=== PATIENT | male | born 1960 | race Hispanic/Latino ===

== ENCOUNTER 2020-12-29 10:07 | Observation (INO) | payer BC, OTHER ==
[~2020-12-29] VITALS: Ht 157.5 cm; Wt 69.6 kg
[2020-12-29 10:43] LABS: BASOPHILS % (AUTO) 0.5 % (0.0-5.0); EOSINOPHILS % (AUTO) 0.5 % (0.0-8.0); HEMATOCRIT 43.2 % (42-54); LYMPHOCYTES % (AUTO) 21.5 % (21.0-51.0); MEAN CORPUSCULAR HEMOGLOBIN 31.3 pg (27.0-33.0); MEAN CORPUSCULAR VOLUME 91.9 fL (79-99); MONOCYTES % (AUTO) 7.2 % (3.0-13.0); NEUTROPHILS % (AUTO) 70.1 % (40.0-77.0); PLATELET COUNT (AUTO) 168 K/uL (130-400); RED CELL DISTRIBUTION WIDTH 12.3 % (11.0-15.5); WHITE BLOOD COUNT (AUTO) 6.1 K/uL (4.8-10.8)
[2020-12-29 10:53] LABS: INR 1.12 (0.85-1.15); PROTHROMBIN TIME 12.1 SEC (9.6-11.6)
[2020-12-29 10:54] LABS: PARTIAL THROMBOPLASTIN TIME 25.4 SEC (26.3-35.5)
[2020-12-29 10:55] LABS: CREATININE 0.9 mg/dL (0.5-1.5); POTASSIUM 4.3 mmol/L (3.5-5.1)
[2020-12-29 11:06] LABS: ALBUMIN 3.6 g/dL (3.5-5.0); BILIRUBIN,TOTAL 0.6 mg/dL (0.2-1.0); TOTAL PROTEIN, SERUM 7.8 g/dL (6.0-8.3); TROPONIN I 0.1 ng/mL (0.00-0.06)
[2020-12-29 11:26] LABS: B-TYPE NATRIURETIC PEPTIDE 732 pg/mL (0-100)
[2020-12-29] MEDS ORDERED: HYDROMORPHONE 1MG AMP (1MG/ML) IVP ONE (11:45)
[2020-12-29] MEDS ORDERED: ONDANSETRON HCL 4 MG/2 ML VIAL IVP ONE (11:45)
[2020-12-29] MEDS ORDERED: FUROSEMIDE 20MG VIAL (10MG/ML) IV SCH ×2 (14:00→14:45)
[2020-12-29] MEDS ORDERED: ACETAMINOPHEN 325 MG TAB PO PRN (15:45)
[2020-12-29] MEDS ORDERED: ACETAMINOPHEN 650 MG SUPPOSITORY RC PRN (15:45)
[2020-12-29 16:25] LABS: APPEARANCE,URINE Clear (CLEAR); BILIRUBIN,URINE Negative (NEGATIVE); COLOR,URINE Yellow (YELLOW); GLUCOSE, URINE (UA) >=1000 mg/dL (NEGATIVE); KETONES,URINE 15 mg/dL (NEGATIVE); LEUKOCYTE ESTERASE ,URINE Negative (NEGATIVE); NITRATE,URINE Negative (NEGATIVE); OCCULT BLOOD,URINE Negative (NEGATIVE); PH,URINE 5.5 (5.0-8.0); PROTEIN,URINE Negative (NEGATIVE); UROBILINOGEN,URINE 0.2 mg/dL (0.2-1.0)
[2020-12-29 16:51] LABS: BACTERIA,URINE None Seen /HPF (None Seen); MUCUS,URINE Rare LPF (None Seen); SQUAMOUS EPITHELIAL CELL,UR 0-2 /HPF (0-2); WBC,URINE 0-1 /HPF (0-1)
[2020-12-29] MEDS: INSULIN HUMULIN R 100 UNIT/ML 3ML SQ SCH ×2 (17:30→21:00)
[2020-12-29 17:41] VITALS: BP 122/83
[2020-12-29 17:47] LABS: CREATINE KINASE, TOTAL 88 U/L (21-232); MYOGLOBIN 28 ng/mL (10-92); TROPONIN I < 0.04 ng/mL (0.00-0.06)
[2020-12-29] MEDS: NITROGLYCERIN 1GM/1 INCH PACKET TD SCH (18:30)
[2020-12-29] MEDS ORDERED: NITROGLYCERIN 0.4 MG SL TAB SL PRN (18:30)
[2020-12-29] MEDS ORDERED: POTASSIUM CHLORIDE 10% ELIXIR 20 MEQ/15 ML UDCUP PO PRN (19:30)
[2020-12-29] MEDS ORDERED: POTASSIUM CHLORIDE 20MEQ/100ML 100 ML IV PRN (19:30)
[2020-12-29] MEDS ORDERED: MAGNESIUM 2GM PREMIX 50ML 50 ML IV PRN (19:30)
[2020-12-29] MEDS ORDERED: ALBUTEROL SULFATE 0.083% 2.5 MG/3 ML INH IH PRN (19:45)
[2020-12-29 20:18] VITALS: BP 108/56
[2020-12-29] MEDS ORDERED: INSULIN HUMULIN R 100 UNIT/ML 3ML SQ SCH (21:00)
[2020-12-29] MEDS: SIMVASTATIN 20 MG TABLET PO SCH (22:05)
[2020-12-29 22:06] LABS: CREATINE KINASE, TOTAL 82 U/L (21-232); MYOGLOBIN 24 ng/mL (10-92); TROPONIN I < 0.04 ng/mL (0.00-0.06)
[2020-12-29 23:38] VITALS: BP 125/62
[2020-12-30] VITALS (9 sets, daily range): BP systolic 93–125; BP diastolic 54–87
[2020-12-30] MEDS ORDERED: FUROSEMIDE 20MG VIAL (10MG/ML) IV SCH
[2020-12-30] MEDS: NITROGLYCERIN 1GM/1 INCH PACKET TD SCH ×3 (02:30→17:42)
[2020-12-30 05:52] LABS: HEMATOCRIT 44.1 % (42-54); MEAN CORPUSCULAR HEMOGLOBIN 31.6 pg (27.0-33.0); MEAN CORPUSCULAR HGB CONC 34.9 g/dL (32.0-36.0); MEAN CORPUSCULAR VOLUME 90.6 fL (79-99); RED BLOOD CELL COUNT(AUTO) 4.87 MIL/uL (4.50-6.20); RED CELL DISTRIBUTION WIDTH 12.3 % (11.0-15.5); WHITE BLOOD COUNT (AUTO) 5.8 K/uL (4.8-10.8)
[2020-12-30 06:11] LABS: CARBON DIOXIDE 28 mmol/L (21-32); CHLORIDE 102 mmol/L (101-111); CREATINE KINASE, TOTAL 68 U/L (21-232); CREATININE 1.1 mg/dL (0.5-1.5); GLOMERULAR FILTR. RATE CALC 72 mL/min (>60); GLUCOSE,RANDOM 231 mg/dL (70-105); MYOGLOBIN 45 ng/mL (10-92); PHOSPHORUS 3.8 mg/dL (2.5-4.9); POTASSIUM 4.4 mmol/L (3.5-5.1); SODIUM SERUM 138 mmol/L (136-145); THYROID STIMULATING HORMONE 1.98 uIU/mL (0.36-3.74); TROPONIN I < 0.04 ng/mL (0.00-0.06); UREA NITROGEN, BLOOD 18 mg/dL (7-18)
[2020-12-30 06:12] LABS: HEMOGLOBIN A1C 11.2 % (4.0-6.0)
[2020-12-30] MEDS: FUROSEMIDE 20MG VIAL (10MG/ML) IV SCH (08:36)
[2020-12-30] MEDS: INSULIN HUMULIN R 100 UNIT/ML 3ML SQ SCH ×4 (08:36→20:46)
[2020-12-30] MEDS: ASPIRIN 81MG TAB.CHEW PO SCH (08:36)
[2020-12-30] MEDS: LISINOPRIL 5 MG TABLET PO SCH (08:36)
[2020-12-30] MEDS: ENOXAPARIN SODIUM 40 MG/0.4 ML SYRINGE SQ SCH (08:37)
[2020-12-30] MEDS: NICOTINE 14 MG/ 24 HR PATCH TD SCH (09:00)
[2020-12-30] MEDS: SIMVASTATIN 20 MG TABLET PO SCH (20:44)
[2020-12-31] MEDS ORDERED: METO-408 PO (02:15)
[2020-12-31] MEDS ORDERED: ATOR10 PO (02:15)
[2020-12-31] MEDS ORDERED: BICT1TAB PO (02:15)
[2020-12-31] MEDS ORDERED: GLIP10TA9 PO (02:15)
[2020-12-31] MEDS ORDERED: GEMF600T89 PO (02:15)
[2020-12-31] MEDS ORDERED: LISI2.5T2 PO (02:15)
[2020-12-31] MEDS ORDERED: METF-446 PO (02:15)
[2020-12-31] MEDS: NITROGLYCERIN 1GM/1 INCH PACKET TD SCH ×2 (02:23→09:05)
[2020-12-31 04:00] VITALS: BP 92/58
[2020-12-31] MEDS: INSULIN HUMULIN R 100 UNIT/ML 3ML SQ SCH ×2 (05:35→10:39)
[2020-12-31 05:36] LABS: HEMATOCRIT 44.7 % (42-54); MEAN CORPUSCULAR HGB CONC 34.5 g/dL (32.0-36.0); MEAN CORPUSCULAR VOLUME 89.9 fL (79-99); RED BLOOD CELL COUNT(AUTO) 4.97 MIL/uL (4.50-6.20); RED CELL DISTRIBUTION WIDTH 12.2 % (11.0-15.5); WHITE BLOOD COUNT (AUTO) 6.2 K/uL (4.8-10.8)
[2020-12-31 05:45] LABS: CREATININE 0.9 mg/dL (0.5-1.5); MAGNESIUM 1.7 mg/dL (1.80-2.40); POTASSIUM 3.2 mmol/L (3.5-5.1)
[2020-12-31] MEDS: ENOXAPARIN SODIUM 40 MG/0.4 ML SYRINGE SQ SCH (07:12)
[2020-12-31] MEDS: ASPIRIN 81MG TAB.CHEW PO SCH (07:12)
[2020-12-31] MEDS: NICOTINE 14 MG/ 24 HR PATCH TD SCH (07:13)
[2020-12-31] MEDS: FUROSEMIDE 20MG VIAL (10MG/ML) IV SCH (07:13)
[2020-12-31] MEDS: KCL 20 MEQ ERTAB PO PRN ×2 (07:14→09:04)
[2020-12-31] MEDS: LISINOPRIL 5 MG TABLET PO SCH (07:15)
[2020-12-31 07:50] VITALS: BP 89/63
[2020-12-31 11:33] VITALS: BP 93/60
[2020-12-31] MEDS ORDERED: FURO20TA4 PO (14:24)
== END 2020-12-31 17:25 | disposition home or self-care (01) ==
LOC: EDH 10:07 → EDHIP 15:45 → 4BH 12-30 06:42 → EDHIP 12-30 07:57 → 4CH 12-30 14:46
PROVIDERS: ADMIT Internal Medicine Pulmonary Disease; ATTEND Internal Medicine Pulmonary Disease
DX: I11.0 Hypertensive heart disease with heart failure (principal); I50.20 Unspecified systolic (congestive) heart failure; R79.89 Other specified abnormal findings of blood chemistry; E11.65 Type 2 diabetes mellitus with hyperglycemia; R09.89 Other specified symptoms and signs involving the circulatory and respiratory systems; R94.31 Abnormal electrocardiogram [ECG] [EKG]; E78.5 Hyperlipidemia, unspecified; R14.0 Abdominal distension (gaseous); R10.9 Unspecified abdominal pain; I25.10 Atherosclerotic heart disease of native coronary artery without angina pectoris; F17.200 Nicotine dependence, unspecified, uncomplicated; Z95.0 Presence of cardiac pacemaker; Z95.1 Presence of aortocoronary bypass graft; Z79.82 Long term (current) use of aspirin; Z79.84 Long term (current) use of oral hypoglycemic drugs; Z79.899 Other long term (current) drug therapy; Z91.19 Patient's noncompliance with other medical treatment and regimen
CPT/HCPCS: 36415 ×3; 71045 ×3; 80048 ×2; 80053; 81001; 82550 ×4; 82948 ×10; 83036; 83735 ×2; 83874 ×4; 83880; 84100; 84443; 84484 ×5; 85025; 85027 ×2; 85378; 85610; 85730; 86359; 86361; 87040 ×2; 93005 ×2; 94664; 96365; 96366; 96372 ×3; 96375; 96376 ×2; 99285; G0378 ×48; J1650 ×2; J1815 ×4; J1940 ×4; J3475

== ENCOUNTER 2021-01-19 17:39 | Observation (INO) | payer BC ==
[~2021-01-19] VITALS: Ht 170.2 cm; Wt 69.5 kg
[~2021-01-19 17:39] MED LIST: ATOR10 PO; BICT1TAB PO; FURO20TA4 PO; GEMF600T89 PO; GLIP10TA9 PO; LISI2.5T2 PO; METF-446 PO; METO-408 PO
[2021-01-19 17:40] VITALS: BP 126/78
[2021-01-19 18:23] LABS: BASOPHILS % (AUTO) 0.4 % (0.0-5.0); EOSINOPHILS % (AUTO) 1.6 % (0.0-8.0); LYMPHOCYTES % (AUTO) 28.4 % (21.0-51.0); MEAN CORPUSCULAR HEMOGLOBIN 31.4 pg (27.0-33.0); MEAN CORPUSCULAR HGB CONC 34.1 g/dL (32.0-36.0); MEAN CORPUSCULAR VOLUME 91.9 fL (79-99); MONOCYTES % (AUTO) 8.1 % (3.0-13.0); NEUTROPHILS % (AUTO) 61.2 % (40.0-77.0); PLATELET COUNT (AUTO) 207 K/uL (130-400); RED BLOOD CELL COUNT(AUTO) 4.46 MIL/uL (4.50-6.20); RED CELL DISTRIBUTION WIDTH 12.4 % (11.0-15.5); WHITE BLOOD COUNT (AUTO) 6.9 K/uL (4.8-10.8)
[2021-01-19 18:43] LABS: ALANINE AMINOTRANSFERASE 118 U/L (12-78); ALBUMIN 3.3 g/dL (3.5-5.0); ASPARTATE AMINOTRANSFERASE 48 U/L (10-37); BILIRUBIN,TOTAL 0.4 mg/dL (0.2-1.0); CARBON DIOXIDE 27 mmol/L (21-32); CHLORIDE 101 mmol/L (101-111); CREATINE KINASE, TOTAL 122 U/L (21-232); GLOMERULAR FILTR. RATE CALC 81 mL/min (>60); MYOGLOBIN 28 ng/mL (10-92); POTASSIUM 4.2 mmol/L (3.5-5.1); SODIUM SERUM 137 mmol/L (136-145); TOTAL PROTEIN, SERUM 7.5 g/dL (6.0-8.3); TROPONIN I < 0.04 ng/mL (0.00-0.06); UREA NITROGEN, BLOOD 22 mg/dL (7-18)
[2021-01-19 18:44] LABS: GLUCOSE,RANDOM 402 mg/dL (70-105)
[2021-01-19 18:46] VITALS: BP 132/75
[2021-01-19 18:52] LABS: B-TYPE NATRIURETIC PEPTIDE 1220 pg/mL (0-100)
[2021-01-19] MEDS ORDERED: FUROSEMIDE 40MG VIAL IV ONE (20:30)
[2021-01-19] MEDS ORDERED: LACTULOSE 20 GM/30 ML UDCUP PO PRN (20:45)
[2021-01-19] MEDS ORDERED: ONDANSETRON 4MG INJ IV PRN (20:45)
[2021-01-19] MEDS ORDERED: ACETAMINOPHEN 325 MG TAB PO PRN (20:45)
[2021-01-19] MEDS ORDERED: HYDRALAZINE 20MG/ML VIAL IV PRN (20:45)
[2021-01-19] MEDS: FUROSEMIDE 40MG VIAL IVP SCH (21:00)
[2021-01-19] MEDS ORDERED: NICOTINE 14 MG/ 24 HR PATCH TD PRN (21:15)
[2021-01-19] MEDS: IPRATROPIUM/ALBUTEROL SULFATE 3 ML SOLUTION IH SCH (22:14)
[2021-01-19] MEDS: INSULIN HUMULIN R 100 UNIT/ML 3ML SQ SCH (22:31)
[2021-01-19] MEDS: INSULIN GLARGINE 100 UNITS/ML 10 ML VIAL SQ SCH (22:31)
[2021-01-19] MEDS: FAMOTIDINE 20MG TAB PO SCH (22:31)
[2021-01-20] MEDS: IPRATROPIUM/ALBUTEROL SULFATE 3 ML SOLUTION IH SCH ×6 (04:11→22:44)
[2021-01-20 05:23] VITALS: BP 111/67
[2021-01-20 06:37] LABS: BASOPHILS % (AUTO) 0.4 % (0.0-5.0); HEMATOCRIT 40.9 % (42-54); MEAN CORPUSCULAR HEMOGLOBIN 30.4 pg (27.0-33.0); MEAN CORPUSCULAR VOLUME 89.5 fL (79-99); MONOCYTES % (AUTO) 7.7 % (3.0-13.0); NEUTROPHILS % (AUTO) 66.6 % (40.0-77.0); PLATELET COUNT (AUTO) 211 K/uL (130-400); RED BLOOD CELL COUNT(AUTO) 4.57 MIL/uL (4.50-6.20); RED CELL DISTRIBUTION WIDTH 12.2 % (11.0-15.5); WHITE BLOOD COUNT (AUTO) 6.7 K/uL (4.8-10.8)
[2021-01-20 06:43] LABS: HEMOGLOBIN A1C 11.4 % (4.0-6.0)
[2021-01-20 06:52] LABS: CREATININE 0.9 mg/dL (0.5-1.5); MAGNESIUM 1.6 mg/dL (1.80-2.40); PHOSPHORUS 4.7 mg/dL (2.5-4.9); POTASSIUM 3.2 mmol/L (3.5-5.1)
[2021-01-20 07:10] VITALS: BP 101/57
[2021-01-20] MEDS: INSULIN HUMULIN R 100 UNIT/ML 3ML SQ SCH ×4 (07:30→23:38)
[2021-01-20] MEDS: FUROSEMIDE 40MG VIAL IVP SCH ×2 (09:00→20:29)
[2021-01-20] MEDS: FAMOTIDINE 20MG TAB PO SCH ×2 (09:00→20:29)
[2021-01-20] MEDS: ENOXAPARIN SODIUM 30 MG/0.3 ML SQ SCH (09:00)
[2021-01-20] MEDS ORDERED: METO-408 PO (09:26)
[2021-01-20] MEDS ORDERED: BICT1TAB PO (09:26)
[2021-01-20] MEDS ORDERED: GLIP10TA9 PO (09:26)
[2021-01-20] MEDS ORDERED: ASPI-1197 PO (09:26)
[2021-01-20] MEDS ORDERED: LISI2.5T2 PO (09:26)
[2021-01-20] MEDS ORDERED: METF-446 PO (09:26)
[2021-01-20] MEDS ORDERED: FURO10SO PO (09:26)
[2021-01-20] MEDS ORDERED: ATOR10 PO (09:26)
[2021-01-20 11:00] VITALS: BP 104/63
[2021-01-20 16:00] VITALS: BP 109/66
[2021-01-20 20:00] VITALS: BP 99/50
[2021-01-20] MEDS: INSULIN GLARGINE 100 UNITS/ML 10 ML VIAL SQ SCH (23:37)
[2021-01-21] VITALS: BP 106/69
[2021-01-21] MEDS ORDERED: LIDOCAINE HCL-MPF 1% 2ML VIAL IV PRN (01:15)
[2021-01-21] MEDS ORDERED: POTASSIUM CHLORIDE 10% ELIXIR 20 MEQ/15 ML UDCUP PO PRN (01:15)
[2021-01-21] MEDS ORDERED: POTASSIUM CHLORIDE 20MEQ/100ML 100 ML IV PRN (01:15)
[2021-01-21] MEDS: IPRATROPIUM/ALBUTEROL SULFATE 3 ML SOLUTION IH SCH ×4 (02:23→14:01)
[2021-01-21 04:00] VITALS: BP 112/62
[2021-01-21 05:05] LABS: BASOPHILS % (AUTO) 0.7 % (0.0-5.0); EOSINOPHILS % (AUTO) 2.3 % (0.0-8.0); HEMATOCRIT 41.7 % (42-54); LYMPHOCYTES % (AUTO) 25.4 % (21.0-51.0); MEAN CORPUSCULAR HEMOGLOBIN 31.3 pg (27.0-33.0); MEAN CORPUSCULAR HGB CONC 34.3 g/dL (32.0-36.0); MEAN CORPUSCULAR VOLUME 91.2 fL (79-99); MONOCYTES % (AUTO) 10.1 % (3.0-13.0); NEUTROPHILS % (AUTO) 61.2 % (40.0-77.0); PLATELET COUNT (AUTO) 213 K/uL (130-400); RED BLOOD CELL COUNT(AUTO) 4.57 MIL/uL (4.50-6.20); RED CELL DISTRIBUTION WIDTH 12.4 % (11.0-15.5); WHITE BLOOD COUNT (AUTO) 7.3 K/uL (4.8-10.8)
[2021-01-21 05:11] LABS: CREATININE 0.9 mg/dL (0.5-1.5); POTASSIUM 3.2 mmol/L (3.5-5.1)
[2021-01-21] MEDS: INSULIN HUMULIN R 100 UNIT/ML 3ML SQ SCH ×2 (05:34→12:18)
[2021-01-21] MEDS: KCL 20 MEQ ERTAB PO PRN ×2 (05:56→08:19)
[2021-01-21] MEDS: FUROSEMIDE 40MG VIAL IVP SCH (08:16)
[2021-01-21] MEDS: FAMOTIDINE 20MG TAB PO SCH (08:16)
[2021-01-21] MEDS: ENOXAPARIN SODIUM 30 MG/0.3 ML SQ SCH (08:16)
[2021-01-21 08:26] VITALS: BP 113/65
[2021-01-21] MEDS ORDERED: FURO20TA6 PO (10:29)
[2021-01-21] MEDS ORDERED: POTA-9 PO (10:29)
[2021-01-21] MEDS ORDERED: POTASSIUM BICARB/CIT AC 25 MEQ TABLET.EFF PO SCH (10:30)
[2021-01-21 11:14] VITALS: BP 95/58
[2021-01-21] MEDS ORDERED: INSULIN HUMULIN R 100 UNIT/ML 3ML SQ ONE (13:52)
== END 2021-01-21 15:00 | disposition home or self-care (01) ==
LOC: EDH 17:39 → EDHIP 20:34 → 3CH 01-20 08:20
PROVIDERS: ADMIT Internal Medicine; ATTEND Internal Medicine
DX: I11.0 Hypertensive heart disease with heart failure (principal); I50.23 Acute on chronic systolic (congestive) heart failure; I25.10 Atherosclerotic heart disease of native coronary artery without angina pectoris; E11.65 Type 2 diabetes mellitus with hyperglycemia; E44.1 Mild protein-calorie malnutrition; E78.00 Pure hypercholesterolemia, unspecified; E78.5 Hyperlipidemia, unspecified; F17.200 Nicotine dependence, unspecified, uncomplicated; N17.9 Acute kidney failure, unspecified; R74.01 Elevation of levels of liver transaminase levels; Z21 Asymptomatic human immunodeficiency virus [HIV] infection status; Z79.4 Long term (current) use of insulin; Z79.82 Long term (current) use of aspirin; Z79.899 Other long term (current) drug therapy; Z90.49 Acquired absence of other specified parts of digestive tract; Z91.19 Patient's noncompliance with other medical treatment and regimen; Z95.1 Presence of aortocoronary bypass graft
CPT/HCPCS: 36415 ×3; 71045; 80048 ×2; 80053; 82550; 82948 ×8; 83036; 83735; 83874; 83880; 84100; 84484; 85025 ×3; 93005; 93306; 93356; 93970; 94640 ×11; 94664; 96372 ×3; 96374; 96376 ×2; 99285; G0378 ×38; J1650; J1815 ×6; J1940 ×3

== ENCOUNTER 2021-06-02 09:18 | Inpatient (IN) | payer BC ==
[~2021-06-02] VITALS: Ht 162.6 cm; Wt 69.4 kg
[~2021-06-02 09:18] MED LIST changes: +ASPI-1197 PO; -FURO20TA4 PO; +FURO20TA6 PO; -GEMF600T89 PO; +LISI2.5T13 PO; -LISI2.5T2 PO; +POTA-10 PO
[2021-06-02 09:51] LABS: BASOPHILS % (AUTO) 0.4 % (0.0-5.0); EOSINOPHILS % (AUTO) 0.3 % (0.0-8.0); HEMATOCRIT 41.7 % (42-54); LYMPHOCYTES % (AUTO) 14.9 % (21.0-51.0); MEAN CORPUSCULAR HGB CONC 34.1 g/dL (32.0-36.0); MONOCYTES % (AUTO) 5.1 % (3.0-13.0); NEUTROPHILS % (AUTO) 79.2 % (40.0-77.0); PLATELET COUNT (AUTO) 178 K/uL (130-400); RED BLOOD CELL COUNT(AUTO) 4.58 MIL/uL (4.50-6.20); RED CELL DISTRIBUTION WIDTH 12.4 % (11.0-15.5); WHITE BLOOD COUNT (AUTO) 6.8 K/uL (4.8-10.8)
[2021-06-02] MEDS ORDERED: NITROGLYCERIN 1GM OINT 1 INCH/1GM TD ONE (10:00)
[2021-06-02] MEDS ORDERED: ASPIRIN 81MG CHEW TAB PO ONE (10:00)
[2021-06-02 10:03] LABS: INR 1.09 (0.85-1.15); PROTHROMBIN TIME 11.8 SEC (9.6-11.6)
[2021-06-02 10:04] LABS: PARTIAL THROMBOPLASTIN TIME 26.1 SEC (26.3-35.5)
[2021-06-02 10:14] LABS: ALBUMIN 3.6 g/dL (3.5-5.0); B-TYPE NATRIURETIC PEPTIDE 1190 pg/mL (0-100); BILIRUBIN,TOTAL 0.6 mg/dL (0.2-1.0); CREATININE 0.9 mg/dL (0.5-1.5); MAGNESIUM 1.6 mg/dL (1.80-2.40); POTASSIUM 4.2 mmol/L (3.5-5.1); TOTAL PROTEIN, SERUM 7.6 g/dL (6.0-8.3)
[2021-06-02] MEDS ORDERED: FUROSEMIDE 40MG VIAL ONE (10:30)
[2021-06-02] MEDS ORDERED: FUROSEMIDE 40MG VIAL IV SCH (10:30)
[2021-06-02] MEDS ORDERED: ZOLPIDEM TARTRATE 5 MG TAB PO PRN (12:00)
[2021-06-02] MEDS ORDERED: ACETAMINOPHEN 325 MG TAB PO PRN ×2 (12:00)
[2021-06-02] MEDS ORDERED: ONDANSETRON 4MG INJ IV PRN (12:00)
[2021-06-02] MEDS ORDERED: GEMF600T89 PO (12:17)
[2021-06-02] MEDS ORDERED: DAPA10TA PO (12:17)
[2021-06-02 12:30] LABS: APPEARANCE,URINE Clear (CLEAR); BILIRUBIN,URINE Negative (NEGATIVE); COLOR,URINE Yellow (YELLOW); GLUCOSE, URINE (UA) >=1000 mg/dL (NEGATIVE); KETONES,URINE 15 mg/dL (NEGATIVE); LEUKOCYTE ESTERASE ,URINE Negative (NEGATIVE); NITRATE,URINE Negative (NEGATIVE); OCCULT BLOOD,URINE Negative (NEGATIVE); PH,URINE 5.5 (5.0-8.0); PROTEIN,URINE Negative (NEGATIVE)
[2021-06-02] MEDS ORDERED: MAGNESIUM 2GM PREMIX 50ML 50 ML IV PRN (12:30)
[2021-06-02 12:46] LABS: BACTERIA,URINE Rare /HPF (None Seen); RBC,URINE None Seen /HPF (0-1); SQUAMOUS EPITHELIAL CELL,UR Rare /HPF (0-2); WBC,URINE 0-1 /HPF (0-1)
[2021-06-02] MEDS: GEMFIBROZIL 600 MG TABLET PO SCH (16:30)
[2021-06-02] MEDS: GLIPIZIDE 5 MG TABLET PO SCH (17:00)
[2021-06-02] MEDS: FAMOTIDINE 20MG TAB PO SCH (20:46)
[2021-06-02] MEDS: FUROSEMIDE 40MG VIAL IVP SCH (20:46)
[2021-06-03 07:16] LABS: BASOPHILS % (AUTO) 0.5 % (0.0-5.0); EOSINOPHILS % (AUTO) 1.6 % (0.0-8.0); HEMATOCRIT 44.2 % (42-54); MEAN CORPUSCULAR HEMOGLOBIN 30.9 pg (27.0-33.0); MEAN CORPUSCULAR HGB CONC 34.4 g/dL (32.0-36.0); MEAN CORPUSCULAR VOLUME 89.8 fL (79-99); MONOCYTES % (AUTO) 9.3 % (3.0-13.0); NEUTROPHILS % (AUTO) 65.3 % (40.0-77.0); PLATELET COUNT (AUTO) 193 K/uL (130-400); RED BLOOD CELL COUNT(AUTO) 4.92 MIL/uL (4.50-6.20); RED CELL DISTRIBUTION WIDTH 12.4 % (11.0-15.5); WHITE BLOOD COUNT (AUTO) 6.1 K/uL (4.8-10.8)
[2021-06-03 07:53] LABS: B-TYPE NATRIURETIC PEPTIDE 937 pg/mL (0-100)
[2021-06-03] MEDS: GEMFIBROZIL 600 MG TABLET PO SCH ×2 (08:28→17:00)
[2021-06-03] MEDS: GLIPIZIDE 5 MG TABLET PO SCH (08:28)
[2021-06-03] MEDS ORDERED: LISINOPRIL 2.5 MG TABLET PO SCH (09:00)
[2021-06-03] MEDS: ASPIRIN 81MG CHEW TAB PO SCH (09:05)
[2021-06-03] MEDS: METOPROLOL SUCCINATE 50 MG TAB.SR.24H PO SCH (09:05)
[2021-06-03] MEDS: FAMOTIDINE 20MG TAB PO SCH ×2 (09:05→21:34)
[2021-06-03] MEDS: ENOXAPARIN SODIUM 30 MG/0.3 ML SQ SCH (09:05)
[2021-06-03] MEDS: FUROSEMIDE 40MG VIAL IVP SCH (09:05)
[2021-06-03 09:12] LABS: ALBUMIN 3.7 g/dL (3.5-5.0); BILIRUBIN,TOTAL 0.8 mg/dL (0.2-1.0); CREATININE 0.8 mg/dL (0.5-1.5); MAGNESIUM 2.2 mg/dL (1.80-2.40); POTASSIUM 3.8 mmol/L (3.5-5.1); TOTAL PROTEIN, SERUM 8.1 g/dL (6.0-8.3)
[2021-06-03] MEDS: Dapagliflozin Propanediol (Farxiga) 10 MG PO SCH (09:42)
[2021-06-03] MEDS: SPIRONOLACTONE 25 MG TAB PO SCH (11:02)
[2021-06-03] MEDS ORDERED: INSULIN HUMULIN R 100 UNIT/ML 3ML SQ SCH (11:30)
[2021-06-03 11:39] VITALS: BP 111/70
[2021-06-03 12:41] LABS: HEMOGLOBIN A1C 9.3 % (4.0-6.0)
[2021-06-03 16:00] VITALS: BP 111/69
[2021-06-03] MEDS: INSULIN HUMULIN R 100 UNIT/ML 3ML SQ SCH ×3 (16:30→21:40)
[2021-06-03] MEDS ORDERED: INSULIN GLARGINE 100 UNITS/ML 10 ML VIAL SQ SCH (17:00)
[2021-06-03] MEDS ORDERED: METFORMIN HCL 500 MG TABLET PO SCH (17:00)
[2021-06-03 20:00] VITALS: BP 104/61
[2021-06-04] VITALS: BP 107/63
[2021-06-04 04:00] VITALS: BP 109/64
[2021-06-04 06:31] LABS: BASOPHILS % (AUTO) 0.8 % (0.0-5.0); EOSINOPHILS % (AUTO) 2.5 % (0.0-8.0); HEMATOCRIT 47.7 % (42-54); LYMPHOCYTES % (AUTO) 30.5 % (21.0-51.0); MEAN CORPUSCULAR HEMOGLOBIN 31.3 pg (27.0-33.0); MEAN CORPUSCULAR HGB CONC 34.2 g/dL (32.0-36.0); MEAN CORPUSCULAR VOLUME 91.7 fL (79-99); MONOCYTES % (AUTO) 9.8 % (3.0-13.0); NEUTROPHILS % (AUTO) 56.2 % (40.0-77.0); PLATELET COUNT (AUTO) 217 K/uL (130-400); RED CELL DISTRIBUTION WIDTH 12.7 % (11.0-15.5); WHITE BLOOD COUNT (AUTO) 6.3 K/uL (4.8-10.8)
[2021-06-04] MEDS: GEMFIBROZIL 600 MG TABLET PO SCH (06:46)
[2021-06-04] MEDS: INSULIN HUMULIN R 100 UNIT/ML 3ML SQ SCH ×4 (06:49→12:13)
[2021-06-04 06:50] LABS: POTASSIUM 3.9 mmol/L (3.5-5.1)
[2021-06-04] MEDS: ENOXAPARIN SODIUM 30 MG/0.3 ML SQ SCH (08:21)
[2021-06-04] MEDS: METOPROLOL SUCCINATE 50 MG TAB.SR.24H PO SCH (08:22)
[2021-06-04] MEDS: SPIRONOLACTONE 25 MG TAB PO SCH (08:22)
[2021-06-04] MEDS: ASPIRIN 81MG CHEW TAB PO SCH (08:23)
[2021-06-04] MEDS: Dapagliflozin Propanediol (Farxiga) 10 MG PO SCH (08:23)
[2021-06-04] MEDS: FAMOTIDINE 20MG TAB PO SCH (08:23)
[2021-06-04 08:50] VITALS: BP 116/74
[2021-06-04] MEDS ORDERED: LISINOPRIL 5 MG TABLET PO SCH (09:00)
[2021-06-04] MEDS ORDERED: SPIR25TA6 PO (10:06)
[2021-06-04 11:39] VITALS: BP 106/66
[2021-06-04] MEDS ORDERED: SEMA7TAB PO (15:28)
== END 2021-06-04 16:49 | disposition home or self-care (01) | DRG 291 ==
LOC: EDH 09:18 → EDHIP 11:39 → 4CH 06-03 10:30
PROVIDERS: ADMIT Hospitalist; ATTEND Hospitalist
DX: I13.0 Hypertensive heart and chronic kidney disease with heart failure and stage 1 through stage 4 chronic kidney disease, or unspecified chronic kidney disease (principal); J96.01 Acute respiratory failure with hypoxia; I50.43 Acute on chronic combined systolic (congestive) and diastolic (congestive) heart failure; E11.22 Type 2 diabetes mellitus with diabetic chronic kidney disease; E11.65 Type 2 diabetes mellitus with hyperglycemia; N18.2 Chronic kidney disease, stage 2 (mild); Z20.822 Contact with and (suspected) exposure to COVID-19; E78.00 Pure hypercholesterolemia, unspecified; F17.200 Nicotine dependence, unspecified, uncomplicated; E78.5 Hyperlipidemia, unspecified; E83.42 Hypomagnesemia; I25.10 Atherosclerotic heart disease of native coronary artery without angina pectoris; E11.42 Type 2 diabetes mellitus with diabetic polyneuropathy; Z21 Asymptomatic human immunodeficiency virus [HIV] infection status; I49.3 Ventricular premature depolarization; Z79.84 Long term (current) use of oral hypoglycemic drugs; Z95.1 Presence of aortocoronary bypass graft; Z95.810 Presence of automatic (implantable) cardiac defibrillator; Z91.19 Patient's noncompliance with other medical treatment and regimen; Z82.49 Family history of ischemic heart disease and other diseases of the circulatory system
CPT/HCPCS: 36415; 71045; 80048; 80053; 81001; 82948; 83036; 83735; 83880; 84484; 85025; 85610; 85730; 87635; 93005; 99291; C9803; G0378; J1650; J1815; J1940; J3475

== ENCOUNTER 2022-03-30 16:09 | Inpatient (IN) | payer BC, OTHER ==
[~2022-03-30] VITALS: Ht 167.6 cm; Wt 66.5 kg
[~2022-03-30 16:09] MED LIST changes: +DAPA10TA PO; -FURO20TA6 PO; +GEMF600T89 PO; -POTA-10 PO; +SEMA7TAB2 PO; +SPIR25TA6 PO
[2022-03-30 16:33] LABS: BASOPHILS % (AUTO) 0.7 % (0.0-5.0); EOSINOPHILS % (AUTO) 1.1 % (0.0-8.0); HEMATOCRIT 39.5 % (42-54); LYMPHOCYTES % (AUTO) 22.8 % (21.0-51.0); MEAN CORPUSCULAR HEMOGLOBIN 31.5 pg (27.0-33.0); MEAN CORPUSCULAR HGB CONC 33.9 g/dL (32.0-36.0); MEAN CORPUSCULAR VOLUME 92.7 fL (79-99); MONOCYTES % (AUTO) 8.8 % (3.0-13.0); NEUTROPHILS % (AUTO) 66.1 % (40.0-77.0); PLATELET COUNT (AUTO) 163 K/uL (130-400); RED BLOOD CELL COUNT(AUTO) 4.26 MIL/uL (4.50-6.20); RED CELL DISTRIBUTION WIDTH 12.7 % (11.0-15.5); WHITE BLOOD COUNT (AUTO) 6.1 K/uL (4.8-10.8)
[2022-03-30 16:42] LABS: ABG BASE EXCESS -0.3 mmol/L (-2.0-3.0); ABG HCO3 22.7 mmol/L (21.0-28.0); ABG OXYGEN SATURATION 95.8 % (95.0-99.0); ABG PCO2 33 mmHg (35-48)
[2022-03-30 16:43] LABS: POTASSIUM 4.2 mmol/L (3.5-5.1)
[2022-03-30 16:50] LABS: ALBUMIN 3.6 g/dL (3.5-5.0); MAGNESIUM 1.6 mg/dL (1.80-2.40); TOTAL PROTEIN, SERUM 7.5 g/dL (6.0-8.3)
[2022-03-30] MEDS ORDERED: FUROSEMIDE 40MG VIAL ONE (17:42)
[2022-03-30] MEDS ORDERED: FUROSEMIDE 40MG VIAL IV ONE (18:00)
[2022-03-30] MEDS ORDERED: IOHEXOL 350 MG/ML 100ML INFUS..BTL IV ONE (18:56)
[2022-03-30] MEDS ORDERED: ACETAMINOPHEN 325 MG TAB PO PRN ×2 (19:30)
[2022-03-30] MEDS ORDERED: ONDANSETRON 4MG INJ IV PRN (19:30)
[2022-03-30] MEDS ORDERED: LACTULOSE 20 GM/30 ML UDCUP PO PRN (19:30)
[2022-03-30] MEDS: ZOSYN 3.375GM +NS 50ML IV SCH (19:37)
[2022-03-30] MEDS: FUROSEMIDE 40MG VIAL IV SCH (20:44)
[2022-03-30] MEDS: FAMOTIDINE 20MG VIAL IV SCH (20:44)
[2022-03-30] MEDS ORDERED: MAGNESIUM 2GM PREMIX 50ML 50 ML IV ONE (21:51)
[2022-03-30] MEDS ORDERED: LIDOCAINE HCL-MPF 1% 2ML VIAL IV PRN (22:00)
[2022-03-30] MEDS ORDERED: POTASSIUM CHLORIDE 20MEQ/100ML 100 ML IV PRN (22:00)
[2022-03-30 23:00] VITALS: BP 120/75
[2022-03-31] MEDS ORDERED: LISI10TA24 PO (00:11)
[2022-03-31] MEDS ORDERED: ATOR10 PO (00:13)
[2022-03-31] MEDS ORDERED: FURO20TA4 PO (00:13)
[2022-03-31] MEDS ORDERED: DAPA10TA PO (00:14)
[2022-03-31] MEDS: ZOSYN 3.375GM +NS 50ML IV SCH ×3 (04:33→22:42)
[2022-03-31 04:39] VITALS: BP 122/78
[2022-03-31] MEDS: INSULIN HUMULIN R 100 UNIT/ML 3ML SQ SCH ×5 (06:00→22:44)
[2022-03-31 07:55] LABS: BASOPHILS % (AUTO) 0.5 % (0.0-5.0); EOSINOPHILS % (AUTO) 1.8 % (0.0-8.0); HEMATOCRIT 42.3 % (42-54); LYMPHOCYTES % (AUTO) 19.7 % (21.0-51.0); MEAN CORPUSCULAR HEMOGLOBIN 31.3 pg (27.0-33.0); MEAN CORPUSCULAR HGB CONC 33.3 g/dL (32.0-36.0); MEAN CORPUSCULAR VOLUME 93.8 fL (79-99); MONOCYTES % (AUTO) 8.8 % (3.0-13.0); NEUTROPHILS % (AUTO) 68.8 % (40.0-77.0); PLATELET COUNT (AUTO) 192 K/uL (130-400); RED BLOOD CELL COUNT(AUTO) 4.51 MIL/uL (4.50-6.20); RED CELL DISTRIBUTION WIDTH 12.9 % (11.0-15.5); WHITE BLOOD COUNT (AUTO) 7.6 K/uL (4.8-10.8)
[2022-03-31 08:06] LABS: ALBUMIN 3.6 g/dL (3.5-5.0); CRP QUANTITATIVE 3.2 mg/L (0.00-9.0); MAGNESIUM 1.8 mg/dL (1.80-2.40); POTASSIUM 3.2 mmol/L (3.5-5.1); TOTAL PROTEIN, SERUM 7.6 g/dL (6.0-8.3)
[2022-03-31 08:49] VITALS: BP 112/73
[2022-03-31 09:03] LABS: ERYTHROCYTE SEDIMENTATION RATE 3 MM/HR (0-20)
[2022-03-31] MEDS ORDERED: DIATR MEGLU/DIATRIZOATE SODIUM 30 ML BOTTLE ONE (09:05)
[2022-03-31] MEDS ORDERED: SPIRONOLACTONE 25 MG TAB PO SCH (10:00)
[2022-03-31] MEDS: FUROSEMIDE 40MG VIAL IV SCH (10:32)
[2022-03-31] MEDS: SPIRONOLACTONE 25 MG TAB PO SCH (10:32)
[2022-03-31] MEDS: FAMOTIDINE 20MG VIAL IV SCH ×2 (10:32→22:41)
[2022-03-31] MEDS: LISINOPRIL 5 MG TABLET PO SCH (11:00)
[2022-03-31 12:21] VITALS: BP 120/77
[2022-03-31] MEDS ORDERED: IOHEXOL 350 MG/ML 100ML INFUS..BTL IV ONE (15:18)
[2022-03-31] MEDS ORDERED: GEMFIBROZIL 600 MG TABLET PO SCH (16:30)
[2022-03-31 16:57] VITALS: BP 112/74
[2022-03-31 20:34] VITALS: BP 115/73
[2022-03-31] MEDS: BIKTARVY PO SCH (21:00)
[2022-03-31] MEDS: ATORVASTATIN 20 MG TABLET PO SCH (22:41)
[2022-03-31] MEDS: METOPROLOL SUCCINATE 25 MG TAB.SR.24H PO SCH (22:41)
[2022-03-31] MEDS: FUROSEMIDE 40 MG TABLET PO SCH (22:42)
[2022-03-31] MEDS ORDERED: KCL 20 MEQ ERTAB PO ONE ×2 (23:29→23:30)
[2022-03-31 23:35] VITALS: BP 114/73
[2022-04-01 04:28] VITALS: BP 126/58
[2022-04-01 05:03] LABS: BASOPHILS % (AUTO) 0.7 % (0.0-5.0); EOSINOPHILS % (AUTO) 2.8 % (0.0-8.0); HEMATOCRIT 46.4 % (42-54); LYMPHOCYTES % (AUTO) 22.4 % (21.0-51.0); MEAN CORPUSCULAR HEMOGLOBIN 30.8 pg (27.0-33.0); MEAN CORPUSCULAR HGB CONC 33.6 g/dL (32.0-36.0); MEAN CORPUSCULAR VOLUME 91.7 fL (79-99); MONOCYTES % (AUTO) 10.7 % (3.0-13.0); NEUTROPHILS % (AUTO) 63.1 % (40.0-77.0); PLATELET COUNT (AUTO) 194 K/uL (130-400); RED BLOOD CELL COUNT(AUTO) 5.06 MIL/uL (4.50-6.20); RED CELL DISTRIBUTION WIDTH 12.3 % (11.0-15.5); WHITE BLOOD COUNT (AUTO) 5.8 K/uL (4.8-10.8)
[2022-04-01 05:22] LABS: ALBUMIN 3.4 g/dL (3.5-5.0); CREATININE 1.1 mg/dL (0.5-1.5); CRP QUANTITATIVE 4.2 mg/L (0.00-9.0); MAGNESIUM 1.6 mg/dL (1.80-2.40); POTASSIUM 3.6 mmol/L (3.5-5.1); TOTAL PROTEIN, SERUM 7.5 g/dL (6.0-8.3)
[2022-04-01] MEDS: INSULIN HUMULIN R 100 UNIT/ML 3ML SQ SCH ×4 (06:30→22:12)
[2022-04-01] MEDS: ZOSYN 3.375GM +NS 50ML IV SCH ×3 (06:31→22:10)
[2022-04-01] MEDS: FUROSEMIDE 40 MG TABLET PO SCH ×2 (06:32→20:04)
[2022-04-01 08:06] VITALS: BP 104/68
[2022-04-01] MEDS ORDERED: MAGNESIUM 2GM PREMIX 50ML 50 ML IV SCH (08:30)
[2022-04-01] MEDS ORDERED: KCL 20 MEQ ERTAB PO ONE (08:30)
[2022-04-01] MEDS: FAMOTIDINE 20MG VIAL IV SCH ×2 (10:20→22:10)
[2022-04-01] MEDS: SPIRONOLACTONE 25 MG TAB PO SCH (10:20)
[2022-04-01] MEDS: LISINOPRIL 5 MG TABLET PO SCH (10:20)
[2022-04-01 11:30] VITALS: BP 104/67
[2022-04-01 16:05] VITALS: BP 90/54
[2022-04-01 20:27] VITALS: BP 90/50
[2022-04-01] MEDS: BIKTARVY PO SCH (21:00)
[2022-04-01] MEDS: METOPROLOL SUCCINATE 25 MG TAB.SR.24H PO SCH (22:10)
[2022-04-01] MEDS: ATORVASTATIN 20 MG TABLET PO SCH (22:10)
[2022-04-01 23:53] VITALS: BP 86/57
[2022-04-02 03:35] VITALS: BP 90/48
[2022-04-02 05:10] LABS: HEMATOCRIT 46.7 % (42-54); MEAN CORPUSCULAR HEMOGLOBIN 31.6 pg (27.0-33.0); MEAN CORPUSCULAR HGB CONC 33.8 g/dL (32.0-36.0); MEAN CORPUSCULAR VOLUME 93.4 fL (79-99); RED CELL DISTRIBUTION WIDTH 12.4 % (11.0-15.5); WHITE BLOOD COUNT (AUTO) 5.2 K/uL (4.8-10.8)
[2022-04-02 05:20] LABS: CREATININE 1.2 mg/dL (0.5-1.5); POTASSIUM 3.7 mmol/L (3.5-5.1)
[2022-04-02] MEDS: ZOSYN 3.375GM +NS 50ML IV SCH (05:32)
[2022-04-02] MEDS: INSULIN HUMULIN R 100 UNIT/ML 3ML SQ SCH (05:57)
[2022-04-02 08:30] VITALS: BP 99/62
[2022-04-02] MEDS: FAMOTIDINE 20MG VIAL IV SCH (08:35)
[2022-04-02] MEDS: SPIRONOLACTONE 25 MG TAB PO SCH (08:35)
[2022-04-02] MEDS: FUROSEMIDE 40 MG TABLET PO SCH (08:35)
[2022-04-02] MEDS: LISINOPRIL 5 MG TABLET PO SCH (08:35)
[2022-04-02] MEDS ORDERED: LISI5TAB21 PO (10:43)
[2022-04-02] MEDS ORDERED: METO25TA3 PO (10:43)
[2022-04-02] MEDS ORDERED: FURO40TA7 PO (10:43)
[2022-04-02] MEDS ORDERED: SPIR25TA6 PO (10:43)
== END 2022-04-02 12:05 | disposition home or self-care (01) | DRG 291 ==
LOC: EDH 16:09 → EDHIP 16:10 → 3AH 23:21
PROVIDERS: ADMIT Hospitalist; ATTEND Hospitalist
DX: I11.0 Hypertensive heart disease with heart failure (principal); I50.23 Acute on chronic systolic (congestive) heart failure; E11.9 Type 2 diabetes mellitus without complications; E78.00 Pure hypercholesterolemia, unspecified; F17.200 Nicotine dependence, unspecified, uncomplicated; I25.10 Atherosclerotic heart disease of native coronary artery without angina pectoris; Z95.1 Presence of aortocoronary bypass graft; Z91.19 Patient's noncompliance with other medical treatment and regimen; Z91.14 Patient's other noncompliance with medication regimen; Z86.74 Personal history of sudden cardiac arrest; Z79.899 Other long term (current) drug therapy
CPT/HCPCS: 36415; 36600; 71045; 71270; 74178; 76705; 78226; 80048; 80053; 82803; 82948; 83735; 83880; 84145; 84484; 85025; 85027; 85378; 85651; 86140; 93005; 93306; 93356; A9537; G0378; J1815; J1940; J2543; J3475; J3490; Q9963; Q9967

== ENCOUNTER 2022-07-03 15:28 | Emergency (ER) | payer OTHER ==
[~2022-07-03] VITALS: Ht 165.1 cm; Wt 72.6 kg
[~2022-07-03 15:28] MED LIST changes: -ASPI-1197 PO; +FURO40TA7 PO; -LISI2.5T13 PO; +LISI5TAB21 PO; -METO-408 PO; +METO25TA3 PO; -SEMA7TAB2 PO
[2022-07-03 16:04] LABS: BASOPHILS % (AUTO) 0.9 % (0.0-5.0); EOSINOPHILS % (AUTO) 0.9 % (0.0-8.0); HEMATOCRIT 44.6 % (42-54); LYMPHOCYTES % (AUTO) 24.5 % (21.0-51.0); MEAN CORPUSCULAR HEMOGLOBIN 30.9 pg (27.0-33.0); MEAN CORPUSCULAR VOLUME 93.7 fL (79-99); MONOCYTES % (AUTO) 8.8 % (3.0-13.0); NEUTROPHILS % (AUTO) 64.7 % (40.0-77.0); PLATELET COUNT (AUTO) 158 K/uL (130-400); RED BLOOD CELL COUNT(AUTO) 4.76 MIL/uL (4.50-6.20); RED CELL DISTRIBUTION WIDTH 14.1 % (11.0-15.5); WHITE BLOOD COUNT (AUTO) 5.6 K/uL (4.8-10.8)
[2022-07-03 16:17] LABS: CREATININE 1.2 mg/dL (0.5-1.5); POTASSIUM 4.2 mmol/L (3.5-5.1)
[2022-07-03 16:21] LABS: TOTAL PROTEIN, SERUM 8.8 g/dL (6.0-8.3)
[2022-07-03 17:57] VITALS: BP 105/71
[2022-07-03] MEDS ORDERED: FAMO-136 PO (18:14)
[2022-07-03] MEDS ORDERED: LACT10SO9 PO (18:14)
[2022-07-03] MEDS ORDERED: LACTULOSE 20 GM/30 ML UDCUP PO ONE (18:30)
[2022-07-03 18:33] LABS: APPEARANCE,URINE CLEAR (CLEAR); BILIRUBIN,URINE NEGATIVE (NEGATIVE); COLOR,URINE COLORLESS (YELLOW); GLUCOSE, URINE (UA) >=1000 mg/dL (NEGATIVE); KETONES,URINE NEGATIVE (NEGATIVE); LEUKOCYTE ESTERASE ,URINE NEGATIVE Leu/uL (NEGATIVE); NITRATE,URINE NEGATIVE (NEGATIVE); OCCULT BLOOD,URINE NEGATIVE (NEGATIVE); PROTEIN,URINE NEGATIVE (NEGATIVE); UROBILINOGEN,URINE 0.2 mg/dL (0.2-1.0)
[2022-07-03 18:37] LABS: RBC,URINE 0-1 /HPF (0-1); SQUAMOUS EPITHELIAL CELL,UR RARE /HPF (0-2); WBC,URINE 0-1 /HPF (0-1)
== END 2022-07-03 18:29 | disposition home or self-care (01) ==
LOC: EDH 15:28
DX: K59.00 Constipation, unspecified (principal); E11.9 Type 2 diabetes mellitus without complications; E86.0 Dehydration; Z20.822 Contact with and (suspected) exposure to COVID-19; E78.00 Pure hypercholesterolemia, unspecified; I10 Essential (primary) hypertension; Z90.89 Acquired absence of other organs; Z98.890 Other specified postprocedural states; Z79.899 Other long term (current) drug therapy; Z79.84 Long term (current) use of oral hypoglycemic drugs
CPT/HCPCS: 99285; 74176; 71045; 87635; 84484; 80053; 83690; 85025; 87804 ×2; 81001; 36415; 93005; C9803

== ENCOUNTER 2022-07-25 01:55 | Emergency (ER) | payer OTHER ==
[~2022-07-25] VITALS: Ht 162.6 cm; Wt 69.9 kg
[~2022-07-25 01:55] MED LIST changes: +FAMO-136 PO; +LACT10SO9 PO
[2022-07-25] MEDS ORDERED: IBUP-1493 PO (03:21)
[2022-07-25] MEDS ORDERED: AMOX1TAB16 PO (03:21)
[2022-07-25] MEDS ORDERED: IBUPROFEN 800 MG TAB PO ONE (03:30)
[2022-07-25] MEDS ORDERED: OXYCODONE HCL 5 MG TAB PO ONE (03:30)
[2022-07-25 04:22] VITALS: BP 139/89
== END 2022-07-25 04:35 | disposition home or self-care (01) ==
LOC: EDH 01:55
DX: K04.7 Periapical abscess without sinus (principal); E11.9 Type 2 diabetes mellitus without complications; E78.00 Pure hypercholesterolemia, unspecified; I10 Essential (primary) hypertension; F17.200 Nicotine dependence, unspecified, uncomplicated; Z79.84 Long term (current) use of oral hypoglycemic drugs; Z79.899 Other long term (current) drug therapy; Z83.3 Family history of diabetes mellitus; Z86.74 Personal history of sudden cardiac arrest; Z90.49 Acquired absence of other specified parts of digestive tract

== ENCOUNTER 2022-08-14 18:58 | Emergency (ER) | payer OTHER ==
[~2022-08-14] VITALS: Ht 157.5 cm; Wt 75.7 kg
[~2022-08-14 18:58] MED LIST changes: +AMOX1TAB16 PO; +IBUP-1493 PO
[2022-08-14 20:31] LABS: BASOPHILS % (AUTO) 0.9 % (0.0-5.0); EOSINOPHILS % (AUTO) 1.7 % (0.0-8.0); HEMATOCRIT 44.3 % (42-54); LYMPHOCYTES % (AUTO) 27.3 % (21.0-51.0); MEAN CORPUSCULAR HEMOGLOBIN 30.8 pg (27.0-33.0); MEAN CORPUSCULAR HGB CONC 33.4 g/dL (32.0-36.0); MEAN CORPUSCULAR VOLUME 92.1 fL (79-99); MONOCYTES % (AUTO) 9.2 % (3.0-13.0); NEUTROPHILS % (AUTO) 60.7 % (40.0-77.0); PLATELET COUNT (AUTO) 153 K/uL (130-400); RED BLOOD CELL COUNT(AUTO) 4.81 MIL/uL (4.50-6.20); RED CELL DISTRIBUTION WIDTH 13.8 % (11.0-15.5); WHITE BLOOD COUNT (AUTO) 5.5 K/uL (4.8-10.8)
[2022-08-14 20:46] LABS: CREATININE 1.1 mg/dL (0.5-1.5); POTASSIUM 4.1 mmol/L (3.5-5.1)
[2022-08-14 20:55] LABS: ALBUMIN 3.9 g/dL (3.5-5.0); TOTAL PROTEIN, SERUM 9.2 g/dL (6.0-8.3)
[2022-08-15] MEDS ORDERED: FUROSEMIDE 40MG VIAL IV ONE
[2022-08-15] MEDS ORDERED: FURO40TA7 PO (01:12)
[2022-08-15] MEDS ORDERED: IBUP-1493 PO (01:24)
[2022-08-15 01:39] VITALS: BP 119/71
== END 2022-08-15 02:12 | disposition home or self-care (01) ==
LOC: EDH 18:58
DX: I11.0 Hypertensive heart disease with heart failure (principal); I50.9 Heart failure, unspecified; M79.671 Pain in right foot; M79.672 Pain in left foot; E11.9 Type 2 diabetes mellitus without complications; E78.00 Pure hypercholesterolemia, unspecified; Z79.84 Long term (current) use of oral hypoglycemic drugs; Z79.899 Other long term (current) drug therapy; Z79.1 Long term (current) use of non-steroidal anti-inflammatories (NSAID)
CPT/HCPCS: 99285; 93970; 71275; 71045; 84484; 84550; 80053; 83880; 85025; 85378; 36415; 73630 ×2; 93005; 96374; J1940

== ENCOUNTER 2022-09-06 13:58 | Inpatient (IN) | payer OTHER ==
[~2022-09-06] VITALS: Ht 172.7 cm; Wt 66.7 kg
[~2022-09-06 13:58] MED LIST changes: -AMOX1TAB16 PO
[2022-09-06 16:29] LABS: MEAN CORPUSCULAR HEMOGLOBIN 30.2 pg (27.0-33.0); MEAN CORPUSCULAR HGB CONC 32.6 g/dL (32.0-36.0); MEAN CORPUSCULAR VOLUME 92.9 fL (79-99); RED BLOOD CELL COUNT(AUTO) 5.06 MIL/uL (4.50-6.20); RED CELL DISTRIBUTION WIDTH 14.6 % (11.0-15.5); WHITE BLOOD COUNT (AUTO) 5.3 K/uL (4.8-10.8)
[2022-09-06 16:36] LABS: CREATININE 1.1 mg/dL (0.5-1.5); POTASSIUM 3.8 mmol/L (3.5-5.1)
[2022-09-06 16:41] LABS: ALBUMIN 3.9 g/dL (3.5-5.0)
[2022-09-06 16:48] LABS: APPEARANCE,URINE CLEAR (CLEAR); BILIRUBIN,URINE NEGATIVE (NEGATIVE); COLOR,URINE COLORLESS (YELLOW); GLUCOSE, URINE (UA) >=1000 mg/dL (NEGATIVE); KETONES,URINE NEGATIVE (NEGATIVE); LEUKOCYTE ESTERASE ,URINE NEGATIVE Leu/uL (NEGATIVE); NITRATE,URINE NEGATIVE (NEGATIVE); OCCULT BLOOD,URINE NEGATIVE (NEGATIVE); PROTEIN,URINE NEGATIVE (NEGATIVE); UROBILINOGEN,URINE 0.2 mg/dL (0.2-1.0)
[2022-09-06 16:50] LABS: SQUAMOUS EPITHELIAL CELL,UR RARE /HPF (0-2); WBC,URINE 0-1 /HPF (0-1)
[2022-09-06] MEDS ORDERED: POTASSIUM CHLORIDE 10% ELIXIR 20 MEQ/15 ML UDCUP PO PRN (19:00)
[2022-09-06] MEDS ORDERED: MORPHINE 2 MG SYG IV PRN (19:00)
[2022-09-06] MEDS ORDERED: MORPHINE 4 MG SYG IV PRN (19:00)
[2022-09-06] MEDS ORDERED: ONDANSETRON 4MG INJ IV PRN (19:00)
[2022-09-06] MEDS ORDERED: ACETAMINOPHEN 325 MG TAB PO PRN ×2 (19:00)
[2022-09-06] MEDS ORDERED: POTASSIUM CHLORIDE 20MEQ/100ML 100 ML IV PRN (19:00)
[2022-09-06] MEDS: FUROSEMIDE 40MG VIAL IVP SCH (20:45)
[2022-09-06] MEDS: INSULIN HUMULIN R 100 UNIT/ML 3ML SQ SCH (20:51)
[2022-09-06 21:30] VITALS: BP 127/105
[2022-09-06] MEDS ORDERED: LISI10TA24 PO (22:16)
[2022-09-06] MEDS ORDERED: ASPI-1197 PO (22:16)
[2022-09-06] MEDS ORDERED: FURO40TA5 PO (22:16)
[2022-09-06] MEDS ORDERED: DAPA10TA PO (22:16)
[2022-09-06] MEDS ORDERED: METO-391 PO (22:16)
[2022-09-06] MEDS ORDERED: LACTULOSE 20 GM/30 ML UDCUP PO PRN (23:00)
[2022-09-06 23:31] VITALS: BP 104/67
[2022-09-07 02:49] LABS: BASOPHILS % (AUTO) 0.8 % (0.0-5.0); EOSINOPHILS % (AUTO) 1.4 % (0.0-8.0); HEMATOCRIT 42.5 % (42-54); LYMPHOCYTES % (AUTO) 22.6 % (21.0-51.0); MEAN CORPUSCULAR HEMOGLOBIN 30.4 pg (27.0-33.0); MEAN CORPUSCULAR HGB CONC 32.9 g/dL (32.0-36.0); MEAN CORPUSCULAR VOLUME 92.2 fL (79-99); MONOCYTES % (AUTO) 8.8 % (3.0-13.0); NEUTROPHILS % (AUTO) 66.1 % (40.0-77.0); PLATELET COUNT (AUTO) 156 K/uL (130-400); RED BLOOD CELL COUNT(AUTO) 4.61 MIL/uL (4.50-6.20); RED CELL DISTRIBUTION WIDTH 14.4 % (11.0-15.5); WHITE BLOOD COUNT (AUTO) 6.5 K/uL (4.8-10.8)
[2022-09-07 03:00] LABS: CREATININE 0.9 mg/dL (0.5-1.5); MAGNESIUM 1.8 mg/dL (1.80-2.40)
[2022-09-07 03:18] LABS: HEMOGLOBIN A1C 11.1 % (4.0-6.0)
[2022-09-07] MEDS: LIDOCAINE HCL-MPF 1% 2ML VIAL IV PRN ×2 (03:22→04:35)
[2022-09-07] MEDS: KCL 20 MEQ ERTAB PO PRN ×5 (03:23→20:49)
[2022-09-07 04:00] VITALS: BP 128/57
[2022-09-07] MEDS: MAGNESIUM 2GM PREMIX 50ML 50 ML IV PRN (05:38)
[2022-09-07] MEDS: INSULIN HUMULIN R 100 UNIT/ML 3ML SQ SCH ×4 (05:48→20:50)
[2022-09-07 08:03] VITALS: BP 89/59
[2022-09-07] MEDS: GEMFIBROZIL 600 MG TABLET PO SCH ×2 (08:33→17:38)
[2022-09-07] MEDS: FUROSEMIDE 40MG VIAL IVP SCH ×3 (08:34→20:56)
[2022-09-07] MEDS: ASPIRIN 81MG CHEW TAB PO SCH (08:34)
[2022-09-07] MEDS: FAMOTIDINE 20MG TAB PO SCH (08:34)
[2022-09-07] MEDS: LISINOPRIL 10 MG TABLET PO SCH (08:36)
[2022-09-07] MEDS: METOPROLOL SUCCINATE 50 MG TAB.SR.24H PO SCH (08:36)
[2022-09-07] MEDS: ENOXAPARIN SODIUM 40 MG/0.4 ML SYRINGE SQ SCH (08:37)
[2022-09-07 12:00] VITALS: BP 98/62
[2022-09-07 14:10] LABS: POTASSIUM 3.5 mmol/L (3.5-5.1)
[2022-09-07 16:11] VITALS: BP 90/57
[2022-09-07 19:21] VITALS: BP 101/70
[2022-09-07] MEDS: ATORVASTATIN 10 MG TABLET PO SCH (20:49)
[2022-09-07] MEDS: [UNRECOGNIZED DRUG - OTHER] PO SCH (20:56)
[2022-09-07 22:56] VITALS: BP 100/70
[2022-09-08 03:33] VITALS: BP 109/71
[2022-09-08 04:36] LABS: BASOPHILS % (AUTO) 0.8 % (0.0-5.0); EOSINOPHILS % (AUTO) 2.2 % (0.0-8.0); HEMATOCRIT 41.2 % (42-54); LYMPHOCYTES % (AUTO) 35.2 % (21.0-51.0); MEAN CORPUSCULAR HEMOGLOBIN 30.5 pg (27.0-33.0); MEAN CORPUSCULAR HGB CONC 32.5 g/dL (32.0-36.0); MEAN CORPUSCULAR VOLUME 93.6 fL (79-99); MONOCYTES % (AUTO) 8.6 % (3.0-13.0); PLATELET COUNT (AUTO) 171 K/uL (130-400); RED CELL DISTRIBUTION WIDTH 14.3 % (11.0-15.5); WHITE BLOOD COUNT (AUTO) 5.9 K/uL (4.8-10.8)
[2022-09-08 05:15] LABS: CREATININE 1.1 mg/dL (0.5-1.5); MAGNESIUM 1.9 mg/dL (1.80-2.40); PHOSPHORUS 4.3 mg/dL (2.5-4.9); POTASSIUM 3.5 mmol/L (3.5-5.1)
[2022-09-08 06:18] LABS: B-TYPE NATRIURETIC PEPTIDE 1660 pg/mL (0-100)
[2022-09-08] MEDS: GEMFIBROZIL 600 MG TABLET PO SCH ×2 (06:41→16:22)
[2022-09-08] MEDS: MAGNESIUM 2GM PREMIX 50ML 50 ML IV PRN ×2 (06:42→14:40)
[2022-09-08] MEDS: KCL 20 MEQ ERTAB PO PRN ×4 (06:42→14:42)
[2022-09-08] MEDS: INSULIN HUMULIN R 100 UNIT/ML 3ML SQ SCH ×4 (06:43→19:26)
[2022-09-08 07:56] VITALS: BP 132/80
[2022-09-08] MEDS: FAMOTIDINE 20MG TAB PO SCH (09:15)
[2022-09-08] MEDS: FUROSEMIDE 40MG VIAL IVP SCH ×2 (09:15→20:47)
[2022-09-08] MEDS: ASPIRIN 81MG CHEW TAB PO SCH (09:15)
[2022-09-08] MEDS: METOPROLOL SUCCINATE 50 MG TAB.SR.24H PO SCH (09:16)
[2022-09-08] MEDS: LISINOPRIL 10 MG TABLET PO SCH (09:16)
[2022-09-08] MEDS: ENOXAPARIN SODIUM 40 MG/0.4 ML SYRINGE SQ SCH (09:18)
[2022-09-08 12:00] VITALS: BP 124/72
[2022-09-08 14:14] LABS: CREATININE 1.1 mg/dL (0.5-1.5); POTASSIUM 3.8 mmol/L (3.5-5.1)
[2022-09-08 14:19] LABS: ALBUMIN 3.2 g/dL (3.5-5.0); MAGNESIUM 1.9 mg/dL (1.80-2.40); TOTAL PROTEIN, SERUM 7.9 g/dL (6.0-8.3)
[2022-09-08 16:00] VITALS: BP 90/54
[2022-09-08 19:06] VITALS: BP 84/54
[2022-09-08] MEDS: [UNRECOGNIZED DRUG - OTHER] PO SCH (20:46)
[2022-09-08] MEDS: ATORVASTATIN 10 MG TABLET PO SCH (20:46)
[2022-09-08] MEDS ORDERED: INSULIN GLARGINE 100 UNITS/ML 10 ML VIAL SQ SCH (21:00)
[2022-09-08 23:28] VITALS: BP 94/63
[2022-09-09 03:23] VITALS: BP 84/61
[2022-09-09 03:52] LABS: BASOPHILS % (AUTO) 0.8 % (0.0-5.0); EOSINOPHILS % (AUTO) 2.8 % (0.0-8.0); HEMATOCRIT 38.3 % (42-54); MEAN CORPUSCULAR HEMOGLOBIN 30.5 pg (27.0-33.0); MEAN CORPUSCULAR HGB CONC 33.4 g/dL (32.0-36.0); MEAN CORPUSCULAR VOLUME 91.4 fL (79-99); MONOCYTES % (AUTO) 9.8 % (3.0-13.0); NEUTROPHILS % (AUTO) 57.4 % (40.0-77.0); PLATELET COUNT (AUTO) 160 K/uL (130-400); RED BLOOD CELL COUNT(AUTO) 4.19 MIL/uL (4.50-6.20); RED CELL DISTRIBUTION WIDTH 14.4 % (11.0-15.5)
[2022-09-09 04:06] LABS: CREATININE 0.9 mg/dL (0.5-1.5); POTASSIUM 4.5 mmol/L (3.5-5.1)
[2022-09-09 05:15] VITALS: BP 92/61
[2022-09-09] MEDS: INSULIN HUMULIN R 100 UNIT/ML 3ML SQ SCH (05:15)
[2022-09-09] MEDS: GEMFIBROZIL 600 MG TABLET PO SCH (06:17)
[2022-09-09 06:40] VITALS: BP 94/66
[2022-09-09] MEDS: ASPIRIN 81MG CHEW TAB PO SCH (08:22)
[2022-09-09] MEDS: METOPROLOL SUCCINATE 50 MG TAB.SR.24H PO SCH (08:22)
[2022-09-09] MEDS: FUROSEMIDE 40MG VIAL IVP SCH (08:22)
[2022-09-09] MEDS: FAMOTIDINE 20MG TAB PO SCH (08:22)
[2022-09-09] MEDS: ENOXAPARIN SODIUM 40 MG/0.4 ML SYRINGE SQ SCH (08:23)
== END 2022-09-09 11:15 | disposition home or self-care (01) | DRG 291 ==
LOC: EDH 13:58 → EDHIP 13:59 → 2DH 21:33
PROVIDERS: ADMIT Internal Medicine; ATTEND Internal Medicine
DX: I11.0 Hypertensive heart disease with heart failure (principal); I50.23 Acute on chronic systolic (congestive) heart failure; E11.9 Type 2 diabetes mellitus without complications; E78.00 Pure hypercholesterolemia, unspecified; I25.10 Atherosclerotic heart disease of native coronary artery without angina pectoris; Z79.899 Other long term (current) drug therapy; Z82.49 Family history of ischemic heart disease and other diseases of the circulatory system; Z83.3 Family history of diabetes mellitus; Z86.74 Personal history of sudden cardiac arrest; Z87.891 Personal history of nicotine dependence; Z95.1 Presence of aortocoronary bypass graft
CPT/HCPCS: 36415; 71045; 80048; 80053; 81001; 82948; 83036; 83735; 83880; 84100; 84132; 84145; 85025; 85027; 93005; G0378; J1650; J1815; J1940; J3475; J3480; J3490

== ENCOUNTER 2022-10-03 20:23 | Inpatient (IN) | payer OTHER ==
[~2022-10-03] VITALS: Ht 165.1 cm; Wt 63.3 kg
[~2022-10-03 20:23] MED LIST changes: +ASPI-1197 PO; -FAMO-136 PO; +FURO40TA5 PO; -FURO40TA7 PO; -IBUP-1493 PO; -LACT10SO9 PO; +LISI10TA24 PO; -LISI5TAB21 PO; +METO-391 PO; -METO25TA3 PO; -SPIR25TA6 PO
[2022-10-03] MEDS ORDERED: FUROSEMIDE 40MG VIAL IV ONE (20:30)
[2022-10-03 20:46] LABS: BASOPHILS % (AUTO) 0.5 % (0.0-5.0); EOSINOPHILS % (AUTO) 1.4 % (0.0-8.0); HEMATOCRIT 46.8 % (42-54); LYMPHOCYTES % (AUTO) 31.4 % (21.0-51.0); MEAN CORPUSCULAR HEMOGLOBIN 30.4 pg (27.0-33.0); MEAN CORPUSCULAR HGB CONC 32.7 g/dL (32.0-36.0); MEAN CORPUSCULAR VOLUME 92.9 fL (79-99); MONOCYTES % (AUTO) 8.4 % (3.0-13.0); NEUTROPHILS % (AUTO) 58.1 % (40.0-77.0); PLATELET COUNT (AUTO) 162 K/uL (130-400); RED BLOOD CELL COUNT(AUTO) 5.04 MIL/uL (4.50-6.20); RED CELL DISTRIBUTION WIDTH 15.6 % (11.0-15.5); WHITE BLOOD COUNT (AUTO) 5.8 K/uL (4.8-10.8)
[2022-10-03 21:00] LABS: CREATININE 1.5 mg/dL (0.5-1.5); POTASSIUM 4.9 mmol/L (3.5-5.1)
[2022-10-03 21:08] LABS: ALBUMIN 4.1 g/dL (3.5-5.0); TOTAL PROTEIN, SERUM 9.3 g/dL (6.0-8.3)
[2022-10-03] MEDS ORDERED: POTASSIUM CHLORIDE 10% ELIXIR 20 MEQ/15 ML UDCUP PO PRN (23:00)
[2022-10-03] MEDS ORDERED: ASPIRIN 81MG CHEW TAB PO ONE (23:00)
[2022-10-03] MEDS ORDERED: MORPHINE 2 MG SYG IV PRN (23:00)
[2022-10-03] MEDS ORDERED: POTASSIUM CHLORIDE 20MEQ/100ML 100 ML IV PRN (23:00)
[2022-10-03] MEDS ORDERED: MAGNESIUM 2GM PREMIX 50ML 50 ML IV PRN (23:00)
[2022-10-03] MEDS ORDERED: ACETAMINOPHEN 325 MG TAB PO PRN ×2 (23:00)
[2022-10-03] MEDS ORDERED: LIDOCAINE HCL-MPF 1% 2ML VIAL IV PRN (23:00)
[2022-10-03] MEDS ORDERED: MORPHINE 4 MG SYG IV PRN (23:00)
[2022-10-03] MEDS ORDERED: ONDANSETRON 4MG INJ IV PRN (23:00)
[2022-10-04 00:32] LABS: APPEARANCE,URINE CLEAR (CLEAR); BILIRUBIN,URINE NEGATIVE (NEGATIVE); COLOR,URINE COLORLESS (YELLOW); GLUCOSE, URINE (UA) >=1000 mg/dL (NEGATIVE); KETONES,URINE NEGATIVE (NEGATIVE); LEUKOCYTE ESTERASE ,URINE NEGATIVE Leu/uL (NEGATIVE); NITRATE,URINE NEGATIVE (NEGATIVE); OCCULT BLOOD,URINE NEGATIVE (NEGATIVE); PROTEIN,URINE NEGATIVE (NEGATIVE); UROBILINOGEN,URINE 0.2 mg/dL (0.2-1.0)
[2022-10-04 02:06] VITALS: BP 113/70
[2022-10-04 03:41] LABS: BASOPHILS % (AUTO) 0.7 % (0.0-5.0); EOSINOPHILS % (AUTO) 2.1 % (0.0-8.0); HEMATOCRIT 39.2 % (42-54); LYMPHOCYTES % (AUTO) 25.9 % (21.0-51.0); MEAN CORPUSCULAR HEMOGLOBIN 30.1 pg (27.0-33.0); MEAN CORPUSCULAR HGB CONC 32.7 g/dL (32.0-36.0); MEAN CORPUSCULAR VOLUME 92.2 fL (79-99); MONOCYTES % (AUTO) 10.9 % (3.0-13.0); PLATELET COUNT (AUTO) 147 K/uL (130-400); RED BLOOD CELL COUNT(AUTO) 4.25 MIL/uL (4.50-6.20); RED CELL DISTRIBUTION WIDTH 15.4 % (11.0-15.5); WHITE BLOOD COUNT (AUTO) 5.7 K/uL (4.8-10.8)
[2022-10-04 04:05] LABS: HEMOGLOBIN A1C 10.6 % (4.0-6.0)
[2022-10-04 04:12] LABS: CREATININE 1.1 mg/dL (0.5-1.5); MAGNESIUM 1.8 mg/dL (1.80-2.40); PHOSPHORUS 4.5 mg/dL (2.5-4.9); POTASSIUM 3.4 mmol/L (3.5-5.1)
[2022-10-04 04:47] VITALS: BP 117/78
[2022-10-04] MEDS: KCL 20 MEQ ERTAB PO PRN ×2 (05:11→11:49)
[2022-10-04] MEDS: INSULIN HUMULIN R 100 UNIT/ML 3ML SQ SCH ×4 (06:00→22:52)
[2022-10-04] MEDS: GEMFIBROZIL 600 MG TABLET PO SCH ×2 (06:27→17:05)
[2022-10-04 07:00] VITALS: BP 111/74
[2022-10-04] MEDS: ENOXAPARIN SODIUM 40 MG/0.4 ML SYRINGE SQ SCH (08:40)
[2022-10-04] MEDS: FUROSEMIDE 40MG VIAL IVP SCH ×2 (08:40→20:21)
[2022-10-04] MEDS: FAMOTIDINE 20MG TAB PO SCH (08:41)
[2022-10-04] MEDS: LISINOPRIL 10 MG TABLET PO SCH (08:41)
[2022-10-04] MEDS: METOPROLOL SUCCINATE 50 MG TAB.SR.24H PO SCH (08:41)
[2022-10-04] MEDS: ASPIRIN 81MG CHEW TAB PO SCH (08:41)
[2022-10-04] MEDS: ***HM***(Dapagliflozin Propanediol (Farxiga) 10 MG) PO SCH (09:00)
[2022-10-04] MEDS ORDERED: ASPIRIN 81MG CHEW TAB PO SCH (09:00)
[2022-10-04] MEDS ORDERED: LISINOPRIL 5 MG TABLET PO ONE (09:00)
[2022-10-04] MEDS ORDERED: CARVEDILOL 3.125 MG TABLET PO SCH (09:00)
[2022-10-04 11:00] VITALS: BP 103/71
[2022-10-04 15:00] VITALS: BP 96/58
[2022-10-04 19:09] VITALS: BP 92/63
[2022-10-04] MEDS: ATORVASTATIN 10 MG TABLET PO SCH (20:21)
[2022-10-04] MEDS: [UNRECOGNIZED DRUG - OTHER] PO SCH (20:25)
[2022-10-05 00:15] VITALS: BP 93/63
[2022-10-05 03:15] VITALS: BP 92/67
[2022-10-05 03:31] LABS: BASOPHILS % (AUTO) 1.1 % (0.0-5.0); EOSINOPHILS % (AUTO) 2.6 % (0.0-8.0); HEMATOCRIT 39.8 % (42-54); LYMPHOCYTES % (AUTO) 30.4 % (21.0-51.0); MEAN CORPUSCULAR HEMOGLOBIN 29.9 pg (27.0-33.0); MEAN CORPUSCULAR HGB CONC 32.7 g/dL (32.0-36.0); MEAN CORPUSCULAR VOLUME 91.5 fL (79-99); MONOCYTES % (AUTO) 8.8 % (3.0-13.0); NEUTROPHILS % (AUTO) 56.9 % (40.0-77.0); PLATELET COUNT (AUTO) 164 K/uL (130-400); RED BLOOD CELL COUNT(AUTO) 4.35 MIL/uL (4.50-6.20); WHITE BLOOD COUNT (AUTO) 4.6 K/uL (4.8-10.8)
[2022-10-05 03:48] LABS: ALBUMIN 3.3 g/dL (3.5-5.0); POTASSIUM 3.1 mmol/L (3.5-5.1); TOTAL PROTEIN, SERUM 7.8 g/dL (6.0-8.3)
[2022-10-05 04:26] LABS: B-TYPE NATRIURETIC PEPTIDE 1920 pg/mL (0-100)
[2022-10-05] MEDS: GEMFIBROZIL 600 MG TABLET PO SCH ×2 (05:37→16:34)
[2022-10-05] MEDS: KCL 20 MEQ ERTAB PO PRN ×3 (05:38→22:01)
[2022-10-05] MEDS: INSULIN HUMULIN R 100 UNIT/ML 3ML SQ SCH ×4 (05:55→21:37)
[2022-10-05 08:13] VITALS: BP 96/60
[2022-10-05] MEDS: ***HM***(Dapagliflozin Propanediol (Farxiga) 10 MG) PO SCH (09:00)
[2022-10-05] MEDS: ENOXAPARIN SODIUM 40 MG/0.4 ML SYRINGE SQ SCH (09:46)
[2022-10-05] MEDS: FAMOTIDINE 20MG TAB PO SCH (09:47)
[2022-10-05] MEDS: FUROSEMIDE 40MG VIAL IVP SCH ×2 (09:47→21:37)
[2022-10-05] MEDS: ASPIRIN 81MG CHEW TAB PO SCH (09:47)
[2022-10-05] MEDS: METOPROLOL SUCCINATE 50 MG TAB.SR.24H PO SCH (09:47)
[2022-10-05] MEDS: LISINOPRIL 10 MG TABLET PO SCH (09:48)
[2022-10-05 12:00] VITALS: BP 99/69
[2022-10-05 15:59] VITALS: BP 99/59
[2022-10-05 19:15] VITALS: BP 92/57
[2022-10-05] MEDS: ATORVASTATIN 10 MG TABLET PO SCH (21:37)
[2022-10-05] MEDS: [UNRECOGNIZED DRUG - OTHER] PO SCH (21:49)
[2022-10-06] VITALS (8 sets, daily range): BP systolic 74–94; BP diastolic 50–65
[2022-10-06 04:57] LABS: BASOPHILS % (AUTO) 0.8 % (0.0-5.0); EOSINOPHILS % (AUTO) 2.8 % (0.0-8.0); HEMATOCRIT 42.9 % (42-54); LYMPHOCYTES % (AUTO) 27.1 % (21.0-51.0); MEAN CORPUSCULAR HGB CONC 32.6 g/dL (32.0-36.0); MEAN CORPUSCULAR VOLUME 91.9 fL (79-99); MONOCYTES % (AUTO) 10.6 % (3.0-13.0); NEUTROPHILS % (AUTO) 58.5 % (40.0-77.0); PLATELET COUNT (AUTO) 166 K/uL (130-400); RED BLOOD CELL COUNT(AUTO) 4.67 MIL/uL (4.50-6.20); RED CELL DISTRIBUTION WIDTH 15.1 % (11.0-15.5); WHITE BLOOD COUNT (AUTO) 5.3 K/uL (4.8-10.8)
[2022-10-06 05:18] LABS: ALBUMIN 3.2 g/dL (3.5-5.0); CREATININE 1.1 mg/dL (0.5-1.5); MAGNESIUM 2.2 mg/dL (1.80-2.40); POTASSIUM 3.7 mmol/L (3.5-5.1); TOTAL PROTEIN, SERUM 7.9 g/dL (6.0-8.3)
[2022-10-06 05:40] LABS: B-TYPE NATRIURETIC PEPTIDE 1040 pg/mL (0-100)
[2022-10-06] MEDS: INSULIN HUMULIN R 100 UNIT/ML 3ML SQ SCH ×4 (05:45→20:25)
[2022-10-06] MEDS: GEMFIBROZIL 600 MG TABLET PO SCH ×2 (06:33→16:15)
[2022-10-06] MEDS: KCL 20 MEQ ERTAB PO PRN ×2 (06:34→06:35)
[2022-10-06] MEDS: ASPIRIN 81MG CHEW TAB PO SCH (09:37)
[2022-10-06] MEDS: METOPROLOL SUCCINATE 50 MG TAB.SR.24H PO SCH (09:38)
[2022-10-06] MEDS: FUROSEMIDE 40MG VIAL IVP SCH ×2 (09:38→17:04)
[2022-10-06] MEDS: LISINOPRIL 10 MG TABLET PO SCH (09:38)
[2022-10-06] MEDS: FAMOTIDINE 20MG TAB PO SCH (09:38)
[2022-10-06] MEDS: ENOXAPARIN SODIUM 40 MG/0.4 ML SYRINGE SQ SCH (09:38)
[2022-10-06] MEDS: ***HM***(Dapagliflozin Propanediol (Farxiga) 10 MG) PO SCH (09:39)
[2022-10-06] MEDS: ATORVASTATIN 10 MG TABLET PO SCH (20:25)
[2022-10-06] MEDS: [UNRECOGNIZED DRUG - OTHER] PO SCH (20:31)
[2022-10-07] VITALS: BP 83/50
[2022-10-07 02:42] LABS: BASOPHILS % (AUTO) 1.2 % (0.0-5.0); EOSINOPHILS % (AUTO) 2.5 % (0.0-8.0); HEMATOCRIT 40.1 % (42-54); LYMPHOCYTES % (AUTO) 35.7 % (21.0-51.0); MEAN CORPUSCULAR HEMOGLOBIN 30.4 pg (27.0-33.0); MEAN CORPUSCULAR HGB CONC 33.2 g/dL (32.0-36.0); MEAN CORPUSCULAR VOLUME 91.6 fL (79-99); MONOCYTES % (AUTO) 11.9 % (3.0-13.0); NEUTROPHILS % (AUTO) 48.5 % (40.0-77.0); PLATELET COUNT (AUTO) 156 K/uL (130-400); RED BLOOD CELL COUNT(AUTO) 4.38 MIL/uL (4.50-6.20); RED CELL DISTRIBUTION WIDTH 14.9 % (11.0-15.5); WHITE BLOOD COUNT (AUTO) 4.9 K/uL (4.8-10.8)
[2022-10-07 02:59] LABS: B-TYPE NATRIURETIC PEPTIDE 1200 pg/mL (0-100)
[2022-10-07 03:02] LABS: ALBUMIN 3.2 g/dL (3.5-5.0); CREATININE 1.1 mg/dL (0.5-1.5); MAGNESIUM 2.1 mg/dL (1.80-2.40); POTASSIUM 3.3 mmol/L (3.5-5.1); TOTAL PROTEIN, SERUM 7.7 g/dL (6.0-8.3)
[2022-10-07 03:30] VITALS: BP 92/49
[2022-10-07] MEDS: INSULIN HUMULIN R 100 UNIT/ML 3ML SQ SCH ×3 (03:44→17:23)
[2022-10-07] MEDS: GEMFIBROZIL 600 MG TABLET PO SCH ×2 (06:24→17:21)
[2022-10-07] MEDS: KCL 20 MEQ ERTAB PO PRN ×3 (06:24→08:27)
[2022-10-07 07:40] VITALS: BP 103/73
[2022-10-07] MEDS: ASPIRIN 81MG CHEW TAB PO SCH (08:20)
[2022-10-07] MEDS: ENOXAPARIN SODIUM 40 MG/0.4 ML SYRINGE SQ SCH (08:20)
[2022-10-07] MEDS: METOPROLOL SUCCINATE 50 MG TAB.SR.24H PO SCH (08:20)
[2022-10-07] MEDS: FAMOTIDINE 20MG TAB PO SCH (08:20)
[2022-10-07] MEDS: ***HM***(Dapagliflozin Propanediol (Farxiga) 10 MG) PO SCH (08:22)
[2022-10-07] MEDS: LISINOPRIL 10 MG TABLET PO SCH (08:29)
[2022-10-07] MEDS ORDERED: LISINOPRIL 10 MG TABLET PO SCH (09:00)
[2022-10-07] MEDS ORDERED: FUROSEMIDE 40MG VIAL IVP SCH (09:00)
[2022-10-07 11:52] VITALS: BP 99/67
[2022-10-07] MEDS ORDERED: SPIRONOLACTONE 25 MG TAB ONE (13:50)
[2022-10-07] MEDS ORDERED: SPIRONOLACTONE 25 MG TAB PO SCH (14:00)
[2022-10-07] MEDS ORDERED: SPIR25TA6 PO (14:43)
[2022-10-07] MEDS ORDERED: LISI10TA24 PO (14:43)
[2022-10-07 16:08] VITALS: BP 93/68
[2022-10-07 17:21] VITALS: BP 99/54
[2022-10-08] MEDS ORDERED: SPIRONOLACTONE 25 MG TAB PO SCH (09:00)
== END 2022-10-07 17:45 | disposition home or self-care (01) | DRG 291 ==
LOC: EDH 20:23 → EDHIP 20:24 → 2DH 10-04 01:49
PROVIDERS: ADMIT Internal Medicine; ATTEND Internal Medicine
DX: I11.0 Hypertensive heart disease with heart failure (principal); I50.23 Acute on chronic systolic (congestive) heart failure; J96.01 Acute respiratory failure with hypoxia; I25.10 Atherosclerotic heart disease of native coronary artery without angina pectoris; E11.65 Type 2 diabetes mellitus with hyperglycemia; E78.00 Pure hypercholesterolemia, unspecified; E87.6 Hypokalemia; I25.5 Ischemic cardiomyopathy; I42.0 Dilated cardiomyopathy; Z79.899 Other long term (current) drug therapy; Z82.49 Family history of ischemic heart disease and other diseases of the circulatory system; Z83.3 Family history of diabetes mellitus; Z86.74 Personal history of sudden cardiac arrest; Z87.891 Personal history of nicotine dependence; Z90.49 Acquired absence of other specified parts of digestive tract; Z95.1 Presence of aortocoronary bypass graft
CPT/HCPCS: 36415; 71045; 80048; 80053; 81001; 82948; 83036; 83735; 83880; 84100; 84484; 85025; 93005; 93306; 93356; 94760; G0378; J1650; J1815; J1940; J3475

== ENCOUNTER 2022-11-22 17:32 | Emergency (ER) | payer MEDICAID, OTHER ==
[~2022-11-22] VITALS: Ht 170.2 cm; Wt 64.0 kg
[~2022-11-22 17:32] MED LIST changes: +SPIR25TA6 PO
[2022-11-22 17:39] VITALS: BP 110/76
[2022-11-22 18:02] LABS: MEAN CORPUSCULAR VOLUME 91.1 fL (79-99); RED BLOOD CELL COUNT(AUTO) 4.83 MIL/uL (4.50-6.20); RED CELL DISTRIBUTION WIDTH 15.8 % (11.0-15.5); WHITE BLOOD COUNT (AUTO) 7.4 K/uL (4.8-10.8)
[2022-11-22 18:24] LABS: ALBUMIN 4.3 g/dL (3.5-5.0); CREATININE 1.2 mg/dL (0.5-1.5); TOTAL PROTEIN, SERUM 9.5 g/dL (6.0-8.3)
[2022-11-22 19:47] LABS: APPEARANCE,URINE CLEAR (CLEAR); BILIRUBIN,URINE NEGATIVE (NEGATIVE); COLOR,URINE LIGHT-YELLOW (YELLOW); GLUCOSE, URINE (UA) >=1000 mg/dL (NEGATIVE); KETONES,URINE 10 mg/dL (NEGATIVE); LEUKOCYTE ESTERASE ,URINE NEGATIVE Leu/uL (NEGATIVE); NITRATE,URINE NEGATIVE (NEGATIVE); OCCULT BLOOD,URINE NEGATIVE (NEGATIVE); PH,URINE 6.5 (5.0-8.0); PROTEIN,URINE NEGATIVE (NEGATIVE); UROBILINOGEN,URINE 0.2 mg/dL (0.2-1.0)
[2022-11-22 19:49] LABS: RBC,URINE 0-1 /HPF (0-1); WBC,URINE 0-1 /HPF (0-1)
[2022-11-22] MEDS ORDERED: ONDA-104 PO (22:40)
[2022-11-22] MEDS ORDERED: DIPH1TAB PO (22:40)
[2022-11-22] MEDS ORDERED: OMEP40CA21 PO (22:42)
== END 2022-11-22 22:59 | disposition home or self-care (01) ==
LOC: EDH 17:32
DX: R11.2 Nausea with vomiting, unspecified (principal); R10.10 Upper abdominal pain, unspecified; I11.0 Hypertensive heart disease with heart failure; I50.9 Heart failure, unspecified; E11.9 Type 2 diabetes mellitus without complications; E78.00 Pure hypercholesterolemia, unspecified; F17.200 Nicotine dependence, unspecified, uncomplicated; Z79.82 Long term (current) use of aspirin; Z79.84 Long term (current) use of oral hypoglycemic drugs; Z79.899 Other long term (current) drug therapy; Z82.49 Family history of ischemic heart disease and other diseases of the circulatory system; Z83.3 Family history of diabetes mellitus; Z90.49 Acquired absence of other specified parts of digestive tract; Z95.1 Presence of aortocoronary bypass graft; Z95.810 Presence of automatic (implantable) cardiac defibrillator; Z98.890 Other specified postprocedural states
CPT/HCPCS: 36415; 80053; 81001; 82270; 85027

== ENCOUNTER 2022-11-28 17:40 | Emergency (ER) | payer OTHER ==
[~2022-11-28] VITALS: Ht 175.3 cm; Wt 68.9 kg
[~2022-11-28 17:40] MED LIST changes: +DIPH1TAB PO; +OMEP40CA21 PO; +ONDA-104 PO
[2022-11-28 18:12] LABS: BASOPHILS % (AUTO) 0.5 % (0.0-5.0); EOSINOPHILS % (AUTO) 0.1 % (0.0-8.0); HEMATOCRIT 41.8 % (42-54); LYMPHOCYTES % (AUTO) 13.7 % (21.0-51.0); MEAN CORPUSCULAR HEMOGLOBIN 30.7 pg (27.0-33.0); MEAN CORPUSCULAR HGB CONC 34.2 g/dL (32.0-36.0); MEAN CORPUSCULAR VOLUME 89.7 fL (79-99); MONOCYTES % (AUTO) 9.1 % (3.0-13.0); NEUTROPHILS % (AUTO) 76.2 % (40.0-77.0); PLATELET COUNT (AUTO) 158 K/uL (130-400); RED BLOOD CELL COUNT(AUTO) 4.66 MIL/uL (4.50-6.20); WHITE BLOOD COUNT (AUTO) 7.3 K/uL (4.8-10.8)
[2022-11-28 18:29] LABS: ALBUMIN 4.1 g/dL (3.5-5.0); POTASSIUM 4.6 mmol/L (3.5-5.1); TOTAL PROTEIN, SERUM 8.8 g/dL (6.0-8.3)
[2022-11-28 19:07] LABS: APPEARANCE,URINE CLEAR (CLEAR); BILIRUBIN,URINE NEGATIVE (NEGATIVE); COLOR,URINE LIGHT-YELLOW (YELLOW); GLUCOSE, URINE (UA) >=1000 mg/dL (NEGATIVE); KETONES,URINE 10 mg/dL (NEGATIVE); LEUKOCYTE ESTERASE ,URINE NEGATIVE Leu/uL (NEGATIVE); NITRATE,URINE NEGATIVE (NEGATIVE); OCCULT BLOOD,URINE NEGATIVE (NEGATIVE); PH,URINE 5.5 (5.0-8.0); PROTEIN,URINE NEGATIVE (NEGATIVE); UROBILINOGEN,URINE 0.2 mg/dL (0.2-1.0)
[2022-11-28 19:11] LABS: WBC,URINE 0-1 /HPF (0-1)
[2022-11-28] MEDS ORDERED: FUROSEMIDE 40MG VIAL IV ONE (20:00)
[2022-11-28] MEDS ORDERED: INSULIN HUMULIN R 100 UNIT/ML 3ML IV ONE (20:00)
[2022-11-28 21:58] VITALS: BP 121/75
== END 2022-11-28 22:38 | disposition home or self-care (01) ==
LOC: EDH 17:40
DX: I11.0 Hypertensive heart disease with heart failure (principal); I50.9 Heart failure, unspecified; J90 Pleural effusion, not elsewhere classified; E11.9 Type 2 diabetes mellitus without complications; E78.00 Pure hypercholesterolemia, unspecified; F17.200 Nicotine dependence, unspecified, uncomplicated; Z79.82 Long term (current) use of aspirin; Z79.84 Long term (current) use of oral hypoglycemic drugs; Z79.899 Other long term (current) drug therapy; Z86.74 Personal history of sudden cardiac arrest; Z90.49 Acquired absence of other specified parts of digestive tract; Z95.1 Presence of aortocoronary bypass graft; Z98.890 Other specified postprocedural states
CPT/HCPCS: 99285; 96374; 71045; 96375; 84484; 80053; 83880; 85025; 82948; 81001; 36415; 93005; J1815; J1940

== ENCOUNTER 2023-01-15 15:37 | Inpatient (IN) | payer OTHER ==
[~2023-01-15] VITALS: Ht 172.7 cm; Wt 63.3 kg
[2023-01-15] MEDS ORDERED: ASPIRIN 325MG TAB PO ONE (16:30)
[2023-01-15] MEDS ORDERED: ALBUTEROL 0.083% 2.5 MG/3 ML INH IH ONE (16:30)
[2023-01-15 16:35] LABS: BASOPHILS % (AUTO) 0.6 % (0.0-5.0); EOSINOPHILS % (AUTO) 0.6 % (0.0-8.0); HEMATOCRIT 43.2 % (42-54); LYMPHOCYTES % (AUTO) 17.4 % (21.0-51.0); MEAN CORPUSCULAR HGB CONC 33.1 g/dL (32.0-36.0); MEAN CORPUSCULAR VOLUME 93.7 fL (79-99); MONOCYTES % (AUTO) 8.3 % (3.0-13.0); NEUTROPHILS % (AUTO) 72.8 % (40.0-77.0); PLATELET COUNT (AUTO) 149 K/uL (130-400); RED BLOOD CELL COUNT(AUTO) 4.61 MIL/uL (4.50-6.20); WHITE BLOOD COUNT (AUTO) 7.1 K/uL (4.8-10.8)
[2023-01-15 17:06] LABS: ALBUMIN 3.7 g/dL (3.5-5.0); CREATININE 1.1 mg/dL (0.5-1.5); MAGNESIUM 1.3 mg/dL (1.80-2.40); POTASSIUM 4.7 mmol/L (3.5-5.1); TOTAL PROTEIN, SERUM 8.9 g/dL (6.0-8.3)
[2023-01-15 17:07] LABS: THYROID STIMULATING HORMONE 4.5 uIU/mL (0.36-3.74)
[2023-01-15] MEDS ORDERED: INSULIN HUMULIN R 100 UNIT/ML 3ML IV ONE (17:30)
[2023-01-15 18:29] LABS: APPEARANCE,URINE CLEAR (CLEAR); BILIRUBIN,URINE NEGATIVE (NEGATIVE); COLOR,URINE LIGHT-YELLOW (YELLOW); GLUCOSE, URINE (UA) >=1000 mg/dL (NEGATIVE); KETONES,URINE NEGATIVE (NEGATIVE); LEUKOCYTE ESTERASE ,URINE NEGATIVE Leu/uL (NEGATIVE); NITRATE,URINE NEGATIVE (NEGATIVE); OCCULT BLOOD,URINE NEGATIVE (NEGATIVE); PH,URINE 5.5 (5.0-8.0); PROTEIN,URINE 30 mg/dL (NEGATIVE); UROBILINOGEN,URINE 0.2 mg/dL (0.2-1.0)
[2023-01-15 18:35] LABS: MUCUS,URINE RARE LPF (None Seen); RBC,URINE 0-1 /HPF (0-1); WBC,URINE 0-1 /HPF (0-1)
[2023-01-15 18:52] LABS: INR 1.2 (0.85-1.15); PROTHROMBIN TIME 12.9 SEC (9.6-11.6)
[2023-01-15] MEDS ORDERED: MAGNESIUM 2GM PREMIX 50ML 50 ML IV ONE (19:00)
[2023-01-15] MEDS ORDERED: GLUCAGON 1MG KIT 1 MG ML IM PRN (19:00)
[2023-01-15] MEDS ORDERED: DEXTROSE 50%-WATER 50 ML DISP.SYRIN IV PRN (19:00)
[2023-01-15] MEDS ORDERED: ONDANSETRON 4MG INJ IV PRN (19:30)
[2023-01-15] MEDS ORDERED: NITROGLYCERIN 0.4 MG SL TAB SL PRN (19:30)
[2023-01-15] MEDS ORDERED: ACETAMINOPHEN 325 MG TAB PO PRN ×2 (19:30)
[2023-01-15 20:36] LABS: HEMOGLOBIN A1C 12.7 % (4.0-6.0)
[2023-01-15] MEDS: FAMOTIDINE 20MG TAB PO SCH (22:59)
[2023-01-15] MEDS: INSULIN HUMULIN R 100 UNIT/ML 3ML SQ SCH (23:11)
[2023-01-16] VITALS (7 sets, daily range): BP systolic 92–106; BP diastolic 58–72
[2023-01-16] MEDS: INSULIN HUMULIN R 100 UNIT/ML 3ML SQ SCH ×6 (06:21→20:59)
[2023-01-16 06:43] LABS: BASOPHILS % (AUTO) 0.8 % (0.0-5.0); EOSINOPHILS % (AUTO) 1.8 % (0.0-8.0); HEMATOCRIT 42.7 % (42-54); MEAN CORPUSCULAR HEMOGLOBIN 31.2 pg (27.0-33.0); MEAN CORPUSCULAR HGB CONC 33.5 g/dL (32.0-36.0); MEAN CORPUSCULAR VOLUME 93.2 fL (79-99); MONOCYTES % (AUTO) 8.3 % (3.0-13.0); NEUTROPHILS % (AUTO) 57.8 % (40.0-77.0); PLATELET COUNT (AUTO) 141 K/uL (130-400); RED BLOOD CELL COUNT(AUTO) 4.58 MIL/uL (4.50-6.20); RED CELL DISTRIBUTION WIDTH 14.1 % (11.0-15.5); WHITE BLOOD COUNT (AUTO) 6.1 K/uL (4.8-10.8)
[2023-01-16 07:13] LABS: ALBUMIN 3.3 g/dL (3.5-5.0); CREATININE 0.9 mg/dL (0.5-1.5); MAGNESIUM 1.6 mg/dL (1.80-2.40); POTASSIUM 4.4 mmol/L (3.5-5.1); TOTAL PROTEIN, SERUM 8.3 g/dL (6.0-8.3)
[2023-01-16] MEDS: FAMOTIDINE 20MG TAB PO SCH ×2 (09:08→20:57)
[2023-01-16] MEDS: ENOXAPARIN SODIUM 30 MG/0.3 ML SQ SCH (09:08)
[2023-01-16] MEDS: FUROSEMIDE 40MG VIAL IV SCH ×2 (09:08→20:57)
[2023-01-16] MEDS: ASPIRIN 81MG CHEW TAB PO SCH (09:08)
[2023-01-16] MEDS ORDERED: INSULIN GLARGINE 100 UNITS/ML 10 ML VIAL SQ SCH (21:00)
[2023-01-16] MEDS ORDERED: ATORVASTATIN 10 MG TABLET PO SCH (21:00)
[2023-01-17] VITALS (9 sets, daily range): BP systolic 96–171; BP diastolic 61–83
[2023-01-17 05:02] LABS: HEMATOCRIT 38.5 % (42-54); MEAN CORPUSCULAR VOLUME 91.2 fL (79-99); RED BLOOD CELL COUNT(AUTO) 4.22 MIL/uL (4.50-6.20); RED CELL DISTRIBUTION WIDTH 13.9 % (11.0-15.5); WHITE BLOOD COUNT (AUTO) 6.8 K/uL (4.8-10.8)
[2023-01-17 05:10] LABS: CREATININE 0.8 mg/dL (0.5-1.5)
[2023-01-17] MEDS ORDERED: POTASSIUM CHLORIDE 20MEQ/100ML 100 ML IV PRN (05:30)
[2023-01-17] MEDS ORDERED: POTASSIUM CHLORIDE 10% ELIXIR 20 MEQ/15 ML UDCUP PO PRN (05:30)
[2023-01-17] MEDS ORDERED: MAGNESIUM 2GM PREMIX 50ML 50 ML IV PRN (05:30)
[2023-01-17] MEDS: KCL 20 MEQ ERTAB PO PRN ×4 (05:51→17:36)
[2023-01-17] MEDS: INSULIN HUMULIN R 100 UNIT/ML 3ML SQ SCH ×6 (06:25→17:28)
[2023-01-17] MEDS: ASPIRIN 81MG CHEW TAB PO SCH (10:35)
[2023-01-17] MEDS: FAMOTIDINE 20MG TAB PO SCH (10:36)
[2023-01-17] MEDS: FUROSEMIDE 40MG VIAL IV SCH (10:37)
[2023-01-17] MEDS: ENOXAPARIN SODIUM 30 MG/0.3 ML SQ SCH (10:37)
[2023-01-17] MEDS ORDERED: SPIRONOLACTONE 25 MG TAB PO ONE (16:00)
== END 2023-01-17 19:45 | disposition home or self-care (01) | DRG 291 ==
LOC: EDH 15:37 → EDHIP 15:38 → 4AH 01-16 00:24
PROVIDERS: ADMIT Internal Medicine; ATTEND Internal Medicine
DX: I11.0 Hypertensive heart disease with heart failure (principal); I50.43 Acute on chronic combined systolic (congestive) and diastolic (congestive) heart failure; E87.1 Hypo-osmolality and hyponatremia; Z20.822 Contact with and (suspected) exposure to COVID-19; E87.20 Acidosis, unspecified; E78.2 Mixed hyperlipidemia; E11.65 Type 2 diabetes mellitus with hyperglycemia; E03.9 Hypothyroidism, unspecified; E78.00 Pure hypercholesterolemia, unspecified; E83.42 Hypomagnesemia; E87.6 Hypokalemia; I25.10 Atherosclerotic heart disease of native coronary artery without angina pectoris; Z82.49 Family history of ischemic heart disease and other diseases of the circulatory system; Z83.3 Family history of diabetes mellitus; Z86.74 Personal history of sudden cardiac arrest; Z95.1 Presence of aortocoronary bypass graft
CPT/HCPCS: 36415; 71045; 80048; 80053; 80061; 81001; 82550; 82948; 83036; 83605; 83735; 83874; 83880; 84132; 84439; 84443; 84481; 84484; 85025; 85027; 85610; 85730; 87040; 87088; 87635; 93005; 94640; G0378; J1650; J1815; J1940; J3475; J3480

== ENCOUNTER 2023-02-26 11:04 | Inpatient (IN) | payer OTHER ==
[~2023-02-26] VITALS: Ht 167.6 cm; Wt 63.7 kg
[~2023-02-26 11:04] MED LIST changes: -DAPA10TA PO; -DIPH1TAB PO; -LISI10TA24 PO; -OMEP40CA21 PO; -ONDA-104 PO
[2023-02-26 12:54] LABS: ALBUMIN 3.6 g/dL (3.5-5.0); POTASSIUM 4.5 mmol/L (3.5-5.1); TOTAL PROTEIN, SERUM 8.3 g/dL (6.0-8.3)
[2023-02-26 13:00] LABS: APPEARANCE,URINE CLEAR (CLEAR); BILIRUBIN,URINE NEGATIVE (NEGATIVE); COLOR,URINE YELLOW (YELLOW); GLUCOSE, URINE (UA) >=1000 mg/dL (NEGATIVE); KETONES,URINE 5 mg/dL (NEGATIVE); LEUKOCYTE ESTERASE ,URINE NEGATIVE Leu/uL (NEGATIVE); NITRATE,URINE NEGATIVE (NEGATIVE); OCCULT BLOOD,URINE NEGATIVE (NEGATIVE); PH,URINE 5.5 (5.0-8.0); PROTEIN,URINE 50 mg/dL (NEGATIVE)
[2023-02-26 13:03] LABS: MUCUS,URINE RARE LPF (None Seen); RBC,URINE 0-1 /HPF (0-1); WBC,URINE 0-1 /HPF (0-1)
[2023-02-26 13:10] LABS: BASOPHILS % (AUTO) 0.8 % (0.0-5.0); EOSINOPHILS % (AUTO) 0.5 % (0.0-8.0); HEMATOCRIT 41.9 % (42-54); INR 1.22 (0.85-1.15); LYMPHOCYTES % (AUTO) 20.9 % (21.0-51.0); MEAN CORPUSCULAR HEMOGLOBIN 31.3 pg (27.0-33.0); MEAN CORPUSCULAR HGB CONC 33.9 g/dL (32.0-36.0); MEAN CORPUSCULAR VOLUME 92.3 fL (79-99); MONOCYTES % (AUTO) 6.9 % (3.0-13.0); NEUTROPHILS % (AUTO) 70.6 % (40.0-77.0); PLATELET COUNT (AUTO) 158 K/uL (130-400); RED BLOOD CELL COUNT(AUTO) 4.54 MIL/uL (4.50-6.20); RED CELL DISTRIBUTION WIDTH 13.5 % (11.0-15.5); WHITE BLOOD COUNT (AUTO) 6.4 K/uL (4.8-10.8)
[2023-02-26 13:12] LABS: PARTIAL THROMBOPLASTIN TIME 26.5 SEC (26.3-35.5)
[2023-02-26] MEDS ORDERED: INSULIN HUMULIN R 100 UNIT/ML 3ML ONE (13:12)
[2023-02-26] MEDS ORDERED: INSULIN HUMULIN R 100 UNIT/ML 3ML IV ONE (13:30)
[2023-02-26 13:36] LABS: B-TYPE NATRIURETIC PEPTIDE 3030 pg/mL (0-100)
[2023-02-26] MEDS ORDERED: GLUCAGON 1MG KIT 1 MG ML IM PRN (15:00)
[2023-02-26] MEDS ORDERED: ACETAMINOPHEN 325 MG TAB PO PRN ×2 (15:00)
[2023-02-26] MEDS ORDERED: POTASSIUM CHLORIDE 10% ELIXIR 20 MEQ/15 ML UDCUP PO PRN (15:00)
[2023-02-26] MEDS ORDERED: KCL 20 MEQ ERTAB PO PRN (15:00)
[2023-02-26] MEDS ORDERED: POTASSIUM CHLORIDE 20MEQ/100ML 100 ML IV PRN (15:00)
[2023-02-26] MEDS ORDERED: DEXTROSE 50%-WATER 50 ML DISP.SYRIN IV PRN (15:00)
[2023-02-26] MEDS ORDERED: ONDANSETRON 4MG INJ IV PRN (15:00)
[2023-02-26] MEDS: FUROSEMIDE 40MG VIAL IV SCH (15:21)
[2023-02-26] MEDS ORDERED: DAPA10TA PO (15:29)
[2023-02-26] MEDS: GEMFIBROZIL 600 MG TABLET PO SCH (16:30)
[2023-02-26] MEDS: INSULIN HUMULIN R 100 UNIT/ML 3ML SQ SCH ×2 (16:57→21:41)
[2023-02-26] MEDS: ATORVASTATIN 10 MG TABLET PO SCH (20:35)
[2023-02-26] MEDS ORDERED: VANCOMYCIN PROTOCOL PER PHARMACY IV SCH (23:00)
[2023-02-26] MEDS ORDERED: VANCOMYCIN KIT 1 GM/250 ML IV.KIT IV ONE (23:00)
[2023-02-26] MEDS: CEFEPIME HCL 1 GM VIAL IVPB SCH (23:30)
[2023-02-27] MEDS: IPRATROPIUM/ALBUTEROL SULFATE 3 ML SOLUTION IH SCH ×5 (00:15→23:12)
[2023-02-27 00:17] VITALS: PULSE 65; RESP 19
[2023-02-27 00:18] VITALS: PULSE 66; RESP 19; O2SAT 97
[2023-02-27] MEDS: FUROSEMIDE 40MG VIAL IV SCH ×2 (04:40→16:20)
[2023-02-27] MEDS: CEFEPIME HCL 1 GM VIAL IVPB SCH ×2 (06:34→16:12)
[2023-02-27 06:58] VITALS: PULSE 77; RESP 19
[2023-02-27 07:07] LABS: HEMATOCRIT 42.4 % (42-54); MEAN CORPUSCULAR HEMOGLOBIN 31.2 pg (27.0-33.0); RED BLOOD CELL COUNT(AUTO) 4.61 MIL/uL (4.50-6.20); RED CELL DISTRIBUTION WIDTH 13.6 % (11.0-15.5); WHITE BLOOD COUNT (AUTO) 9.5 K/uL (4.8-10.8)
[2023-02-27] MEDS: INSULIN HUMULIN R 100 UNIT/ML 3ML SQ SCH ×5 (07:30→21:02)
[2023-02-27 07:35] LABS: CREATININE 0.8 mg/dL (0.5-1.5); HEMOGLOBIN A1C 13.4 % (4.0-6.0); MAGNESIUM 1.2 mg/dL (1.80-2.40); POTASSIUM 3.7 mmol/L (3.5-5.1); THYROID STIMULATING HORMONE 2.8 uIU/mL (0.36-3.74)
[2023-02-27] MEDS: SPIRONOLACTONE 25 MG TAB PO SCH (09:52)
[2023-02-27] MEDS: METOPROLOL SUCCINATE 50 MG TAB.SR.24H PO SCH (09:52)
[2023-02-27] MEDS: GEMFIBROZIL 600 MG TABLET PO SCH ×2 (09:52→16:21)
[2023-02-27] MEDS: ASPIRIN 81MG CHEW TAB PO SCH (09:53)
[2023-02-27] MEDS: ENOXAPARIN SODIUM 30 MG/0.3 ML SQ SCH (09:53)
[2023-02-27] MEDS: MAGNESIUM 2GM PREMIX 50ML 50 ML IV PRN (09:55)
[2023-02-27 11:01] VITALS: PULSE 75; RESP 18
[2023-02-27] MEDS: VANCOMYCIN 1G/250ML KIT 250 ML IV SCH (11:31)
[2023-02-27 19:11] VITALS: PULSE 78; RESP 18
[2023-02-27] MEDS: FAMOTIDINE 20MG TAB PO SCH (20:48)
[2023-02-27] MEDS: ATORVASTATIN 10 MG TABLET PO SCH (20:50)
[2023-02-27] MEDS ORDERED: INSULIN GLARGINE 100 UNITS/ML 10 ML VIAL SQ SCH (21:00)
[2023-02-27 23:12] VITALS: PULSE 76; RESP 18
[2023-02-28] VITALS (9 sets, daily range): BP systolic 82–108; BP diastolic 57–71; PULSE 72–89; RESP 17–20; O2SAT 96–99
[2023-02-28] MEDS: CEFEPIME HCL 1 GM VIAL IVPB SCH ×2 (01:00→08:38)
[2023-02-28] MEDS: VANCOMYCIN 1G/250ML KIT 250 ML IV SCH (01:00)
[2023-02-28] MEDS: FUROSEMIDE 40MG VIAL IV SCH ×3 (03:42→16:05)
[2023-02-28 05:04] LABS: HEMATOCRIT 39.8 % (42-54); MEAN CORPUSCULAR HEMOGLOBIN 31.1 pg (27.0-33.0); MEAN CORPUSCULAR HGB CONC 33.4 g/dL (32.0-36.0); RED BLOOD CELL COUNT(AUTO) 4.28 MIL/uL (4.50-6.20); RED CELL DISTRIBUTION WIDTH 13.7 % (11.0-15.5)
[2023-02-28 05:18] LABS: CREATININE 1.2 mg/dL (0.5-1.5); POTASSIUM 3.4 mmol/L (3.5-5.1)
[2023-02-28] MEDS: INSULIN HUMULIN R 100 UNIT/ML 3ML SQ SCH ×6 (06:07→17:00)
[2023-02-28] MEDS: GEMFIBROZIL 600 MG TABLET PO SCH ×2 (06:08→16:05)
[2023-02-28] MEDS: IPRATROPIUM/ALBUTEROL SULFATE 3 ML SOLUTION IH SCH ×2 (06:43→11:13)
[2023-02-28] MEDS: ASPIRIN 81MG CHEW TAB PO SCH (08:28)
[2023-02-28] MEDS: FAMOTIDINE 20MG TAB PO SCH (08:28)
[2023-02-28] MEDS: SPIRONOLACTONE 25 MG TAB PO SCH (08:28)
[2023-02-28] MEDS: METOPROLOL SUCCINATE 50 MG TAB.SR.24H PO SCH (08:28)
[2023-02-28] MEDS: ENOXAPARIN SODIUM 30 MG/0.3 ML SQ SCH (08:29)
[2023-02-28] MEDS ORDERED: MIDODRINE HCL 5 MG TABLET PO PRN (11:00)
[2023-02-28] MEDS: MAGNESIUM 2GM PREMIX 50ML 50 ML IV PRN (13:02)
[2023-02-28 16:11] LABS: HIV SCREEN 4TH GENERATION Preliminary Reactive (Non Reactive)
== END 2023-02-28 17:35 | disposition home or self-care (01) | DRG 291 ==
LOC: EDH 11:04 → EDHIP 11:05 → 4CH 02-28 01:25
PROVIDERS: ADMIT Hospitalist; ATTEND Hospitalist
DX: I11.0 Hypertensive heart disease with heart failure (principal); I50.43 Acute on chronic combined systolic (congestive) and diastolic (congestive) heart failure; J96.01 Acute respiratory failure with hypoxia; E87.1 Hypo-osmolality and hyponatremia; R64 Cachexia; J91.8 Pleural effusion in other conditions classified elsewhere; Z20.822 Contact with and (suspected) exposure to COVID-19; E11.65 Type 2 diabetes mellitus with hyperglycemia; E03.9 Hypothyroidism, unspecified; Z21 Asymptomatic human immunodeficiency virus [HIV] infection status; E78.00 Pure hypercholesterolemia, unspecified; I25.10 Atherosclerotic heart disease of native coronary artery without angina pectoris; Z79.899 Other long term (current) drug therapy; Z82.49 Family history of ischemic heart disease and other diseases of the circulatory system; Z83.3 Family history of diabetes mellitus; Z86.74 Personal history of sudden cardiac arrest; Z91.119 Patient's noncompliance with dietary regimen due to unspecified reason; Z91.199 Patient's noncompliance with other medical treatment and regimen due to unspecified reason; Z95.0 Presence of cardiac pacemaker; Z95.1 Presence of aortocoronary bypass graft; Z68.22 Body mass index [BMI] 22.0-22.9, adult
CPT/HCPCS: 36415; 71045; 71250; 80048; 80053; 80202; 81001; 82948; 83036; 83735; 83880; 84145; 84439; 84443; 84481; 84484; 85025; 85027; 85610; 85730; 86359; 86361; 86701; 87389; 87390; 87635; 87804; 93005; 94640; 94664; 94667; 94668; 94760; G0378; J0692; J1650; J1815; J1940; J3370; J3475

== ENCOUNTER 2023-03-09 11:55 | Inpatient (IN) | payer OTHER ==
[~2023-03-09] VITALS: Ht 167.6 cm; Wt 60.2 kg
[~2023-03-09 11:55] MED LIST changes: +DAPA10TA PO
[2023-03-09 12:16] LABS: BASOPHILS # (AUTO) 0.03 K/uL (0.00-0.20); BASOPHILS % (AUTO) 0.5 % (0.0-5.0); EOSINOPHILS # (AUTO) 0.05 K/uL (0.00-0.70); EOSINOPHILS % (AUTO) 0.9 % (0.0-8.0); IMMATURE GRANULOCYTE ABSOLUTE 0.02 K/uL (0-1); LYMPHOCYTES # (AUTO) 1.3 K/uL (1.0-4.8); LYMPHOCYTES % (AUTO) 22.7 % (21.0-51.0); MEAN CORPUSCULAR HGB CONC 33.9 g/dL (32.0-36.0); MEAN CORPUSCULAR VOLUME 91.3 fL (79-99); MONOCYTES # (AUTO) 0.4 K/uL (0.1-1.0); MONOCYTES % (AUTO) 6.5 % (3.0-13.0); NEUTROPHILS % (AUTO) 69.1 % (40.0-77.0); PLATELET COUNT (AUTO) 167 K/uL (130-400); RED BLOOD CELL COUNT(AUTO) 4.49 MIL/uL (4.50-6.20); WHITE BLOOD COUNT (AUTO) 5.9 K/uL (4.8-10.8)
[2023-03-09] MEDS ORDERED: AZITHROMYCIN 250 MG TABLET PO ONE (12:30)
[2023-03-09] MEDS ORDERED: CEFTRIAXONE 1G VIAL IVPB ONE (12:30)
[2023-03-09 12:34] LABS: ALBUMIN 3.7 g/dL (3.5-5.0); CREATININE 1.2 mg/dL (0.5-1.5); POTASSIUM 3.7 mmol/L (3.5-5.1)
[2023-03-09 12:43] LABS: BILIRUBIN,TOTAL 1.3 mg/dL (0.2-1.0)
[2023-03-09] MEDS ORDERED: INSULIN HUMULIN R 100 UNIT/ML 3ML IV ONE (13:00)
[2023-03-09 13:05] LABS: INFLUENZA TYPE A Negative For Type A (NEGATIVE); INFLUENZA TYPE B Negative For Type B (NEGATIVE)
[2023-03-09 13:18] LABS: APPEARANCE,URINE CLEAR (CLEAR); BILIRUBIN,URINE NEGATIVE (NEGATIVE); COLOR,URINE COLORLESS (YELLOW); GLUCOSE, URINE (UA) >=1000 mg/dL (NEGATIVE); KETONES,URINE NEGATIVE (NEGATIVE); LEUKOCYTE ESTERASE ,URINE NEGATIVE Leu/uL (NEGATIVE); NITRATE,URINE NEGATIVE (NEGATIVE); OCCULT BLOOD,URINE NEGATIVE (NEGATIVE); PH,URINE 5.5 (5.0-8.0); PROTEIN,URINE NEGATIVE (NEGATIVE); UROBILINOGEN,URINE 0.2 mg/dL (0.2-1.0)
[2023-03-09 13:19] LABS: ADD UA MICROSCOPIC YES
[2023-03-09 13:20] LABS: RBC,URINE 0-1 /HPF (0-1); WBC,URINE 0-1 /HPF (0-1)
[2023-03-09 13:20] LABS: ABG BASE EXCESS 0.3 mmol/L (-2.0-3.0); ABG HCO3 24.3 mmol/L (21.0-28.0); ABG OXYGEN SATURATION 95.5 % (95.0-99.0); ABG PCO2 38 mmHg (35-48); ABG PH 7.428 (7.35-7.450); PO2, ARTERIAL BG 75.3 mmHg (83.0-108.0); VENT MODE, BG RA (ROOM AIR)
[2023-03-09 13:29] LABS: SARS-CoV-2, RNA, NAAT NEGATIVE SARS CoV-2 (NEGATIVE)
[2023-03-09 16:22] LABS: INR 1.25 (0.85-1.15); PROTHROMBIN TIME 14.3 SEC (9.6-11.6)
[2023-03-09 16:23] LABS: PARTIAL THROMBOPLASTIN TIME 26.5 SEC (26.3-35.5)
[2023-03-09] MEDS ORDERED: KCL 20 MEQ ERTAB PO ONE (16:30)
[2023-03-09] MEDS ORDERED: AMLODIPINE 5 MG TAB PO SCH (16:30)
[2023-03-09] MEDS: INSULIN HUMULIN R 100 UNIT/ML 3ML SQ SCH ×2 (16:30→21:00)
[2023-03-09] MEDS: PANTOPRAZOLE 40 MG TAB DR PO SCH (16:59)
[2023-03-09] MEDS: MAGNESIUM 2GM PREMIX 50ML 50 ML IV SCH ×2 (17:00→17:28)
[2023-03-09] MEDS ORDERED: IPRATROPIUM 0.5 MG/2.5 ML INH IH PRN ×2 (17:30→18:00)
[2023-03-09 18:38] VITALS: PULSE 79; RESP 14
[2023-03-09] MEDS: BUDESONIDE 0.5 MG/2 ML INH IH SCH (18:38)
[2023-03-09 18:58] VITALS: BP 106/68; PULSE 76; RESP 18
[2023-03-09 19:54] VITALS: BP 118/71; PULSE 79; RESP 18
[2023-03-09 20:30] VITALS: O2SAT 100
[2023-03-09] MEDS ORDERED: INSULIN GLARGINE 100 UNITS/ML 10 ML VIAL SQ SCH (21:00)
[2023-03-09 21:45] LABS: POTASSIUM 3.9 mmol/L (3.5-5.1)
[2023-03-09] MEDS: FUROSEMIDE 20MG VIAL IV SCH (21:49)
[2023-03-09] MEDS: DOXYCYCLINE HYCLATE 100 MG TABLET PO SCH (21:49)
[2023-03-09] MEDS: ATORVASTATIN 20 MG TABLET PO SCH (21:49)
[2023-03-09] MEDS: CEFTRIAXONE 1G VIAL IVPB SCH (21:55)
[2023-03-09] MEDS ORDERED: PREN-196 PO (22:03)
[2023-03-09] MEDS ORDERED: SPIR50TA5 PO (22:03)
[2023-03-09] MEDS ORDERED: CHOL500045 PO (22:03)
[2023-03-09] MEDS: INSULIN GLARGINE 100 UNITS/ML 10 ML VIAL SQ SCH (22:04)
[2023-03-09 23:54] VITALS: BP 108/73; PULSE 78; RESP 18
[2023-03-10 06:56] VITALS: PULSE 70; RESP 16
[2023-03-10] MEDS: ENOXAPARIN SODIUM 40 MG/0.4 ML SYRINGE SQ SCH (09:00)
[2023-03-10] MEDS: ASPIRIN 81 MG EC TAB PO SCH (09:00)
[2023-03-10] MEDS: Vitamin B Complex/Vit C/Folic Acid PO SCH (09:00)
[2023-03-10] MEDS: METOPROLOL SUCCINATE 50 MG TAB.SR.24H PO SCH (09:00)
[2023-03-10] MEDS: PANTOPRAZOLE 40 MG TAB DR PO SCH (16:00)
[2023-03-10 19:05] VITALS: PULSE 72; RESP 18
[2023-03-10] MEDS: FUROSEMIDE 20MG VIAL IV SCH (20:00)
[2023-03-10 20:10] VITALS: O2SAT 98
[2023-03-10] MEDS: DOXYCYCLINE HYCLATE 100 MG TABLET PO SCH (21:00)
[2023-03-10] MEDS: ATORVASTATIN 20 MG TABLET PO SCH (21:00)
[2023-03-10] MEDS: CEFTRIAXONE 1G VIAL IVPB SCH (21:00)
[2023-03-10] MEDS: INSULIN GLARGINE 100 UNITS/ML 10 ML VIAL SQ SCH (21:00)
[2023-03-10] MEDS: INSULIN HUMULIN R 100 UNIT/ML 3ML SQ SCH (21:00)
[2023-03-10] MEDS ORDERED: KCL 20 MEQ ERTAB PO ONE (23:20)
[2023-03-11] VITALS (9 sets, daily range): BP systolic 89–108; BP diastolic 57–72; PULSE 66–75; RESP 16–20; O2SAT 99
[2023-03-11] MEDS ORDERED: KCL 20 MEQ ERTAB PO ONE (00:25)
[2023-03-11 00:36] LABS: ALBUMIN 3.1 g/dL (3.5-5.0); BILIRUBIN,TOTAL 1.1 mg/dL (0.2-1.0); CREATININE 0.9 mg/dL (0.5-1.5); POTASSIUM 3.4 mmol/L (3.5-5.1); TOTAL PROTEIN, SERUM 7.7 g/dL (6.0-8.3)
[2023-03-11] MEDS: KCL 20 MEQ ERTAB PO PRN (00:58)
[2023-03-11] MEDS ORDERED: POTASSIUM CHLORIDE 20MEQ/100ML 100 ML IV PRN (01:00)
[2023-03-11] MEDS ORDERED: POTASSIUM CHLORIDE 10% ELIXIR 20 MEQ/15 ML UDCUP PO PRN (01:00)
[2023-03-11] MEDS: INSULIN HUMULIN R 100 UNIT/ML 3ML SQ SCH ×4 (06:05→21:34)
[2023-03-11] MEDS: BUDESONIDE 0.5 MG/2 ML INH IH SCH ×2 (06:37→19:32)
[2023-03-11 06:42] LABS: MAGNESIUM 1.6 mg/dL (1.80-2.40)
[2023-03-11 08:40] LABS: BASOPHILS # (AUTO) 0.06 K/uL (0.00-0.20); BASOPHILS % (AUTO) 1.1 % (0.0-5.0); EOSINOPHILS # (AUTO) 0.13 K/uL (0.00-0.70); EOSINOPHILS % (AUTO) 2.3 % (0.0-8.0); HEMATOCRIT 39.1 % (42-54); IMMATURE GRANULOCYTE ABSOLUTE 0.02 K/uL (0-1); LYMPHOCYTES # (AUTO) 1.5 K/uL (1.0-4.8); LYMPHOCYTES % (AUTO) 26.5 % (21.0-51.0); MEAN CORPUSCULAR HEMOGLOBIN 31.2 pg (27.0-33.0); MEAN CORPUSCULAR HGB CONC 33.8 g/dL (32.0-36.0); MEAN CORPUSCULAR VOLUME 92.4 fL (79-99); MONOCYTES # (AUTO) 0.5 K/uL (0.1-1.0); MONOCYTES % (AUTO) 8.4 % (3.0-13.0); NEUTROPHILS # (AUTO) 3.5 K/uL (1.8-7.7); NEUTROPHILS % (AUTO) 61.3 % (40.0-77.0); PLATELET COUNT (AUTO) 162 K/uL (130-400); RED BLOOD CELL COUNT(AUTO) 4.23 MIL/uL (4.50-6.20); RED CELL DISTRIBUTION WIDTH 13.9 % (11.0-15.5); WHITE BLOOD COUNT (AUTO) 5.7 K/uL (4.8-10.8)
[2023-03-11 08:51] LABS: ALBUMIN 3.4 g/dL (3.5-5.0); BILIRUBIN,TOTAL 1.2 mg/dL (0.2-1.0); CREATININE 0.9 mg/dL (0.5-1.5); MAGNESIUM 1.4 mg/dL (1.80-2.40); POTASSIUM 4.4 mmol/L (3.5-5.1); TOTAL PROTEIN, SERUM 8.6 g/dL (6.0-8.3)
[2023-03-11 09:03] LABS: HEMATOCRIT 43.6 % (42-54); MEAN CORPUSCULAR HEMOGLOBIN 31.2 pg (27.0-33.0); MEAN CORPUSCULAR HGB CONC 33.3 g/dL (32.0-36.0); MEAN CORPUSCULAR VOLUME 93.8 fL (79-99); RED BLOOD CELL COUNT(AUTO) 4.65 MIL/uL (4.50-6.20); RED CELL DISTRIBUTION WIDTH 13.8 % (11.0-15.5); WHITE BLOOD COUNT (AUTO) 7.3 K/uL (4.8-10.8)
[2023-03-11] MEDS: Vitamin B Complex/Vit C/Folic Acid PO SCH (09:55)
[2023-03-11] MEDS: METOPROLOL SUCCINATE 50 MG TAB.SR.24H PO SCH (09:55)
[2023-03-11] MEDS: CEFTRIAXONE 1G VIAL IVPB SCH ×2 (09:56→21:31)
[2023-03-11] MEDS: DOXYCYCLINE HYCLATE 100 MG TABLET PO SCH ×2 (09:56→21:30)
[2023-03-11] MEDS: FUROSEMIDE 20MG VIAL IV SCH ×2 (09:56→21:31)
[2023-03-11] MEDS: ASPIRIN 81 MG EC TAB PO SCH (09:56)
[2023-03-11] MEDS: ENOXAPARIN SODIUM 40 MG/0.4 ML SYRINGE SQ SCH (09:58)
[2023-03-11] MEDS ORDERED: MAGNESIUM 2GM PREMIX 50ML 50 ML IV SCH (13:30)
[2023-03-11 14:06] LABS: INR 1.18 (0.85-1.15); PROTHROMBIN TIME 13.5 SEC (9.6-11.6)
[2023-03-11 14:07] LABS: PARTIAL THROMBOPLASTIN TIME 27.5 SEC (26.3-35.5)
[2023-03-11] MEDS: PANTOPRAZOLE 40 MG TAB DR PO SCH (14:18)
[2023-03-11] MEDS: MAGNESIUM 2GM PREMIX 50ML 50 ML IV SCH (14:19)
[2023-03-11] MEDS: GEMFIBROZIL 600 MG TABLET PO SCH (16:23)
[2023-03-11] MEDS: ATORVASTATIN 20 MG TABLET PO SCH (21:29)
[2023-03-11] MEDS: INSULIN GLARGINE 100 UNITS/ML 10 ML VIAL SQ SCH (21:40)
[2023-03-12] VITALS (10 sets, daily range): BP systolic 85–102; BP diastolic 55–67; PULSE 66–78; RESP 16–20; O2SAT 100
[2023-03-12 03:49] LABS: HEMATOCRIT 40.1 % (42-54); MEAN CORPUSCULAR HEMOGLOBIN 31.6 pg (27.0-33.0); MEAN CORPUSCULAR HGB CONC 33.9 g/dL (32.0-36.0); MEAN CORPUSCULAR VOLUME 93.3 fL (79-99); RED BLOOD CELL COUNT(AUTO) 4.3 MIL/uL (4.50-6.20); RED CELL DISTRIBUTION WIDTH 13.7 % (11.0-15.5); WHITE BLOOD COUNT (AUTO) 5.4 K/uL (4.8-10.8)
[2023-03-12 04:07] LABS: ALBUMIN 2.9 g/dL (3.5-5.0); BILIRUBIN,TOTAL 0.8 mg/dL (0.2-1.0); CREATININE 1.1 mg/dL (0.5-1.5); MAGNESIUM 1.5 mg/dL (1.80-2.40); POTASSIUM 3.6 mmol/L (3.5-5.1); TOTAL PROTEIN, SERUM 7.8 g/dL (6.0-8.3)
[2023-03-12] MEDS: KCL 20 MEQ ERTAB PO PRN ×2 (05:01→06:27)
[2023-03-12] MEDS: MAGNESIUM 2GM PREMIX 50ML 50 ML IV SCH (05:01)
[2023-03-12] MEDS: INSULIN HUMULIN R 100 UNIT/ML 3ML SQ SCH ×4 (06:30→21:32)
[2023-03-12] MEDS: BUDESONIDE 0.5 MG/2 ML INH IH SCH ×2 (07:04→18:05)
[2023-03-12] MEDS: GEMFIBROZIL 600 MG TABLET PO SCH ×2 (08:42→17:07)
[2023-03-12] MEDS: ASPIRIN 81 MG EC TAB PO SCH (08:43)
[2023-03-12] MEDS: FUROSEMIDE 20MG VIAL IV SCH ×2 (08:43→21:29)
[2023-03-12] MEDS: CEFTRIAXONE 1G VIAL IVPB SCH ×2 (08:43→21:29)
[2023-03-12] MEDS: DOXYCYCLINE HYCLATE 100 MG TABLET PO SCH ×2 (08:43→21:29)
[2023-03-12] MEDS: Vitamin B Complex/Vit C/Folic Acid PO SCH (08:44)
[2023-03-12] MEDS: METOPROLOL SUCCINATE 50 MG TAB.SR.24H PO SCH (08:44)
[2023-03-12] MEDS ORDERED: MAGNESIUM 2GM PREMIX 50ML 50 ML IV SCH (09:00)
[2023-03-12] MEDS: ENOXAPARIN SODIUM 40 MG/0.4 ML SYRINGE SQ SCH (09:00)
[2023-03-12] MEDS: PANTOPRAZOLE 40 MG TAB DR PO SCH (17:07)
[2023-03-12] MEDS: ATORVASTATIN 20 MG TABLET PO SCH (21:29)
[2023-03-12] MEDS: INSULIN GLARGINE 100 UNITS/ML 10 ML VIAL SQ SCH (21:33)
[2023-03-13] VITALS (7 sets, daily range): BP systolic 85–135; BP diastolic 57–69; PULSE 65–93; RESP 16–20; O2SAT 100
[2023-03-13 04:06] LABS: HEMATOCRIT 42.8 % (42-54); MEAN CORPUSCULAR HEMOGLOBIN 31.5 pg (27.0-33.0); MEAN CORPUSCULAR HGB CONC 33.9 g/dL (32.0-36.0); RED BLOOD CELL COUNT(AUTO) 4.6 MIL/uL (4.50-6.20); RED CELL DISTRIBUTION WIDTH 13.9 % (11.0-15.5); WHITE BLOOD COUNT (AUTO) 5.5 K/uL (4.8-10.8)
[2023-03-13 04:49] LABS: ALBUMIN 3.3 g/dL (3.5-5.0); BILIRUBIN,TOTAL 0.8 mg/dL (0.2-1.0); MAGNESIUM 1.7 mg/dL (1.80-2.40); POTASSIUM 3.6 mmol/L (3.5-5.1); TOTAL PROTEIN, SERUM 8.8 g/dL (6.0-8.3)
[2023-03-13] MEDS: INSULIN HUMULIN R 100 UNIT/ML 3ML SQ SCH ×2 (06:20→11:38)
[2023-03-13] MEDS: KCL 20 MEQ ERTAB PO PRN ×2 (06:28→08:01)
[2023-03-13] MEDS: BUDESONIDE 0.5 MG/2 ML INH IH SCH (06:31)
[2023-03-13] MEDS: FUROSEMIDE 20MG VIAL IV SCH ×2 (08:00→08:03)
[2023-03-13] MEDS: Vitamin B Complex/Vit C/Folic Acid PO SCH (08:00)
[2023-03-13] MEDS: ASPIRIN 81 MG EC TAB PO SCH (08:00)
[2023-03-13] MEDS: METOPROLOL SUCCINATE 50 MG TAB.SR.24H PO SCH (08:01)
[2023-03-13] MEDS: DOXYCYCLINE HYCLATE 100 MG TABLET PO SCH (08:01)
[2023-03-13] MEDS: GEMFIBROZIL 600 MG TABLET PO SCH (08:01)
[2023-03-13] MEDS: CEFTRIAXONE 1G VIAL IVPB SCH (08:02)
[2023-03-13] MEDS: ENOXAPARIN SODIUM 40 MG/0.4 ML SYRINGE SQ SCH (09:57)
[2023-03-13] MEDS ORDERED: FURO40TA5 PO (10:26)
[2023-03-13] MEDS ORDERED: MAGNESIUM 2GM PREMIX 50ML 50 ML IV SCH (10:30)
== END 2023-03-13 12:20 | disposition home or self-care (01) | DRG 193 ==
LOC: EDH 11:55 → EDHIP 11:56 → 2AH 18:38
PROVIDERS: ADMIT Internal Medicine; ATTEND Internal Medicine
DX: J18.9 Pneumonia, unspecified organism (principal); I50.43 Acute on chronic combined systolic (congestive) and diastolic (congestive) heart failure; J96.21 Acute and chronic respiratory failure with hypoxia; R64 Cachexia; E87.20 Acidosis, unspecified; J98.11 Atelectasis; I11.0 Hypertensive heart disease with heart failure; E11.51 Type 2 diabetes mellitus with diabetic peripheral angiopathy without gangrene; I25.5 Ischemic cardiomyopathy; Z21 Asymptomatic human immunodeficiency virus [HIV] infection status; E03.9 Hypothyroidism, unspecified; E11.65 Type 2 diabetes mellitus with hyperglycemia; E78.00 Pure hypercholesterolemia, unspecified; E83.42 Hypomagnesemia; I25.10 Atherosclerotic heart disease of native coronary artery without angina pectoris; Z82.49 Family history of ischemic heart disease and other diseases of the circulatory system; Z83.3 Family history of diabetes mellitus; Z86.74 Personal history of sudden cardiac arrest; Z87.891 Personal history of nicotine dependence; Z91.119 Patient's noncompliance with dietary regimen due to unspecified reason; Z91.199 Patient's noncompliance with other medical treatment and regimen due to unspecified reason; Z95.1 Presence of aortocoronary bypass graft; Z95.810 Presence of automatic (implantable) cardiac defibrillator; Z68.21 Body mass index [BMI] 21.0-21.9, adult
CPT/HCPCS: 36415; 36600; 71045; 71250; 76604; 78582; 80048; 80053; 81001; 82550; 82803; 82948; 83605; 83735; 83874; 83880; 84145; 84443; 84484; 85025; 85027; 85378; 85610; 85651; 85730; 86140; 87040; 87635; 87804; 87880; 93005; 93306; 93356; 93970; 94640; 94664; A9540; A9558; C9803; G0378; J0696; J1650; J1815; J1940; J3475

== ENCOUNTER 2023-07-10 12:16 | Emergency (ER) | payer OTHER ==
[~2023-07-10] VITALS: Ht 172.7 cm; Wt 66.7 kg
[~2023-07-10 12:16] MED LIST changes: +CHOL500045 PO; -DAPA10TA PO; +PREN-196 PO; -SPIR25TA6 PO; +SPIR50TA5 PO
[2023-07-10 14:08] LABS: ALBUMIN 3.7 g/dL (3.5-5.0); CREATININE 0.9 mg/dL (0.5-1.5); POTASSIUM 4.8 mmol/L (3.5-5.1); TOTAL PROTEIN, SERUM 8.6 g/dL (6.0-8.3)
[2023-07-10 14:23] LABS: BASOPHILS # (AUTO) 0.03 K/uL (0.00-0.20); BASOPHILS % (AUTO) 0.6 % (0.0-5.0); EOSINOPHILS # (AUTO) 0.07 K/uL (0.00-0.70); EOSINOPHILS % (AUTO) 1.4 % (0.0-8.0); HEMATOCRIT 40.4 % (42-54); IMMATURE GRANULOCYTE ABSOLUTE 0.03 K/uL (0-1); LYMPHOCYTES # (AUTO) 1.4 K/uL (1.0-4.8); LYMPHOCYTES % (AUTO) 28.5 % (21.0-51.0); MEAN CORPUSCULAR HEMOGLOBIN 31.6 pg (27.0-33.0); MEAN CORPUSCULAR HGB CONC 32.9 g/dL (32.0-36.0); MONOCYTES # (AUTO) 0.4 K/uL (0.1-1.0); MONOCYTES % (AUTO) 8.8 % (3.0-13.0); NEUTROPHILS % (AUTO) 60.1 % (40.0-77.0); PLATELET COUNT (AUTO) 140 K/uL (130-400); RED BLOOD CELL COUNT(AUTO) 4.21 MIL/uL (4.50-6.20); RED CELL DISTRIBUTION WIDTH 13.7 % (11.0-15.5); WHITE BLOOD COUNT (AUTO) 4.9 K/uL (4.8-10.8)
[2023-07-10] MEDS ORDERED: FAMO20TA8 PO (15:14)
[2023-07-10] MEDS ORDERED: ACETAMINOPHEN 500 MG TABLET ONE (15:21)
[2023-07-10 15:29] VITALS: BP 122/74; PULSE 81; RESP 18; O2SAT 94
[2023-07-10] MEDS ORDERED: ACETAMINOPHEN 500 MG TABLET PO ONE (15:30)
== END 2023-07-10 15:36 | disposition home or self-care (01) ==
LOC: EDH 12:16
DX: K80.20 Calculus of gallbladder without cholecystitis without obstruction (principal); J90 Pleural effusion, not elsewhere classified; I11.0 Hypertensive heart disease with heart failure; I50.9 Heart failure, unspecified; E11.9 Type 2 diabetes mellitus without complications; E78.00 Pure hypercholesterolemia, unspecified; F17.200 Nicotine dependence, unspecified, uncomplicated; Z79.82 Long term (current) use of aspirin; Z79.84 Long term (current) use of oral hypoglycemic drugs; Z79.899 Other long term (current) drug therapy; Z90.49 Acquired absence of other specified parts of digestive tract; Z98.890 Other specified postprocedural states
CPT/HCPCS: 36415; 71045; 76705; 80053; 83605; 83690; 84484; 85025; 93005

== ENCOUNTER 2023-09-18 14:36 | Inpatient (IN) | payer OTHER ==
[~2023-09-18] VITALS: Ht 160 cm; Wt 66.2 kg
[~2023-09-18 14:36] MED LIST changes: +AEC81 PO; -ASPI-1197 PO; +SACU1TAB PO; +SPIR25TA6 PO; -SPIR50TA5 PO
[2023-09-18 15:22] LABS: BASOPHILS # (AUTO) 0.04 K/uL (0.00-0.20); BASOPHILS % (AUTO) 0.6 % (0.0-5.0); EOSINOPHILS # (AUTO) 0.09 K/uL (0.00-0.70); EOSINOPHILS % (AUTO) 1.4 % (0.0-8.0); HEMATOCRIT 38.4 % (42-54); IMMATURE GRANULOCYTE ABSOLUTE 0.01 K/uL (0-1); LYMPHOCYTES # (AUTO) 1.5 K/uL (1.0-4.8); LYMPHOCYTES % (AUTO) 24.3 % (21.0-51.0); MEAN CORPUSCULAR HEMOGLOBIN 31.4 pg (27.0-33.0); MEAN CORPUSCULAR HGB CONC 34.1 g/dL (32.0-36.0); MEAN CORPUSCULAR VOLUME 92.1 fL (79-99); MONOCYTES # (AUTO) 0.6 K/uL (0.1-1.0); MONOCYTES % (AUTO) 9.3 % (3.0-13.0); NEUTROPHILS # (AUTO) 4.1 K/uL (1.8-7.7); NEUTROPHILS % (AUTO) 64.2 % (40.0-77.0); PLATELET COUNT (AUTO) 149 K/uL (130-400); RED BLOOD CELL COUNT(AUTO) 4.17 MIL/uL (4.50-6.20); RED CELL DISTRIBUTION WIDTH 14.5 % (11.0-15.5); WHITE BLOOD COUNT (AUTO) 6.3 K/uL (4.8-10.8)
[2023-09-18 15:22] LABS: RAPID GROUP A STREP negative (NEGATIVE)
[2023-09-18 15:29] LABS: CREATININE 1.2 mg/dL (0.5-1.5); INR 1.24 (0.85-1.15); POTASSIUM 4.2 mmol/L (3.5-5.1); PROTHROMBIN TIME 14.2 SEC (9.6-11.6)
[2023-09-18 15:31] LABS: INFLUENZA TYPE A Negative For Type A (NEGATIVE); INFLUENZA TYPE B Negative For Type B (NEGATIVE)
[2023-09-18 15:34] LABS: ALBUMIN 3.3 g/dL (3.5-5.0); BILIRUBIN,TOTAL 1.8 mg/dL (0.2-1.0); TOTAL PROTEIN, SERUM 8.6 g/dL (6.0-8.3)
[2023-09-18 15:36] LABS: SARS-CoV-2, RNA, NAAT POSITIVE SARS CoV-2 (NEGATIVE)
[2023-09-18 15:48] LABS: B-TYPE NATRIURETIC PEPTIDE 3460 pg/mL (0-100)
[2023-09-18] MEDS: FUROSEMIDE 40MG VIAL IV ONE (17:45)
[2023-09-18 18:20] VITALS: PULSE 82; RESP 20
[2023-09-18] MEDS: ALBUTEROL 0.083% 2.5 MG/3 ML INH IH ONE (18:20)
[2023-09-18] MEDS: ENOXAPARIN SODIUM 80 MG/0.8 ML SQ ONE (18:43)
[2023-09-18] MEDS: CEFTRIAXONE 2GM VIAL IVPB ONE (18:43)
[2023-09-18] MEDS: AZITHROMYCIN 500MG+NS 250ML 250 ML IVPB SCH (18:43)
[2023-09-18] MEDS: ASPIRIN 325MG TAB PO ONE (18:43)
[2023-09-18] MEDS: NITROGLYCERIN 1GM OINT 1 INCH/1GM TD ONE (18:44)
[2023-09-18] MEDS ORDERED: DOXYCYCLINE 100MG+NS 250ML 250 ML IV SCH (20:30)
[2023-09-18] MEDS ORDERED: MORPHINE 4 MG SYG IV PRN (20:30)
[2023-09-18] MEDS ORDERED: ACETAMINOPHEN 325 MG TAB PO PRN ×2 (20:30)
[2023-09-18] MEDS ORDERED: POTASSIUM CHLORIDE 20MEQ/100ML 100 ML IV PRN (20:30)
[2023-09-18] MEDS ORDERED: ONDANSETRON 4MG INJ IV PRN (20:30)
[2023-09-18] MEDS ORDERED: GUAIFENESIN-DM 200/20 MG 10 ML PO PRN (20:30)
[2023-09-18] MEDS ORDERED: POTASSIUM CHLORIDE 10% ELIXIR 20 MEQ/15 ML UDCUP PO PRN (20:30)
[2023-09-18 21:04] VITALS: PULSE 86; RESP 20; O2SAT 97
[2023-09-18] MEDS: CEFTRIAXONE 1G VIAL IV SCH (22:00)
[2023-09-18] MEDS: INSULIN HUMULIN R 100 UNIT/ML 3ML SQ SCH (22:04)
[2023-09-18] MEDS: FUROSEMIDE 40MG VIAL IVP SCH (22:05)
[2023-09-18 23:40] VITALS: PULSE 76; RESP 18; O2SAT 97
[2023-09-18] MEDS: IPRATROPIUM/ALBUTEROL SULFATE 3 ML SOLUTION IH SCH (23:40)
[2023-09-19] VITALS (29 sets, daily range): BP systolic 86–138; BP diastolic 46–90; PULSE 80–90; RESP 16–36; O2SAT 94–99
[2023-09-19] MEDS: NOREPINEPHRIN 4MG/NS 250ML 250 ML IV ONE (00:08)
[2023-09-19] MEDS: NITROGLYCERIN 1GM OINT 1 INCH/1GM TD ONE (02:44)
[2023-09-19 04:46] LABS: BASOPHILS # (AUTO) 0.05 K/uL (0.00-0.20); BASOPHILS % (AUTO) 0.7 % (0.0-5.0); EOSINOPHILS # (AUTO) 0.07 K/uL (0.00-0.70); HEMATOCRIT 40.3 % (42-54); IMMATURE GRANULOCYTE ABSOLUTE 0.02 K/uL (0-1); LYMPHOCYTES # (AUTO) 1.7 K/uL (1.0-4.8); MEAN CORPUSCULAR HEMOGLOBIN 31.2 pg (27.0-33.0); MEAN CORPUSCULAR HGB CONC 33.3 g/dL (32.0-36.0); MEAN CORPUSCULAR VOLUME 93.9 fL (79-99); MONOCYTES # (AUTO) 0.7 K/uL (0.1-1.0); MONOCYTES % (AUTO) 10.4 % (3.0-13.0); NEUTROPHILS # (AUTO) 4.3 K/uL (1.8-7.7); NEUTROPHILS % (AUTO) 62.6 % (40.0-77.0); PLATELET COUNT (AUTO) 180 K/uL (130-400); RED BLOOD CELL COUNT(AUTO) 4.29 MIL/uL (4.50-6.20); RED CELL DISTRIBUTION WIDTH 14.5 % (11.0-15.5); WHITE BLOOD COUNT (AUTO) 6.8 K/uL (4.8-10.8)
[2023-09-19 05:07] LABS: HEMOGLOBIN A1C 10.8 % (4.0-6.0)
[2023-09-19 05:32] LABS: CREATININE 1.1 mg/dL (0.5-1.5); MAGNESIUM 1.5 mg/dL (1.80-2.40); PHOSPHORUS 4.9 mg/dL (2.5-4.9); POTASSIUM 3.1 mmol/L (3.5-5.1); THYROID STIMULATING HORMONE 6.64 uIU/mL (0.36-3.74)
[2023-09-19] MEDS: KCL 20 MEQ ERTAB PO PRN (05:48)
[2023-09-19] MEDS: MAGNESIUM 2GM PREMIX 50ML 50 ML IV PRN (05:49)
[2023-09-19] MEDS: NOREPINEPHRIN 4MG/NS 250ML 250 ML IV SCH (08:34)
[2023-09-19] MEDS: ENOXAPARIN SODIUM 40 MG/0.4 ML SYRINGE SQ SCH (10:03)
[2023-09-19] MEDS: FAMOTIDINE 20MG VIAL IV SCH (10:03)
[2023-09-19] MEDS: SPIRONOLACTONE 25 MG TAB PO SCH (10:04)
[2023-09-19] MEDS: SACUBITRIL/VALSARTAN 1 EACH TABLET PO SCH (10:04)
[2023-09-19] MEDS: ASPIRIN 81MG CHEW TAB PO SCH (10:04)
[2023-09-19 10:10] LABS: ABG BASE EXCESS 2.3 mmol/L (-2.0-3.0); ABG OXYGEN SATURATION 99.1 % (95.0-99.0); ABG PCO2 23 mmHg (35-48); ABG PH 7.599 (7.35-7.450); CARBON MONOXIDE 1.3; HHb 0.9; PO2, ARTERIAL BG 139.5 mmHg (83.0-108.0); VENT MODE, BG ROOM AIR (ROOM AIR)
[2023-09-19] MEDS: INSULIN HUMULIN R 100 UNIT/ML 3ML SQ SCH (10:39)
[2023-09-19] MEDS: GLIPIZIDE 5 MG TABLET PO SCH (16:49)
[2023-09-19] MEDS: GEMFIBROZIL 600 MG TABLET PO SCH (16:49)
[2023-09-19] MEDS: METFORMIN HCL 500 MG TABLET PO SCH (16:50)
[2023-09-19] MEDS ORDERED: NON-FORMULARY MEDICATION 1 EACH (Glipizide 10 MG) PO SCH (17:00)
[2023-09-19] MEDS ORDERED: NON-FORMULARY MEDICATION 1 EACH (Metformin HCl 1,000 MG) PO SCH (21:00)
[2023-09-19 21:18] LABS: MAGNESIUM 1.7 mg/dL (1.80-2.40); POTASSIUM 3.7 mmol/L (3.5-5.1)
[2023-09-19] MEDS: MIDODRINE HCL 5 MG TABLET PO SCH (22:28)
[2023-09-20] VITALS (79 sets, daily range): BP systolic 75–131; BP diastolic 32–84; PULSE 80–103; RESP 4–33; O2SAT 93–100
[2023-09-20 05:29] LABS: MAGNESIUM 2.2 mg/dL (1.80-2.40); POTASSIUM 4.4 mmol/L (3.5-5.1)
[2023-09-20] MEDS: LEVOTHYROXINE 112 MCG TABLET PO ONE (11:34)
[2023-09-20 15:14] LABS: ABSOLUTE CD4 COUNT 400 /uL (359-1519); LYMPHS % FOR CD4 COUNT 15 % (Not Estab.); LYMPHS ABS FOR CD4 COUNT 0.9 x10E3/uL (0.7-3.1); PERCENT CD4 CELLS 44.4 % (30.8-58.5); WBC FOR CD4 COUNT 5.7 x10E3/uL (3.4-10.8)
[2023-09-20] MEDS: MORPHINE 2 MG SYG IV PRN (18:39)
[2023-09-20] MEDS: PHARMACY COMMUNICATION MISC SCH (19:50)
[2023-09-20 20:04] LABS: ABG HCO3 17.4 mmol/L (21.0-28.0); ABG OXYGEN SATURATION 98.9 % (95.0-99.0); ABG PCO2 24 mmHg (35-48); ABG PH 7.481 (7.35-7.450); DEVICE COMMENT LEFT RAD; HHb 1.1; PO2, ARTERIAL BG 141.7 mmHg (83.0-108.0)
[2023-09-21] VITALS (93 sets, daily range): BP systolic 69–124; BP diastolic 33–78; PULSE 73–95; RESP 9–137; O2SAT 97–100
[2023-09-21 04:04] LABS: BASOPHILS # (AUTO) 0.04 K/uL (0.00-0.20); BASOPHILS % (AUTO) 0.8 % (0.0-5.0); EOSINOPHILS # (AUTO) 0.11 K/uL (0.00-0.70); EOSINOPHILS % (AUTO) 2.2 % (0.0-8.0); HEMATOCRIT 37.1 % (42-54); IMMATURE GRANULOCYTE ABSOLUTE 0.01 K/uL (0-1); LYMPHOCYTES # (AUTO) 1.7 K/uL (1.0-4.8); LYMPHOCYTES % (AUTO) 33.3 % (21.0-51.0); MEAN CORPUSCULAR HEMOGLOBIN 31.4 pg (27.0-33.0); MEAN CORPUSCULAR HGB CONC 33.7 g/dL (32.0-36.0); MEAN CORPUSCULAR VOLUME 93.2 fL (79-99); MONOCYTES # (AUTO) 0.5 K/uL (0.1-1.0); NEUTROPHILS # (AUTO) 2.7 K/uL (1.8-7.7); NEUTROPHILS % (AUTO) 53.5 % (40.0-77.0); PLATELET COUNT (AUTO) 173 K/uL (130-400); RED BLOOD CELL COUNT(AUTO) 3.98 MIL/uL (4.50-6.20); RED CELL DISTRIBUTION WIDTH 14.6 % (11.0-15.5); WHITE BLOOD COUNT (AUTO) 5.1 K/uL (4.8-10.8)
[2023-09-21 04:15] LABS: CREATININE 1.6 mg/dL (0.5-1.5); MAGNESIUM 1.9 mg/dL (1.80-2.40); POTASSIUM 4.7 mmol/L (3.5-5.1)
[2023-09-21 04:16] LABS: INR 1.14 (0.85-1.15); PROTHROMBIN TIME 13.1 SEC (9.6-11.6)
[2023-09-21] MEDS: NOREPINEPHRIN 4MG/NS 250ML 250 ML IV SCH (05:36)
[2023-09-21] MEDS: LEVOTHYROXINE 112 MCG TABLET PO SCH (05:44)
[2023-09-21 09:45] LABS: ALBUMIN 2.8 g/dL (3.5-5.0); BILIRUBIN,DIRECT 0.6 mg/dL (0.0-0.3); BILIRUBIN,TOTAL 1.1 mg/dL (0.2-1.0); TOTAL PROTEIN, SERUM 7.7 g/dL (6.0-8.3)
[2023-09-21 10:47] LABS: APPEARANCE,URINE CLEAR (CLEAR); BILIRUBIN,URINE NEGATIVE (NEGATIVE); COLOR,URINE LIGHT-YELLOW (YELLOW); GLUCOSE, URINE (UA) NEGATIVE (NEGATIVE); KETONES,URINE NEGATIVE (NEGATIVE); LEUKOCYTE ESTERASE ,URINE NEGATIVE Leu/uL (NEGATIVE); NITRATE,URINE NEGATIVE (NEGATIVE); OCCULT BLOOD,URINE NEGATIVE (NEGATIVE); PH,URINE 5.5 (5.0-8.0); PROTEIN,URINE NEGATIVE (NEGATIVE); RBC,URINE 0-1 /HPF (0-1); UROBILINOGEN,URINE 0.2 mg/dL (0.2-1.0); WBC,URINE 0-1 /HPF (0-1)
[2023-09-21] MEDS: MIDODRINE HCL 5 MG TABLET PO SCH (14:21)
[2023-09-21] MEDS: ALPRAZOLAM 0.5 MG TABLET PO ONE (18:41)
[2023-09-22] VITALS (38 sets, daily range): BP systolic 80–115; BP diastolic 34–80; PULSE 65–95; RESP 11–28; O2SAT 90–100
[2023-09-22 04:47] LABS: BASOPHILS # (AUTO) 0.04 K/uL (0.00-0.20); BASOPHILS % (AUTO) 0.8 % (0.0-5.0); EOSINOPHILS # (AUTO) 0.13 K/uL (0.00-0.70); EOSINOPHILS % (AUTO) 2.5 % (0.0-8.0); HEMATOCRIT 39.8 % (42-54); IMMATURE GRANULOCYTE ABSOLUTE 0.03 K/uL (0-1); LYMPHOCYTES # (AUTO) 1.5 K/uL (1.0-4.8); LYMPHOCYTES % (AUTO) 28.1 % (21.0-51.0); MEAN CORPUSCULAR HEMOGLOBIN 31.5 pg (27.0-33.0); MEAN CORPUSCULAR HGB CONC 33.9 g/dL (32.0-36.0); MEAN CORPUSCULAR VOLUME 92.8 fL (79-99); MONOCYTES # (AUTO) 0.4 K/uL (0.1-1.0); MONOCYTES % (AUTO) 8.5 % (3.0-13.0); NEUTROPHILS # (AUTO) 3.1 K/uL (1.8-7.7); NEUTROPHILS % (AUTO) 59.5 % (40.0-77.0); PLATELET COUNT (AUTO) 201 K/uL (130-400); RED BLOOD CELL COUNT(AUTO) 4.29 MIL/uL (4.50-6.20); RED CELL DISTRIBUTION WIDTH 14.7 % (11.0-15.5); WHITE BLOOD COUNT (AUTO) 5.2 K/uL (4.8-10.8)
[2023-09-22 05:13] LABS: CREATININE 1.3 mg/dL (0.5-1.5); POTASSIUM 3.9 mmol/L (3.5-5.1)
[2023-09-22] MEDS: AZITHROMYCIN 250 MG TABLET PO SCH (13:04)
[2023-09-23] VITALS (12 sets, daily range): BP systolic 87–122; BP diastolic 54–61; PULSE 66–105; RESP 17–20; O2SAT 95–100
[2023-09-23 04:48] LABS: BASOPHILS # (AUTO) 0.04 K/uL (0.00-0.20); BASOPHILS % (AUTO) 0.7 % (0.0-5.0); EOSINOPHILS # (AUTO) 0.13 K/uL (0.00-0.70); EOSINOPHILS % (AUTO) 2.2 % (0.0-8.0); IMMATURE GRANULOCYTE ABSOLUTE 0.02 K/uL (0-1); LYMPHOCYTES # (AUTO) 1.7 K/uL (1.0-4.8); LYMPHOCYTES % (AUTO) 27.5 % (21.0-51.0); MEAN CORPUSCULAR HEMOGLOBIN 31.4 pg (27.0-33.0); MEAN CORPUSCULAR HGB CONC 33.7 g/dL (32.0-36.0); MEAN CORPUSCULAR VOLUME 93.2 fL (79-99); MONOCYTES # (AUTO) 0.5 K/uL (0.1-1.0); MONOCYTES % (AUTO) 8.3 % (3.0-13.0); NEUTROPHILS # (AUTO) 3.7 K/uL (1.8-7.7); PLATELET COUNT (AUTO) 207 K/uL (130-400); RED CELL DISTRIBUTION WIDTH 14.5 % (11.0-15.5)
[2023-09-23 04:52] LABS: CREATININE 1.4 mg/dL (0.5-1.5); POTASSIUM 4.1 mmol/L (3.5-5.1)
[2023-09-24] VITALS (9 sets, daily range): BP systolic 88–115; BP diastolic 54–76; PULSE 70–88; RESP 16–19; O2SAT 98
[2023-09-24 05:34] LABS: HEMATOCRIT 39.8 % (42-54); MEAN CORPUSCULAR HEMOGLOBIN 31.6 pg (27.0-33.0); MEAN CORPUSCULAR HGB CONC 33.9 g/dL (32.0-36.0); MEAN CORPUSCULAR VOLUME 93.2 fL (79-99); RED BLOOD CELL COUNT(AUTO) 4.27 MIL/uL (4.50-6.20); RED CELL DISTRIBUTION WIDTH 14.5 % (11.0-15.5); WHITE BLOOD COUNT (AUTO) 6.1 K/uL (4.8-10.8)
[2023-09-24 05:52] LABS: ALBUMIN 3.1 g/dL (3.5-5.0); CREATININE 1.3 mg/dL (0.5-1.5); MAGNESIUM 1.6 mg/dL (1.80-2.40); POTASSIUM 3.8 mmol/L (3.5-5.1); TOTAL PROTEIN, SERUM 8.8 g/dL (6.0-8.3)
[2023-09-24] MEDS ORDERED: LEVOTHYROXINE 112 MCG PO (14:58)
[2023-09-24] MEDS ORDERED: AMOX1TAB16 PO (14:58)
[2023-09-24] MEDS ORDERED: Midodrine Hcl PO (14:58)
[2023-09-24] MEDS ORDERED: MIDO5TAB4 PO (14:59)
[2023-09-24] MEDS ORDERED: LEVO112C4 PO (15:00)
[2023-09-24] MEDS ORDERED: MAGNESIUM 2GM PREMIX 50ML 50 ML IV SCH (15:00)
== END 2023-09-24 18:45 | disposition home or self-care (01) | DRG 177 ==
LOC: EDH 14:36 → EDHIP 14:37 → 2BH 09-19 03:39 → 3AH 09-22 13:50
PROVIDERS: ADMIT Internal Medicine; ATTEND Internal Medicine
DX: U07.1 COVID-19 (principal); I50.43 Acute on chronic combined systolic (congestive) and diastolic (congestive) heart failure; J12.82 Pneumonia due to coronavirus disease 2019; J90 Pleural effusion, not elsewhere classified; I11.0 Hypertensive heart disease with heart failure; E11.65 Type 2 diabetes mellitus with hyperglycemia; Z21 Asymptomatic human immunodeficiency virus [HIV] infection status; E03.9 Hypothyroidism, unspecified; E83.42 Hypomagnesemia; I25.5 Ischemic cardiomyopathy; E07.81 Sick-euthyroid syndrome; I95.9 Hypotension, unspecified; E66.3 Overweight; E78.00 Pure hypercholesterolemia, unspecified; I25.10 Atherosclerotic heart disease of native coronary artery without angina pectoris; K74.60 Unspecified cirrhosis of liver; Z59.7 Insufficient social insurance and welfare support; Z75.3 Unavailability and inaccessibility of health-care facilities; Z79.82 Long term (current) use of aspirin; Z80.3 Family history of malignant neoplasm of breast; Z82.49 Family history of ischemic heart disease and other diseases of the circulatory system; Z83.3 Family history of diabetes mellitus; Z86.74 Personal history of sudden cardiac arrest; Z87.891 Personal history of nicotine dependence; Z95.1 Presence of aortocoronary bypass graft; Z95.810 Presence of automatic (implantable) cardiac defibrillator; Z68.26 Body mass index [BMI] 26.0-26.9, adult
CPT/HCPCS: 36415; 36600; 71045; 80048; 80053; 80076; 81001; 82435; 82533; 82803; 82947; 82948; 83036; 83605; 83735; 83880; 84100; 84132; 84295; 84439; 84443; 84481; 84484; 85018; 85025; 85027; 85610; 85730; 86359; 86361; 87040; 87635; 87804; 87880; 94640; 94660; 94664; 96365; 96372; 96375; G0378; J0456; J0696; J1650; J1815; J1940; J2270; J3475; J3490

== ENCOUNTER 2023-12-02 09:21 | Emergency (ER) | payer OTHER ==
[~2023-12-02] VITALS: Ht 175.3 cm; Wt 67.6 kg
[~2023-12-02 09:21] MED LIST changes: -ATOR10 PO; +ATOR20TA65 PO; +CHOL500051 PO; -GLIP10TA9 PO; +INSU3INS3 SQ; +MIDO10TA PO; +NITR0.4T50 SL; -PREN-196 PO; -SPIR25TA6 PO; +SPIR50TA5 PO
[2023-12-02 10:01] LABS: BASOPHILS # (AUTO) 0.04 K/uL (0.00-0.20); BASOPHILS % (AUTO) 0.8 % (0.0-5.0); EOSINOPHILS # (AUTO) 0.15 K/uL (0.00-0.70); EOSINOPHILS % (AUTO) 2.8 % (0.0-8.0); HEMATOCRIT 42.5 % (42-54); IMMATURE GRANULOCYTE ABSOLUTE 0.01 K/uL (0-1); LYMPHOCYTES # (AUTO) 1.2 K/uL (1.0-4.8); LYMPHOCYTES % (AUTO) 22.2 % (21.0-51.0); MEAN CORPUSCULAR HEMOGLOBIN 32.9 pg (27.0-33.0); MEAN CORPUSCULAR HGB CONC 33.2 g/dL (32.0-36.0); MEAN CORPUSCULAR VOLUME 99.3 fL (79-99); MONOCYTES # (AUTO) 0.5 K/uL (0.1-1.0); MONOCYTES % (AUTO) 9.1 % (3.0-13.0); NEUTROPHILS # (AUTO) 3.4 K/uL (1.8-7.7); NEUTROPHILS % (AUTO) 64.9 % (40.0-77.0); PLATELET COUNT (AUTO) 152 K/uL (130-400); RED BLOOD CELL COUNT(AUTO) 4.28 MIL/uL (4.50-6.20); RED CELL DISTRIBUTION WIDTH 16.7 % (11.0-15.5); WHITE BLOOD COUNT (AUTO) 5.3 K/uL (4.8-10.8)
[2023-12-02 10:08] LABS: CREATININE 1.2 mg/dL (0.5-1.3); POTASSIUM 4.2 mmol/L (3.5-5.1)
[2023-12-02 10:13] LABS: ALBUMIN 3.6 g/dL (3.5-5.0); BILIRUBIN,DIRECT 0.8 mg/dL (0.0-0.3); BILIRUBIN,TOTAL 1.6 mg/dL (0.2-1.0)
[2023-12-02 10:37] LABS: B-TYPE NATRIURETIC PEPTIDE 3460 pg/mL (0-100)
[2023-12-02] MEDS: FUROSEMIDE 40MG VIAL IV ONE (11:53)
[2023-12-02 13:59] VITALS: BP 102/58; PULSE 71; RESP 22; O2SAT 100
== END 2023-12-02 14:55 | disposition home or self-care (01) ==
LOC: EDH 09:21
DX: I11.0 Hypertensive heart disease with heart failure (principal); I50.9 Heart failure, unspecified; E11.9 Type 2 diabetes mellitus without complications; E78.00 Pure hypercholesterolemia, unspecified; F17.200 Nicotine dependence, unspecified, uncomplicated; Z79.4 Long term (current) use of insulin; Z79.82 Long term (current) use of aspirin; Z79.84 Long term (current) use of oral hypoglycemic drugs; Z79.899 Other long term (current) drug therapy; Z90.49 Acquired absence of other specified parts of digestive tract; Z88.6 Allergy status to analgesic agent; Z95.1 Presence of aortocoronary bypass graft; Z95.810 Presence of automatic (implantable) cardiac defibrillator
CPT/HCPCS: 99285; 96374; 71045; 80076; 84484; 80048; 83880; 85025; 36415; 93005; J1940

== ENCOUNTER 2023-12-08 23:34 | Inpatient (IN) | payer OTHER ==
[~2023-12-08] VITALS: Ht 167.6 cm; Wt 61.7 kg
[2023-12-09] VITALS (7 sets, daily range): BP systolic 88–115; BP diastolic 59–71; PULSE 61–68; RESP 18–22; O2SAT 98–99
[2023-12-09] MEDS ORDERED: FUROSEMIDE 40MG VIAL IV ONE
[2023-12-09 01:05] LABS: APPEARANCE,URINE CLEAR (CLEAR); BILIRUBIN,URINE NEGATIVE (NEGATIVE); COLOR,URINE YELLOW (YELLOW); GLUCOSE, URINE (UA) >=1000 mg/dL (NEGATIVE); KETONES,URINE NEGATIVE (NEGATIVE); LEUKOCYTE ESTERASE ,URINE NEGATIVE Leu/uL (NEGATIVE); NITRATE,URINE NEGATIVE (NEGATIVE); OCCULT BLOOD,URINE NEGATIVE (NEGATIVE); PH,URINE 5.5 (5.0-8.0); PROTEIN,URINE 20 mg/dL (NEGATIVE); UROBILINOGEN,URINE 0.2 mg/dL (0.2-1.0)
[2023-12-09 01:06] LABS: ADD UA MICROSCOPIC YES; BACTERIA,URINE FEW /HPF (None Seen); MUCUS,URINE RARE LPF (None Seen); RBC,URINE 0-1 /HPF (0-1); SQUAMOUS EPITHELIAL CELL,UR RARE /HPF (0-2)
[2023-12-09 02:08] LABS: BASOPHILS # (AUTO) 0.06 K/uL (0.00-0.20); BASOPHILS % (AUTO) 0.9 % (0.0-5.0); EOSINOPHILS # (AUTO) 0.07 K/uL (0.00-0.70); EOSINOPHILS % (AUTO) 1.1 % (0.0-8.0); IMMATURE GRANULOCYTE ABSOLUTE 0.02 K/uL (0-1); LYMPHOCYTES # (AUTO) 1.2 K/uL (1.0-4.8); LYMPHOCYTES % (AUTO) 17.5 % (21.0-51.0); MEAN CORPUSCULAR HEMOGLOBIN 32.6 pg (27.0-33.0); MEAN CORPUSCULAR VOLUME 95.9 fL (79-99); MONOCYTES # (AUTO) 0.8 K/uL (0.1-1.0); MONOCYTES % (AUTO) 11.9 % (3.0-13.0); NEUTROPHILS # (AUTO) 4.5 K/uL (1.8-7.7); NEUTROPHILS % (AUTO) 68.3 % (40.0-77.0); PLATELET COUNT (AUTO) 169 K/uL (130-400); RED BLOOD CELL COUNT(AUTO) 4.17 MIL/uL (4.50-6.20); WHITE BLOOD COUNT (AUTO) 6.6 K/uL (4.8-10.8)
[2023-12-09 02:22] LABS: CREATININE 1.4 mg/dL (0.5-1.3); POTASSIUM 4.3 mmol/L (3.5-5.1)
[2023-12-09 02:27] LABS: ALBUMIN 3.5 g/dL (3.5-5.0); BILIRUBIN,TOTAL 1.7 mg/dL (0.2-1.0); MAGNESIUM 2.2 mg/dL (1.80-2.40); TOTAL PROTEIN, SERUM 8.6 g/dL (6.0-8.3)
[2023-12-09 02:29] LABS: INR 1.3 (0.85-1.15)
[2023-12-09 02:31] LABS: PARTIAL THROMBOPLASTIN TIME 29.1 SEC (26.3-35.5)
[2023-12-09 02:34] LABS: B-TYPE NATRIURETIC PEPTIDE 3020 pg/mL (0-100)
[2023-12-09] MEDS: FUROSEMIDE 20MG VIAL IV ONE (03:27)
[2023-12-09] MEDS ORDERED: DAPA10TA PO (05:08)
[2023-12-09] MEDS ORDERED: SPIR25TA6 PO (05:11)
[2023-12-09] MEDS ORDERED: GLUCAGON 1MG KIT 1 MG ML IM PRN (06:30)
[2023-12-09] MEDS ORDERED: POTASSIUM CHLORIDE 20MEQ/100ML 100 ML IV PRN (06:30)
[2023-12-09] MEDS ORDERED: ONDANSETRON 4MG INJ IV PRN (06:30)
[2023-12-09] MEDS ORDERED: ACETAMINOPHEN 325 MG TAB PO PRN (06:30)
[2023-12-09] MEDS ORDERED: POTASSIUM CHLORIDE 10% ELIXIR 20 MEQ/15 ML UDCUP PO PRN (06:30)
[2023-12-09] MEDS ORDERED: DEXTROSE 50%-WATER 50 ML DISP.SYRIN IV PRN (06:30)
[2023-12-09 06:34] LABS: BASOPHILS # (AUTO) 0.05 K/uL (0.00-0.20); BASOPHILS % (AUTO) 0.8 % (0.0-5.0); EOSINOPHILS # (AUTO) 0.09 K/uL (0.00-0.70); EOSINOPHILS % (AUTO) 1.5 % (0.0-8.0); IMMATURE GRANULOCYTE ABSOLUTE 0.03 K/uL (0-1); LYMPHOCYTES # (AUTO) 1.3 K/uL (1.0-4.8); LYMPHOCYTES % (AUTO) 22.3 % (21.0-51.0); MEAN CORPUSCULAR HEMOGLOBIN 32.3 pg (27.0-33.0); MEAN CORPUSCULAR HGB CONC 33.6 g/dL (32.0-36.0); MEAN CORPUSCULAR VOLUME 96.1 fL (79-99); MONOCYTES # (AUTO) 0.7 K/uL (0.1-1.0); MONOCYTES % (AUTO) 12.1 % (3.0-13.0); NEUTROPHILS # (AUTO) 3.8 K/uL (1.8-7.7); NEUTROPHILS % (AUTO) 62.8 % (40.0-77.0); PLATELET COUNT (AUTO) 165 K/uL (130-400); RED BLOOD CELL COUNT(AUTO) 4.06 MIL/uL (4.50-6.20); RED CELL DISTRIBUTION WIDTH 16.1 % (11.0-15.5)
[2023-12-09 06:46] LABS: ALBUMIN 3.2 g/dL (3.5-5.0); BILIRUBIN,TOTAL 1.5 mg/dL (0.2-1.0); CREATININE 1.2 mg/dL (0.5-1.3); MAGNESIUM 1.9 mg/dL (1.80-2.40); POTASSIUM 4.4 mmol/L (3.5-5.1); TOTAL PROTEIN, SERUM 7.9 g/dL (6.0-8.3)
[2023-12-09] MEDS: INSULIN HUMULIN R 100 UNIT/ML 3ML SQ SCH (07:27)
[2023-12-09 07:29] LABS: B-TYPE NATRIURETIC PEPTIDE 3190 pg/mL (0-100)
[2023-12-09] MEDS ORDERED: FUROSEMIDE 20MG VIAL IV SCH (09:00)
[2023-12-09] MEDS: FAMOTIDINE 20MG TAB PO SCH (09:55)
[2023-12-09] MEDS: HEPARIN 5,000 UNIT VIAL SQ SCH (10:02)
[2023-12-09] MEDS: CEFTRIAXONE 1G VIAL IVPB SCH (10:35)
[2023-12-09] MEDS: INSULIN GLARGINE 100 UNITS/ML 10 ML VIAL SQ SCH (21:43)
[2023-12-09] MEDS: SACUBITRIL/VALSARTAN 1 EACH TABLET PO SCH (21:44)
[2023-12-09] MEDS: FUROSEMIDE 40 MG TABLET PO SCH (21:44)
[2023-12-10] VITALS (9 sets, daily range): BP systolic 85–98; BP diastolic 51–65; PULSE 62–74; RESP 16–18; O2SAT 96
[2023-12-10 04:13] LABS: ALBUMIN 3.1 g/dL (3.5-5.0); BILIRUBIN,TOTAL 1.6 mg/dL (0.2-1.0); CREATININE 1.1 mg/dL (0.5-1.3); POTASSIUM 3.5 mmol/L (3.5-5.1)
[2023-12-10] MEDS: KCL 20 MEQ ERTAB PO PRN (05:26)
[2023-12-10] MEDS ORDERED: METOPROLOL SUCCINATE 50 MG TAB.SR.24H PO SCH (09:00)
[2023-12-10] MEDS: (Dapagliflozin Propanediol (Farxiga) 10 MG) PO SCH (09:17)
[2023-12-10] MEDS: [UNRECOGNIZED DRUG - OTHER] PO SCH (09:18)
[2023-12-10] MEDS: FUROSEMIDE 40MG VIAL IV SCH (09:18)
[2023-12-10] MEDS: ASPIRIN 81 MG EC TAB PO SCH (09:19)
[2023-12-10] MEDS: METOPROLOL SUCCINATE 25 MG TAB.SR.24H PO SCH (09:19)
[2023-12-10] MEDS: SPIRONOLACTONE 25 MG TAB PO SCH (09:20)
[2023-12-11 03:18] VITALS: BP 97/53; PULSE 63; RESP 16
[2023-12-11 03:54] LABS: BASOPHILS # (AUTO) 0.06 K/uL (0.00-0.20); BASOPHILS % (AUTO) 1.2 % (0.0-5.0); EOSINOPHILS # (AUTO) 0.15 K/uL (0.00-0.70); HEMATOCRIT 37.3 % (42-54); IMMATURE GRANULOCYTE ABSOLUTE 0.01 K/uL (0-1); LYMPHOCYTES # (AUTO) 1.6 K/uL (1.0-4.8); LYMPHOCYTES % (AUTO) 31.7 % (21.0-51.0); MEAN CORPUSCULAR HEMOGLOBIN 32.4 pg (27.0-33.0); MEAN CORPUSCULAR HGB CONC 33.8 g/dL (32.0-36.0); MEAN CORPUSCULAR VOLUME 95.9 fL (79-99); MONOCYTES # (AUTO) 0.4 K/uL (0.1-1.0); MONOCYTES % (AUTO) 8.8 % (3.0-13.0); NEUTROPHILS # (AUTO) 2.8 K/uL (1.8-7.7); NEUTROPHILS % (AUTO) 55.1 % (40.0-77.0); PLATELET COUNT (AUTO) 173 K/uL (130-400); RED BLOOD CELL COUNT(AUTO) 3.89 MIL/uL (4.50-6.20); RED CELL DISTRIBUTION WIDTH 15.9 % (11.0-15.5)
[2023-12-11 04:10] LABS: ALBUMIN 3.1 g/dL (3.5-5.0); BILIRUBIN,TOTAL 1.6 mg/dL (0.2-1.0); CREATININE 1.2 mg/dL (0.5-1.3); MAGNESIUM 1.8 mg/dL (1.80-2.40); POTASSIUM 3.5 mmol/L (3.5-5.1); TOTAL PROTEIN, SERUM 7.9 g/dL (6.0-8.3)
[2023-12-11 04:33] LABS: EOSINOPHILS % (MANUAL) 2 % (1-6); LYMPHOCYTES % (MANUAL) 31 % (22-44); MONOCYTES % (MANUAL) 8 % (2-9); SEGMENTED NEUTROPHILS % 59 % (40-70); TOTAL CELLS COUNTED 100
[2023-12-11 04:34] LABS: MAN.DIFF COMMENT-IMPRESSION MANUAL DIFFERENTIAL
[2023-12-11] MEDS: MAGNESIUM 2GM PREMIX 50ML 50 ML IV PRN (04:50)
[2023-12-11 08:00] VITALS: PULSE 64; RESP 16; O2SAT 96
[2023-12-11] MEDS: METOLAZONE 2.5 MG TABLET PO ONE (09:38)
[2023-12-11] MEDS: METOPROLOL SUCCINATE 25 MG TAB.SR.24H PO SCH (09:40)
[2023-12-11 12:00] VITALS: BP 114/60; PULSE 70; RESP 16
[2023-12-11] MEDS: KCL 20 MEQ ERTAB PO ONE (13:32)
[2023-12-11 16:00] VITALS: BP 109/51; PULSE 69; RESP 16
[2023-12-11 19:54] VITALS: BP 117/71; PULSE 66; RESP 18
[2023-12-11 20:25] VITALS: O2SAT 98
[2023-12-12] VITALS (8 sets, daily range): BP systolic 90–125; BP diastolic 52–77; PULSE 61–82; RESP 16–18; O2SAT 96–98
[2023-12-12 03:42] LABS: BASOPHILS # (AUTO) 0.07 K/uL (0.00-0.20); BASOPHILS % (AUTO) 1.2 % (0.0-5.0); EOSINOPHILS # (AUTO) 0.18 K/uL (0.00-0.70); HEMATOCRIT 40.9 % (42-54); IMMATURE GRANULOCYTE ABSOLUTE 0.01 K/uL (0-1); LYMPHOCYTES # (AUTO) 2.3 K/uL (1.0-4.8); LYMPHOCYTES % (AUTO) 37.9 % (21.0-51.0); MEAN CORPUSCULAR HEMOGLOBIN 31.8 pg (27.0-33.0); MEAN CORPUSCULAR HGB CONC 33.3 g/dL (32.0-36.0); MEAN CORPUSCULAR VOLUME 95.6 fL (79-99); MONOCYTES # (AUTO) 0.6 K/uL (0.1-1.0); MONOCYTES % (AUTO) 9.8 % (3.0-13.0); NEUTROPHILS # (AUTO) 2.9 K/uL (1.8-7.7); NEUTROPHILS % (AUTO) 47.9 % (40.0-77.0); PLATELET COUNT (AUTO) 190 K/uL (130-400); RED BLOOD CELL COUNT(AUTO) 4.28 MIL/uL (4.50-6.20); RED CELL DISTRIBUTION WIDTH 15.9 % (11.0-15.5); WHITE BLOOD COUNT (AUTO) 5.9 K/uL (4.8-10.8)
[2023-12-12 04:01] LABS: ALBUMIN 3.2 g/dL (3.5-5.0); BILIRUBIN,TOTAL 1.4 mg/dL (0.2-1.0); CREATININE 1.4 mg/dL (0.5-1.3); MAGNESIUM 1.9 mg/dL (1.80-2.40); POTASSIUM 3.4 mmol/L (3.5-5.1); TOTAL PROTEIN, SERUM 8.5 g/dL (6.0-8.3)
[2023-12-12 04:35] LABS: WBC MORPHOLOGY CONSISTENT W/DIFF
[2023-12-12] MEDS: REGADENOSON 0.4 MG/5 ML PF SYG IVP SCH (06:30)
[2023-12-12] MEDS: FUROSEMIDE 40 MG TABLET PO SCH (11:44)
[2023-12-12] MEDS: ACETAMINOPHEN 325 MG TAB PO PRN (12:04)
[2023-12-12] MEDS: FAMOTIDINE 20MG TAB PO SCH (21:15)
[2023-12-13] VITALS (10 sets, daily range): BP systolic 71–108; BP diastolic 36–59; PULSE 61–81; RESP 16–20; O2SAT 96
[2023-12-13 03:51] LABS: BASOPHILS # (AUTO) 0.06 K/uL (0.00-0.20); BASOPHILS % (AUTO) 1.1 % (0.0-5.0); EOSINOPHILS % (AUTO) 1.8 % (0.0-8.0); HEMATOCRIT 43.9 % (42-54); IMMATURE GRANULOCYTE ABSOLUTE 0.01 K/uL (0-1); LYMPHOCYTES # (AUTO) 1.3 K/uL (1.0-4.8); LYMPHOCYTES % (AUTO) 23.8 % (21.0-51.0); MEAN CORPUSCULAR HEMOGLOBIN 33.1 pg (27.0-33.0); MEAN CORPUSCULAR HGB CONC 34.6 g/dL (32.0-36.0); MEAN CORPUSCULAR VOLUME 95.6 fL (79-99); MONOCYTES # (AUTO) 0.6 K/uL (0.1-1.0); MONOCYTES % (AUTO) 11.4 % (3.0-13.0); NEUTROPHILS # (AUTO) 3.4 K/uL (1.8-7.7); NEUTROPHILS % (AUTO) 61.7 % (40.0-77.0); PLATELET COUNT (AUTO) 185 K/uL (130-400); RED BLOOD CELL COUNT(AUTO) 4.59 MIL/uL (4.50-6.20); RED CELL DISTRIBUTION WIDTH 15.3 % (11.0-15.5); WHITE BLOOD COUNT (AUTO) 5.6 K/uL (4.8-10.8)
[2023-12-13 04:16] LABS: ALBUMIN 3.3 g/dL (3.5-5.0); BILIRUBIN,TOTAL 1.6 mg/dL (0.2-1.0); CREATININE 1.2 mg/dL (0.5-1.3); MAGNESIUM 2.1 mg/dL (1.80-2.40); TOTAL PROTEIN, SERUM 8.8 g/dL (6.0-8.3)
[2023-12-13 04:42] LABS: BASOPHILS % (MANUAL) 3 % (0-2); EOSINOPHILS % (MANUAL) 2 % (1-6); LYMPHOCYTES % (MANUAL) 18 % (22-44); MAN.DIFF COMMENT-IMPRESSION MANUAL DIFFERENTIAL; MONOCYTES % (MANUAL) 13 % (2-9); SEGMENTED NEUTROPHILS % 64 % (40-70); TOTAL CELLS COUNTED 100
[2023-12-13] MEDS: METOPROLOL SUCCINATE 25 MG TAB.SR.24H PO SCH (10:54)
[2023-12-14] VITALS (8 sets, daily range): BP systolic 91–134; BP diastolic 43–71; PULSE 64–72; RESP 16–20; O2SAT 96–97
[2023-12-14 03:39] LABS: BASOPHILS # (AUTO) 0.06 K/uL (0.00-0.20); EOSINOPHILS # (AUTO) 0.14 K/uL (0.00-0.70); EOSINOPHILS % (AUTO) 2.3 % (0.0-8.0); HEMATOCRIT 44.1 % (42-54); IMMATURE GRANULOCYTE ABSOLUTE 0.02 K/uL (0-1); LYMPHOCYTES # (AUTO) 2.6 K/uL (1.0-4.8); LYMPHOCYTES % (AUTO) 42.4 % (21.0-51.0); MEAN CORPUSCULAR HEMOGLOBIN 32.1 pg (27.0-33.0); MEAN CORPUSCULAR HGB CONC 34.2 g/dL (32.0-36.0); MEAN CORPUSCULAR VOLUME 93.6 fL (79-99); MONOCYTES # (AUTO) 0.7 K/uL (0.1-1.0); MONOCYTES % (AUTO) 11.1 % (3.0-13.0); NEUTROPHILS # (AUTO) 2.7 K/uL (1.8-7.7); NEUTROPHILS % (AUTO) 42.9 % (40.0-77.0); PLATELET COUNT (AUTO) 209 K/uL (130-400); RED BLOOD CELL COUNT(AUTO) 4.71 MIL/uL (4.50-6.20); RED CELL DISTRIBUTION WIDTH 15.1 % (11.0-15.5); WHITE BLOOD COUNT (AUTO) 6.2 K/uL (4.8-10.8)
[2023-12-14 04:14] LABS: ALBUMIN 3.2 g/dL (3.5-5.0); BILIRUBIN,TOTAL 1.4 mg/dL (0.2-1.0); CREATININE 1.4 mg/dL (0.5-1.3); MAGNESIUM 2.1 mg/dL (1.80-2.40); POTASSIUM 4.2 mmol/L (3.5-5.1); TOTAL PROTEIN, SERUM 8.7 g/dL (6.0-8.3)
[2023-12-14] MEDS: SPIRONOLACTONE 25 MG TAB PO SCH (09:20)
[2023-12-15 03:03] VITALS: BP 103/61; PULSE 66; RESP 16
[2023-12-15 03:47] LABS: BASOPHILS # (AUTO) 0.06 K/uL (0.00-0.20); BASOPHILS % (AUTO) 1.2 % (0.0-5.0); EOSINOPHILS # (AUTO) 0.15 K/uL (0.00-0.70); HEMATOCRIT 42.6 % (42-54); IMMATURE GRANULOCYTE ABSOLUTE 0.01 K/uL (0-1); LYMPHOCYTES # (AUTO) 1.6 K/uL (1.0-4.8); LYMPHOCYTES % (AUTO) 32.3 % (21.0-51.0); MEAN CORPUSCULAR HEMOGLOBIN 32.5 pg (27.0-33.0); MEAN CORPUSCULAR VOLUME 95.5 fL (79-99); MONOCYTES # (AUTO) 0.7 K/uL (0.1-1.0); MONOCYTES % (AUTO) 13.4 % (3.0-13.0); NEUTROPHILS # (AUTO) 2.5 K/uL (1.8-7.7); NEUTROPHILS % (AUTO) 49.9 % (40.0-77.0); PLATELET COUNT (AUTO) 207 K/uL (130-400); RED BLOOD CELL COUNT(AUTO) 4.46 MIL/uL (4.50-6.20); WHITE BLOOD COUNT (AUTO) 4.9 K/uL (4.8-10.8)
[2023-12-15 04:09] LABS: ALBUMIN 3.1 g/dL (3.5-5.0); BILIRUBIN,TOTAL 1.2 mg/dL (0.2-1.0); CREATININE 1.4 mg/dL (0.5-1.3); POTASSIUM 3.9 mmol/L (3.5-5.1); TOTAL PROTEIN, SERUM 8.3 g/dL (6.0-8.3)
[2023-12-15 07:00] VITALS: BP 94/49; PULSE 70; RESP 18
[2023-12-15 08:00] VITALS: O2SAT 97
[2023-12-15] MEDS ORDERED: SPIR25TA6 PO (10:03)
[2023-12-15] MEDS ORDERED: FAMO20TA8 PO (10:03)
[2023-12-15] MEDS ORDERED: METO25TA3 PO (10:03)
[2023-12-15 11:00] VITALS: BP 104/52; PULSE 76; RESP 18
== END 2023-12-15 12:22 | disposition home or self-care (01) | DRG 291 ==
LOC: EDH 23:34 → EDHIP 23:35 → 2DH 12-09 07:14
PROVIDERS: ADMIT Hospitalist; ATTEND Hospitalist
PROC: 4A02XM4 Measurement of Cardiac Total Activity, External Approach (ICD-10-PCS; principal; 2023-12-13)
PROC: 3E073KZ Introduction of Other Diagnostic Substance into Coronary Artery, Percutaneous Approach (ICD-10-PCS; 2023-12-13)
DX: I13.0 Hypertensive heart and chronic kidney disease with heart failure and stage 1 through stage 4 chronic kidney disease, or unspecified chronic kidney disease (principal); I50.43 Acute on chronic combined systolic (congestive) and diastolic (congestive) heart failure; J96.01 Acute respiratory failure with hypoxia; E87.1 Hypo-osmolality and hyponatremia; E44.1 Mild protein-calorie malnutrition; L03.116 Cellulitis of left lower limb; L03.115 Cellulitis of right lower limb; D64.9 Anemia, unspecified; E03.9 Hypothyroidism, unspecified; E11.65 Type 2 diabetes mellitus with hyperglycemia; E78.00 Pure hypercholesterolemia, unspecified; N18.30 Chronic kidney disease, stage 3 unspecified; I25.10 Atherosclerotic heart disease of native coronary artery without angina pectoris; I25.5 Ischemic cardiomyopathy; I49.3 Ventricular premature depolarization; I87.2 Venous insufficiency (chronic) (peripheral); Z21 Asymptomatic human immunodeficiency virus [HIV] infection status; Z88.8 Allergy status to other drugs, medicaments and biological substances; Z79.82 Long term (current) use of aspirin; Z79.899 Other long term (current) drug therapy; Z82.49 Family history of ischemic heart disease and other diseases of the circulatory system; Z83.3 Family history of diabetes mellitus; Z91.119 Patient's noncompliance with dietary regimen due to unspecified reason; Z95.1 Presence of aortocoronary bypass graft; Z95.810 Presence of automatic (implantable) cardiac defibrillator; Z68.22 Body mass index [BMI] 22.0-22.9, adult
CPT/HCPCS: 36415; 71045; 78452; 78582; 80053; 80061; 81001; 82550; 82948; 83735; 83880; 84484; 85025; 85378; 85610; 85730; 93005; 93017; 93970; 96372; 96374; 96375; A9500; A9540; A9558; G0378; J0696; J1644; J1815; J1940; J2785; J3475

== ENCOUNTER 2025-01-04 09:03 | Inpatient (IN) | payer SELFPAY ==
[~2025-01-04] VITALS: Ht 162.6 cm; Wt 63.7 kg
[~2025-01-04 09:03] MED LIST changes: -ATOR20TA65 PO; -CHOL500045 PO; -CHOL500051 PO; +DAPA10TA PO; +FAMO20TA8 PO; -GEMF600T89 PO; -METF-446 PO; -METO-391 PO; +METO25TA3 PO; -MIDO10TA PO; -NITR0.4T50 SL; +SILV50CR31 TP; +SPIR25TA6 PO; -SPIR50TA5 PO
--- NOTE | 2025-01-04 09:20 | EKG ---
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: [id number] : 1960 Requested By: CARLITOS HOOKS Order Number: [id number] Reading MD: Flynn Paris Measurements Intervals Darby Rate: 118 P: 60 MN: 171 QRS: 23 QRSD: 90 T: 30 QT: 327 QTc: 457 Interpretive Statements Sinus tachycardia Ventricular premature complex Low voltage, extremity leads ST elevation, consider anterior injury Compared to ECG 12/09/2023 00:52:08 Ventricular premature complex(es) now present Low QRS voltage now present ST (T wave) deviation now present Myocardial infarct finding now present Sinus rhythm no longer present Electronically Signed On 01-04-2025 17:34:36 CDT by Flynn Paris Please click the below link to view image of tracing.
[2025-01-04] MEDS: NITROGLYCERIN 0.4 MG SL TAB SL PRN (09:22)
[2025-01-04 09:44] LABS: HEMATOCRIT 50.2 % (42-54); MEAN CORPUSCULAR HEMOGLOBIN 31.4 pg (27.0-33.0); MEAN CORPUSCULAR HGB CONC 33.1 g/dL (32.0-36.0); MEAN CORPUSCULAR VOLUME 94.9 fL (79-99); RED BLOOD CELL COUNT(AUTO) 5.29 MIL/uL (4.50-6.20); RED CELL DISTRIBUTION WIDTH 12.3 % (11.0-15.5); WHITE BLOOD COUNT (AUTO) 7.6 K/uL (4.8-10.8)
[2025-01-04 09:54] LABS: CREATININE 0.8 mg/dL (0.5-1.3); POTASSIUM 4.1 mmol/L (3.5-5.1)
--- NOTE | 2025-01-04 10:09 | ERN ---
General Chief Complaint: Chest Pain Stated Complaint: CP Time Seen by MD: 09:14 Source: patient History of Present Illness Initial Comments Patient is a 64-year-old gentleman coming in complaining of chest pressure. He states that the chest pressure began yesterday radiated to his neck. He also states he has a extensive history of cardiac issues in the past. Allergies: Coded Allergies: ibuprofen (Unverified Allergy, Unknown, 10/01/23) Home Meds Active Scripts Silver Sulfadiazine (Silver Sulfadiazine) 1 % Cream..g., 50 GM TP BID for 5 Days, #1 TUB Prov:ELBERT GARCIA MD 02/09/24 Spironolactone (Spironolactone) 25 Mg Tablet, 12.5 MG PO DAILY, #60 TAB Prov:AYLA PENA PRESCHOOL TEACHER 12/15/23 Metoprolol Succinate (Toprol Xl) 25 Mg Tab.er.24h, 12.5 MG PO DAILY, #60 TAB Prov:AYLA PENA PRESCHOOL TEACHER 12/15/23 Famotidine (Famotidine) 20 Mg Tablet, 20 MG PO Q24H, #60 TAB Prov:AYLA PENA PRESCHOOL TEACHER 12/15/23 Reported Medications Dapagliflozin Propanediol (Farxiga) 10 Mg Tablet, 10 MG PO DAILY, TAB 12/09/23 Sacubitril/Valsartan (Entresto 24 mg-26 mg Tablet) 24 Mg-26 Mg Tablet, 1 EACH PO BID, TAB 10/03/23 Aspirin (ASPIRIN 81 MG ECTAB) 81 Mg Ectab, 81 MG PO DAILY, TAB.EC 10/01/23 Bictegrav/Emtricit/Tenofov Ala (Biktarvy 50-200-25 mg Tablet) 50 Mg-200 Mg-25 Mg Tablet, 1 EACH PO DAILY, TAB 10/01/23 Furosemide (Furosemide) 40 Mg Tablet, 40 MG PO BID, TAB 10/01/23 Insulin Glargine,Hum.rec.anlog (Lantus Solostar) 100 Unit/Ml (3 Ml) Insuln.pen, 11 UNIT SQ BID, SYRINGE 10/01/23 Past Medical History Past Medical History: CAD, Diabetes-Type II, High Cholesterol, Heart Disease, Hypertension Medical History Other: CARDIAC ARREST, Past Surgical History: Appendectomy, CABG Surgical History Other: OPEN HEART SX (3YRS AGO) Family History Family History: DM, HTN Social History Social History: Smokers, Lives with family, Other ROS Dictation CONSTITUTIONAL: No chills, no fever, no weakness, no diaphoresis, no malaise. HEAD/FACE: No signs of trauma. EENT: No eye pain, no blurred vision, no tearing, no double vision, no ear pain, no ear discharge, no nose pain, no nasal congestion, no throat pain, no throat swelling, no mouth pain. RESPIRATORY: No cough, no orthopnea, no SOB, no stridor, no wheezing. CARDIOVASCULAR: chest pain, no edema, no palpitations, no syncope. GASTROINTESTINAL/ABDOMINAL: No abdominal pain, no constipation, no diarrhea, no nausea, no vomiting. GENITOURINARY: No abnormal discharge, no dysuria, no frequent urination, no hematuria. No complaints of pain in the genitals. MUSCULOSKELETAL: No back pain, no gout, no joint pain, no joint swelling, no muscle pain, no muscle stiffness, no neck pain. INTEGUMENTARY: No change in color, no change in hair/nails, no dryness, no lesion, no lumps, no rash. NEUROLOGICAL/PSYCH: No anxiety, not depressed, no emotional problem, no headache, no numbness, no pre-existing deficit, no history of seizures, no tremors, no weakness. HEMATOLOGIC/LYMPHATIC: Not anemic, no history of blood clots, no apparent bleeding, no bruising, glands not swollen. All Systems Negative, Except as Noted. Physical Exam Physical Exam Dictation VITAL SIGNS: Reviewed. GENERAL APPEARANCE: Alert, oriented x3, no acute distress, obese. HEAD AND FACE: Non-traumatic. EYES: PERRL, pink conjunctivas, eyelid no trauma, anterior chamber clear. EARS: Pinnas intact and no signs of trauma or erythema. Ear canals clear and no discharge. TMs no erythema. NOSE: No discharge, no bleeding. OROPHARYNX: Mouth normal, teeth no caries, tongue pink. Pharynx clear, no erythema. Tonsils no exudates, no abscesses noted. Mucous membrane moist. NECK: Supple, non-tender, no thyromegaly, no masses, no JVD, no bruits. BREAST: Deferred. CHEST: No tenderness, no crepitus, no paradoxical movement, no retractions. LUNGS: Clear, well-ventilated, symmetric, no rales, no wheezing, no rhonchi, no stridor, good breath sounds bilaterally. HEART: Regular rate, regular rhythm, no murmur, no gallops. VASCULAR: No peripheral edema. ABDOMEN: Soft, positive bowel sounds, nondistended, no guarding, nontender, no rebound, no masses no hepatomegaly, no splenomegaly, no Gutierrez's sign, no hernias. RECTAL: Deferred. GENITAL: Deferred. NEUROLOGICAL: Normal speech, gross motor function intact, gross sensory function intact. MUSCULOSKELETAL: Neck nontender, full range of motion, back nontender, full range of motion. EXTREMITIES: Nontender, full range of motion. SKIN: Color pink, dry, no turgor, no rash, no lacerations, no abrasions, no contusions. LYMPHATICS: Deferred. Results Laboratory and Microbiology Lab and Micro Result Laboratory Tests Test 01/04/25 09:33 White Blood Count 7.6 K/uL (4.8-10.8) Red Blood Count 5.29 MIL/uL (4.50-6.20) Hemoglobin 16.6 g/dL (14.0-18.0) Hematocrit 50.2 % (42-54) Mean Corpuscular Volume 94.9 fL (79-99) Mean Corpuscular Hemoglobin 31.4 pg (27.0-33.0) Mean Corpuscular Hemoglobin Concent 33.1 g/dL (32.0-36.0) Red Cell Distribution Width 12.3 % (11.0-15.5) Platelet Count 220 K/uL (130-400) Mean Platelet Volume 8.7 fL (7.5-10.5) Nucleated Red Blood Cells 0.0 % (0.0-0.19) Sodium Level 136 mmol/L (136-145) Potassium Level 4.1 mmol/L (3.5-5.1) Chloride Level 100 mmol/L (101-111) L Carbon Dioxide Level 25 mmol/L (21-32) Blood Urea Nitrogen 17 mg/dL (7-18) Creatinine 0.8 mg/dL (0.5-1.3) Glomerular Filtration Rate Calc 98 mL/min (>90) Random Glucose 265 mg/dL (70-105) H Total Calcium 9.6 mg/dL (8.5-10.1) Troponin I High Sensitivity 18 ng/L (4-75) B-Type Natriuretic Peptide 833 pg/mL (0-100) H Labs Reviewed?: Yes EKG/XRAY/US/CT/MRI EKG Comment 01/04/2025 time 9:09 a.m. Ventricular rate [address] wave elevation or depression X-RAY Comment Chest x-ray- right sided pulmonary congestion with mild pleural effusion MDM MDM: Differential diagnosis: CHF exacerbation, chest pain, pleural effusion, pulmonary congestion, Rationale: Tests considered and ordered secondary to shared decision making include: labs, ECG and radiology Previous outside records reviewed: Old ER visits. Risk of complication and/or morbidity or mortality of patient management: None Medications-Per medication reconciliation Need for hospitalization: Patient does meet criteria for hospitalization. Need for emergency major/minor surgery: No There are no social concerns with this patient. Prescription drug management Prescriptions will include symptomatic care Patient's prior external medical records from other ER visits were reviewed by me as indicated. Prior testing and results from previous visits were reviewed. Prior tests were taken into account with medical decision making and resource utilization, independent historian/historians were used to obtain complete medical history. I independently interpreted the test that were performed, results were reviewed by me and considered findings on radiology if ordered. Medical management and examination interpretation discussions were had by me with other qualified healthcare professionals as indicated for the patient's care. Patient is a 64-year-old gentleman coming in complaining of chest pressure. On physical exam patient has crackles in his lungs. Patient will be admitted under the care of Dr. Gutiérrez for ongoing management ED Course Orders Procedure Category Date Status Time Cbc Without LAB 01/04/25 Complete Differential 09:08 Basic Metabolic Panel LAB 01/04/25 Complete 09:08 Troponin I High LAB 01/04/25 Complete Sensitivity 09:08 Chest 1vw RAD 01/04/25 Taken 09:08 12 Lead Ekg Tracing- EKG 01/04/25 Complete Technical 09:08 B-Type Natriuretic LAB 01/04/25 Complete Peptide 09:10 Nitroglycerin 0.4mg PHA 01/04/25 In Process Sl Tab (Nitrostat) 09:30 Troponin I High LAB 01/04/25 Transmitted Sensitivity 10:30 Furosemide 20mg Vial PHA 01/04/25 Transmitted (Lasix 20mg Vial) 10:30 Current Medications Medications (Trade) Dose Ordered Sig/Miki Route PRN Reason Start Time Stop Time Status Last Admin Dose Admin Nitroglycerin (Nitrostat) 0.4 mg AD PRN SL CHEST PAIN 01/04/25 09:30 02/03/25 09:29 01/04/25 09:27 Vital Signs Date Time Temp Pulse Resp B/P (MAP) Pulse Ox O2 Delivery O2 Flow Rate FiO2 01/04/25 09:30 97.5 103 30 128/89 95 Nasal Cannula* 2 28 01/04/25 09:09 97.5 122 18 146/98 95 Room Air* 0 21 01/04/25 09:06 97.5 122 18 146/98 95 Room Air 0 Critical Care Note Comments Critical Care Procedure Note Authorized and Performed by: Total critical care time: Approximately 36 minutes Due to a high probability of clinically significant, life threatening deterioration, the patient required my highest level of preparedness to interv alma emergently and I personally spent this critical care time directly and personally managing the patient. This critical care time included obtaining a history; examining the patient; pulse oximetry; ordering and review of studies; arranging urgent treatment with development of a management plan; evaluation of patient's response to treatment; frequent reassessment; and, discussions with other providers. This critical care time was performed to assess and manage the high probability of imminent, life-threatening deterioration that could result in multi-organ failure. It was exclusive of separately billable procedures and treating other patients and teaching time. Please see MDM section and the rest of the note for further information on patient assessment and treatment. DX & DISP Disposition: Inpatient Decision to Admit Time: 10:13 Departure Impression: Primary Impression: Acute exacerbation of CHF (congestive heart failure) Additional Impression: Pleural effusion Condition: Stable Referrals: NONE (PCP) CARLITOS HOOKS MD Jan 04, 2025 10:09
--- NOTE | 2025-01-04 10:15 | HMCIMG ---
Exam Type: CHEST 1VW Clinical Information: CHEST PAIN Comparison: None Findings: Moderate right pleural effusion. Left cardiac pacemaker is noted with leads in place. There is cardiomegaly and there is status post median sternotomy. The lungs are clear of infiltrates. Left-sided cardiac pacemaker is noted with leads in place. Impression: Clear lungs.Moderate right pleural effusion.
[2025-01-04] MEDS: furoSEMIDE 20MG VIAL IV ONE (10:20)
[2025-01-04] MEDS ORDERED: METF-446 PO (10:48)
[2025-01-04] MEDS: ASPIRIN 81MG CHEW TAB PO ONE (10:50)
[2025-01-04] MEDS ORDERED: NITROGLYCERIN 0.4 MG SL TAB SL PRN (11:00)
[2025-01-04] MEDS ORDERED: acetaMINOPHEN 500 MG TABLET PO PRN (11:00)
[2025-01-04] MEDS ORDERED: PoTASSium chl 10% ELIXIR 20MEQ 20 MEQ/15 ML UDCUP PO PRN (11:00)
--- NOTE | 2025-01-04 11:05 | HP ---
[facility] Date of Service: Jan 04, 2025 Time of Service: 10:56 HISTORY OF PRESENT ILLNESS: 64-year-old male with past medical history of HIV, diabetes mellitus type 2, hyperlipidemia, hypothyroidism, history of hypertension, history of CAD status post CABG, history of heart failure with EF of 20-25%, history of ICD placement who presented to the hospital secondary to chest pain. Patient states his chest pain started today around 8:00 a.m.. The pain is located in the midsternal area which radiated towards his left arm and had. He also had associated paresthesias with the pain. He denied any nausea, vomiting, diaphoresis. He describes the pain as pressure in nature. The pain lasted for at least an hour prior to coming to the hospital. Patient is from [place] and has been primarily seeing a physician in [place]. He states his last checkup was normal. He denied any shocks from his ICD device. [place] He took his a.m. medications before coming to the hospital. Denied any cough, shortness of breath at rest, sputum production. He gets short of breath with exertion including ambulation. He states it has been going on for at least three months. He denied any falls, syncopal episode. Patient has been co mpliant with his HIV medication. In the ED were notable for white count of 7.6, hemoglobin was 16.6, platelet count was 220 K, sodium was 136, potassium was 4.1, creatinine was 0.8, troponin was negative x1, BNP was 833. Patient underwent chest x-ray which showed right- sided pleural effusion with mild congestive changes. REVIEW OF SYSTEMS CONSTITUTIONAL: Denies fevers, chills, or night sweats. No unintentional weight loss reported. NEUROLOGICAL: Denies headache, amaurosis fugax, motor weakness, sensory deficit, vertigo/spinning sensation, gait abnormalities, or tremors. ENT: No hearing loss, otalgia, otorrhea, rhinitis, rhinorrhea, hoarseness, or sore throat. CARDIOVASCULAR: Denies any orthopnea, paroxysmal nocturnal dyspnea, palpitations, life-threatening arrhythmias, claudication. Positive for dyspnea on exertion, chest pain PULMONARY: Denies any cough, phlegm/sputum, hemoptysis, pleuritic chest pain. Positive for shortness of breath with exertion GASTROINTESTINAL: Denies any type of dysphagia to either liquids or solids. Denies nausea, vomiting, pyrosis, early satiety, abdominal pain, diarrhea, constipation, or changes in stool consistency or caliber. Denies coffee-ground emesis, hematemesis, hematochezia, or melanotic stools. GENITOURINARY: Denies frequency, urgency, nocturia, hematuria or incontinence (Storage/Irritative symptoms.) Low urinary stream, straining to void, urinary intermittency or hesitancy, splitting of the voiding stream, terminal dribbling. ENDOCRINOLOGIC: Denies polyuria, polydipsia, polyphagia or heat/cold intolerances. HEMATOLOGIC: Denies thrombophilia/previous clots, or coagulopathy/bleeding disorders. ONCOLOGIC: Denies personal history of malignancy. DERMATOLOGIC: Denies rashes or pruritus. PSYCHIATRIC: Denies any suicidal or homicidal ideation. Denies hallucinations. PAST MEDICAL HISTORY: Ischemic cardiomyopathy with systolic and diastolic heart failure Coronary artery disease Diabetes type 2 Hyperlipidemia Hypothyroidism Hypertension HIV PAST SURGICAL HISTORY: CABG X3 in 2019 DR.Morales NG placement PAST SOCIAL HISTORY: Patient lives with . Patient denies cigarette alcohol and recreational drug use. FAMILY HISTORY: Denied any pertinent family history Coded Allergies: ibuprofen (Verified Allergy, Unknown, 01/04/25) PHYSICAL EXAM GENERAL APPEARANCE: The patient is awake, alert, and oriented, in no acute cardiopulmonary distress. NEUROLOGICAL: Cranial nerves II-XII grossly intact. Motor is 5/5 in bilateral upper and lower extremities proximal to distal. No sensory deficits. HEENT: Face is symmetric. Pupils are equal and reactive. Extraocular movements are intact. NECK: Supple. No JVD. No thyromegaly. No submental, submandibular, pre- /postauricular, occipital or supraclavicular lymphadenopathy. CHEST: Normal chest expansion. No Telemetry. LUNGS: Decreased breath sounds on the right side. CARDIOVASCULAR: Regular. S1 and S2 normal. No appreciable rubs, murmurs or gallops. ABDOMEN: Soft, mild tenderness in the right upper quadrant to palpation. No guarding, no rebound : Deferred. No Argueta. EXTREMITIES: Non-edematous and not cyanotic. No clubbing. Good capillary refill. SKIN: No skin breakdown. Vital Sign (Last 24 Hours) 01/04/25 09:30 Temp 97.5 Pulse 103 Resp 30 B/P (MAP) 128/89 Pulse Ox 95 O2 Delivery Nasal Cannula* O2 Flow Rate 2 FiO2 28 LABS: Laboratory: Test 01/04/25 09:33 Range/Units White Blood Count 7.6 4.8-10.8 K/uL Red Blood Count 5.29 4.50-6.20 MIL/uL Hemoglobin 16.6 14.0-18.0 g/dL Hematocrit 50.2 42-54 % Mean Corpuscular Volume 94.9 79-99 fL Mean Corpuscular Hemoglobin 31.4 27.0-33.0 pg Mean Corpuscular Hemoglobin Concent 33.1 32.0-36.0 g/dL Red Cell Distribution Width 12.3 11.0-15.5 % Platelet Count 220 130-400 K/uL Mean Platelet Volume 8.7 7.5-10.5 fL Nucleated Red Blood Cells 0.0 0.0-0.19 % Sodium Level 136 136-145 mmol/L Potassium Level 4.1 3.5-5.1 mmol/L Chloride Level 100 L 101-111 mmol/L Carbon Dioxide Level 25 21-32 mmol/L Blood Urea Nitrogen 17 7-18 mg/dL Creatinine 0.8 0.5-1.3 mg/dL Glomerular Filtration Rate Calc 98 >90 mL/min Random Glucose 265 H 70-105 mg/dL Total Calcium 9.6 8.5-10.1 mg/dL Troponin I High Sensitivity 18 4-75 ng/L B-Type Natriuretic Peptide 833 H 0-100 pg/mL Current Medications Medications (Trade) Dose Ordered Sig/Miki Route PRN Reason Start Time Stop Time Status Last Admin Dose Admin Acetaminophen (TYLenol 500MG TAB) 500 mg Q6H PRN PO MILD PAIN (1-3) 01/04/25 11:00 02/03/25 10:59 Aspirin (Aspirin 81mg Chew Tab) 81 mg DAILY PO 01/05/25 09:00 02/04/25 08:59 Famotidine (Pepcid 20mg Vial) 20 mg BID IV 01/04/25 21:00 02/03/25 20:59 Furosemide (LASix 20MG VIAL) 20 mg Q8H IV 01/04/25 15:00 02/03/25 14:59 Magnesium Sulfate 50 ml @ 0 mls/hr PROTOCOL PRN IV hypomagnesemia 01/04/25 11:00 02/03/25 10:59 Nitroglycerin (Nitrostat) 0.4 mg AD PRN SL CHEST PAIN 01/04/25 09:30 01/04/25 10:49 DC 01/04/25 09:27 0.4 MG Nitroglycerin (Nitrostat) 0.4 mg AD PRN SL CHEST PAIN 01/04/25 11:00 02/03/25 10:59 Potassium Chloride 100 ml @ 100 mls/hr AD PRN IV POTASSIUM PROTOCOL 01/04/25 11:00 02/03/25 10:59 Potassium Chloride (K-Dur/Klor-Con 20meq) 20 meq AD PRN PO POTASSIUM PROTOCOL 01/04/25 11:00 02/03/25 10:59 Potassium Chloride (KCl 10% Elixir 20meq/15ml) 20 meq AD PRN PO POTASSIUM PROTOCOL 01/04/25 11:00 02/03/25 10:59 DIAGNOSTICS / RADIOLOGY: [ ] ASSESSMENT: Chest pain ACS rule out Right upper quadrant pain POA differential cholelithiasis versus other GI oscar ology Acute on chronic CHF exacerbation with EF of 20-25% History of ICD placement History of CAD status post CABG Hypertension Hyperlipidemia HIV on HAART therapy He has mellitus type 2 Moderate Right-sided pleural effusion PLAN: - patient to be admitted to PCCU -in reference to chest pain. We will check troponins q.6 hours to rule out ACS. Obtain echocardiogram. We will request Cardiology consultation -in reference to CHF exacerbation. Patient will be on Lasix 20 mg q.8 hours. Keep potassium greater than four and magnesium greater than two. Strict intake output and daily weights - In reference to pleural effusion. c/w diuresis. -in reference to abdominal pain. Obtain a CT abdomen pelvis -obtain home medications which will be reconciled once available -check TSH, A1c procal - further orders per hospitalization course. Advanced Care Planning Which of the following were discussed: Hospice care: Yes __ No _x_ Therapeutic options: Yes __ No __ Advance directives: Yes __ No __ Other discussions: pt is full code Discussed with who?: patient (Patient, family or surrogates) Voluntary nature of this service was explained to the patient? Yes _x_ No __ Amount of time spent: 25 minutes LUIZ Adamson MD, MD Jan 04, 2025 11:05
[2025-01-04 11:20] LABS: HEMOGLOBIN A1C 8.5 % (4.0-6.0)
[2025-01-04 11:27] LABS: MAGNESIUM 1.8 mg/dL (1.80-2.40); THYROID STIMULATING HORMONE 3.59 uIU/mL (0.36-3.74)
--- NOTE | 2025-01-04 11:54 | CONS ---
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 Aggarwal) and has a past medical history of CAD status post 3v CABG (2018, unknown graft anatomy), ICM (EF 20-25%) status post AICD placement in 2019, hy perlipidemia, hypertension, HIV, who presented to the hospital secondary to anterior non radiating chest pain. Patient states his chest pain started today around 8:00 a.m.He describes the pain as pressure in nature. and is associated with shortness of breath with exertion. Symptoms have been going on for at least three months, and are similar to his anginal symptoms which led to CABG. His presenting ECG revealed sinus tachycardia PVCs, with poor R-wave progression, and no acute ischemia. Initial troponin was negative x1, BNP 833, chest x-ray showed right-sided pleural effusion with mild congestive changes. Upon our assessment at bedside the patient currently denies any chest pain, palpitations or dyspnea. Cardiology was consulted for chest pain ] Past Medical History: [Refer to chart ] Past Surgical History: [Refer to HPI ] Family History: [ Refer to HPI] Social History: [Refer to HPI ] Habits: [Never] smoker. [Denies] alcohol consumption. [Denies] illicit drug use Review of Systems: A review of12 point system was negative except per HPI Physical Examination: GENERAL: [No acute distress.] HEAD: [Normal with no signs of head trauma.] EYES: [PERRLA, EOMI, conjunctiva and sclera normal.] ENT: [Hearing grossly intact, normal oropharynx.] NECK: [Supple without JVD. There is no tenderness, lymphadenopathy, or masses. No thyromegaly. Normal carotid upstrokes without bruits.] LUNGS: [Clear breath sounds bilaterally. No wheezes, or rhonchi.] HEART: [Normal rate and rhythm. Normal S1 and S2 without murmurs, gallop or rub.] VASC: [Peripheral pulses +2 bilaterally.] ABD: [Bowel sounds normal, soft, nontender, no masses, no organomegaly. No audible bruits.] : [Not examined] LYMPH: [No lymphadenopathy noted.] EXT: [No clubbing, cyanosis or edema.] SKIN: [No rashes or lesions noted.] NEURO: [Awake, alert, and oriented x3. No focal sensory or strength deficits noted.] Vital Signs (last 8hr) Date Time Temp Pulse Resp B/P (MAP) Pulse Ox O2 Delivery O2 Flow Rate FiO2 01/04/25 09:30 97.5 103 30 128/89 95 Nasal Cannula* 2 28 01/04/25 09:09 97.5 122 18 146/98 95 Room Air* 0 21 01/04/25 09:06 97.5 122 18 146/98 95 Room Air 0 Laboratory: [ ] Hematology Labs: Test 01/04/25 09:33 Range/Units White Blood Count 7.6 4.8-10.8 K/uL Red Blood Count 5.29 4.50-6.20 MIL/uL Hemoglobin 16.6 14.0-18.0 g/dL Hematocrit 50.2 42-54 % Mean Corpuscular Volume 94.9 79-99 fL Mean Corpuscular Hemoglobin 31.4 27.0-33.0 pg Mean Corpuscular Hemoglobin Concent 33.1 32.0-36.0 g/dL Red Cell Distribution Width 12.3 11.0-15.5 % Platelet Count 220 130-400 K/uL Mean Platelet Volume 8.7 7.5-10.5 fL Nucleated Red Blood Cells 0.0 0.0-0.19 % Chemistry Labs: Test 01/04/25 10:29 01/04/25 09:33 Range/Units Troponin I High Sensitivity 37 4-75 ng/L Sodium Level 136 136-145 mmol/L Potassium Level 4.1 3.5-5.1 mmol/L Chloride Level 100 L 101-111 mmol/L Carbon Dioxide Level 25 21-32 mmol/L Blood Urea Nitrogen 17 7-18 mg/dL Creatinine 0.8 0.5-1.3 mg/dL Glomerular Filtration Rate Calc 98 >90 mL/min Random Glucose 265 H 70-105 mg/dL Hemoglobin A1c 8.5 H 4.0-6.0 % Estimated Average Glucose (eAG) 197 H 70-126 mg/dL Total Calcium 9.6 8.5-10.1 mg/dL Magnesium Level 1.80 1.80-2.40 mg/dL C-Reactive Protein, Quantitative 1.40 0.5-3.0 mg/L B-Type Natriuretic Peptide 833 H 0-100 pg/mL Procalcitonin < 0.05 L 0.05-0.5 ng/mL Thyroid Stimulating Hormone (TSH) 3.59 # 0.36-3.74 uIU/mL Diagnostics / Radiology: [Copy/Paste Echos/Imaging Report here] Assessment: [Chest pain Acute on chronic systolic and diastolic heart failure exacerbation (EF 20-25%) History of ICD placement CAD status post 3 v CABG in 2019 Hypertension Hyperlipidemia HIV Moderate right-sided pleural effusion ] Plan: [# Chest pain: H/o multivessel CAD s/p 3v CABG in 2019 (unknown graft anatomy) The patient is following roast master Dr. Aggarwal from [facility] The patient presented for ongoing anterior intermittent non radiating chest pain.Symptoms are similar to prior his CABG Presenting ECG sinus rhythm with no acute ischemia and poor R-wave progression Troponin mildly elevated initially 37 at currently at 155 We will continue [id number] mg daily and Increase atorvastatin to 40 mg q.h.s. Start Toprol-XL 25 mg daily ] We will order a Lexiscan stress test for tomorrow morning, keep NPO after midnight and avoid caffeinated beverages # HFrEF ICM - EF ( 20-25 % Grade III diastolic dysfunction from Jul 2023 ) NYHA III Volume overloaded but compensated on exam Chest x-ray showed right-sided pleural effusion with bilateral pulmonary edema. Presenting BNP 833 Strict I's and O's and daily weights with low-sodium diet. Current creatinine 0.8 Fluid restrict to 1.5 L daily with a goal net negative of 1-2 L daily Optimize GDM T: Entresto 24-26 mg every12 hours, Toprol-XL 12.5 mg daily, [id number] mg daily Monitor/replace electrolytes as needed and keep on telemetry Increase Lasix to 40 mg every 8 hours Pending 2D echocardiogram results Thank you for this consult cardiology will continue to follow along, formal recommendations pending Lexiscan stress test and 2D echocardiogram results Flynn Paris MD ATTESTATION BY PHYSICIAN I have seen and examined the patient, reviewed the above documentation, partici pated in medical decision making, made necessary modifications, and agree with the treatment plan as documented by my mid-level provider above. MD YOLANDA Etienne JAMES R MD Jan 04, 2025 11:54
[2025-01-04] MEDS ORDERED: DEXTROSE 50%-WATER 50 ML DISP.SYRIN IV PRN (12:00)
[2025-01-04] MEDS ORDERED: GLUCAGON 1MG KIT 1 MG ML IM PRN (12:00)
--- NOTE | 2025-01-04 12:05 | CONS ---
[facility] CONSULTATION NOTE Date Patient Seen: Jan 04, 2025 Time of Visit: 12:05 Supervising Physician: [MIREILLE ALCALA MD ] Reason for Consultation: RT SIDE PLEURAL EFFUSION Primary Care Physician: [NONE ] Outpatient Specialists: [ ] Inpatient Consults: MICHAEL ,DR THAD PARIS, ATTENDING: RYLIE HICKS PROBLEM LIST: Acute hypoxic respiratory failure, POA Small right pleural effusion not amenable for thoracentesis Chest pain ACS rule out Right upper quadrant pain POA differential cholelithiasis versus other GI etiology Ischemic cardiomyopathy with systolic and diastolic heart failure S/P AICD Coronary artery disease S/P CABG X3 IN 2019 Diabetes type 2 Hyperlipidemia Hypothyroidism Hypertension HIVon HAART therapy PLAN Likely pleural effusion from acute on chronic CHF -not amenable for thoracentesis at this time. Chest x-ray in the morning Maintain O2 sat above 92% Perform thoracentesis if effusion enlarges to moderate or large becomes increasingly symptomatic. Patient we will need to follow up with pulmonology of choice in 1-2 weeks post discharge Continue diuresing with Lasix Supplemental 02 as needed. Maintain aspiration precautions at all times Coagulation studies in preparation for possible thoracentesis if it enlarges. Follow hemodynamics. Vital signs per facility protocol Strict monitoring of intake, output and overall fluid balance. Monitor electrolytes and replace as needed One thousand five hundred fluid restriction diet Daily weights PPX for GI and DVT prophylaxis Code Status: Full Resuscitation Disposition: per primary team Other: Total patient care time exceeds 35 minutes excluding all procedures. HPI: [ This is a 64-year-old male with a past medical history of combined systolic and diastolic heart failure with AICD placement, type 2 diabetes mellitus, hyperlipidemia, hypothyroidism, essential hypertension, CAD status post CABG and HIV who presented to the hospital secondary to chest pain that radiated to his neck and head area. He also reported dyspnea that progressively worsened in the last three months. On arrival to the ED patient has a heart rate of 122 with a blood pressure 146/98 respiratory rate of 18 saturating 95% and afebrile. His presenting ECG revealed sinus tachycardia PVCs, with poor R-wave progression, and no acute ischemia per cardiologit DR Thad Paris. His initial BNP showed 833 with a chest x-ray shows right-sided pleural effusion with mild pulmonary vascular congestion. Patient was admitted by the catalyst team and we are consulted for right-sided pleural effusion. On assessment patient is awake alert and oriented x3 he is hemodynamically stable. Currently on 2 L via nasal cannula in no apparent distress. He is able to hold sentences. He does report progressive worsening dyspnea in the last three months with the reason for his visit today was for a chest pain that radiated to his head. As per patient he felt as if his head was going to blow up patient reports that after the nitroglycerin under the tongue chest pain and headache went away. He was also started on O2 and symptoms improved. 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 On CT of abdomen and pelvis there is small left and moderate right pleural effusions with bilateral basal passive atelectasis. Pleural effusions too small to be amenable for thoracentesis at this time. Recommend to continue with IV Lasix. PAST MEDICAL HX: see above PAST SURGICAL HX: noncontributory SOCIAL HISTORY: No tobacco, ETOH, or illicit drug use Coded Allergies: ibuprofen (Verified Allergy, Unknown, 01/04/25) REVIEW OF SYSTEMS: Const+ fatigue, weight gain, dyspnea on exertion, orthopnea Eyes:[ no recent vision problems] ENT: [No congestion, ear pain, or sore throat] C/V: [no chest pain, palpitations or edema] Resp: No congestion, wheezing,+ shortness of breaths with minimal exertion. GI: [No abdominal pain, nausea, vomiting, constipation, or diarrhea] : [No incontinence of or dyuria] M/S: [No joint or pain swelling] Skin: [No rash] Neuro: + headache,no focal numbness, or weakness, dizziness or seizures] Psych: [no depression or anxiety] Heme: [no abnormal bruising or bleeding] Lymph: [no swollen glands] PHYSICAL EXAM: GENERAL: alert, weak, awake oriented x 3 HEENT: EOMI, Sclera non icteric, moist mucosa NECK: Supple, no JVD, trachea midline LUNGS: Diminished RLLL lungsounds, No wheezes HEART: Regular rate and rhythm. Normal S1 and S2, without murmurs ABD: Abdomen soft, nontender. Bowel sounds present EXT: No clubbing cyanosis or edema NEURO: Alert and oriented to person, follows commands no focal weakness. Vital Signs (last 8hr) Date Time Temp Pulse Resp B/P (MAP) Pulse Ox O2 Delivery O2 Flow Rate FiO2 6/9/25 09:30 97.5 103 30 128/89 95 Nasal Cannula* 2 28 01/04/25 09:09 97.5 122 18 146/98 95 Room Air* 0 21 01/04/25 09:06 97.5 122 18 146/98 95 Room Air 0 LABS: Hematology Labs: Test 01/04/25 09:33 Range/Units White Blood Count 7.6 4.8-10.8 K/uL Red Blood Count 5.29 4.50-6.20 MIL/uL Hemoglobin 16.6 14.0-18.0 g/dL Hematocrit 50.2 42-54 % Mean Corpuscular Volume 94.9 79-99 fL Mean Corpuscular Hemoglobin 31.4 27.0-33.0 pg Mean Corpuscular Hemoglobin Concent 33.1 32.0-36.0 g/dL Red Cell Distribution Width 12.3 11.0-15.5 % Platelet Count 220 130-400 K/uL Mean Platelet Volume 8.7 7.5-10.5 fL Nucleated Red Blood Cells 0.0 0.0-0.19 % Chemistry Labs: Test 01/04/25 10:29 01/04/25 09:33 Range/Units Troponin I High Sensitivity 37 4-75 ng/L Sodium Level 136 136-145 mmol/L Potassium Level 4.1 3.5-5.1 mmol/L Chloride Level 100 L 101-111 mmol/L Carbon Dioxide Level 25 21-32 mmol/L Blood Urea Nitrogen 17 7-18 mg/dL Creatinine 0.8 0.5-1.3 mg/dL Glomerular Filtration Rate Calc 98 >90 mL/min Random Glucose 265 H 70-105 mg/dL Hemoglobin A1c 8.5 H 4.0-6.0 % Estimated Average Glucose (eAG) 197 H 70-126 mg/dL Total Calcium 9.6 8.5-10.1 mg/dL Magnesium Level 1.80 1.80-2.40 mg/dL C-Reactive Protein, Quantitative 1.40 0.5-3.0 mg/L B-Type Natriuretic Peptide 833 H 0-100 pg/mL Procalcitonin < 0.05 L 0.05-0.5 ng/mL Thyroid Stimulating Hormone (TSH) 3.59 # 0.36-3.74 uIU/mL DIAGNOSTICS / RADIOLOGY RESULTS: [ [facility] [address] [place] [address] IMAGING REPORT Signed PATIENT: PACO ACEVES MR#: [id number] : 1960 SEX: M AGE: 64 LOCATION: [facility] ORDER 1044 STATUS: ADM IN REPORT#: [id number] SERVICE 1037 REASON: ruq pain ORDERING PHYSICIAN: LUIZ BEGUM MD PROCEDURE: ABD PEL WO - CT ABDOMEN/PELVIS W/O CONTRAST Exam Type: CT ABDOMEN/PELVIS W/O CONTRAST Clinical Information: ruq pain Comparison: None CT Dose Index (CTDI): 10.20 mGy Dose Length Product (DLP): 530.00 total mGy-cm PROTOCOL: Routine noncontrast helical scanning of the abdomen and pelvis was performed at 5mm collimation. Findings: No evidence of nephro or ureterolithiasis is found. No hydronephrosis or ureteral dilatation is seen. Status post median sternotomy. Small left and moderate right pleural effusion with bilateral basal passive atelectasis. The stomach is unremarkable. It shows no wall thickening. No gross ulceration is seen. It is not overly distended. There are no surrounding inflammatory changes. No wall lesions are identified to suggest cancer. The spleen is unremarkable. It is not enlarged. The pancreas shows normal anatomy. It is not fatty replaced. It shows no lesions. The pancreatic duct is not dilated. There is evidence of cholelithiasis. No evidence of acute or chronic inflammation is seen. The adrenal glands are unremarkable. There is no enlargement. No lesions are noted. The liver is unremarkable. It shows no focal masses. The appendix is unremarkable. It shows no evidence of inflammation. No appendicolith is seen. The small bowel is unremarkable. There is no evidence of dilatation to suggest obstruction. No evidence of adynamic ileus is seen. There is no small bowel wall thickening to suggest enteritis. Abundant fecal matter is noted throughout the colon consistent with constipation. The urinary bladder is unremarkable. There is no wall thickening to suggest tumor or inflammation. There are no intraluminal calculi. There are no diverticula. There is no evidence of chronic bladder outlet obstruction. There is no evidence of urinary bladder distention to suggest urinary retention. The prostate is enlarged. The bony and vascular structures are unremarkable for the patient's age. IMPRESSION: Status post median sternotomy. Small left and moderate right pleural effusion with bilateral basal passive atelectasis. Cholelithiasis. Constipation. This study was performed using dose reduction techniques to include automated exposure control and/or adjustment of the mA and/or kV according to patient size. DICTATED BY: BLAIR ASHTON MD DATE: 01/04/25 1247 ELECTRONICALLY SIGNED BY: BLAIR ASHTON MD DATE: 01/04/[address] [address] IMAGING REPORT Signed PATIENT: PACO ACEVES MR#: [id number] : 1960 SEX: M AGE: 64 LOCATION: [facility] ORDER 8 STATUS: [facility] REPORT#: [id number] SERVICE 7 REASON: CHEST PAIN ORDERING PHYSICIAN: CARLITOS HOOKS MD PROCEDURE: CXR1VW - CHEST 1VW Exam Type: CHEST 1VW Clinical Information: CHEST PAIN Comparison: None Findings: Moderate right pleural effusion. Left cardiac pacemaker is noted with leads in place. There is cardiomegaly and there is status post median sternotomy. The lungs are clear of infiltrates. Left-sided cardiac pacemaker is noted with leads in place. Impression: Clear lungs.Moderate right pleural effusion. DICTATED BY: BLAIR ASHTON MD DATE: 01/04/25 1012 ELECTRONICALLY SIGNED BY: BLAIR ASHTON MD DATE: 01/04/25 101 Supervising Physician Attestation: [ Full Name], supervising physician, reviewed the patients case with me, including the history, physical exam findings, diagnostic data, and current clinical status. We discussed the assessment and plan in detail. [He/She/They] are in agreement with the proposed plan of care. [facility] Jan 04, 2025 12:05
[2025-01-04 12:19] LABS: INR 1.05 (0.85-1.15); PROTHROMBIN TIME 11.1 SEC (9.6-11.6)
[2025-01-04 12:20] LABS: PARTIAL THROMBOPLASTIN TIME 29.3 SEC (26.3-35.5)
--- NOTE | 2025-01-04 12:51 | HMCIMG ---
Exam Type: CT ABDOMEN/PELVIS W/O CONTRAST Clinical Information: ruq pain Comparison: None CT Dose Index (CTDI): 10.20 mGy Dose Length Product (DLP): 530.00 total mGy-cm PROTOCOL: Routine noncontrast helical scanning of the abdomen and pelvis was performed at 5mm collimation. Findings: No evidence of nephro or ureterolithiasis is found. No hydronephrosis or ureteral dilatation is seen. Status post median sternotomy. Small left and moderate right pleural effusion with bilateral basal passive atelectasis. The stomach is unremarkable. It shows no wall thickening. No gross ulceration is seen. It is not overly distended. There are no surrounding inflammatory changes. No wall lesions are identified to suggest cancer. The spleen is unremarkable. It is not enlarged. The pancreas shows normal anatomy. It is not fatty replaced. It shows no lesions. The pancreatic duct is not dilated. There is evidence of cholelithiasis. No evidence of acute or chronic inflammation is seen. The adrenal glands are unremarkable. There is no enlargement. No lesions are noted. The liver is unremarkable. It shows no focal masses. The appendix is unremarkable. It shows no evidence of inflammation. No appendicolith is seen. The small bowel is unremarkable. There is no evidence of dilatation to suggest obstruction. No evidence of adynamic ileus is seen. There is no small bowel wall thickening to suggest enteritis. Abundant fecal matter is noted throughout the colon consistent with constipation. The urinary bladder is unremarkable. There is no wall thickening to suggest tumor or inflammation. There are no intraluminal calculi. There are no diverticula. There is no evidence of chronic bladder outlet obstruction. There is no evidence of urinary bladder distention to suggest urinary retention. The prostate is enlarged. The bony and vascular structures are unremarkable for the patient's age. IMPRESSION: Status post median sternotomy. Small left and moderate right pleural effusion with bilateral basal passive atelectasis. Cholelithiasis. Constipation. This study was performed using dose reduction techniques to include automated exposure control and/or adjustment of the mA and/or kV according to patient size.
[2025-01-04 13:40] VITALS: BP 113/79; PULSE 84; RESP 16; TEMP 97.8
[2025-01-04 13:49] LABS: SARS-CoV-2, RNA, NAAT NEGATIVE SARS CoV-2 (NEGATIVE)
[2025-01-04] MEDS ORDERED: ATOR20TA65 PO (14:01)
--- NOTE | 2025-01-04 14:01 | EKG ---
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
[2025-01-04 14:12] LABS: INFLUENZA TYPE A Negative For Type A (NEGATIVE); INFLUENZA TYPE B Negative For Type B (NEGATIVE)
[2025-01-04] MEDS ORDERED: furoSEMIDE 20MG VIAL IV SCH (15:00)
[2025-01-04] MEDS: HEParin 5,000 UNIT VIAL IV PRN (15:09)
[2025-01-04] MEDS: HEParin 25,000 UNITS/250ML D5W 250 ML IV SCH (15:17)
[2025-01-04 15:30] VITALS: BP 114/76; PULSE 86; RESP 18; TEMP 98.1
[2025-01-04 16:00] VITALS: O2SAT 97
[2025-01-04] MEDS: INSULIN humuLIN R 100 UNIT/ML 3ML SQ SCH (16:30)
--- NOTE | 2025-01-04 16:35 | NUR ---
CALLED [employer]. 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
[2025-01-04] MEDS: LACTULOSE 20 GM/30 ML UDCUP PO PRN (17:19)
[2025-01-04] MEDS: MAGNESIUM 2GM PREMIX 50ML 50 ML IV PRN (17:20)
[2025-01-04 20:00] VITALS: O2SAT 97
[2025-01-04 20:29] VITALS: BP 88/60; PULSE 82; RESP 18; TEMP 98.3
[2025-01-04 21:00] LABS: ALBUMIN 3.6 g/dL (3.5-5.0); BILIRUBIN,DIRECT 0.2 mg/dL (0.0-0.3); BILIRUBIN,TOTAL 0.7 mg/dL (0.2-1.0); MAGNESIUM 2.3 mg/dL (1.80-2.40); POTASSIUM 3.5 mmol/L (3.5-5.1); TOTAL PROTEIN, SERUM 8.5 g/dL (6.0-8.3)
[2025-01-04] MEDS ORDERED: atorVAStatin 20 MG TABLET PO SCH (21:00)
[2025-01-04] MEDS: SACUBITRIL/VALSARTAN 1 EACH TABLET PO SCH (21:00)
[2025-01-04] MEDS: atorVAStatin 20 MG TABLET PO SCH (21:00)
[2025-01-04] MEDS: FAMOTIDINE 20MG VIAL IV SCH (22:11)
[2025-01-04 23:00] VITALS: BP 94/62; PULSE 83; RESP 18; TEMP 97.5
[2025-01-05] VITALS (8 sets, daily range): BP systolic 81–103; BP diastolic 53–62; PULSE 70–87; RESP 18; TEMP 97.5–98.5; O2SAT 97–98
[2025-01-05] MEDS: furoSEMIDE 20MG VIAL IV SCH (00:45)
[2025-01-05 04:29] LABS: BASOPHILS # (AUTO) 0.06 K/uL (0.00-0.20); EOSINOPHILS # (AUTO) 0.13 K/uL (0.00-0.70); EOSINOPHILS % (AUTO) 2.3 % (0.0-8.0); IMMATURE GRANULOCYTE ABSOLUTE 0.02 K/uL (0-1); LYMPHOCYTES # (AUTO) 1.5 K/uL (1.0-4.8); LYMPHOCYTES % (AUTO) 26.5 % (21.0-51.0); MEAN CORPUSCULAR HEMOGLOBIN 31.5 pg (27.0-33.0); MEAN CORPUSCULAR HGB CONC 33.8 g/dL (32.0-36.0); MEAN CORPUSCULAR VOLUME 93.2 fL (79-99); MONOCYTES # (AUTO) 0.6 K/uL (0.1-1.0); MONOCYTES % (AUTO) 9.5 % (3.0-13.0); NEUTROPHILS # (AUTO) 3.5 K/uL (1.8-7.7); NEUTROPHILS % (AUTO) 60.4 % (40.0-77.0); PLATELET COUNT (AUTO) 214 K/uL (130-400); RED BLOOD CELL COUNT(AUTO) 5.15 MIL/uL (4.50-6.20); RED CELL DISTRIBUTION WIDTH 12.2 % (11.0-15.5); WHITE BLOOD COUNT (AUTO) 5.8 K/uL (4.8-10.8)
[2025-01-05 04:40] LABS: MAGNESIUM 1.9 mg/dL (1.80-2.40)
[2025-01-05] MEDS: PoTASSium chloRIDE 20MEQ ER 20 MEQ ERTAB PO PRN (05:20)
[2025-01-05] MEDS: PoTASSium chloRIDE 20MEQ/100ML 100 ML IV PRN (05:21)
[2025-01-05] MEDS ORDERED: REGADENOSON 0.4 MG/5 ML PF SYG IVP ONE (08:27)
[2025-01-05] MEDS: metOPROLol sucCINATE 25 MG TAB.SR.24H PO SCH (09:00)
--- NOTE | 2025-01-05 09:10 | HMCIMG ---
Exam Type: US ABDOMINAL RUQ\E\LTD Clinical Information: CHOLELITHIASIS, ruq PAIN Comparison: None Findings: The liver shows coarse echogenicity and a small and this could represent cirrhosis or chronic liver disease. Doppler evaluation shows patent portal and hepatic veins. The gallbladder shows cholelithiasis but no evidence of acute or chronic inflammation seen. No bile duct dilatation is noted. The gallbladder wall measures 2 mm. The common bile duct measures 4 mm. The right kidney measures 11.2 x 5.3 cm- it shows no hydronephrosis or calculi, masses or other abnormalities. The pancreas is unremarkable. The aorta and inferior vena cava show no significant abnormalities. IMPRESSION: Possible chronic liver disease. Right pleural effusion. CHOLELITHIASIS.
[2025-01-05] MEDS: ASPIRIN 81MG CHEW TAB PO SCH (10:28)
[2025-01-05] MEDS: SPIRONOLACTONE 25 MG TAB PO SCH (10:28)
--- NOTE | 2025-01-05 10:31 | PN ---
[facility] CARDIOLOGY PROGRESS NOTE Date Patient Seen: Jan 05, 2025 Time of Visit: 10:28 Interval History: [Events overnight. The patient is undergoing Lexiscan stress test today. Overnight urine output [id number] mL currently denies any chest pain, palpitations, dyspnea or any other anginal equivalents.] Physical Examination: GENERAL: [No acute distress.] HEAD: [Normal with no signs of head trauma.] EYES: [PERRLA, EOMI, conjunctiva and sclera normal.] ENT: [Hearing grossly intact, normal oropharynx.] NECK: [Supple without JVD. There is no tenderness, lymphadenopathy, or masses. No thyromegaly. Normal carotid upstrokes without bruits.] LUNGS: [Clear breath sounds bilaterally. No wheezes, or rhonchi.] HEART: [Normal rate and rhythm. Normal S1 and S2 without murmurs, gallop or rub.] VASC: [Peripheral pulses +2 bilaterally.] ABD: [Bowel sounds normal, soft, nontender, no masses, no organomegaly. No audible bruits.] : [Not examined] LYMPH: [No lymphadenopathy noted.] EXT: [No clubbing, cyanosis or edema.] SKIN: [No rashes or lesions noted.] NEURO: [Awake, alert, and oriented x3. No focal sensory or strength deficits noted.] Laboratory: [ ] Hematology Labs: Test 01/05/25 04:18 Range/Units White Blood Count 5.8 4.8-10.8 K/uL Red Blood Count 5.15 4.50-6.20 MIL/uL Hemoglobin 16.2 14.0-18.0 g/dL Hematocrit 48.0 42-54 % Mean Corpuscular Volume 93.2 79-99 fL Mean Corpuscular Hemoglobin 31.5 27.0-33.0 pg Mean Corpuscular Hemoglobin Concent 33.8 32.0-36.0 g/dL Red Cell Distribution Width 12.2 11.0-15.5 % Platelet Count 214 130-400 K/uL Mean Platelet Volume 8.6 7.5-10.5 fL Immature Granulocyte % (Auto) 0.3 0-1 % Neutrophils (%) (Auto) 60.4 40.0-77.0 % Lymphocytes (%) (Auto) 26.5 21.0-51.0 % Monocytes (%) (Auto) 9.5 3.0-13.0 % Eosinophils (%) (Auto) 2.3 0.0-8.0 % Basophils (%) (Auto) 1.0 0.0-5.0 % Neutrophils # (Auto) 3.5 1.8-7.7 K/uL Lymphocytes # (Auto) 1.5 1.0-4.8 K/uL Monocytes # (Auto) 0.6 0.1-1.0 K/uL Eosinophils # (Auto) 0.13 0.00-0.70 K/uL Basophils # (Auto) 0.06 0.00-0.20 K/uL Absolute Immature Granulocyte (auto 0.02 0-1 K/uL Nucleated Red Blood Cells 0.0 0.0-0.19 % Chemistry Labs: Test 01/05/25 06:26 01/05/25 04:18 01/04/25 19:55 01/04/25 09:33 Range/Units Whole Blood Glucose 157 H 70-110 MG/DL Sodium Level 136 136-145 mmol/L Potassium Level 3.0 *L 3.5-5.1 mmol/L Chloride Level 101 101-111 mmol/L Carbon Dioxide Level 25 21-32 mmol/L Blood Urea Nitrogen 21 H 7-18 mg/dL Creatinine 1.0 0.5-1.3 mg/dL Glomerular Filtration Rate Calc 84 >90 mL/min Random Glucose 147 H 70-105 mg/dL Total Calcium 8.8 8.5-10.1 mg/dL Magnesium Level 1.90 1.80-2.40 mg/dL Total Bilirubin 0.7 0.2-1.0 mg/dL Direct Bilirubin 0.2 0.0-0.3 mg/dL Aspartate Amino Transf (AST/SGOT) 20 10-37 U/L Alanine Aminotransferase (ALT/SGPT) 23 12-78 U/L Alkaline Phosphatase 81 50-136 U/L Troponin I High Sensitivity 238 *H 4-75 ng/L Total Protein 8.5 H 6.0-8.3 g/dL Albumin 3.6 3.5-5.0 g/dL Hemoglobin A1c 8.5 H 4.0-6.0 % Estimated Average Glucose (eAG) 197 H 70-126 mg/dL C-Reactive Protein, Quantitative 1.40 0.5-3.0 mg/L B-Type Natriuretic Peptide 833 H 0-100 pg/mL Procalcitonin < 0.05 L 0.05-0.5 ng/mL Thyroid Stimulating Hormone (TSH) 3.59 # 0.36-3.74 uIU/mL Coagulation Labs: Test 01/05/25 04:18 01/04/25 09:33 Range/Units Activated Partial Thromboplast Time 64.9 H 26.3-35.5 SEC Prothrombin Time 11.1 9.6-11.6 SEC Prothromb Time International Ratio 1.05 0.85-1.15 Diagnostics / Radiology: [Copy/Paste Echos/Imaging Report here] Impression and Plan: [[Chest pain 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 Aggarwal from [facility] The patient presented for ongoing anterior intermittent non radiating chest pain.Symptoms are similar to prior his CABG Presenting ECG sinus rhythm with no acute ischemia and poor R-wave progression Troponin mildly elevated initially 37 and peaked at 238 We will continue [id number] mg daily and Increase atorvastatin to 40 mg q.h.s. and Toprol-XL 25 mg daily ] The patient will undergo Lexiscan stress test today # HFrEF ICM - EF ( 20-25 % Grade III diastolic dysfunction from Jul 2023 ) NYHA III Volume overloaded but compensated on exam Chest x-ray showed right-sided pleural effusion with bilateral pulmonary edema. Presenting BNP 833 Strict I's and O's and daily weights with low-sodium diet. Current creatinine 0.8 Fluid restrict to 1.5 L daily with a goal net negative of 1-2 L daily. Overnight urine output 1125 mL Optimize GDM T: Entresto 24-26 mg every12 hours, Toprol-XL 12.5 mg daily, [id number] mg daily Monitor/replace electrolytes as needed and keep on telemetry We will stop heparin infusion today Continue Lasix to 40 mg every 8 hours Pending 2D echocardiogram results Thank you for this consult cardiology will continue to follow along, formal recommendations pending Lexiscan stress test and 2D echocardiogram results Flynn Paris MD ] ATTESTATION BY PHYSICIAN I have seen and examined the patient, reviewed the above documentation, participated in medical decision making, made necessary modifications, and agree with the treatment plan as documented by my mid-level provider above. MD YOLANDA Etienne JAMES R MD Jan 05, 2025 10:31
[2025-01-05] MEDS: [UNRECOGNIZED DRUG - OTHER] PO SCH (10:33)
--- NOTE | 2025-01-05 10:36 | PN ---
[facility] PROGRESS NOTE Date Patient Seen: Jan 05, 2025 Time of Visit: 10:35 Supervising Physician: Dr. Howard Primary Care Physician: [NONE ] Outpatient Specialists: [ ] Inpatient Consults: MICHAEL ,DR THAD GUERRERO, ATTENDING: RYLIE HICKS PROBLEM LIST: Acute hypoxic respiratory failure, POA Small right pleural effusion not amenable for thoracentesis Chest pain ACS rule out Right upper quadrant pain POA differential cholelithiasis versus other GI etiology Ischemic cardiomyopathy with systolic and diastolic heart failure S/P AICD Coronary artery disease S/P CABG X3 IN 2019 Diabetes type 2 Hyperlipidemia Hypothyroidism Hypertension HIVon HAART therapy PLAN Likely pleural effusion from acute on chronic CHF -not amenable for thoracentesis at this time. Chest x-ray in the morning Maintain O2 sat above 92% Perform thoracentesis if effusion enlarges to moderate or large becomes increasingly symptomatic. Patient we will need to follow up with pulmonology of choice in 1-2 weeks post discharge Continue diuresing with Lasix Supplemental 02 as needed. Maintain aspiration precautions at all times Coagulation studies in preparation for possible thoracentesis if it enlarges. Follow hemodynamics. Vital signs per facility protocol Strict monitoring of intake, output and overall fluid balance. Monitor electrolytes and replace as needed One thousand five hundred fluid restriction diet Daily weights PPX for GI and DVT prophylaxis Code Status: Full Resuscitation Disposition: per primary team Other: Total patient care time exceeds 35 minutes excluding all procedures. INTERVAL HISTORY: 01/05/2025: At the time of my evaluation, the patient was lying in bed. Staff nurse reports no acute events overnight. The patient remains on room air with optimal oxygen supplementation. Vital sign parameters were unremarkable except for a blood pressure in the hypotensive range 81/57. Per the patient report this is not a new events.. I and O showed a voided 1125 mL with a net balance of -308.8. Laboratory data today was widely unremarkable except for a potassium of 3.0. The patient underwent a Lexiscan today. REVIEW OF SYSTEMS: 12 point review of system carried out. Pertinent positive as documented above, otherwise pertinent negative. PHYSICAL EXAM: GENERAL: alert, weak, awake oriented x 3 HEENT: EOMI, Sclera non icteric, moist mucosa NECK: Supple, no JVD, trachea midline LUNGS: Diminished RLLL lungsounds, No wheezes HEART: Regular rate and rhythm. Normal S1 and S2, without murmurs ABD: Abdomen soft, nontender. Bowel sounds present EXT: No clubbing cyanosis or edema NEURO: Alert and oriented to person, follows commands no focal weakness. Vital Signs (last 8hr) Date Time Temp Pulse Resp B/P (MAP) Pulse Ox O2 Delivery O2 Flow Rate FiO2 01/05/25 07:50 97.5 70 18 81/57 98 01/05/25 03:00 98.1 74 18 95/59 98 Room Air LABS: Hematology Labs: Test 01/05/25 04:18 Range/Units White Blood Count 5.8 4.8-10.8 K/uL Red Blood Count 5.15 4.50-6.20 MIL/uL Hemoglobin 16.2 14.0-18.0 g/dL Hematocrit 48.0 42-54 % Mean Corpuscular Volume 93.2 79-99 fL Mean Corpuscular Hemoglobin 31.5 27.0-33.0 pg Mean Corpuscular Hemoglobin Concent 33.8 32.0-36.0 g/dL Red Cell Distribution Width 12.2 11.0-15.5 % Platelet Count 214 130-400 K/uL Mean Platelet Volume 8.6 7.5-10.5 fL Immature Granulocyte % (Auto) 0.3 0-1 % Neutrophils (%) (Auto) 60.4 40.0-77.0 % Lymphocytes (%) (Auto) 26.5 21.0-51.0 % Monocytes (%) (Auto) 9.5 3.0-13.0 % Eosinophils (%) (Auto) 2.3 0.0-8.0 % Basophils (%) (Auto) 1.0 0.0-5.0 % Neutrophils # (Auto) 3.5 1.8-7.7 K/uL Lymphocytes # (Auto) 1.5 1.0-4.8 K/uL Monocytes # (Auto) 0.6 0.1-1.0 K/uL Eosinophils # (Auto) 0.13 0.00-0.70 K/uL Basophils # (Auto) 0.06 0.00-0.20 K/uL Absolute Immature Granulocyte (auto 0.02 0-1 K/uL Nucleated Red Blood Cells 0.0 0.0-0.19 % Chemistry Labs: Test 01/05/25 06:26 01/05/25 04:18 01/04/25 19:55 01/04/25 09:33 Range/Units Whole Blood Glucose 157 H 70-110 MG/DL Sodium Level 136 136-145 mmol/L Potassium Level 3.0 *L 3.5-5.1 mmol/L Chloride Level 101 101-111 mmol/L Carbon Dioxide Level 25 21-32 mmol/L Blood Urea Nitrogen 21 H 7-18 mg/dL Creatinine 1.0 0.5-1.3 mg/dL Glomerular Filtration Rate Calc 84 >90 mL/min Random Glucose 147 H 70-105 mg/dL Total Calcium 8.8 8.5-10.1 mg/dL Magnesium Level 1.90 1.80-2.40 mg/dL Total Bilirubin 0.7 0.2-1.0 mg/dL Direct Bilirubin 0.2 0.0-0.3 mg/dL Aspartate Amino Transf (AST/SGOT) 20 10-37 U/L Alanine Aminotransferase (ALT/SGPT) 23 12-78 U/L Alkaline Phosphatase 81 50-136 U/L Troponin I High Sensitivity 238 *H 4-75 ng/L Total Protein 8.5 H 6.0-8.3 g/dL Albumin 3.6 3.5-5.0 g/dL Hemoglobin A1c 8.5 H 4.0-6.0 % Estimated Average Glucose (eAG) 197 H 70-126 mg/dL C-Reactive Protein, Quantitative 1.40 0.5-3.0 mg/L B-Type Natriuretic Peptide 833 H 0-100 pg/mL Procalcitonin < 0.05 L 0.05-0.5 ng/mL Thyroid Stimulating Hormone (TSH) 3.59 # 0.36-3.74 uIU/mL Coagulation Labs: Test 01/05/25 04:18 01/04/25 09:33 Range/Units Activated Partial Thromboplast Time 64.9 H 26.3-35.5 SEC Prothrombin Time 11.1 9.6-11.6 SEC Prothromb Time International Ratio 1.05 0.85-1.15 DIAGNOSTICS / RADIOLOGY RESULTS: [ ] 01/05/2025: For now, we are going to continue current management for the patient. We will follow up with the Lexiscan results and follow the recommendation of the data entry machine operator. We will monitor the patient's progress and response to management. I discussed the findings and plan for further management with the patient. We will monitor the patient's progress and response to management. We will continue to provide general supportive care, GI and DVT prophylaxis. Further orders per attending MD and hospital course. Patient was seen and case discussed with rounding MD. Plan of care was di scussed and agreed upon. VEENA BROWN NP Jan 05, 2025 10:36
--- NOTE | 2025-01-05 13:23 | NUR ---
DCP: HOME Pt currently lives with Izabella Rothman [phone]. Pt does not have any insecurities with food, longterm, and/or utilities. Pt does not have DME, home health, or provider services. Pt is able to complete ADLs independently. Pt sees a doctor and gets RX from [facility]. At [place] pt will go home and family will assist with transportation. Addendum: 01/05/25 at 1325 by DOV SALGADO SS Amended: Links added.
[2025-01-05] MEDS: furoSEMIDE 40MG VIAL IV SCH (15:46)
--- NOTE | 2025-01-05 16:42 | PN ---
[facility] PROGRESS NOTE Date of Service: Jan 05, 2025 Time of Service: 16:35 SUBJECTIVE: 01/05 patient seen at bedside, no acute events overnight. Cardiology recommending stress test, we will follow up postprocedure with Cardiology recommendations. Patient is asymptomatic, potassium is low at 3.0 we will be repleted according to protocol. REVIEW OF SYSTEMS CONSTITUTIONAL: Denies fevers, chills, or night sweats. No unintentional weight loss reported. NEUROLOGICAL: Denies headache, amaurosis fugax, motor weakness, sensory deficit, vertigo/spinning sensation, gait abnormalities, or tremors. ENT: No hearing loss, otalgia, otorrhea, rhinitis, rhinorrhea, hoarseness, or sore throat. CARDIOVASCULAR: Denies any orthopnea, paroxysmal nocturnal dyspnea, palpitations, life-threatening arrhythmias, claudication. Positive for dyspnea on exertion, chest pain PULMONARY: Denies any cough, phlegm/sputum, hemoptysis, pleuritic chest pain. Positive for shortness of breath with exertion GASTROINTESTINAL: Denies any type of dysphagia to either liquids or solids. Denies nausea, vomiting, pyrosis, early satiety, abdominal pain, diarrhea, constipation, or changes in stool consistency or caliber. Denies coffee-ground emesis, hematemesis, hematochezia, or melanotic stools. GENITOURINARY: Denies frequency, urgency, nocturia, hematuria or incontinence (Storage/Irritative symptoms.) Low urinary stream, straining to void, urinary intermittency or hesitancy, splitting of the voiding stream, terminal dribbling. ENDOCRINOLOGIC: Denies polyuria, polydipsia, polyphagia or heat/cold intolerances. HEMATOLOGIC: Denies thrombophilia/previous clots, or coagulopathy/bleeding disorders. ONCOLOGIC: Denies personal history of malignancy. DERMATOLOGIC: Denies rashes or pruritus. PSYCHIATRIC: Denies any suicidal or homicidal ideation. Denies hallucinations. PHYSICAL EXAM GENERAL APPEARANCE: The patient is awake, alert, and oriented, in no acute cardiopulmonary distress. NEUROLOGICAL: Cranial nerves II-XII grossly intact. Motor is 5/5 in bilateral upper and lower extremities proximal to distal. No sensory deficits. HEENT: Face is symmetric. Pupils are equal and reactive. Extraocular movements are intact. NECK: Supple. No JVD. No thyromegaly. No submental, submandibular, pre- /postauricular, occipital or supraclavicular lymphadenopathy. CHEST: Normal chest expansion. No Telemetry. LUNGS: Decreased breath sounds on the right side. CARDIOVASCULAR: Regular. S1 and S2 normal. No appreciable rubs, murmurs or gallops. ABDOMEN: Soft, mild tenderness in the right upper quadrant to palpation. No guarding, no rebound : Deferred. No Argueta. EXTREMITIES: Non-edematous and not cyanotic. No clubbing. Good capillary refill. SKIN: No skin breakdown. Vital Signs (last 8hr) Date Time Temp Pulse Resp B/P (MAP) Pulse Ox O2 Delivery O2 Flow Rate FiO2 01/05/25 12:06 97.9 87 18 103/62 97 LABS: Laboratory: Test 01/05/25 16:21 01/05/25 10:19 01/05/25 04:18 01/05/25 00:50 Range/Units Whole Blood Glucose 210 H 70-110 MG/DL Activated Partial Thromboplast Time 67.8 H 26.3-35.5 SEC White Blood Count 5.8 4.8-10.8 K/uL Red Blood Count 5.15 4.50-6.20 MIL/uL Hemoglobin 16.2 14.0-18.0 g/dL Hematocrit 48.0 42-54 % Mean Corpuscular Volume 93.2 79-99 fL Mean Corpuscular Hemoglobin 31.5 27.0-33.0 pg Mean Corpuscular Hemoglobin Concent 33.8 32.0-36.0 g/dL Red Cell Distribution Width 12.2 11.0-15.5 % Platelet Count 214 130-400 K/uL Mean Platelet Volume 8.6 7.5-10.5 fL Immature Granulocyte % (Auto) 0.3 0-1 % Neutrophils (%) (Auto) 60.4 40.0-77.0 % Lymphocytes (%) (Auto) 26.5 21.0-51.0 % Monocytes (%) (Auto) 9.5 3.0-13.0 % Eosinophils (%) (Auto) 2.3 0.0-8.0 % Basophils (%) (Auto) 1.0 0.0-5.0 % Neutrophils # (Auto) 3.5 1.8-7.7 K/uL Lymphocytes # (Auto) 1.5 1.0-4.8 K/uL Monocytes # (Auto) 0.6 0.1-1.0 K/uL Eosinophils # (Auto) 0.13 0.00-0.70 K/uL Basophils # (Auto) 0.06 0.00-0.20 K/uL Absolute Immature Granulocyte (auto 0.02 0-1 K/uL Nucleated Red Blood Cells 0.0 0.0-0.19 % Sodium Level 136 136-145 mmol/L Potassium Level 3.0 *L 3.5-5.1 mmol/L Chloride Level 101 101-111 mmol/L Carbon Dioxide Level 25 21-32 mmol/L Blood Urea Nitrogen 21 H 7-18 mg/dL Creatinine 1.0 0.5-1.3 mg/dL Glomerular Filtration Rate Calc 84 >90 mL/min Random Glucose 147 H 70-105 mg/dL Total Calcium 8.8 8.5-10.1 mg/dL Magnesium Level 1.90 1.80-2.40 mg/dL Group A Streptococcus Rapid negative NEGATIVE Test 01/04/25 19:55 01/04/25 13:00 01/04/25 09:33 Range/Units Total Bilirubin 0.7 0.2-1.0 mg/dL Direct Bilirubin 0.2 0.0-0.3 mg/dL Aspartate Amino Transf (AST/SGOT) 20 10-37 U/L Alanine Aminotransferase (ALT/SGPT) 23 12-78 U/L Alkaline Phosphatase 81 50-136 U/L Troponin I High Sensitivity 238 *H 4-75 ng/L Total Protein 8.5 H 6.0-8.3 g/dL Albumin 3.6 3.5-5.0 g/dL Influenza Type A Antigen Negative For Type A NEGATIVE Influenza Type B Antigen Negative For Type B NEGATIVE SARS-CoV-2, RNA, NAAT NEGATIVE SARS CoV-2 NEGATIVE Prothrombin Time 11.1 9.6-11.6 SEC Prothromb Time International Ratio 1.05 0.85-1.15 Hemoglobin A1c 8.5 H 4.0-6.0 % Estimated Average Glucose (eAG) 197 H 70-126 mg/dL C-Reactive Protein, Quantitative 1.40 0.5-3.0 mg/L B-Type Natriuretic Peptide 833 H 0-100 pg/mL Procalcitonin < 0.05 L 0.05-0.5 ng/mL Thyroid Stimulating Hormone (TSH) 3.59 # 0.36-3.74 uIU/mL Current Medications Medications (Trade) Dose Ordered Sig/Miki Route PRN Reason Start Time Stop Time Status Last Admin Dose Admin Acetaminophen (TYLenol 500MG TAB) 500 mg Q6H PRN PO MILD PAIN (1-3) 01/04/25 11:00 02/03/25 10:59 Aspirin (Aspirin 81mg Chew Tab) 81 mg DAILY PO 01/05/25 09:00 02/04/25 08:59 01/05/25 10:28 81 MG Atorvastatin Calcium (LIPItor 20MG) 20 mg HS PO 01/04/25 21:00 01/04/25 16:09 DC Atorvastatin Calcium (LIPItor 20MG) 40 mg HS PO 01/04/25 21:00 01/05/25 08:56 DC Atorvastatin Calcium (LIPItor 40MG) 40 mg HS PO 01/05/25 21:00 02/03/25 20:59 Dextrose (D50w) 50 ml AD PRN IV HYPOGLYCEMIA PROTOCOL 01/04/25 12:00 02/03/25 11:59 Famotidine (Pepcid 20mg Vial) 20 mg BID IV 01/04/25 21:00 02/03/25 20:59 01/05/25 10:27 20 MG Furosemide (LASix 20MG VIAL) 20 mg Q8H IV 01/04/25 15:00 01/04/25 16:09 DC Furosemide (LASix 20MG VIAL) 40 mg Q8H IV 01/04/25 23:00 01/05/25 08:56 DC 01/05/25 06:58 40 MG Furosemide (LASix 40MG VIAL) 40 mg Q8H IV 01/05/25 15:00 02/03/25 22:59 01/05/25 15:46 40 MG Glucagon (Glucagon 1mg Kit) 1 mg AD PRN IM HYPOGLYCEMIA PROTOCOL 01/04/25 12:00 02/03/25 11:59 Heparin Sodium (Porcine) (HEParin 5,000 UNIT VIAL) *calculation based on ACTUAL B... AD PRN IV HEPARIN PROTOCOL 01/04/25 14:00 01/05/25 13:09 DC 01/04/25 15:09 5,000 UNIT Heparin Sodium/ Dextrose 250 ml @ 0 mls/hr Q6H IV 01/04/25 14:00 01/05/25 13:09 DC 01/04/25 22:03 9.9 MLS/HR Home Med (Home Medication) (Bictegrav/ Emtricit/ Teno... DAILY PO 01/05/25 09:00 02/04/25 08:59 01/05/25 10:33 1 EACH Insulin Human Regular (humuLIN R 100 UNIT/ML 3ML) INSULIN SLIDING SCAL... ACHS SQ 01/04/25 16:30 02/03/25 16:29 01/05/25 12:38 2 UNIT Lactulose (Constulose 20gm/ 30ml Udcup) 20 gm BID PRN PO CONSTIPATION 01/04/25 13:30 02/03/25 13:29 01/04/25 17:19 20 GM Magnesium Sulfate 50 ml @ 0 mls/hr PROTOCOL PRN IV hypomagnesemia 01/04/25 11:00 02/03/25 10:59 01/05/25 05:21 25 MLS/HR Metoprolol Succinate (TopROL XL) 12.5 mg DAILY PO 01/05/25 09:00 02/04/25 08:59 Nitroglycerin (Nitrostat) 0.4 mg AD PRN SL CHEST PAIN 01/04/25 09:30 01/04/25 10:49 DC 01/04/25 09:27 0.4 MG Nitroglycerin (Nitrostat) 0.4 mg AD PRN SL CHEST PAIN 01/04/25 11:00 02/03/25 10:59 Potassium Chloride 100 ml @ 100 mls/hr AD PRN IV POTASSIUM PROTOCOL 01/04/25 11:00 02/03/25 10:59 01/05/25 05:21 100 MLS/HR Potassium Chloride (K-Dur/Klor-Con 20meq) 20 meq AD PRN PO POTASSIUM PROTOCOL 01/04/25 11:00 02/03/25 10:59 01/05/25 15:47 20 MEQ Potassium Chloride (KCl 10% Elixir 20meq/15ml) 20 meq AD PRN PO POTASSIUM PROTOCOL 01/04/25 11:00 02/03/25 10:59 Sacubitril/ Valsartan (Entresto 24 Mg-26 Mg Tablet) 1 each BID PO 01/04/25 21:00 02/03/25 20:59 6/10/25 10:32 1 EACH Spironolactone (Aldactone 25mg) 12.5 mg DAILY PO 01/05/25 09:00 02/04/25 08:59 01/05/25 10:28 12.5 MG DIAGNOSTICS / RADIOLOGY: [ ] ASSESSMENT: Chest pain ACS rule out Right upper quadrant pain POA differential cholelithiasis versus other GI etiology Acute on chronic CHF exacerbation with EF of 20-25% History of ICD placement History of CAD status post CABG Hypertension Hyperlipidemia HIV on HAART therapy He has mellitus type 2 Moderate Right-sided pleural effusion PLAN: - continue PCCU - cardiology consulted, appreciate recommendations - Continue atorvastatin 40mg HS - Continue furosemide 40mg q24h - Continue spironolactone 12.5mg q24h - Cotninue metoprolol 12.5mg q24h - Continue aspirin 81mg q24h - Continue entresto 24-26mg BID - Continue sliding scale insulin - Continue hypoglycemia protocol - stress test pending later today, we will follow up - in reference to CHF exacerbation. Patient will be on Lasix 20 mg q.8 hours. Keep potassium greater than four and magnesium greater than two. Strict intake output and daily weights - In reference to pleural effusion. c/w diuresis. Disposition: Pending stress test, improvement in clinical status CHICO WICK MD Jan 05, 2025 16:42
--- NOTE | 2025-01-05 18:19 | HMCSR ---
APPROVED REPORT Height: 5 ft 4in TEST INDICATIONS Chest Pain The imaging protocol used to acquire images was Rest Tc-99m/stress Tc-99m 1 day Consent: The procedure was explained and understood by the patient. Informerd consent was witnessed Natalia Matthew RN First, low dose rest was performed then high dose stress. RESTING DATA: The resting ekg shows: NSR, PVC Rest SPECT myocardial perfusion imaging was performed in supine position minutes following the intra venous injection of 11 mCi of Tc-99 Sestamibi. Time of rest injection: Date: 01/05/2025 Time of rest imaging: Date: 01/05/2025 PHARMACOLOGIC STRESS: Pharmacologic stress test was performed by injecting regadenoson 0.4 mg IV push followed by the intra venous injection of 29 mCi of Tc-99 Sestamibi. Time of stress injection: Date: 01/05/2025 Time of stress imaging: Date: 01/05/2025 Heart Rate at time of stress injection: 71 bpm. The images were gated to evaluate regional wall motion and calculate left ventricular ejection fracti on. STRESS DETAILS Reason for Termination: Infusion complete Stress Symptoms: Dyspnea Max HR Achieved: 99 bpm % of APMHR Achieved: 75 Max Blood Pressure: 99/62 mmHg Stress ECG: NSR Study quality was good. Lung uptake was Normal. Artifact: No artifact IMPRESSION NormalSeverely abnormal pharmacologic nuclear stress test. Conclusion Fixed apical, anterior, anteroseptal, and inferolateral wall defects. TID 1.24. LVEF 15%, consider CC TA.
--- NOTE | 2025-01-05 18:34 | HMCSR ---
APPROVED REPORT EXAM: Two-dimensional and M-mode echocardiogram with Doppler and color Doppler. INDICATION ICD: Congestive heart failure exacerbation Chest Pain 2D Dimensions RVDd3.9 cmLVEF(%)27.4 (>50%)LVED Vol(simp.)148.0 mL IVSd0.7 (0.7-1.1cm)FS(%)13 %LVES Vol(simp.)121.0 mL LVDd5.5 (3.8-5.6cm)LA (2D)3.9 (1.6-4.0cm)LVEF(%, simp.)18 % PWd0.8 (0.7-1.1cm)Ao Root(2D)3.1 (2.0-3.7cm)LA ESV INDEX (BP)33.65 mL/m2 LVDs4.8 (2.5-4.0cm)LVOT diam2.5 (1.8-2.4cm) IVC diam1.2 cm Deformation Strain Apical 4-5.7 % Apical 2-5.7 % Apical 3-4.4 % Global Strain-5.3 % M-Mode Dimensions EPSS2.2 cm LA (MM)3.7 (1.6-4.0cm) Ao Root(MM)2.7 (2.0-3.7cm) Aortic Valve AoV Vmax0.8 m/Licha Peak GR2.4 mmHgLVOT Vmax0.5 m/s AoV VTI0.1 mAo Mean GR1.5 mmHgLVOT VTI0.09 m DEANNA (VMAX)2.93 cm2AVA (VTI) 2.9 cm2 Mitral Valve MV E Vmax58.6 cm/sDECEL Mrgy131 ms MV A Vmax69.7 cm/sP 1/2 T52 ms E/A ratio0.8MVA (PHT)4.2 cm2 TDI E/E' Vnviui91.2E/E' Aukpbty47.8 Medial E' Peak V2.76 cm/sLateral E' Peak V3.30 cm/s Left Ventricle The left ventricle is mildly dilated, 3.2 cm/m2. Severely reduced GLS -5.0%. There is normal left ve ntricular wall thickness. LVEF is <20%. Stage I diastolic dysfunction. Right Ventricle The right ventricle is normal size. The right ventricular systolic function is reduced. Device lead i s present in the right ventricle. Atria The left atrium size is normal. The right atrium is mildly dilated. Aortic Valve The aortic valve is normal in structure. Trace of aortic regurgitation is present. There is no aortic valvular stenosis. Mitral Valve The mitral valve is normal in structure. There is no mitral valve regurgitation noted. There is no mi tral valve stenosis. Tricuspid Valve The tricuspid valve is normal in structure. There is trace of tricuspid valve regurgitation noted. Pulmonic Valve The pulmonary valve is normal in structure. There is no pulmonic valvular regurgitation. Great Vessels The aortic root is normal in size. The IVC is normal in size and collapses >50% with inspiration. Pericardium There is no pericardial effusion. Other Information Quality : Adequate Conclusion The left ventricle is mildly dilated, 3.2 cm/m2. LVEF is <20%. Stage I diastolic dysfunction. The right ventricle is normal size. The right ventricular systolic function is reduced. The left atrium size is normal. The right atrium is mildly dilated. No valvular pathology. There is no pericardial effusion.
[2025-01-05] MEDS: PoTASSium chloRIDE 20MEQ ER 20 MEQ ERTAB PO SCH (21:17)
[2025-01-05] MEDS: atorVAStatin 40 MG TABLET PO SCH (21:18)
[2025-01-06 03:00] VITALS: BP 92/57; PULSE 98; RESP 18; TEMP 98.6
[2025-01-06 04:51] LABS: BASOPHILS # (AUTO) 0.03 K/uL (0.00-0.20); BASOPHILS % (AUTO) 0.5 % (0.0-5.0); EOSINOPHILS # (AUTO) 0.19 K/uL (0.00-0.70); EOSINOPHILS % (AUTO) 3.1 % (0.0-8.0); HEMATOCRIT 46.6 % (42-54); IMMATURE GRANULOCYTE ABSOLUTE 0.02 K/uL (0-1); LYMPHOCYTES # (AUTO) 1.5 K/uL (1.0-4.8); LYMPHOCYTES % (AUTO) 25.1 % (21.0-51.0); MEAN CORPUSCULAR HEMOGLOBIN 31.9 pg (27.0-33.0); MEAN CORPUSCULAR HGB CONC 35.2 g/dL (32.0-36.0); MEAN CORPUSCULAR VOLUME 90.7 fL (79-99); MONOCYTES # (AUTO) 0.6 K/uL (0.1-1.0); MONOCYTES % (AUTO) 9.5 % (3.0-13.0); NEUTROPHILS # (AUTO) 3.7 K/uL (1.8-7.7); NEUTROPHILS % (AUTO) 61.5 % (40.0-77.0); PLATELET COUNT (AUTO) 219 K/uL (130-400); RED BLOOD CELL COUNT(AUTO) 5.14 MIL/uL (4.50-6.20); RED CELL DISTRIBUTION WIDTH 12.6 % (11.0-15.5); WHITE BLOOD COUNT (AUTO) 6.1 K/uL (4.8-10.8)
[2025-01-06 05:04] LABS: CREATININE 0.9 mg/dL (0.5-1.3); PHOSPHORUS 3.5 mg/dL (2.5-4.9); POTASSIUM 3.9 mmol/L (3.5-5.1)
[2025-01-06 07:56] VITALS: BP 103/66; PULSE 87; RESP 16; TEMP 97.7
[2025-01-06 08:00] VITALS: O2SAT 99
--- NOTE | 2025-01-06 08:55 | PN ---
[facility] CARDIOLOGY PROGRESS NOTE Date Patient Seen: Jan 06, 2025 Time of Visit: 08:46 Interval History: No acute events overnight. The patient underwent Lexiscan stress test yesterday that showed Fixed apical, anterior, anteroseptal, and inferolateral wall defects suggestive of scar tissue. TID 1.24. 2D echo showed LVEF is <20%. with stage I diastolic dysfunction, no hemodynamically significant valvular abnormalities. Physical Examination: GENERAL: [No acute distress.] HEAD: [Normal with no signs of head trauma.] EYES: [PERRLA, EOMI, conjunctiva and sclera normal.] ENT: [Hearing grossly intact, normal oropharynx.] NECK: [Supple without JVD. There is no tenderness, lymphadenopathy, or masses. No thyromegaly. Normal carotid upstrokes without bruits.] LUNGS: [Clear breath sounds bilaterally. No wheezes, or rhonchi.] HEART: [Normal rate and rhythm. Normal S1 and S2 without murmurs, gallop or rub.] VASC: [Peripheral pulses +2 bilaterally.] ABD: [Bowel sounds normal, soft, nontender, no masses, no organomegaly. No audible bruits.] : [Not examined] LYMPH: [No lymphadenopathy noted.] EXT: [No clubbing, cyanosis or edema.] SKIN: [No rashes or lesions noted.] NEURO: [Awake, alert, and oriented x3. No focal sensory or strength deficits noted.] Laboratory: [ ] Hematology Labs: Test 01/06/25 04:42 Range/Units White Blood Count 6.1 4.8-10.8 K/uL Red Blood Count 5.14 4.50-6.20 MIL/uL Hemoglobin 16.4 14.0-18.0 g/dL Hematocrit 46.6 42-54 % Mean Corpuscular Volume 90.7 79-99 fL Mean Corpuscular Hemoglobin 31.9 27.0-33.0 pg Mean Corpuscular Hemoglobin Concent 35.2 32.0-36.0 g/dL Red Cell Distribution Width 12.6 11.0-15.5 % Platelet Count 219 130-400 K/uL Mean Platelet Volume 8.8 7.5-10.5 fL Immature Granulocyte % (Auto) 0.3 0-1 % Neutrophils (%) (Auto) 61.5 40.0-77.0 % Lymphocytes (%) (Auto) 25.1 21.0-51.0 % Monocytes (%) (Auto) 9.5 3.0-13.0 % Eosinophils (%) (Auto) 3.1 0.0-8.0 % Basophils (%) (Auto) 0.5 0.0-5.0 % Neutrophils # (Auto) 3.7 1.8-7.7 K/uL Lymphocytes # (Auto) 1.5 1.0-4.8 K/uL Monocytes # (Auto) 0.6 0.1-1.0 K/uL Eosinophils # (Auto) 0.19 0.00-0.70 K/uL Basophils # (Auto) 0.03 0.00-0.20 K/uL Absolute Immature Granulocyte (auto 0.02 0-1 K/uL Nucleated Red Blood Cells 0.0 0.0-0.19 % Chemistry Labs: Test 01/06/25 06:08 01/06/25 04:42 01/04/25 19:55 01/04/25 09:33 Range/Units Whole Blood Glucose 144 H 70-110 MG/DL Sodium Level 134 L 136-145 mmol/L Potassium Level 3.9 3.5-5.1 mmol/L Chloride Level 100 L 101-111 mmol/L Carbon Dioxide Level 26 21-32 mmol/L Blood Urea Nitrogen 24 H 7-18 mg/dL Creatinine 0.9 0.5-1.3 mg/dL Glomerular Filtration Rate Calc 95 >90 mL/min Random Glucose 137 H 70-105 mg/dL Total Calcium 9.2 8.5-10.1 mg/dL Phosphorus Level 3.5 2.5-4.9 mg/dL Magnesium Level 2.00 1.80-2.40 mg/dL Total Bilirubin 0.7 0.2-1.0 mg/dL Direct Bilirubin 0.2 0.0-0.3 mg/dL Aspartate Amino Transf (AST/SGOT) 20 10-37 U/L Alanine Aminotransferase (ALT/SGPT) 23 12-78 U/L Alkaline Phosphatase 81 50-136 U/L Troponin I High Sensitivity 238 *H 4-75 ng/L Total Protein 8.5 H 6.0-8.3 g/dL Albumin 3.6 3.5-5.0 g/dL Hemoglobin A1c 8.5 H 4.0-6.0 % Estimated Average Glucose (eAG) 197 H 70-126 mg/dL C-Reactive Protein, Quantitative 1.40 0.5-3.0 mg/L B-Type Natriuretic Peptide 833 H 0-100 pg/mL Procalcitonin < 0.05 L 0.05-0.5 ng/mL Thyroid Stimulating Hormone (TSH) 3.59 # 0.36-3.74 uIU/mL Coagulation Labs: Test 01/05/25 10:19 01/04/25 09:33 Range/Units Activated Partial Thromboplast Time 67.8 H 26.3-35.5 SEC Prothrombin Time 11.1 9.6-11.6 SEC Prothromb Time International Ratio 1.05 0.85-1.15 Diagnostics / Radiology: [Copy/Paste Echos/Imaging Report here] Impression and Plan: [Chest pain ( resolved ) Acute on chronic systolic and diastolic heart failure exacerbation (EF 20-25%) History of ICD placement CAD status post 3 v CABG in 2019 Hypertension Hyperlipidemia HIV Moderate right-sided pleural effusion ] Plan: [# CAD H/o multivessel CAD s/p 3v CABG in 2019 (unknown graft anatomy) The patient is following cosmetic dentist Dr. Aggarwal from [facility] The patient presented for ongoing anterior intermittent non radiating chest pain.Symptoms are similar to prior his CABG Presenting ECG sinus rhythm with no acute ischemia and poor R-wave progression Troponin mildly elevated initially 37 and peaked at 238 We will continue [id number] mg daily and Increase atorvastatin to 40 mg q.h.s. and Toprol-XL 25 mg daily ] Lexiscan stress test yesterday that showed Fixed apical, anterior, anteroseptal, and inferolateral wall defects suggestive of scar tissue. TID 1.24. We will continue to focus on medical management # HFrEF ICM - EF ( < 20% Grade I diastolic dysfunction from Dec 05 2024 ) NYHA III Volume overloaded but compensated on exam Chest x-ray showed right-sided pleural effusion with bilateral pulmonary edema. Presenting BNP 833 Strict I's and O's and daily weights with low-sodium diet. Current creatinine 0.8 Fluid restrict to 1.5 L daily with a goal net negative of 1-2 L daily. Overnight urine output 1125 mL Optimize GDM T: Entresto 24-26 mg every12 hours, Toprol-XL 12.5 mg daily, [id number] mg daily Monitor/replace electrolytes as needed and keep on telemetry Continue Lasix to 40 mg every 8 hours 2D echo showed LVEF is <20%. with stage I diastolic dysfunction, no hemodynamically significant valvular abnormalities. We will continue current medication regimen Thank you for this consult, from our standpoint the patient can be discharged , he will need to follow up with Dr Davis Aggarwal in 1-2 weeks after discharge Flynn Paris MD ] ATTESTATION BY PHYSICIAN I have seen and examined the patient, reviewed the above documentation, p articipated in medical decision making, made necessary modifications, and agree with the treatment plan as documented by my mid-level provider above. MD YOLANDA Etienne JAMES R MD Jan 06, 2025 08:55
[2025-01-06 12:00] VITALS: BP 92/66; PULSE 87; RESP 16; TEMP 97.7
--- NOTE | 2025-01-06 14:01 | DS ---
Discharge Summary Hospital Course Summary: 64-year-old male with past medical history of HIV, diabetes mellitus type 2, hyperlipidemia, hypothyroidism, history of hypertension, history of CAD status post CABG, history of heart failure with EF of 20-25%, history of ICD placement who presented to the hospital secondary to chest pain. Patient states his chest pain started today around 8:00 a.m.. The pain is located in the midsternal area which radiated towards his left arm and had. He also had associated paresthesias with the pain. He denied any nausea, vomiting, diaphoresis. He describes the pain as pressure in nature. The pain lasted for at least an hour prior to coming to the hospital. Patient is from [place] and has been primarily seeing a physician in [place]. He states his last checkup was normal. He denied any shocks from his ICD device. He has not seen a net application architect in the [place]. He took his a.m. medications before coming to the hospital. Denied any cough, shortness of breath at rest, sputum production. He gets short of breath with exertion including ambulation. He states it has been going on for at least three months. He denied any falls, syncopal episode. Patient has been compliant with his HIV medication. He was admitted and cardiology consulted. A stress test and echo were ordered. Stress test showed fixed non-reversible d efects and echo showed severely decreased EF already known to the patient. The following day the patient was at baseline, and cleared by cardiology for discharge to continue his current cardiac medications. He will need to follow up with his primary net application architect in 1-2 weeks . Substance Abuse Counselor(s): Cardiology Procedure(s): Echocardiogram: Conclusion The left ventricle is mildly dilated, 3.2 cm/m2. LVEF is <20%. Stage I diastolic dysfunction. The right ventricle is normal size. The right ventricular systolic function is reduced. The left atrium size is normal. The right atrium is mildly dilated. No valvular pathology. There is no pericardial effusion. TEST INDICATIONS Chest Pain The imaging protocol used to acquire images was Rest Tc-99m/stress Tc-99m 1 day Consent: The procedure was explained and understood by the patient. Informerd consent was witnessed by Cristel Matthew RN First, low dose rest was performed then high dose stress. RESTING DATA: The resting ekg shows: NSR, PVC Rest SPECT myocardial perfusion imaging was performed in supine position minutes following the intravenous injection of 11 mCi of Tc-99 Sestamibi. Time of rest injection: Date: 01/05/2025 Time of rest imaging: Date: 01/05/2025 PHARMACOLOGIC STRESS: Pharmacologic stress test was performed by injecting regadenoson 0.4 mg IV push followed by the intravenous injection of 29 mCi of Tc-99 Sestamibi. Time of stress injection: Date: 01/05/2025 Time of stress imaging: Date: 01/05/2025 Heart Rate at time of stress injection: 71 bpm. The images were gated to evaluate regional wall motion and calculate left ventricular ejection fraction. STRESS DETAILS Reason for Termination: Infusion complete Stress Symptoms: Dyspnea Max HR Achieved: 99 bpm % of APMHR Achieved: 75 Max Blood Pressure: 99/62 mmHg Stress ECG: NSR Study quality was good. Lung uptake was Normal. Artifact: No artifact IMPRESSION NormalSeverely abnormal pharmacologic nuclear stress test. Conclusion Fixed apical, anterior, anteroseptal, and inferolateral wall defects. TID 1.24. LVEF 15%, consider CCTA. Exam Type: US ABDOMINAL RUQ\E\LTD Clinical Information: CHOLELITHIASIS, ruq PAIN Comparison: None Findings: The liver shows coarse echogenicity and a small and this could represent cirrhosis or chronic liver disease. Doppler evaluation shows patent portal and hepatic veins. The gallbladder shows cholelithiasis but no evidence of acute or chronic inflammation seen. No bile duct dilatation is noted. The gallbladder wall measures 2 mm. The common bile duct measures 4 mm. The right kidney measures 11.2 x 5.3 cm- it shows no hydronephrosis or calculi, masses or other abnormalities. The pancreas is unremarkable. The aorta and inferior vena cava show no significant abnormalities. IMPRESSION: Possible chronic liver disease. Right pleural effusion. CHOLELITHIASIS. Exam Type: CT ABDOMEN/PELVIS W/O CONTRAST Clinical Information: ruq pain Comparison: None CT Dose Index (CTDI): 10.20 mGy Dose Length Product (DLP): 530.00 total mGy-cm PROTOCOL: Routine noncontrast helical scanning of the abdomen and pelvis was performed at 5mm collimation. Findings: No evidence of nephro or ureterolithiasis is found. No hydronephrosis or ureteral dilatation is seen. Status post median sternotomy. Small left and moderate right pleural effusion with bilateral basal passive atelectasis. The stomach is unremarkable. It shows no wall thickening. No gross ulceration is seen. It is not overly distended. There are no surrounding inflammatory changes. No wall lesions are identified to suggest cancer. The spleen is unremarkable. It is not enlarged. The pancreas shows normal anatomy. It is not fatty replaced. It shows no lesions. The pancreatic duct is not dilated. There is evidence of cholelithiasis. No evidence of acute or chronic inflammation is seen. The adrenal glands are unremarkable. There is no enlargement. No lesions are noted. The liver is unremarkable. It shows no focal masses. The appendix is unremarkable. It shows no evidence of inflammation. No appendicolith is seen. The small bowel is unremarkable. There is no evidence of dilatation to suggest obstruction. No evidence of adynamic ileus is seen. There is no small bowel wall thickening to suggest enteritis. Abundant fecal matter is noted throughout the colon consistent with constipation. The urinary bladder is unremarkable. There is no wall thickening to suggest tumor or inflammation. There are no intraluminal calculi. There are no diverticula. There is no evidence of chronic bladder outlet obstruction. There is no evidence of urinary bladder distention to suggest urinary retention. The prostate is enlarged. The bony and vascular structures are unremarkable for the patient's age. IMPRESSION: Status post median sternotomy. Small left and moderate right pleural effusion with bilateral basal passive atelectasis. Cholelithiasis. Constipation. Exam Type: CHEST 1VW Clinical Information: CHEST PAIN Comparison: None Findings: Moderate right pleural effusion. Left cardiac pacemaker is noted with leads in place. There is cardiomegaly and there is status post median sternotomy. The lungs are clear of infiltrates. Left-sided cardiac pacemaker is noted with leads in place. Impression: Clear lungs.Moderate right pleural effusion. Assessment/Plan: Chest pain ACS rule out Right upper quadrant pain POA differential cholelithiasis versus other GI etiology Acute on chronic CHF exacerbation with EF of 20-25% History of ICD placement History of CAD status post CABG Hypertension Hyperlipidemia HIV on HAART therapy He has mellitus type 2 Moderate Right-sided pleural effusion Discharge Instructions: Follow up with PCP in 3-7 days Follow up with cardiology in 2 weeks Home Medications: Active Scripts Spironolactone (Spironolactone) 25 Mg Tablet, 12.5 MG PO DAILY, #60 TAB Prov:AYLA PENA APRN 12/15/23 Metoprolol Succinate (Toprol Xl) 25 Mg Tab.er.24h, 12.5 MG PO DAILY, #60 TAB Prov:AYLA PENA PLANT TENDER 12/15/23 Reported Medications Atorvastatin Calcium (Atorvastatin Calcium) 20 Mg Tablet, 1 TAB PO HS for 30 Days, #30 TAB 0 Refills 01/04/25 Metformin HCl (Metformin HCl) 1,000 Mg Tablet, 1000 MG PO BID, TAB 01/04/25 Dapagliflozin Propanediol (Farxiga) 10 Mg Tablet, 10 MG PO DAILY, TAB 12/09/23 Sacubitril/Valsartan (Entresto 24 mg-26 mg Tablet) 24 Mg-26 Mg Tablet, 1 EACH PO BID, TAB 10/03/23 Aspirin (ASPIRIN 81 MG ECTAB) 81 Mg Ectab, 81 MG PO DAILY, TAB.EC 10/01/23 Bictegrav/Emtricit/Tenofov Ala (Biktarvy 50-200-25 mg Tablet) 50 Mg-200 Mg-25 Mg Tablet, 1 EACH PO DAILY, TAB 10/01/23 Furosemide (Furosemide) 40 Mg Tablet, 40 MG PO BID, TAB 10/01/23 Discontinued Reported Medications Insulin Glargine,Hum.rec.anlog (Lantus Solostar) 100 Unit/Ml (3 Ml) Insuln.pen, 11 UNIT SQ BID, SYRINGE 10/01/23 Discontinued Scripts Silver Sulfadiazine (Silver Sulfadiazine) 1 % Cream..g., 50 GM TP BID for 5 Days, #1 TUB Prov:ELBERT GARCIA MD 02/09/24 Famotidine (Famotidine) 20 Mg Tablet, 20 MG PO Q24H, #60 TAB Prov:AYLA PENA PLANT TENDER 12/15/23 Continued Medications: Aspirin (Aspirin 81 Mg Ectab) 81 Mg Ectab 81 MG PO DAILY, TAB.EC Atorvastatin Calcium (Atorvastatin Calcium) 20 Mg Tablet 1 TAB PO HS for 30 Days, #30 TAB 0 Refills Bictegrav/Emtricit/Tenofov Ala (Biktarvy 50-200-25 mg Tablet) 50 Mg-200 Mg-25 Mg Tablet 1 EACH PO DAILY, TAB Dapagliflozin Propanediol (Farxiga) 10 Mg Tablet 10 MG PO DAILY, TAB Furosemide (Furosemide) 40 Mg Tablet 40 MG PO BID, TAB Metformin HCl (Metformin HCl) 1,000 Mg Tablet 1000 MG PO BID, TAB Metoprolol Succinate (Toprol Xl) 25 Mg Tab.er.24h 12.5 MG PO DAILY, #60 TAB Sacubitril/Valsartan (Entresto 24 mg-26 mg Tablet) 24 Mg-26 Mg Tablet 1 EACH PO BID, TAB Spironolactone (Spironolactone) 25 Mg Tablet 12.5 MG PO DAILY, #60 TAB Time spent arranging discharge: 31-60 minutes CHICO WICK MD Jan 06, 2025 14:01
--- NOTE | 2025-01-06 14:15 | NUR ---
DISCHARGE INSTRUCTIONS DISCHARGE INSTRUCTIONS WERE GIVEN TO THIS PATIENT AND SPOUSE AT BEDSIDE. THEY VOICED UNDERSTANDING AND FOLLOW UP APPTS WERE PROVIDED. ALL BELONGINGS WERE TAKEN WITH. 2 PIV TO RIGHT ARM WAS REMOVED WITH CATHETER INTACT AND DRY DRESSING WAS APPLIED. TELE PACK WAS REMOVED AND RETURNED TO TELEMETRY ROOM. PATIENT DENIES ANY CHEST PAIN NOR IS IN ANY RESPIRATORY DISTRESS. PATIENT WAS TAKEN DOWN TO PRIVATE VEHICLE VIA WHEEL CHAIR.
--- NOTE | 2025-01-06 14:19 | PN ---
[facility] PROGRESS NOTE Date Patient Seen: Jan 06, 2025 Time of Visit: 14:19 Supervising Physician: Dr. Howard Primary Care Physician: [NONE ] Outpatient Specialists: [ ] Inpatient Consults: MICHAEL ,DR THAD GUERRERO, ATTENDING: RYLIE HICKS PROBLEM LIST: Acute hypoxic respiratory failure, POA Small right pleural effusion not amenable for thoracentesis Chest pain ACS rule out Right upper quadrant pain POA differential cholelithiasis versus other GI etiology Ischemic cardiomyopathy with systolic and diastolic heart failure S/P AICD Coronary artery disease S/P CABG X3 IN 2019 Diabetes type 2 Hyperlipidemia Hypothyroidism Hypertension HIVon HAART therapy INTERVAL HISTORY: 01/05/2025: At the time of my evaluation, the patient was lying in bed. Staff nurse reports no acute events overnight. The patient remains on room air with optimal oxygen supplementation. Vital sign parameters were unremarkable except for a blood pressure in the hypotensive range 81/57. Per the patient report this is not a new events.. I and O showed a voided 1125 mL with a net balance of -308.8. Laboratory data today was widely unremarkable except for a potassium of 3.0. The patient underwent a Lexiscan today. 01/06/2025: At the time of my evaluation, the patient was sitting up in his room. Staff nurse reports no acute events overnight. Vital signs are unremarkable. Laboratory data today was also unremarkable. No new microbiology data for review. No imaging for review. The patient underwent stress test yesterday and this showed Fixed apical, anterior, anteroseptal, and inferolateral wall defects suggestive of scar tissue. 2D echo showed LVEF is <20%. with stage I diastolic dysfunction, no hemodynamically significant valvular abnormalities. He reports feeling much better today. No other complaint. REVIEW OF SYSTEMS: 12 point review of system carried out. Pertinent positive as documented above, otherwise pertinent negative. PHYSICAL EXAM: GENERAL: alert, weak, awake oriented x 3 HEENT: EOMI, Sclera non icteric, moist mucosa NECK: Supple, no JVD, trachea midline LUNGS: Diminished RLLL lungsounds, No wheezes HEART: Regular rate and rhythm. Normal S1 and S2, without murmurs ABD: Abdomen soft, nontender. Bowel sounds present EXT: No clubbing cyanosis or edema NEURO: Alert and oriented to person, follows commands no focal weakness. Vital Signs (last 8hr) Date Time Temp Pulse Resp B/P (MAP) Pulse Ox O2 Delivery O2 Flow Rate FiO2 01/06/25 12:00 97.7 87 16 92/66 99 Room Air 01/06/25 07:56 97.7 87 16 103/66 100 Room Air LABS: Hematology Labs: Test 01/06/25 04:42 Range/Units White Blood Count 6.1 4.8-10.8 K/uL Red Blood Count 5.14 4.50-6.20 MIL/uL Hemoglobin 16.4 14.0-18.0 g/dL Hematocrit 46.6 42-54 % Mean Corpuscular Volume 90.7 79-99 fL Mean Corpuscular Hemoglobin 31.9 27.0-33.0 pg Mean Corpuscular Hemoglobin Concent 35.2 32.0-36.0 g/dL Red Cell Distribution Width 12.6 11.0-15.5 % Platelet Count 219 130-400 K/uL Mean Platelet Volume 8.8 7.5-10.5 fL Immature Granulocyte % (Auto) 0.3 0-1 % Neutrophils (%) (Auto) 61.5 40.0-77.0 % Lymphocytes (%) (Auto) 25.1 21.0-51.0 % Monocytes (%) (Auto) 9.5 3.0-13.0 % Eosinophils (%) (Auto) 3.1 0.0-8.0 % Basophils (%) (Auto) 0.5 0.0-5.0 % Neutrophils # (Auto) 3.7 1.8-7.7 K/uL Lymphocytes # (Auto) 1.5 1.0-4.8 K/uL Monocytes # (Auto) 0.6 0.1-1.0 K/uL Eosinophils # (Auto) 0.19 0.00-0.70 K/uL Basophils # (Auto) 0.03 0.00-0.20 K/uL Absolute Immature Granulocyte (auto 0.02 0-1 K/uL Nucleated Red Blood Cells 0.0 0.0-0.19 % Chemistry Labs: Test 01/06/25 11:28 01/06/25 04:42 01/04/25 19:55 Range/Units Whole Blood Glucose 195 H 70-110 MG/DL Sodium Level 134 L 136-145 mmol/L Potassium Level 3.9 3.5-5.1 mmol/L Chloride Level 100 L 101-111 mmol/L Carbon Dioxide Level 26 21-32 mmol/L Blood Urea Nitrogen 24 H 7-18 mg/dL Creatinine 0.9 0.5-1.3 mg/dL Glomerular Filtration Rate Calc 95 >90 mL/min Random Glucose 137 H 70-105 mg/dL Total Calcium 9.2 8.5-10.1 mg/dL Phosphorus Level 3.5 2.5-4.9 mg/dL Magnesium Level 2.00 1.80-2.40 mg/dL Total Bilirubin 0.7 0.2-1.0 mg/dL Direct Bilirubin 0.2 0.0-0.3 mg/dL Aspartate Amino Transf (AST/SGOT) 20 10-37 U/L Alanine Aminotransferase (ALT/SGPT) 23 12-78 U/L Alkaline Phosphatase 81 50-136 U/L Troponin I High Sensitivity 238 *H 4-75 ng/L Total Protein 8.5 H 6.0-8.3 g/dL Albumin 3.6 3.5-5.0 g/dL Coagulation Labs: Test 01/05/25 10:19 Range/Units Activated Partial Thromboplast Time 67.8 H 26.3-35.5 SEC DIAGNOSTICS / RADIOLOGY RESULTS: [ ] 01/05/2025: For now, we are going to continue current management for the patient. We will follow up with the Lexiscan results and follow the recommendation of the mold bunch trimmer. We will monitor the patient's progress and response to management. I discussed the findings and plan for further management with the patient. We will monitor the patient's progress and response to management. We will continue to provide general supportive care, GI and DVT prophylaxis. Further orders per attending MD and hospital course. 01/06/2025: At the time of my evaluation, the patient was sitting up in his room. Staff nurse reports no acute events overnight. Vital signs are unremarkable. Laboratory data today was also unremarkable. No new microbiology data for review. No imaging for review. The patient underwent stress test yesterday and this showed Fixed apical, anterior, anteroseptal, and inferolateral wall defects suggestive of scar tissue. 2D echo showed LVEF is <20%. with stage I diastolic dysfunction, no hemodynamically significant valvular abnormalities. He reports feeling much better today. No other complaint. Patient was seen and case discussed with deanna TINAJERO. Plan of care was discussed and agreed upon. VEENA BROWN CENTRAL OFFICE REPAIRER Jan 06, 2025 14:19
== END 2025-01-06 14:15 | disposition home or self-care (01) | DRG 291 ==
LOC: EDH 09:03 → EDHIP 09:04 → 2DH 13:01
PROVIDERS: ADMIT Internal Medicine; ATTEND Internal Medicine
PROC: 4A02XM4 Measurement of Cardiac Total Activity, External Approach (ICD-10-PCS; principal; 2025-01-05)
PROC: 3E073KZ Introduction of Other Diagnostic Substance into Coronary Artery, Percutaneous Approach (ICD-10-PCS; 2025-01-05)
DX: I11.0 Hypertensive heart disease with heart failure (principal); I50.43 Acute on chronic combined systolic (congestive) and diastolic (congestive) heart failure; J96.01 Acute respiratory failure with hypoxia; J98.11 Atelectasis; E03.9 Hypothyroidism, unspecified; E11.9 Type 2 diabetes mellitus without complications; E78.00 Pure hypercholesterolemia, unspecified; I25.10 Atherosclerotic heart disease of native coronary artery without angina pectoris; I25.5 Ischemic cardiomyopathy; I49.3 Ventricular premature depolarization; K59.00 Constipation, unspecified; K80.20 Calculus of gallbladder without cholecystitis without obstruction; Z21 Asymptomatic human immunodeficiency virus [HIV] infection status; Z79.899 Other long term (current) drug therapy; Z82.49 Family history of ischemic heart disease and other diseases of the circulatory system; Z83.3 Family history of diabetes mellitus; Z86.74 Personal history of sudden cardiac arrest; Z88.6 Allergy status to analgesic agent; Z90.49 Acquired absence of other specified parts of digestive tract; Z95.1 Presence of aortocoronary bypass graft; Z95.810 Presence of automatic (implantable) cardiac defibrillator
CPT/HCPCS: 36415; 71045; 74176; 76705; 78452; 80048; 80076; 82948; 83036; 83735; 83880; 84100; 84145; 84443; 84484; 85025; 85027; 85610; 85730; 86140; 87040; 87635; 87804; 87880; 93005; 93017; 93306; 93356; 99291; A9500; G0378; J1644; J1815; J1938; J1940; J2785; J3475; J3480; J3490

== ENCOUNTER 2025-03-08 11:52 | Inpatient (IN) | payer SELFPAY ==
[~2025-03-08] VITALS: Ht 157.5 cm; Wt 65.7 kg
[~2025-03-08 11:52] MED LIST changes: +ATOR20TA65 PO; -FAMO20TA8 PO; -INSU3INS3 SQ; +METF-446 PO; -SILV50CR31 TP
--- NOTE | 2025-03-08 12:24 | EKG ---
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
--- NOTE | 2025-03-08 13:50 | ERN ---
ED Note History of Present Illness Stated Complaint: ABD PAIN, SOB Chief Complaint: Shortness of Breath Time Seen by MD: 11:59 Time Seen by Midlevel: 12:01 Dictation: 64-year-old male with a history of CHF, diabetes and cholesterol coming in with complaints of shortness a breath onset last night. Patient denies any cough, fever, congestion. Patient states he is already taking spironolactone and furosemide. Allergies: Coded Allergies: ibuprofen (Verified Allergy, Unknown, 01/04/25) Home Meds Active Scripts Spironolactone (Spironolactone) 25 Mg Tablet, 12.5 MG PO DAILY, #60 TAB Prov:AYLA PENA MAINTENANCE SPECIALIST 12/15/23 Metoprolol Succinate (Toprol Xl) 25 Mg Tab.er.24h, 12.5 MG PO DAILY, #60 TAB Prov:AYLA PENA MAINTENANCE SPECIALIST 12/15/23 Reported Medications Atorvastatin Calcium (Atorvastatin Calcium) 20 Mg Tablet, 1 TAB PO HS for 30 Days, #30 TAB 0 Refills 01/04/25 Metformin HCl (Metformin HCl) 1,000 Mg Tablet, 1000 MG PO BID, TAB 01/04/25 Dapagliflozin Propanediol (Farxiga) 10 Mg Tablet, 10 MG PO DAILY, TAB 12/09/23 Sacubitril/Valsartan (Entresto 24 mg-26 mg Tablet) 24 Mg-26 Mg Tablet, 1 EACH PO BID, TAB 10/03/23 Aspirin (ASPIRIN 81 MG ECTAB) 81 Mg Ectab, 81 MG PO DAILY, TAB.EC 10/01/23 Bictegrav/Emtricit/Tenofov Ala (Biktarvy 50-200-25 mg Tablet) 50 Mg-200 Mg-25 Mg Tablet, 1 EACH PO DAILY, TAB 10/01/23 Furosemide (Furosemide) 40 Mg Tablet, 40 MG PO BID, TAB 10/01/23 Past Medical History Past Medical History: CAD, CHF, Diabetes-Type II, High Cholesterol, Heart Disease, Hypertension Additional Past Medical Hx: CARDIAC ARREST, Surgical History: Appendectomy, CABG, Pacer/AICD Surgical History Other: OPEN HEART SX (3YRS AGO) Family History: DM, HTN Social History: Smokers, Lives with family, Other Review of System Dictation Constitutional: Negative for fever,chills, and weight loss Eyes: Negative for injury, pain,redness, and discharge ENT: Negative for injury,pain or swelling Cardiovascular: Negative for chest pain, palpitations, and edema Respiratory: Complaining of shortness a breath Abdomen/GI: Negative for abdominal pain, nausea, vomiting, diarrhea, and constipation Back: Negative for injury and pain : Negative for injury, bleeding and discharge MS/Extremity: Negative for injury and deformity Skin: Negative for rash, and discoloration Neuro: Negative for headache, weakness, numbness, tingling, and seizure Psych: Negative for suicide ideation, homicidal ideation, and hallucinations Review of Systems: was completed Initial Vital Sign VS Vital Signs Date Time Temp Pulse Resp B/P (MAP) Pulse Ox O2 Delivery O2 Flow Rate FiO2 03/08/25 11:54 99.5 95 16 121/70 96 Room Air 0 Physical Exam Dictation General: awake, alert, NAD Head/Face: Normocephalic, atraumatic Eyes: PERRL, EOMI, vision at baseline ENT: oral cavity clear, TMs clear, no signs of infection Neck: Trachea midline, supple, no nuchal rigidity Cardiovascular: RRR, normal S1/S2, No MRGs, no JVD Respiratory right lower lobe diminished, no respiratory distress, No rales or wheezes Abdomen: Soft, non-tender, non-distended, normal bowel sounds, no guarding or rebound. Skin: Warm, dry, normal turgor, no rash MS/Extremity: Pulses equal, no cyanosis, neurovascular intact, FROM Neuro: COAx4, GCS 15, strength 5/5, CN 2-12 intact, normal cerebellar exam, normal gait, Psych: Normal behavior, mood, and affect normal Results (Laboratory/Radiology) Laboratory/Radiology Laboratory Tests Test 03/08/25 12:56 White Blood Count 8.3 K/uL (4.8-10.8) Red Blood Count 4.73 MIL/uL (4.50-6.20) Hemoglobin 14.7 g/dL (14.0-18.0) Hematocrit 43.4 % (42-54) Mean Corpuscular Volume 91.8 fL (79-99) Mean Corpuscular Hemoglobin 31.1 pg (27.0-33.0) Mean Corpuscular Hemoglobin Concent 33.9 g/dL (32.0-36.0) Red Cell Distribution Width 13.3 % (11.0-15.5) Platelet Count 244 K/uL (130-400) Mean Platelet Volume 9.0 fL (7.5-10.5) Immature Granulocyte % (Auto) 0.5 % (0-1) Neutrophils (%) (Auto) 76.7 % (40.0-77.0) Lymphocytes (%) (Auto) 15.4 % (21.0-51.0) L Monocytes (%) (Auto) 6.3 % (3.0-13.0) Eosinophils (%) (Auto) 0.6 % (0.0-8.0) Basophils (%) (Auto) 0.5 % (0.0-5.0) Neutrophils # (Auto) 6.3 K/uL (1.8-7.7) Lymphocytes # (Auto) 1.3 K/uL (1.0-4.8) Monocytes # (Auto) 0.5 K/uL (0.1-1.0) Eosinophils # (Auto) 0.05 K/uL (0.00-0.70) Basophils # (Auto) 0.04 K/uL (0.00-0.20) Absolute Immature Granulocyte (auto 0.04 K/uL (0-1) Nucleated Red Blood Cells 0.0 % (0.0-0.19) Sodium Level 136 mmol/L (136-145) Potassium Level 4.6 mmol/L (3.5-5.1) Chloride Level 100 mmol/L (101-111) L Carbon Dioxide Level 30 mmol/L (21-32) Blood Urea Nitrogen 16 mg/dL (7-18) Creatinine 0.8 mg/dL (0.5-1.3) Glomerular Filtration Rate Calc 98 mL/min (>90) Random Glucose 230 mg/dL (70-105) H Total Calcium 9.7 mg/dL (8.5-10.1) Troponin I High Sensitivity 14 ng/L (4-75) B-Type Natriuretic Peptide 1480 pg/mL (0-100) H Labs Reviewed?: Yes EKG Comment: EKGs done at 12:20 p.[address] Sinus rhythm. Borderline ST elevation, anterior leads. No STEMI interpreted by ER MD. X-RAY Comment: [facility] [address] [place] [id number] IMAGING REPORT Addendum PATIENT: PACO ACEVES MR#: [id number] : 1960 SEX: M AGE: 64 LOCATION: [facility] ORDER 06 STATUS: REG ER REPORT#: [id number] SERVICE 120 REASON: sob ORDERING PHYSICIAN: NAVI HANSEN SENIOR SOFTWARE QUALITY ANALYST PROCEDURE: CXR1VW - CHEST 1VW ADDENDUM REPORT ADDENDUM: Results were shared by telephone at 15:24 pm on 03-08-25 and acknowledged by SENIOR SOFTWARE QUALITY ANALYST, Navi Lilly. /[place] EXAM: XR Chest, 1 View. CLINICAL HISTORY: 64-year-old male with shortness of breath. COMPARISON: XR Chest 01/04/2025. FINDINGS: LUNGS: Mild pulmonary vascular congestion, question of early congestive heart failure changes. PLEURAL SPACES: Moderate right effusion. Small left effusion. HEART: The heart size is enlarged. Cardiomegaly. BONES: Sternotomy wires. Left-sided pacemaker. No acute osseous abnormality. IMPRESSION: 1. Mild pulmonary vascular congestion, question of early congestive heart failure changes. 2. Moderate right effusion and small left effusion. 3. Cardiomegaly. /[place] DICTATED BY: KIRA MONET MD DATE: 03/08/25 1530 ELECTRONICALLY SIGNED BY: ED Course ED Course Orders Procedure Category Date Status Time 12 Lead Ekg Tracing- EKG 03/08/25 Complete Technical 11:57 Cbc With Differential LAB 03/08/25 Complete 12:06 Basic Metabolic Panel LAB 03/08/25 Complete 12:06 B-Type Natriuretic LAB 03/08/25 Complete Peptide 12:06 Chest 1vw RAD 03/08/25 Resulted 12:06 Troponin I High LAB 03/08/25 Complete Sensitivity 12:06 12 Lead Ekg Tracing- EKG 03/08/25 Logged Technical 12:06 Furosemide 40mg Vial PHA 8/11/25 Complete (Lasix 40mg Vial) 14:42 Current Medications Medications (Trade) Dose Ordered Sig/Miki Route PRN Reason Start Time Stop Time Status Last Admin Dose Admin Furosemide (LASix 40MG VIAL) 40 mg ONCE STAT IV 03/08/25 14:42 03/08/25 14:44 DC Vital Signs Date Time Temp Pulse Resp B/P (MAP) Pulse Ox O2 Delivery O2 Flow Rate FiO2 03/08/25 11:54 99.5 95 16 121/70 96 Room Air 0 Medical Decision Making MDM MDM: 64-year-old male with a history of CHF, diabetes and cholesterol coming in with complaints of shortness a breath onset last night. Patient denies any cough, fever, congestion. Patient states he is already taking spironolactone and furosemide.CBC shows no leukocytosis, no anemia, thrombocytopenia. Chemistry shows no electrolyte abnormality. Normal kidney function. Troponin is negative. BNP is 1480. Chest x-ray shows a worsening pleural effusion with possibly worsening CHF. Patient received Lasix in the emergency room patient will be admitted for CHF exacerbation and pleural effusion.Spoke to Dr. Brock carrero to admit to his service. Differential diagnosis: CHF exacerbation, pneumonia, pleural effusions Rationale: Tests considered and ordered secondary to shared decision making include: labs, ECG and radiology Previous outside records reviewed: Old ER visits. Risk of complication and/or morbidity or mortality of patient management: None Medications-Per medication reconciliation Need for hospitalization: Patient does meet criteria for hospitalization. Need for emergency major/minor surgery: No There are no social concerns with this patient. Prescription drug management Prescriptions will include symptomatic care Patient's prior external medical records from other ER visits were reviewed by me as indicated. Prior testing and results from previous visits were reviewed. Prior tests were taken into account with medical decision making and resource utilization, independent historian/historians were used to obtain complete medical history. I independently interpreted the test that were performed, results were reviewed by me and considered findings on radiology if ordered. Medical management and examination interpretation discussions were had by me with other qualified healthcare professionals as indicated for the patient's care. DX & DISP Disposition: Inpatient Decision to Admit Date: Mar 08, 2025 Decision to Admit Time: 14:55 Departure Impression: Primary Impression: Acute exacerbation of CHF (congestive heart failure) Additional Impressions: Hyperglycemia, Pleural effusion Condition: Stable Referrals: SELF,REFERRAL (PCP) I have reviewed the case, and I agree with, Diagnosis and Plan NAVI HANSEN NP Mar 08, 2025 13:50
[2025-03-08 13:51] LABS: IMMATURE GRANULOCYTE ABSOLUTE 0.04 K/uL (0-1); NUCLEATED RED BLOOD CELLS 0.0 % (0.0-0.19); PLATELET COUNT (AUTO) 244 K/uL (130-400); RED BLOOD CELL COUNT(AUTO) 4.73 MIL/uL (4.50-6.20); RED CELL DISTRIBUTION WIDTH 13.3 % (11.0-15.5); WHITE BLOOD COUNT (AUTO) 8.3 K/uL (4.8-10.8)
[2025-03-08 13:57] LABS: CREATININE 0.8 mg/dL (0.5-1.3); GLOMERULAR FILTR. RATE CALC 98.0 mL/min (>90); GLUCOSE,RANDOM 230.0 mg/dL (70-105); SODIUM SERUM 136.0 mmol/L (136-145); UREA NITROGEN, BLOOD 16.0 mg/dL (7-18)
--- NOTE | 2025-03-08 14:14 | HMCIMG ---
EXAM: XR Chest, 1 View. CLINICAL HISTORY: 64-year-old male with shortness of breath. COMPARISON: XR Chest 01/04/2025. FINDINGS: LUNGS: Mild pulmonary vascular congestion, question of early congestive heart failure changes. PLEURAL SPACES: Moderate right effusion. Small left effusion. HEART: The heart size is enlarged. Cardiomegaly. BONES: Sternotomy wires. Left-sided pacemaker. No acute osseous abnormality. IMPRESSION: 1. Mild pulmonary vascular congestion, question of early congestive heart failure changes. 2. Moderate right effusion and small left effusion. 3. Cardiomegaly. /[place]
[2025-03-08] MEDS ORDERED: PoTASSium chl 10% ELIXIR 20MEQ 20 MEQ/15 ML UDCUP PO PRN (16:00)
--- NOTE | 2025-03-08 16:02 | HP ---
[facility] Date of Service: Mar 08, 2025 Time of Service: 16:02 HISTORY OF PRESENT ILLNESS: 64-year-old male with past medical history of HIV, diabetes mellitus type 2, hyperlipidemia, hypothyroidism, history of hypertension, history of CAD status post CABG, history of heart failure with EF of 20-25%, history of ICD placement who presented to the hospital secondary to chest pain, abdominal pain, shortness of breath. Patient states he noted that he was getting short of breath which started yesterday at night. He also endorses orthopnea, PND. Denied any cough, sputum production. He also complains midsternal chest pain which would radiate towards his back. Pain was described as pressure in nature. He denied any nausea, vomiting, diaphoresis, paresthesias associated with the pain. Patient has his primary reliability engineer who he sees in [place]. He comes to the [facility] months to see family in [place]. He currently does not have a reliability engineer in the bath. Denied any dysuria, changes in urination. He also complains of pain in the abdomen which is generalized. Denied any changes in his bowel movement. Denied any melena, hematochezia, hematemesis. Labs in the ED were notable for white count of 8.3, hemoglobin was 14.7, platelet count was 244 K, sodium was 136, potassium was 4.6, creatinine was 0.8, troponin was negative x1, BNP was 1 480 Chest x-ray showed mild congestive changes. There is moderate right-sided effusion and small left-sided effusion REVIEW OF SYSTEMS CONSTITUTIONAL: Denies fevers, chills, or night sweats. No unintentional weight loss reported. NEUROLOGICAL: Denies headache, amaurosis fugax, motor weakness, sensory deficit, vertigo/spinning sensation, gait abnormalities, or tremors. ENT: No hearing loss, otalgia, otorrhea, rhinitis, rhinorrhea, hoarseness, or sore throat. CARDIOVASCULAR: Positive for chest pain, shortness of breath, orthopnea. Denied any PND, palpitations PULMONARY: Denies any shortness of breath, cough, phlegm/sputum, hemoptysis, pleuritic chest pain. GASTROINTESTINAL: Denies any type of dysphagia to either liquids or solids. Positive for abdominal pain. Denied any nausea, vomiting, constipation diarrhea, melena, hematochezia, hematemesis GENITOURINARY: Denies frequency, urgency, nocturia, hematuria or incontinence (Storage/Irritative symptoms.) Low urinary stream, straining to void, urinary intermittency or hesitancy, splitting of the voiding stream, terminal dribbling. ENDOCRINOLOGIC: Denies polyuria, polydipsia, polyphagia or heat/cold intolerances. HEMATOLOGIC: Denies thrombophilia/previous clots, or coagulopathy/bleeding disorders. ONCOLOGIC: Denies personal history of malignancy. DERMATOLOGIC: Denies rashes or pruritus. PSYCHIATRIC: Denies any suicidal or homicidal ideation. Denies hallucinations. PAST MEDICAL HISTORY: Ischemic cardiomyopathy with systolic and diastolic heart failure Coronary artery disease Diabetes type 2 Hyperlipidemia Hypothyroidism Hypertension HIV PAST SURGICAL HISTORY: CABG X3 in 2019 DR.Morales NG placement PAST SOCIAL HISTORY: Patient lives with . Patient denies cigarette alcohol and recreational drug use. FAMILY HISTORY: Denied any pertinent family history Coded Allergies: ibuprofen (Verified Allergy, Unknown, 01/04/25) PHYSICAL EXAM GENERAL APPEARANCE: The patient is awake, alert, and oriented, in no acute cardiopulmonary distress. NEUROLOGICAL: Cranial nerves II-XII grossly intact. Motor is 5/5 in bilateral upper and lower extremities proximal to distal. No sensory deficits. HEENT: Face is symmetric. Pupils are equal and reactive. Extraocular movements are intact. NECK: Supple. No JVD. No thyromegaly. No submental, submandibular, pre-/postauricular, occipital or supraclavicular lymphadenopathy. CHEST: Normal chest expansion. No Telemetry. LUNGS: Decreased breath sounds on the right side. CARDIOVASCULAR: Regular. S1 and S2 normal. No appreciable rubs, murmurs or gallops. ABDOMEN: Soft, nontender, and nondistended. There is no rebound, voluntary guarding, or rigidity. : Deferred. No [place]. EXTREMITIES: Non-edematous and not cyanotic. No clubbing. Good capillary refill. SKIN: No skin breakdown. Vital Sign (Last 24 Hours) 03/08/25 11:54 Temp 99.5 Pulse 95 Resp 16 B/P (MAP) 121/70 Pulse Ox 96 O2 Delivery Room Air O2 Flow Rate 0 LABS: Laboratory: Test 03/08/25 12:56 Range/Units White Blood Count 8.3 4.8-10.8 K/uL Red Blood Count 4.73 4.50-6.20 MIL/uL Hemoglobin 14.7 14.0-18.0 g/dL Hematocrit 43.4 42-54 % Mean Corpuscular Volume 91.8 79-99 fL Mean Corpuscular Hemoglobin 31.1 27.0-33.0 pg Mean Corpuscular Hemoglobin Concent 33.9 32.0-36.0 g/dL Red Cell Distribution Width 13.3 11.0-15.5 % Platelet Count 244 130-400 K/uL Mean Platelet Volume 9.0 7.5-10.5 fL Immature Granulocyte % (Auto) 0.5 0-1 % Neutrophils (%) (Auto) 76.7 40.0-77.0 % Lymphocytes (%) (Auto) 15.4 L 21.0-51.0 % Monocytes (%) (Auto) 6.3 3.0-13.0 % Eosinophils (%) (Auto) 0.6 0.0-8.0 % Basophils (%) (Auto) 0.5 0.0-5.0 % Neutrophils # (Auto) 6.3 1.8-7.7 K/uL Lymphocytes # (Auto) 1.3 1.0-4.8 K/uL Monocytes # (Auto) 0.5 0.1-1.0 K/uL Eosinophils # (Auto) 0.05 0.00-0.70 K/uL Basophils # (Auto) 0.04 0.00-0.20 K/uL Absolute Immature Granulocyte (auto 0.04 0-1 K/uL Nucleated Red Blood Cells 0.0 0.0-0.19 % Sodium Level 136 136-145 mmol/L Potassium Level 4.6 3.5-5.1 mmol/L Chloride Level 100 L 101-111 mmol/L Carbon Dioxide Level 30 21-32 mmol/L Blood Urea Nitrogen 16 7-18 mg/dL Creatinine 0.8 0.5-1.3 mg/dL Glomerular Filtration Rate Calc 98 >90 mL/min Random Glucose 230 H 70-105 mg/dL Total Calcium 9.7 8.5-10.1 mg/dL Troponin I High Sensitivity 14 4-75 ng/L B-Type Natriuretic Peptide 1480 H 0-100 pg/mL Current Medications Medications (Trade) Dose Ordered Sig/Miki Route PRN Reason Start Time Stop Time Status Last Admin Dose Admin Famotidine (Pepcid 20mg Vial) 20 mg BID IV 03/08/25 21:00 04/07/25 20:59 UNV Furosemide (LASix 40MG VIAL) 40 mg ONCE STAT IV 03/08/25 14:42 03/08/25 14:44 DC Furosemide (LASix 40MG VIAL) 40 mg Q12H IV 03/08/25 21:00 04/07/25 20:59 UNV Magnesium Sulfate 50 ml @ 0 mls/hr PROTOCOL PRN IV hypomagnesemia 03/08/25 16:00 04/07/25 15:59 UNV Potassium Chloride 100 ml @ 100 mls/hr AD PRN IV POTASSIUM PROTOCOL 03/08/25 16:00 04/07/25 15:59 UNV Potassium Chloride (K-Dur/Klor-Con 20meq) 20 meq AD PRN PO POTASSIUM PROTOCOL 03/08/25 16:00 04/07/25 15:59 UNV Potassium Chloride (KCl 10% Elixir 20meq/15ml) 20 meq AD PRN PO POTASSIUM PROTOCOL 03/08/25 16:00 04/07/25 15:59 UNV DIAGNOSTICS / RADIOLOGY: [ ] ASSESSMENT: Acute on chronic CHF exacerbation with systolic and diastolic dysfunction EF of less than 20% Chest pain ACS rule out Bilateral effusion with moderate right-sided effusion Abdominal pain Hypertension Hyperlipidemia Hypothyroidism HIV being treated as outpatient PLAN: - patient to be admitted to PCCU -in reference to acute CHF exacerbation. Patient will be started on Lasix 40 mg q.12 hours. Strict intake output, daily weights. Follow up on echocardiogram -in reference to chest pain. We will obtain troponins q.6 hours to rule out ACS. We will request consultation with Cardiology -obtain a CT abdomen pelvis -obtain home medications which will be reconciled once available -in reference to right-sided effusion. We will request pulmonology consult. We will reassess patient on diuresis -check TSH, A1c -further orders per hospitalization course Advanced Care Planning Which of the following were discussed: Hospice care: Yes __ No _X_ Therapeutic options: Yes __ No __ Advance directives: Yes __ No __ Other discussions: Discussed with who?: PATIENT (Patient, family or surrogates) Voluntary nature of this service was explained to the patient? Yes _X_ No __ Amount of time spent: 25 minutes LUIZ Adamson MD, MD Mar 08, 2025 16:02
--- NOTE | 2025-03-08 17:10 | HMCIMG ---
EXAM: CT Abdomen and Pelvis without Intravenous Contrast CLINICAL HISTORY: 64-year-old male with abdominal pain. TECHNIQUE: Axial computed tomography images of the abdomen and pelvis without intravenous contrast. Dose reduction technique was used including one or more of the following: automated exposure control, adjustment of mA and kV according to patient size, and/or iterative reconstruction. CONTRAST: None; COMPARISON: None provided. FINDINGS: LUNG BASES: Large right pleural effusion and small left pleural effusion. Consolidation in the lower lobes suggesting pneumonia. LIVER: Unremarkable. GALLBLADDER AND BILE DUCTS: Multiple gallstones seen. No ductal dilation. PANCREAS: Unremarkable. SPLEEN: Unremarkable. ADRENAL GLANDS: Unremarkable. KIDNEYS, URETERS, AND BLADDER: Unremarkable. No hydronephrosis or nephrolithiasis. No ureteral or bladder calculi. STOMACH AND BOWEL: No obstruction. No wall thickening. No CT evidence of colitis or acute diverticulitis. APPENDIX: No CT evidence for appendicitis. PERITONEUM: No free fluid. No free air. LYMPH NODES: No lymphadenopathy. REPRODUCTIVE: Unremarkable as visualized. VASCULATURE: Atherosclerotic changes of the aorta at the iliac bifurcation. No aortic aneurysm. ABDOMINAL WALL AND SOFT TISSUES: Unremarkable. BONES: No fracture or suspicious osseous abnormality. IMPRESSION: 1. Large right pleural effusion and small left pleural effusion. 2. Consolidation in the lower lobes, suggestive of pneumonia. 3. Multiple gallstones. 4. Atherosclerotic aorta iliac bifurcation. /[place]
--- NOTE | 2025-03-08 18:46 | CONS ---
[facility] CONSULTATION NOTE Date Patient Seen: Mar 08, 2025 Time of Visit: 18:44 Supervising Physician: Dr. Toni Pearson Reason for Consultation: Pleural effusion, acute hypoxic respiratory failure Consult Physician: Hospitalist Outpatient Specialists: [ ] Inpatient Consults: [facility] pulmonology PROBLEM LIST: Acute hypoxic respiratory failure, POA Bilateral pleural effusion, POA CHF in acute exacerbation, EF of 20 25% POA DM type 2, with hyperglycemia, POA Hypertension, POA CAD s/p CABG, AICD History of HIV infection PLAN: Admit per primary Continue O2 therapy Continue diuretics Incentive spirometry DuoNeb q.6 as needed for shortness of breaths Complete bedrest for now Facilitate 2D echo Early mobilization Pulmonary toilet HPI: 64-year-old male with past medical history of DM type 2, hyperlipidemia, hypertension, CAD s/p CABG, AICD placement, congestive heart failure with EF of 20-25% who presented to ED with complaint of worsening shortness of breaths and found to have CHF and acute exacerbation, and acute hypoxic respiratory failure. Per report his symptoms started yesterday that got worse today prompting ER visit. Initial chest x-ray in ED showed bilateral pulmonary congestion with pleural effusion with moderate right-sided effusion. Initial CBC unrevealing for any acute infection or anemia, his CMP unremarkable for any electrolyte or kidney dysfunction. His BNP is above 1400, with unremarkable troponin level. While in ED patient was found to be tachypneic, with increased work of breathing improved with O2 therapy and diuretics. [facility] pulmonology was consulted for acute hypoxic respiratory failure. At present patient is currently hemodynamically stable, on O2 therapy with appropriate oxygen saturation. Denies any fever, chest pain, confusion, but complains of worsening shortness of breaths. PAST MEDICAL HX: see above PAST SURGICAL HX: noncontributory SOCIAL HISTORY: No tobacco, ETOH, or illicit drug use Coded Allergies: ibuprofen (Verified Allergy, Unknown, 01/04/25) REVIEW OF SYSTEMS: 12 point ROS reviewed with patient. Pertinent positives mentioned above. Otherwise negative. PHYSICAL EXAM: GENERAL: alert, weak, awake oriented x 3 HEENT: EOMI, Sclera non icteric, moist mucosa NECK: Supple, no JVD, trachea midline LUNGS: Diminished bibasilar area on auscultation HEART: Regular rate and rhythm. Normal S1 and S2, without murmurs ABD: Abdomen soft, nontender. Bowel sounds present EXT: No clubbing cyanosis or edema NEURO: Alert and oriented to person, follows commands Vital Signs (last 8hr) Date Time Temp Pulse Resp B/P (MAP) Pulse Ox O2 Delivery O2 Flow Rate FiO2 03/08/25 16:03 99.5 95 16 121/70 96 Room Air* 0 21 03/08/25 11:54 99.5 95 16 121/70 96 Room Air 0 LABS: Hematology Labs: Test 03/08/25 12:56 Range/Units White Blood Count 8.3 4.8-10.8 K/uL Red Blood Count 4.73 4.50-6.20 MIL/uL Hemoglobin 14.7 14.0-18.0 g/dL Hematocrit 43.4 42-54 % Mean Corpuscular Volume 91.8 79-99 fL Mean Corpuscular Hemoglobin 31.1 27.0-33.0 pg Mean Corpuscular Hemoglobin Concent 33.9 32.0-36.0 g/dL Red Cell Distribution Width 13.3 11.0-15.5 % Platelet Count 244 130-400 K/uL Mean Platelet Volume 9.0 7.5-10.5 fL Immature Granulocyte % (Auto) 0.5 0-1 % Neutrophils (%) (Auto) 76.7 40.0-77.0 % Lymphocytes (%) (Auto) 15.4 L 21.0-51.0 % Monocytes (%) (Auto) 6.3 3.0-13.0 % Eosinophils (%) (Auto) 0.6 0.0-8.0 % Basophils (%) (Auto) 0.5 0.0-5.0 % Neutrophils # (Auto) 6.3 1.8-7.7 K/uL Lymphocytes # (Auto) 1.3 1.0-4.8 K/uL Monocytes # (Auto) 0.5 0.1-1.0 K/uL Eosinophils # (Auto) 0.05 0.00-0.70 K/uL Basophils # (Auto) 0.04 0.00-0.20 K/uL Absolute Immature Granulocyte (auto 0.04 0-1 K/uL Nucleated Red Blood Cells 0.0 0.0-0.19 % Chemistry Labs: Test 03/08/25 16:13 03/08/25 12:56 Range/Units Hemoglobin A1c 8.3 H 4.0-6.0 % Estimated Average Glucose (eAG) 192 H 70-126 mg/dL Troponin I High Sensitivity 15 4-75 ng/L C-Reactive Protein, Quantitative 11.40 H 0.5-3.0 mg/L Procalcitonin < 0.05 L 0.05-0.5 ng/mL Thyroid Stimulating Hormone (TSH) 2.23 # 0.36-3.74 uIU/mL Sodium Level 136 136-145 mmol/L Potassium Level 4.6 3.5-5.1 mmol/L Chloride Level 100 L 101-111 mmol/L Carbon Dioxide Level 30 21-32 mmol/L Blood Urea Nitrogen 16 7-18 mg/dL Creatinine 0.8 0.5-1.3 mg/dL Glomerular Filtration Rate Calc 98 >90 mL/min Random Glucose 230 H 70-105 mg/dL Total Calcium 9.7 8.5-10.1 mg/dL B-Type Natriuretic Peptide 1480 H 0-100 pg/mL DIAGNOSTICS / RADIOLOGY RESULTS: Results were shared by telephone at 15:24 pm on 03-08-25 and acknowledged by [facility] TECHNICIAN, Monik Lilly. /[place]astern EXAM: XR Chest, 1 View. CLINICAL HISTORY: 64-year-old male with shortness of breath. COMPARISON: XR Chest 01/04/2025. FINDINGS: LUNGS: Mild pulmonary vascular congestion, question of early congestive heart failure changes. PLEURAL SPACES: Moderate right effusion. Small left effusion. HEART: The heart size is enlarged. Cardiomegaly. BONES: Sternotomy wires. Left-sided pacemaker. No acute osseous abnormality. IMPRESSION: 1. Mild pulmonary vascular congestion, question of early congestive heart failure changes. 2. Moderate right effusion and small left effusion. 3. Cardiomegaly. PLAN NEURO: Minimize central acting medications as possible. Maintain fall precautions, adequate lighting during the day PULMONARY: Supplemental 02 as needed. Maintain aspiration precautions at all times CARDIOVASCULAR: Follow hemodynamics. Vital signs per facility protocol GI & NUTRITION: Continue with nutritional support. Continue stool softeners and laxatives as needed. KIDNEYS & ELECTROLYTES: Strict monitoring of intake, output and overall fluid balance. Avoid nephrotoxic medications to the extent possible. Medications to be dosed according to renal function. Monitor electrolytes and replace as needed ENDOCRINE: Maintain blood glucose between 100-180 at all times. Hypoglycemia protocol in place INFECTIOUS DISEASE: Trend temperature, WBC and procalcitonin level Follow cultures, deescalate antibiotics as soon as possible. Panculture if new onset fever ONCOLOGY/HEMATOLOGY/COAGULATION: Monitor for s/s of bleeding Monitor hemoglobin, coagulation studies as needed SKIN: Pressure ulcer prevention per facility protocol Specialty mattress ORTHO/REHAB: Continue PT/OT Prophylaxis: Continue GI and DVT prophylaxis Code Status: Full Resuscitation Disposition: TBD Supervising physician: VIDA Daley [employer] Mar 08, 2025 18:45
[2025-03-08] MEDS: FAMOTIDINE 20MG VIAL IV SCH (20:25)
[2025-03-08] MEDS ORDERED: LACTULOSE 20 GM/30 ML UDCUP PO PRN (21:00)
[2025-03-08] MEDS ORDERED: NITROGLYCERIN 0.4 MG SL TAB SL PRN (21:00)
[2025-03-08] MEDS ORDERED: SPIR50TA5 PO (21:34)
[2025-03-08] MEDS ORDERED: VITAD50000 PO (21:35)
[2025-03-08] MEDS ORDERED: SACU1TAB PO (21:36)
[2025-03-08] MEDS ORDERED: PNV1TABL90 PO (21:37)
[2025-03-09 08:00] VITALS: BP 134/78; PULSE 78; RESP 20; TEMP 98.5; O2SAT 94
[2025-03-09 08:04] LABS: IMMATURE GRANULOCYTE ABSOLUTE 0.03 K/uL (0-1); NUCLEATED RED BLOOD CELLS 0.0 % (0.0-0.19); PLATELET COUNT (AUTO) 211 K/uL (130-400); RED BLOOD CELL COUNT(AUTO) 4.69 MIL/uL (4.50-6.20); RED CELL DISTRIBUTION WIDTH 13.4 % (11.0-15.5); WHITE BLOOD COUNT (AUTO) 7.5 K/uL (4.8-10.8)
[2025-03-09 08:17] LABS: CREATININE 0.8 mg/dL (0.5-1.3); GLOMERULAR FILTR. RATE CALC 98.0 mL/min (>90); GLUCOSE,RANDOM 196.0 mg/dL (70-105); SODIUM SERUM 137.0 mmol/L (136-145); UREA NITROGEN, BLOOD 17.0 mg/dL (7-18)
[2025-03-09] MEDS: [UNRECOGNIZED DRUG - OTHER] PO SCH (09:00)
[2025-03-09 12:00] VITALS: BP 132/80; PULSE 78; RESP 20; TEMP 98.4
[2025-03-09] MEDS: SPIRONOLACTONE 25 MG TAB PO SCH (13:33)
[2025-03-09] MEDS: SACUBITRIL/VALSARTAN 1 EACH TABLET PO SCH (13:34)
[2025-03-09] MEDS: ASPIRIN 81 MG EC TAB PO SCH (13:34)
[2025-03-09 13:40] LABS: ASPARTATE AMINOTRANSFERASE 18.0 U/L (10-37); TOTAL PROTEIN, SERUM 8.2 g/dL (6.0-8.3)
--- NOTE | 2025-03-09 14:00 | HMCSR ---
APPROVED REPORT EXAM: Limited two-dimensional and M-mode echocardiogram with Doppler and color Doppler. INDICATION ICD: Acute congestive heart failure exacerbation 2D Dimensions RVDd5.4 cmLVEF(%)19.8 (>50%)LA ESV INDEX (BP)33.65 mL/m2 IVSd0.7 (0.7-1.1cm)FS(%)9 % LVDd5.7 (3.8-5.6cm)LA (2D)4.1 (1.6-4.0cm) PWd0.7 (0.7-1.1cm)Ao Root(2D)3.4 (2.0-3.7cm) IVSs0.8 cm LVDs5.2 (2.5-4.0cm) PWs0.9 cm Deformation Strain Apical 4-5.7 % Apical 2-6.5 % Apical 3-5.1 % Global Strain-5.8 % M-Mode Dimensions EPSS2.0 cm LA (MM)4.1 (1.6-4.0cm) Ao Root(MM)3.1 (2.0-3.7cm) Aortic Valve AoV Vmax0.7 m/Licha Peak GR1.8 mmHgLVOT Vmax0.4 m/s AoV VTI0.1 mAo Mean GR1.1 mmHgLVOT VTI0.07 m Mitral Valve MV E Ohls386.1 cm/sDECEL Bbuq754 ms MV A Vmax20.6 cm/sP 1/2 T33 ms E/A ratio5.3MVA (PHT)6.7 cm2 TDI E/E' Przrbg32.6E/E' Jcmcfwd83.9 Medial E' Peak V2.98 cm/sLateral E' Peak V4.22 cm/s Pulmonary Valve PV Vmax0.6 m/sPV VTI0.12 mPV Mean GR0.8 mmHg PV Peak GR1.5 mmHgPI End Carolina. Luis 178.8 cm/s Tricuspid Valve TR Vmax3.4 m/sRVSP41.1 mmHg TR Peak GR49.7 mmHg Left Ventricle The left ventricle is mildly dilated. Severely reduced GLS -6.0% There is normal left ventricular wal l thickness. LVEF is 20-25%. Right Ventricle The right ventricle is normal size. The right ventricular systolic function is normal. Device lead is present in the right ventricle. Atria The left atrium size is normal. The right atrium is borderline dilated. Aortic Valve The aortic valve is trileaflet normal in structure. No aortic regurgitation is present. There is no a ortic valvular stenosis. Mitral Valve The mitral valve is normal in structure. There is trace of mitral valve regurgitation noted. There is no mitral valve stenosis. Tricuspid Valve The tricuspid valve is normal in structure. There is no tricuspid valve regurgitation noted. Pulmonic Valve The pulmonary valve appears normal. There is mild pulmonic valvular regurgitation. Great Vessels The aortic root is normal in size. The IVC is normal in size and collapses <50% with inspiration. Pericardium There is no pericardial effusion. Other Information Quality : Adequate Conclusion The left ventricle is mildly dilated. LVEF is 20-25%. Severely reduced GLS -6.0% There is trace of mitral valve regurgitation noted. Device lead is present in the right ventricle. There is trace of mitral valve regurgitation noted.
--- NOTE | 2025-03-09 14:03 | NUR ---
DCP: HOME Pt is self pay, is seen at [facility] for medical care and meds. Pt lives a home with his Izabella Rothman [phone], their own their home, get $325 in food stamp assistance. Pt reports he has difficulty at time completing his ADLS, but can do slowly, without assistance. Pt has a walker he uses as needed, no HH. Pt given community resources for future use. DCP is home, family to transport Addendum: 03/09/25 at 1410 by FALGUNI TOBAR Amended: Links added.
--- NOTE | 2025-03-09 14:31 | CONS ---
[facility] Cardiology Consultation Note CARDIOLOGY CONSULTATION MARCH 09, 2025 Chief complaint: This is a 64-year-old male known coronary artery disease who presents with shortness of breath on exertion orthopnea an atypical right shoulder pain. History of present illness: The patient has a history of a remote aortocoronary bypass graft surgery. He is followed by Dr. Aggarwal in [place] but is down here for several months visiting family. He has a known ischemic cardiomyopathy with ejection fraction of 20-25% and previous defibrillator implant. Over the past 24-48 hours he is becoming increasingly short of breath. Brain natriuretic peptide level was 1480. He is admitted with a diagnosis of acute on chronic systolic heart failure. Troponins x3 has been normal. Past medical history: He has a history of diabetes mellitus type 2 dyslipidemia hypothyroidism hypertension and HIV positive status. Surgical history: Aortocoronary bypass graft surgery x3 [place] [address] Dickens and AICD placement. Social history: He is a nonsmoker nondrinker Allergies: Ibuprofen Medications: Currently he is receiving aspirin atorvastatin famotidine IV furosemide 40 mg IV q.12 hours potassium protocol Entresto spironolactone and tramadol PRN. At home he was also taking metformin atorvastatin and metoprolol succinate. Physical exam: Blood pressure is running 120-130 systolic heart rate in the 70s the patient is afebrile. There was 2 cm elevation of the jugular venous pressure at 45. S1 normal S2 physiologically split. 2/6 holosystolic apical murmur bibasilar rales 1/3. Abdomen is soft. Extremities show no edema. Homans sign is negative there was no calf tenderness. He is alert and oriented. Laboratory studies: Potassium 4.1 BUN 17 creatinine 0.8 estimated GFR of 98. White count 7.5 hemoglobin 14.6 platelet count [id number]. Chest x-ray: Cardiomegaly is present. A single-chamber defibrillator is in place. Passive congestive changes are noted. There was blunting of the right costophrenic angle. 2D echocardiogram. Ejection fraction of 20-25%. Global strain of-6%. Trace mitral regurgitation. No pericardial effusion. Assessment: 1. Acute on chronic systolic heart failure 2. Right pleural effusion 3. Ischemic cardiomyopathy with ejection fraction of 20-25% 4. CAD status post remote aortocoronary bypass graft surgery x3 in 2019 5. PCD implant 6. Diabetes mellitus type 2 7. Hypertension 8. Dyslipidemia Plan: This point I would agree with IV furosemide fluid restriction daily weights and monitoring electrolytes. He states he has a court appearance in [place] on Saturday he would like to leave the hospital in 24-48 hours if possible. I have explained that we will need to have him completely diuresed be fore then. We will resume his home dose of metoprolol and atorvastatin. PAULA TEMPLE MD Mar 09, 2025 14:31
--- NOTE | 2025-03-09 14:39 | EKG ---
[facility] Test Date: 2025-03-09 Test Time: 12:44:07 Pat Name: PACO ACEVES Department: [facility]HIP Room: ED 03 Gender: M Clinical Team Lead: [id number] : 1960 Requested By: PAULA TEMPLE Order Number: [id number] Reading MD: Paula Temple Measurements Intervals [place] Rate: 82 P: 17 AR: 181 QRS: 25 QRSD: 97 T: 47 QT: 366 QTc: 428 Interpretive Statements Sinus rhythm Probable anteroseptal infarct, old Compared to ECG 03/08/2025 12:20:25 Myocardial infarct finding now present ST (T wave) deviation no longer present Electronically Signed On 03-09-2025 15:39:41 CDT by Paula Temple Please click the below link to view image of tracing.
--- NOTE | 2025-03-09 15:09 | PN ---
[facility] PROGRESS NOTE Date Patient Seen: Mar 09, 2025 Time of Visit: 15:09 Supervising Physician: Dr. Rodríguez Consult Physician: Hospitalist Outpatient Specialists: [ ] Inpatient Consults: [facility] pulmonology PROBLEM LIST: Acute hypoxic respiratory failure, POA Bilateral pleural effusion, POA CHF in acute exacerbation, EF of 20 25% POA DM type 2, with hyperglycemia, POA Hypertension, POA CAD s/p CABG, AICD History of HIV infection PLAN: Admit per primary Continue O2 therapy Continue diuretics Incentive spirometry DuoNeb q.6 as needed for shortness of breaths Complete bedrest for now Facilitate 2D echo Early mobilization Pulmonary toilet INTERVAL HISTORY:: Patient evaluated at bedside today, he is currently AAO x3, continues on 2 L nasal cannula with a white count of 7.5 and hemoglobin of 14.6. Patient continues on Lasix at this time, pulmonary team consulted to evaluate for thoracentesis. We will obtain PT and PT INR two plan for thoracentesis on this admission however we recommend to continue with Cardiology management and diuresis and we will monitor for interval progress between chest x-rays. If there was no improvement with cardiac management we will proceed with thoracentesis. REVIEW OF SYSTEMS: 12 point ROS reviewed with patient. Pertinent positives mentioned above. Otherwise negative. PHYSICAL EXAM: GENERAL: alert, weak, awake oriented x 3 HEENT: EOMI, Sclera non icteric, moist mucosa NECK: Supple, no JVD, trachea midline LUNGS: Diminished bibasilar area on auscultation HEART: Regular rate and rhythm. Normal S1 and S2, without murmurs ABD: Abdomen soft, nontender. Bowel sounds present EXT: No clubbing cyanosis or edema NEURO: Alert and oriented to person, follows commands Vital Signs (last 8hr) Date Time Temp Pulse Resp B/P (MAP) Pulse Ox O2 Delivery O2 Flow Rate FiO2 03/09/25 12:00 98.4 78 20 132/80 98 Room Air 0.0 03/09/25 08:00 98.4 78 20 134/78 98 Room Air LABS: Hematology Labs: Test 03/09/25 07:56 Range/Units White Blood Count 7.5 4.8-10.8 K/uL Red Blood Count 4.69 4.50-6.20 MIL/uL Hemoglobin 14.6 14.0-18.0 g/dL Hematocrit 43.2 42-54 % Mean Corpuscular Volume 92.1 79-99 fL Mean Corpuscular Hemoglobin 31.1 27.0-33.0 pg Mean Corpuscular Hemoglobin Concent 33.8 32.0-36.0 g/dL Red Cell Distribution Width 13.4 11.0-15.5 % Platelet Count 211 130-400 K/uL Mean Platelet Volume 8.6 7.5-10.5 fL Immature Granulocyte % (Auto) 0.4 0-1 % Neutrophils (%) (Auto) 77.2 H 40.0-77.0 % Lymphocytes (%) (Auto) 13.8 L 21.0-51.0 % Monocytes (%) (Auto) 7.3 3.0-13.0 % Eosinophils (%) (Auto) 0.8 0.0-8.0 % Basophils (%) (Auto) 0.5 0.0-5.0 % Neutrophils # (Auto) 5.8 1.8-7.7 K/uL Lymphocytes # (Auto) 1.0 1.0-4.8 K/uL Monocytes # (Auto) 0.6 0.1-1.0 K/uL Eosinophils # (Auto) 0.06 0.00-0.70 K/uL Basophils # (Auto) 0.04 0.00-0.20 K/uL Absolute Immature Granulocyte (auto 0.03 0-1 K/uL Nucleated Red Blood Cells 0.0 0.0-0.19 % Chemistry Labs: Test 03/09/25 07:56 03/08/25 21:43 03/08/25 16:13 03/08/25 12:56 Range/Units Sodium Level 137 136-145 mmol/L Potassium Level 4.1 3.5-5.1 mmol/L Chloride Level 101 101-111 mmol/L Carbon Dioxide Level 29 21-32 mmol/L Blood Urea Nitrogen 17 7-18 mg/dL Creatinine 0.8 0.5-1.3 mg/dL Glomerular Filtration Rate Calc 98 >90 mL/min Random Glucose 196 H 70-105 mg/dL Total Calcium 9.1 8.5-10.1 mg/dL Total Bilirubin 1.0 0.2-1.0 mg/dL Direct Bilirubin 0.2 0.0-0.3 mg/dL Aspartate Amino Transf (AST/SGOT) 18 10-37 U/L Alanine Aminotransferase (ALT/SGPT) 20 12-78 U/L Alkaline Phosphatase 80 50-136 U/L Total Protein 8.2 6.0-8.3 g/dL Albumin 3.4 L 3.5-5.0 g/dL Troponin I High Sensitivity 20 4-75 ng/L Hemoglobin A1c 8.3 H 4.0-6.0 % Estimated Average Glucose (eAG) 192 H 70-126 mg/dL C-Reactive Protein, Quantitative 11.40 H 0.5-3.0 mg/L Procalcitonin < 0.05 L 0.05-0.5 ng/mL Thyroid Stimulating Hormone (TSH) 2.23 # 0.36-3.74 uIU/mL B-Type Natriuretic Peptide 1480 H 0-100 pg/mL DIAGNOSTICS / RADIOLOGY RESULTS: [ ] PLAN NEURO: Minimize central acting medications as possible. Maintain fall precautions, adequate lighting during the day PULMONARY: Supplemental 02 as needed. Maintain aspiration precautions at all times CARDIOVASCULAR: Follow hemodynamics. Vital signs per facility protocol GI & NUTRITION: Continue with nutritional support. Continue stool softeners and laxatives as needed. KIDNEYS & ELECTROLYTES: Strict monitoring of intake, output and overall fluid balance. Avoid nephrotoxic medications to the extent possible. Medications to be dosed according to renal function. Monitor electrolytes and replace as needed ENDOCRINE: Maintain blood glucose between 100-180 at all times. Hypoglycemia protocol in place INFECTIOUS DISEASE: Trend temperature, WBC and procalcitonin level Follow cultures, deescalate antibiotics as soon as possible. Panculture if new onset fever ONCOLOGY/HEMATOLOGY/COAGULATION: Monitor for s/s of bleeding Monitor hemoglobin, coagulation studies as needed SKIN: Pressure ulcer prevention per facility protocol Specialty mattress ORTHO/REHAB: Continue PT/OT Prophylaxis: Continue GI and DVT prophylaxis Code Status: Full Resuscitation Disposition: TARIQ HENDERSON Mar 09, 2025 15:09
[2025-03-09 15:53] LABS: INR 1.11 (0.85-1.15)
[2025-03-09 16:00] VITALS: BP 99/61; PULSE 66; RESP 18; TEMP 98.9
--- NOTE | 2025-03-09 17:14 | PN ---
[facility] PROGRESS NOTE Date of Service: Mar 09, 2025 Time of Service: 16:51 SUBJECTIVE: Mr. Elvis Dai is a 64-year-old male with a past medical history of HIV, diabetes mellitus type 2, hyperlipidemia, hypothyroidism, history of hypertension, history of CAD status post CABG, history of heart failure with EF of 20-25%, history of ICD placement who presented to the hospital secondary to chest pain, abdominal pain, shortness of breath. Examined patient in ED 3. He is Urdu-speaking and I took assistance of a nurse practitioner to talk with him. His is on the bedside. The patient is alert, oriented, and reports his chest pain, abdominal pain and shortness of breath or relieved. He denies nausea, vomiting, paresthesias associated with the pain. Labs show low troponin I of 14 and 15 ruling out coronary artery disease. CRP 11.4, BNP of 1480 and echo shows LVEF of 20-25%. CT ABDOMEN AND PELVIS shows large right pleural effusion and small left pleural effusion, consolidation in the lower lobes suggestive of pneumonia, multiple gallstones, atherosclerotic aorta iliac bifurcation. Infectious disease consult was put today because of his HIV status and suspect of pneumonia. CT chest, hepatic panel, HIDA Scan, LDH, coagulation profile, MRSA nasal screen are placed today. He is on atorvastatin 20mg, Aldactone 50mg, Entresto, aspirin 81 mg, Lasix 40 mg. He took his home medication Bictegravir/Emtricitabine/Tenofovir for his HIV. REVIEW OF SYSTEMS CONSTITUTIONAL: Denies fevers, chills, or night sweats. No unintentional weight loss reported. NEUROLOGICAL: Denies headache, amaurosis fugax, motor weakness, sensory deficit, vertigo/spinning sensation, gait abnormalities, or tremors. ENT: No hearing loss, otalgia, otorrhea, rhinitis, rhinorrhea, hoarseness, or sore throat. CARDIOVASCULAR: Positive for chest pain, shortness of breath, orthopnea. Denied any PND, palpitations PULMONARY: Denies any shortness of breath, cough, phlegm/sputum, hemoptysis, pleuritic chest pain. GASTROINTESTINAL: Denies any type of dysphagia to either liquids or solids. Positive for abdominal pain. Denied any nausea, vomiting, constipation milly rrhea, melena, hematochezia, hematemesis GENITOURINARY: Denies frequency, urgency, nocturia, hematuria or incontinence (Storage/Irritative symptoms.) Low urinary stream, straining to void, urinary intermittency or hesitancy, splitting of the voiding stream, terminal dribbling. ENDOCRINOLOGIC: Denies polyuria, polydipsia, polyphagia or heat/cold intolerances. HEMATOLOGIC: Denies thrombophilia/previous clots, or coagulopathy/bleeding disorders. ONCOLOGIC: Denies personal history of malignancy. DERMATOLOGIC: Denies rashes or pruritus. PSYCHIATRIC: Denies any suicidal or homicidal ideation. Denies hallucinations. PHYSICAL EXAM GENERAL APPEARANCE: The patient is awake, alert, and oriented, in no acute cardiopulmonary distress. NEUROLOGICAL: Cranial nerves II-XII grossly intact. Motor is 5/5 in bilateral upper and lower extremities proximal to distal. No sensory deficits. HEENT: Face is symmetric. Pupils are equal and reactive. Extraocular movements are intact. NECK: Supple. No JVD. No thyromegaly. No submental, submandibular, pre- /postauricular, occipital or supraclavicular lymphadenopathy. CHEST: Normal chest expansion. No Telemetry. LUNGS: Decreased breath sounds on the right side. CARDIOVASCULAR: Regular. S1 and S2 normal. No appreciable rubs, murmurs or gallops. ABDOMEN: Soft, nontender, and nondistended. There is no rebound, voluntary guarding, or rigidity. : Deferred. No Argueta. EXTREMITIES: Non-edematous and not cyanotic. No clubbing. Good capillary refi ll. SKIN: No skin breakdown. Vital Signs (last 8hr) Date Time Temp Pulse Resp B/P (MAP) Pulse Ox O2 Delivery O2 Flow Rate FiO2 03/09/25 12:00 98.4 78 20 132/80 98 Room Air 0.0 LABS: Laboratory: Test 03/09/25 15:29 03/09/25 07:56 03/08/25 21:43 03/08/25 16:13 Range/Units Prothrombin Time 11.6 9.6-11.6 SEC Prothromb Time International Ratio 1.11 0.85-1.15 Activated Partial Thromboplast Time 28.7 26.3-35.5 SEC White Blood Count 7.5 4.8-10.8 K/uL Red Blood Count 4.69 4.50-6.20 MIL/uL Hemoglobin 14.6 14.0-18.0 g/dL Hematocrit 43.2 42-54 % Mean Corpuscular Volume 92.1 79-99 fL Mean Corpuscular Hemoglobin 31.1 27.0-33.0 pg Mean Corpuscular Hemoglobin Concent 33.8 32.0-36.0 g/dL Red Cell Distribution Width 13.4 11.0-15.5 % Platelet Count 211 130-400 K/uL Mean Platelet Volume 8.6 7.5-10.5 fL Immature Granulocyte % (Auto) 0.4 0-1 % Neutrophils (%) (Auto) 77.2 H 40.0-77.0 % Lymphocytes (%) (Auto) 13.8 L 21.0-51.0 % Monocytes (%) (Auto) 7.3 3.0-13.0 % Eosinophils (%) (Auto) 0.8 0.0-8.0 % Basophils (%) (Auto) 0.5 0.0-5.0 % Neutrophils # (Auto) 5.8 1.8-7.7 K/uL Lymphocytes # (Auto) 1.0 1.0-4.8 K/uL Monocytes # (Auto) 0.6 0.1-1.0 K/uL Eosinophils # (Auto) 0.06 0.00-0.70 K/uL Basophils # (Auto) 0.04 0.00-0.20 K/uL Absolute Immature Granulocyte (auto 0.03 0-1 K/uL Nucleated Red Blood Cells 0.0 0.0-0.19 % Sodium Level 137 136-145 mmol/L Potassium Level 4.1 3.5-5.1 mmol/L Chloride Level 101 101-111 mmol/L Carbon Dioxide Level 29 21-32 mmol/L Blood Urea Nitrogen 17 7-18 mg/dL Creatinine 0.8 0.5-1.3 mg/dL Glomerular Filtration Rate Calc 98 >90 mL/min Random Glucose 196 H 70-105 mg/dL Total Calcium 9.1 8.5-10.1 mg/dL Total Bilirubin 1.0 0.2-1.0 mg/dL Direct Bilirubin 0.2 0.0-0.3 mg/dL Aspartate Amino Transf (AST/SGOT) 18 10-37 U/L Alanine Aminotransferase (ALT/SGPT) 20 12-78 U/L Alkaline Phosphatase 80 50-136 U/L Total Protein 8.2 6.0-8.3 g/dL Albumin 3.4 L 3.5-5.0 g/dL Troponin I High Sensitivity 20 4-75 ng/L Hemoglobin A1c 8.3 H 4.0-6.0 % Estimated Average Glucose (eAG) 192 H 70-126 mg/dL C-Reactive Protein, Quantitative 11.40 H 0.5-3.0 mg/L Procalcitonin < 0.05 L 0.05-0.5 ng/mL Thyroid Stimulating Hormone (TSH) 2.23 # 0.36-3.74 uIU/mL Test 03/08/25 12:56 Range/Units B-Type Natriuretic Peptide 1480 H 0-100 pg/mL Current Medications Medications (Trade) Dose Ordered Sig/Miki Route PRN Reason Start Time Stop Time Status Last Admin Dose Admin Acetaminophen (TYLenol 325MG TAB) 650 mg Q4H PRN PO TEMPERATURE GREATER THAN 101.5 03/08/25 21:00 04/07/25 20:59 03/08/25 23:08 650 MG Acetaminophen (TYLenol 325MG TAB) 650 mg Q6H PRN PO FEVER/MILD PAIN LEVEL 1-3 03/08/25 21:00 04/07/25 20:59 Acetaminophen (TYLenol 650MG SUPPOSITORY) 650 mg Q6H PRN RC FEVER / MILD PAIN 1-3 IF NPO 03/08/25 21:00 04/07/25 20:59 Aspirin (Aspirin 81mg Ec Tab) 81 mg DAILY PO 03/09/25 09:00 04/08/25 08:59 03/09/25 13:34 81 MG Atorvastatin Calcium (LIPItor 20MG) 20 mg DAILY PO 03/10/25 09:00 04/09/25 08:59 Atorvastatin Calcium (LIPItor 20MG) 20 mg HS PO 03/09/25 21:00 03/10/25 07:00 Docusate Sodium (COLace 100MG CAP) 100 mg BID PRN PO CONSTIPATION 03/08/25 21:00 04/07/25 20:59 Famotidine (Pepcid 20mg Vial) 20 mg BID IV 03/08/25 21:00 04/07/25 20:59 03/09/25 13:34 20 MG Furosemide (LASix 40MG VIAL) 40 mg ONCE STAT IV 03/08/25 14:42 03/08/25 14:44 DC Furosemide (LASix 40MG VIAL) 40 mg Q12H IV 03/08/25 21:00 04/07/25 20:59 03/09/25 13:35 40 MG Home Med (Home Medication) (Bictegrav/ Emtricit/ Teno... DAILY PO 03/09/25 09:00 04/08/25 08:59 Labetalol HCl (TRANdate 20MG SYG) 10 mg Q2H PRN IV SBP GREATER THAN 160 03/08/25 21:00 04/07/25 20:59 Lactulose (Constulose 20gm/ 30ml Udcup) 20 gm Q6H PRN PO CONSTIPATION 03/08/25 21:00 04/07/25 20:59 Magnesium Sulfate 50 ml @ 0 mls/hr PROTOCOL PRN IV hypomagnesemia 03/08/25 16:00 04/07/25 15:59 Metoprolol Succinate (TopROL XL) 25 mg DAILY PO 03/10/25 09:00 04/09/25 08:59 Nitroglycerin (Nitrostat) 0.4 mg AD PRN SL CHEST PAIN 03/08/25 21:00 04/07/25 20:59 Ondansetron HCl (zoFRAN 4MG INJ) 4 mg Q6H PRN IVP NAUSEA/VOMITING 03/08/25 21:00 04/07/25 20:59 Potassium Chloride 100 ml @ 100 mls/hr AD PRN IV POTASSIUM PROTOCOL 03/08/25 16:00 04/07/25 15:59 Potassium Chloride (K-Dur/Klor-Con 20meq) 20 meq AD PRN PO POTASSIUM PROTOCOL 03/08/25 16:00 04/07/25 15:59 Potassium Chloride (KCl 10% Elixir 20meq/15ml) 20 meq AD PRN PO POTASSIUM PROTOCOL 03/08/25 16:00 04/07/25 15:59 Sacubitril/ Valsartan (Entresto 24 Mg-26 Mg Tablet) 1 each BID PO 03/09/25 09:00 04/08/25 08:59 03/09/25 13:34 1 EACH Spironolactone (Aldactone 25mg) 50 mg BID PO 03/09/25 09:00 04/08/25 08:59 03/09/25 13:33 50 MG Temazepam (restORIL 15 MG CAP) 15 mg HS PRN PO INSOMNIA/SLEEP 03/08/25 21:00 04/07/25 20:59 Tramadol HCl (UltRAM) 50 mg Q6H PRN PO MODERATE PAIN (4-6) 03/08/25 21:00 03/13/25 20:59 DIAGNOSTICS / RADIOLOGY: Chest X Ray (03/08/25) IMPRESSION: 1. Mild pulmonary vascular congestion, question of early congestive heart failure changes. 2. Moderate right effusion and small left effusion. 3. Cardiomegaly. CT Abdomen and Pelvis(03/08/25) IMPRESSION: 1. Large right pleural effusion and small left pleural effusion. 2. Consolidation in the lower lobes, suggestive of pneumonia. 3. Multiple gallstones. 4. Atherosclerotic aorta iliac bifurcation. ECHO(03/09/25) Conclusion The left ventricle is mildly dilated. LVEF is 20-25%. Severely reduced GLS -6.0% There is trace of mitral valve regurgitation noted. Device lead is present in the right ventricle. There is trace of mitral valve regurgitation noted. ASSESSMENT: Acute on chronic CHF exacerbation with systolic and diastolic dysfunction EF of less than 20% Chest pain ACS rule out Large right pleural effusion and small left pleural effusion. Consolidation in the lower lobes, suggestive of pneumonia. Multiple gallstones. Abdominal pain POA Hypertension Hyperlipidemia Hypothyroidism HIV positive status POA PLAN: Acute on chronic CHF exacerbation with systolic and diastolic dysfunction EF of less than 20% * BNP today is 1480 * Continue Lasix 40 mg b.i.d. IV * Strict intake output, daily weights. * Echo today showed LVEF of 20-25% * Start Entresto p.o b.i.d. * Start atorvastatin 20 mg PO daily * Resume his home dose of metoprolol and atorvastatin on discharge. Right-sided pneumonia probably positive for gram positive bacteria * CT abdomen and pelvis showed Consolidation in the lower lobes, suggestive of pneumonia. * Start ceftriaxone1 g IV OD * Start azithromycin 500 mg IV OD. * Consult infectious disease specialist * Follow pulmonology recommendations Abdominal pain POA * CT abdomen and pelvis showed multiple gallstones * HIDA scan is ordered to see if any dilatation of bile duct * Administer pain medications p.r.n. Hypertension * Blood pressure today is 132/80 * Monitor blood pressure regularly * Continue home medications HIV positive status * Continue home medication Bictegravir/Emtricitabine/Tenofovir ATTESTATION BY PHYSICIAN I have seen and examined the patient. I reviewed the documentation, medical decision making, and treatment plan as noted by the resident provider above. I agree with the findings and plan of care. Cole Pinto MD, BHAVANI MD Mar 09, 2025 17:14
--- NOTE | 2025-03-09 20:44 | NUR ---
[facility]UCLE[facility] MEDICINE HIDA SCAN PLACE ON HOLD UNTIL TOMORROW UPON EVALUATION OF PATIENT THEY WERE NOT NPO, PATIENTS NEED TO BE NPO FOR AT LEAST 6-8 HOURS PRIOR TO HIDA SCAN. EXAM ON HOLD.
[2025-03-09] MEDS: AZITHROMYCIN 500MG+NS 250ML 250 ML IVPB SCH (21:47)
[2025-03-10] VITALS (12 sets, daily range): BP systolic 86–106; BP diastolic 60–68; PULSE 70–85; RESP 16–20; TEMP 97.6–98; O2SAT 94–98
[2025-03-10 01:22] LABS: COVID19 (SARS ANTIGEN RAPID) PRESUMPTIVE NEGATIVE (NEGATIVE)
[2025-03-10 01:24] LABS: INFLUENZA TYPE A Negative For Type A (NEGATIVE); INFLUENZA TYPE B Negative For Type B (NEGATIVE)
[2025-03-10 06:33] LABS: INR 1.17 (0.85-1.15)
--- NOTE | 2025-03-10 06:35 | NUR ---
[facility] FROM [facility] IS HERE TO TAKE PATIENT TO [facility] FOR STUDY.
[2025-03-10 06:42] LABS: ASPARTATE AMINOTRANSFERASE 17.0 U/L (10-37); CREATININE 1.1 mg/dL (0.5-1.3); GLOMERULAR FILTR. RATE CALC 75.0 mL/min (>90); GLUCOSE,RANDOM 223.0 mg/dL (70-105); LACTATE DEHYDROGENASE 189.0 U/L (81-234); SODIUM SERUM 135.0 mmol/L (136-145); TOTAL PROTEIN, SERUM 8.0 g/dL (6.0-8.3); UREA NITROGEN, BLOOD 19.0 mg/dL (7-18)
--- NOTE | 2025-03-10 07:06 | PN ---
[facility] Cardiology Progress Note CARDIOLOGY PROGRESS NOTE MARCH 10, [address] MEDINA IN [place] Problems: 1. Acute on chronic systolic heart failure 2. Right pleural effusion 3. Ischemic cardiomyopathy with ejection fraction of 20-25% 4. CAD status post remote aortocoronary bypass graft surgery x3 in 2019 5. PCD implant 6. Diabetes mellitus type 2 7. Hypertension 8. Dyslipidemia 9. Cholelithiasis Blood pressure is running 90-100 systolic. Heart rate is in the 70s. The patient is afebrile. Potassium 3.6 sodium 135 BUN 19 creatinine 1.1. Troponins normal. BNP level on admission 1480. The patient continues on aspirin atorvastatin antibiotics IV famotidine furosemide 40 mg IV b.i.d. metoprolol succinate potassium protocol Entresto spironolactone. CT scan of the chest was performed and report pending. Pleural effusion has been evaluated by Pulmonary Medicine and has been observed for now. The patient is undergoing a HIDA scan t ozzy. We will continue with his current regimen. The patient's dapagliflozin can be resumed when he is discharged. I&Os indicate he only diuresed 250 cc however I believe this is an accurate as his weight has dropped 4 lb. PAULA TEMPLE MD Mar 10, 2025 07:06
--- NOTE | 2025-03-10 07:35 | HMCIMG ---
EXAMINATION: CT Chest Without IV contrast. CLINICAL HISTORY: Patient with consolidation noted on recent CT abdomen. COMPARISON: Compared to prior CT chest dated March 10, 2023. TECHNIQUE: Axial computed tomography images of the chest without intravenous contrast. Sagittal and coronal reformatted images submitted for interpretation. FINDINGS: LUNGS: Subpleural consolidation in the bilateral lower lobes concerning for infectious etiology. Subsegmental atelectasis with fibrotic strands in the right middle lobe and bilateral lower lobes. No pulmonary mass. PLEURAL SPACES: Right moderate pleural effusion and left mild pleural effusion with adjacent basal subsegmental atelectasis. No pneumothorax. CARDIOVASCULAR: Cardiac pacemaker in the left anterior chest wall with the lead tip positioned in the right ventricle. Status post sternotomy and coronary artery bypass. Coronary artery calcifications. Atheromatous calcifications in the aorta without evidence of aneurysm. No cardiomegaly. No significant pericardial effusion. LYMPH NODES: No lymphadenopathy. UPPER ABDOMEN: Multiple small hyperdense gallbladder calculi, largest measuring 0.6 cm. The remaining upper abdominal solid organs are unremarkable. BONES: Multilevel moderate degenerative changes in the spine. No acute osseous abnormality. IMPRESSION: Stable right moderate and left mild pleural effusions with adjacent atelectasis. Subpleural consolidation in the bilateral lower lobes concerning for infectious etiology. Subsegmental atelectasis and fibrotic strands in the right middle lobe and bilateral lower lobes. Coronary artery disease. Status post tenotomy and coronary artery bypass. Multiple small gallbladder calculi, largest measuring 0.6 cm. /[place]
[2025-03-10 09:19] LABS: NUCLEATED RED BLOOD CELLS 0.0 % (0.0-0.19); PLATELET COUNT (AUTO) 246.0 K/uL (130-400); RED BLOOD CELL COUNT(AUTO) 4.99 MIL/uL (4.50-6.20); RED CELL DISTRIBUTION WIDTH 13.2 % (11.0-15.5); WHITE BLOOD COUNT (AUTO) 6.7 K/uL (4.8-10.8)
[2025-03-10] MEDS: ENOXAPARIN SODIUM 40 MG/0.4 ML SYRINGE SQ SCH (11:30)
[2025-03-10] MEDS: PoTASSium chloRIDE 20MEQ ER 20 MEQ ERTAB PO PRN (11:34)
--- NOTE | 2025-03-10 11:54 | HMCIMG ---
Examination Hepatobiliary study History BILIARY COLIC (Hx) / BILIARY COLIC Technique Tc-99m mebrofenin were administered intravenously followed by acquisition of planar images of the abdomen. Findings Following administration of radiotracer, there is prompt appearance of normal hepatic contours, followed by appearance of activity in unremarkable appearing bile ducts. There is prompt filling of the gallbladder. The study is negative for acute cholecystitis. IMPRESSION: Negative HIDA study. No evidence of cholecystitis. /[place]
--- NOTE | 2025-03-10 13:44 | PN ---
[facility] PROGRESS NOTE Date of Service: Mar 10, 2025 Time of Service: 13:44 SUBJECTIVE: Mr. Elvis Dai is a 64-year-old male with a past medical history of HIV, diabetes mellitus type 2, hyperlipidemia, hypothyroidism, history of hypertension, history of CAD status post CABG, history of heart failure with EF of 20-25%, history of ICD placement who presented to the hospital secondary to chest pain, abdominal pain, shortness of breath. Examined patient in ED 3. He is Urdu-speaking and I took assistance of a nurse practitioner to talk with him. His is on the bedside. The patient is alert, oriented, and reports his chest pain, abdominal pain and shortness of breath or relieved. He denies nausea, vomiting, paresthesias associated with the pain. Labs show low troponin I of 14 and 15 ruling out coronary artery disease. CRP 11.4, BNP of 1480 and echo shows LVEF of 20-25%. CT ABDOMEN AND PELVIS shows large right pleural effusion and small left pleural effusion, consolidation in the lower lobes suggestive of pneumonia, multiple gallstones, atherosclerotic aorta iliac bifurcation. Infectious disease consult was put today because of his HIV status and suspect of pneumonia. CT chest, hepatic panel, HIDA Scan, LDH, coagulation profile, MRSA nasal screen are placed today. He is on atorvastatin 20mg, Aldactone 50mg, Entresto, aspirin 81 mg, Lasix 40 mg. He took his home medication Bictegravir/Emtricitabine/Tenofovir for his HIV. 03/10/25 The patient is examined at the bedside. He is Urdu-speaking and I took the assistance of INSTALLER APPRENTICE for translation. He is asymptomatic and reports no chest pain, shortness of breath or abdominal pain. He rested well and was on NPO for HIDA scan which we ordered for abdominal pain and multiple gallstones in the CT abdomen. Dr. Archer visited him in the night and advised to continue his current medications of aspirin 81 mg, atorvastatin 20 mg, Aldactone 50 mg, Entresto on, metoprolol [id number] mg, Lasix 40 mg IV b.i.d. the patient has lost 4kg weight from [address] chest before showed stable right moderate and left mild pleural effusions with adjacent atelectasis, subpleural consolidation in bilateral lower lobes probably infectious origin. He received Rocephin1 g IV and azithromycin 500mg IV yesterday night. He tested negative for influenza and COVID. REVIEW OF SYSTEMS CONSTITUTIONAL: Denies fevers, chills, or night sweats. No unintentional weight loss reported. NEUROLOGICAL: Denies headache, amaurosis fugax, motor weakness, sensory deficit, vertigo/spinning sensation, gait abnormalities, or tremors. ENT: No hearing loss, otalgia, otorrhea, rhinitis, rhinorrhea, hoarseness, or sore throat. CARDIOVASCULAR: No chest pain, shortness of breath, orthopnea. Denied any PND, palpitations PULMONARY: Denies any shortness of breath, cough, phlegm/sputum, hemoptysis, pleuritic chest pain. GASTROINTESTINAL: Denies any type of dysphagia to either liquids or solids. Positive for abdominal pain. Denied any nausea, vomiting, constipation diarrhea, melena, hematochezia, hematemesis GENITOURINARY: Denies frequency, urgency, nocturia, hematuria or incontinence (Storage/Irritative symptoms.) Low urinary stream, straining to void, urinary intermittency or hesitancy, splitting of the voiding stream, terminal dribbling. ENDOCRINOLOGIC: Denies polyuria, polydipsia, polyphagia or heat/cold intolerances. HEMATOLOGIC: Denies thrombophilia/previous clots, or coagulopathy/bleeding disorders. ONCOLOGIC: Denies personal history of malignancy. DERMATOLOGIC: Denies rashes or pruritus. PSYCHIATRIC: Denies any suicidal or homicidal ideation. Denies hallucinations. PHYSICAL EXAM GENERAL APPEARANCE: The patient is awake, alert, and oriented, in no acute cardiopulmonary distress. NEUROLOGICAL: Cranial nerves II-XII grossly intact. Motor is 5/5 in bilateral upper and lower extremities proximal to distal. No sensory deficits. HEENT: Face is symmetric. Pupils are equal and reactive. Extraocular movements are intact. NECK: Supple. No JVD. No thyromegaly. No submental, submandibular, pre- /postauricular, occipital or supraclavicular lymphadenopathy. CHEST: Normal chest expansion. No Telemetry. LUNGS: Decreased breath sounds on the right side. CARDIOVASCULAR: Regular. S1 and S2 normal. No appreciable rubs, murmurs or gallops. ABDOMEN: Soft, nontender, and nondistended. There is no rebound, voluntary guarding, or rigidity. : Deferred. No Argueta. EXTREMITIES: Non-edematous and not cyanotic. No clubbing. Good capillary refill. SKIN: No skin breakdown. Vital Signs (last 8hr) Date Time Temp Pulse Resp B/P (MAP) Pulse Ox O2 Delivery O2 Flow Rate FiO2 03/10/25 12:22 97.7 81 16 100/65 98 Room Air 03/10/25 12:06 18 N/Cannula Oximizer Hi LPM 21 03/10/25 09:27 98.1 71 16 94/62 96 Room Air LABS: Laboratory: Test 03/10/25 06:03 03/10/25 00:02 03/09/25 15:29 03/09/25 07:56 Range/Units White Blood Count 6.7 4.8-10.8 K/uL Red Blood Count 4.99 4.50-6.20 MIL/uL Hemoglobin 15.6 14.0-18.0 g/dL Hematocrit 45.1 42-54 % Mean Corpuscular Volume 90.4 79-99 fL Mean Corpuscular Hemoglobin 31.3 27.0-33.0 pg Mean Corpuscular Hemoglobin Concent 34.6 32.0-36.0 g/dL Red Cell Distribution Width 13.2 11.0-15.5 % Platelet Count 246 130-400 K/uL Mean Platelet Volume 9.5 7.5-10.5 fL Nucleated Red Blood Cells 0.0 0.0-0.19 % Prothrombin Time 12.2 H 9.6-11.6 SEC Prothromb Time International Ratio 1.17 H 0.85-1.15 Sodium Level 135 L 136-145 mmol/L Potassium Level 3.6 3.5-5.1 mmol/L Chloride Level 100 L 101-111 mmol/L Carbon Dioxide Level 26 21-32 mmol/L Blood Urea Nitrogen 19 H 7-18 mg/dL Creatinine 1.1 0.5-1.3 mg/dL Glomerular Filtration Rate Calc 75 >90 mL/min Random Glucose 223 H 70-105 mg/dL Total Calcium 9.0 8.5-10.1 mg/dL Total Bilirubin 1.1 H 0.2-1.0 mg/dL Aspartate Amino Transf (AST/SGOT) 17 10-37 U/L Alanine Aminotransferase (ALT/SGPT) 14 # 12-78 U/L Alkaline Phosphatase 73 50-136 U/L Lactate Dehydrogenase 189 81-234 U/L Total Protein 8.0 6.0-8.3 g/dL Albumin 3.0 L 3.5-5.0 g/dL Influenza Type A Antigen Negative For Type A NEGATIVE Influenza Type B Antigen Negative For Type B NEGATIVE SARS-CoV-2 Antigen (Rapid) PRESUMPTIVE NEGATIVE NEGATIVE Activated Partial Thromboplast Time 28.7 26.3-35.5 SEC Immature Granulocyte % (Auto) 0.4 0-1 % Neutrophils (%) (Auto) 77.2 H 40.0-77.0 % Lymphocytes (%) (Auto) 13.8 L 21.0-51.0 % Monocytes (%) (Auto) 7.3 3.0-13.0 % Eosinophils (%) (Auto) 0.8 0.0-8.0 % Basophils (%) (Auto) 0.5 0.0-5.0 % Neutrophils # (Auto) 5.8 1.8-7.7 K/uL Lymphocytes # (Auto) 1.0 1.0-4.8 K/uL Monocytes # (Auto) 0.6 0.1-1.0 K/uL Eosinophils # (Auto) 0.06 0.00-0.70 K/uL Basophils # (Auto) 0.04 0.00-0.20 K/uL Absolute Immature Granulocyte (auto 0.03 0-1 K/uL Direct Bilirubin 0.2 0.0-0.3 mg/dL Test 03/08/25 21:43 03/08/25 16:13 Range/Units Troponin I High Sensitivity 20 4-75 ng/L Hemoglobin A1c 8.3 H 4.0-6.0 % Estimated Average Glucose (eAG) 192 H 70-126 mg/dL C-Reactive Protein, Quantitative 11.40 H 0.5-3.0 mg/L Procalcitonin < 0.05 L 0.05-0.5 ng/mL Thyroid Stimulating Hormone (TSH) 2.23 # 0.36-3.74 uIU/mL Current Medications Medications (Trade) Dose Ordered Sig/Miki Route PRN Reason Start Time Stop Time Status Last Admin Dose Admin Acetaminophen (TYLenol 325MG TAB) 650 mg Q4H PRN PO TEMPERATURE GREATER THAN 101.5 03/08/25 21:00 04/07/25 20:59 03/08/25 23:08 650 MG Acetaminophen (TYLenol 325MG TAB) 650 mg Q6H PRN PO FEVER/MILD PAIN LEVEL 1-3 03/08/25 21:00 04/07/25 20:59 Acetaminophen (TYLenol 650MG SUPPOSITORY) 650 mg Q6H PRN RC FEVER / MILD PAIN 1-3 IF NPO 03/08/25 21:00 04/07/25 20:59 Albuterol (DUOneb) 1 UDVIAL [id number] PRN IH RESPIRATORY SYMPTOMS 03/10/25 11:00 04/09/25 10:59 Aspirin (Aspirin 81mg Ec Tab) 81 mg DAILY PO 03/09/25 09:00 04/08/25 08:59 03/10/25 11:35 81 MG Atorvastatin Calcium (LIPItor 20MG) 20 mg DAILY PO 03/10/25 09:00 04/09/25 08:59 03/10/25 11:35 20 MG Atorvastatin Calcium (LIPItor 20MG) 20 mg HS PO 03/09/25 21:00 03/10/25 07:00 DC 03/09/25 21:48 20 MG Azithromycin 250 ml @ 250 mls/hr Q24H IVPB 03/09/25 20:00 03/19/25 19:59 03/09/25 21:47 250 MLS/HR Ceftriaxone Sodium (ROCEphine 1G INJ) 1 gm Q24H IVPB 03/09/25 18:00 03/19/25 17:59 03/09/25 21:47 1 GM Docusate Sodium (COLace 100MG CAP) 100 mg BID PRN PO CONSTIPATION 03/08/25 21:00 04/07/25 20:59 Enoxaparin Sodium (Lovenox) 40 mg DAILY SQ 03/10/25 11:30 04/09/25 11:29 Famotidine (Pepcid 20mg Vial) 20 mg BID IV 03/08/25 21:00 04/07/25 20:59 03/10/25 11:34 20 MG Furosemide (LASix 40MG VIAL) 40 mg ONCE STAT IV 03/08/25 14:42 03/08/25 14:44 DC Furosemide (LASix 40MG VIAL) 40 mg Q12H IV 03/08/25 21:00 04/07/25 20:59 03/10/25 11:34 40 MG Home Med (Home Medication) (Bictegrav/ Emtricit/ Teno... DAILY PO 03/09/25 09:00 04/08/25 08:59 Labetalol HCl (TRANdate 20MG SYG) 10 mg Q2H PRN IV SBP GREATER THAN 160 03/08/25 21:00 04/07/25 20:59 Lactulose (Constulose 20gm/ 30ml Udcup) 20 gm Q6H PRN PO CONSTIPATION 03/08/25 21:00 04/07/25 20:59 Magnesium Sulfate 50 ml @ 0 mls/hr PROTOCOL PRN IV hypomagnesemia 03/08/25 16:00 04/07/25 15:59 Metoprolol Succinate (TopROL XL) 25 mg DAILY PO 03/10/25 09:00 04/09/25 08:59 Nitroglycerin (Nitrostat) 0.4 mg AD PRN SL CHEST PAIN 03/08/25 21:00 04/07/25 20:59 Ondansetron HCl (zoFRAN 4MG INJ) 4 mg Q6H PRN IVP NAUSEA/VOMITING 03/08/25 21:00 04/07/25 20:59 Potassium Chloride 100 ml @ 100 mls/hr AD PRN IV POTASSIUM PROTOCOL 03/08/25 16:00 04/07/25 15:59 Potassium Chloride (K-Dur/Klor-Con 20meq) 20 meq AD PRN PO POTASSIUM PROTOCOL 03/08/25 16:00 04/07/25 15:59 03/10/25 11:34 20 MEQ Potassium Chloride (KCl 10% Elixir 20meq/15ml) 20 meq AD PRN PO POTASSIUM PROTOCOL 03/08/25 16:00 04/07/25 15:59 Sacubitril/ Valsartan (Entresto 24 Mg-26 Mg Tablet) 1 each BID PO 03/09/25 09:00 04/08/25 08:59 03/10/25 11:34 1 EACH Spironolactone (Aldactone 25mg) 50 mg BID PO 03/09/25 09:00 04/08/25 08:59 03/10/25 11:35 50 MG Temazepam (restORIL 15 MG CAP) 15 mg HS PRN PO INSOMNIA/SLEEP 03/08/25 21:00 04/07/25 20:59 Tramadol HCl (UltRAM) 50 mg Q6H PRN PO MODERATE PAIN (4-6) 03/08/25 21:00 03/13/25 20:59 DIAGNOSTICS / RADIOLOGY: CHEST CT(03/10/25) IMPRESSION: Stable right moderate and left mild pleural effusions with adjacent atelectasis. Subpleural consolidation in the bilateral lower lobes concerning for infectious etiology. Subsegmental atelectasis and fibrotic strands in the right middle lobe and bilateral lower lobes. Coronary artery disease. Status post tenotomy and coronary artery bypass. Multiple small gallbladder calculi, largest measuring 0.6 cm. HIDA Scan NM (03/10/25) IMPRESSION: Negative HIDA study. No evidence of cholecystitis. ASSESSMENT: Acute on chronic CHF with reduced ejection fraction <20% POA Chest pain most likely secondary to pneumonia and pleural effusion POA Right lower lobe CAP,most likely gram positive pneumonia POA Large right pleural effusion and small left pleural effusion.POA Consolidation in the lower lobes, suggestive of pneumonia.POA Multiple gallstones.POA Abdominal pain POA Hypertension POA Hyperlipidemia POA Hypothyroidism POA HIV positive status POA PLAN: Acute on chronic CHF exacerbation with Reduced EF<20% * BNP yesterday is 1480 * Repeat BNP for tomorrow. * Continue Lasix 40 mg b.i.d. IV * Strict intake output, daily weights. * Echo today showed LVEF of 20-25% * Start Entresto p.o b.i.d. * Start atorvastatin 20 mg PO daily * Resume his home dose of metoprolol and atorvastatin on discharge. * Follow cardiology recommendations. Right-sided pneumonia probably positive for gram positive bacteria * CT Chest showed subpleural consolidation in the bilateral lower lobes, suggestive of pneumonia. * Continue ceftriaxone1 g IV OD * Continue azithromycin 500 mg IV OD. * Consult infectious disease specialist * Follow pulmonology recommendations Abdominal pain POA - Resolved * CT abdomen and pelvis showed multiple gallstones * HIDA scan is negative indicating no cholelithiasis * Administer pain medications p.r.n. Hypertension * Blood pressure today is 86/62 mm Hg maybe due to continuous diuresis by furosemide 40 mg b.i.d. IV * Monitor blood pressure regularly * Continue home medications HIV positive status * Continue home medication Bictegravir/Emtricitabine/Tenofovir DVT prophylaxis: Lovenox 30 mg SQ daily GI prophylaxis: Famotidine 20 mg OD ATTESTATION BY PHYSICIAN I have seen and examined the patient. I reviewed the documentation, medical decision making, and treatment plan as noted by the resident provider above. I agree with the findings and plan of care. Cole Pinto MD, BHAVANI MD Mar 10, 2025 13:44
--- NOTE | 2025-03-10 15:46 | PN ---
[facility] PROGRESS NOTE Date Patient Seen: Mar 10, 2025 Time of Visit: 15:46 Supervising Physician: Tin Carlson MD Supervising Physician: Dr. Rodríguez Consult Physician: Hospitalist Outpatient Specialists: [ ] Inpatient Consults: [facility] pulmonology PROBLEM LIST: Acute hypoxic respiratory failure, POA, resolved small Bilateral pleural effusion, POA CHF in acute exacerbation, EF of 20 25% POA DM type 2, with hyperglycemia, POA Hypertension, POA CAD s/p CABG, AICD History of HIV infection gallstones without cholecystitis per HIDA scan 03/10/25 PLAN: Admit per primary Continue O2 therapy Continue diuretics Incentive spirometry DuoNeb q.6 as needed for shortness of breaths Complete bedrest for now Facilitate 2D echo Early mobilization Pulmonary toilet INTERVAL HISTORY:: No major overnight events. Blood pressures has been marginal. Blood pressure 100/65. Currently saturating 90% on room air. No accurate urine output with down 5 kg from admission. Influenza and COVID negative. Chemistries today sodium 135 chloride of 100 and BUN of 19 creatinine of 1.1 with GFR of 75 glucose of 223 mg/dL albumin is 3.0 total bili 1.1. Patient continues on azithromycin and Rocephin. Lasix switch to p.o. 40 mg b.i.d.. We will order chest x-ray and a procalcitonin for the morning. REVIEW OF SYSTEMS: 12 point ROS reviewed with patient. Pertinent positives mentioned above. Otherwise negative. PHYSICAL EXAM: GENERAL: alert, weak, awake oriented x 3 HEENT: EOMI, Sclera non icteric, moist mucosa NECK: Supple, no JVD, trachea midline LUNGS: Diminished bibasilar area on auscultation HEART: Regular rate and rhythm. Normal S1 and S2, without murmurs ABD: Abdomen soft, nontender. Bowel sounds present EXT: No clubbing cyanosis or edema NEURO: Alert and oriented to person, follows commands Vital Signs (last 8hr) Date Time Temp Pulse Resp B/P (MAP) Pulse Ox O2 Delivery O2 Flow Rate FiO2 03/10/25 12:22 97.7 81 16 100/65 98 Room Air 03/10/25 12:06 18 N/Cannula Oximizer Hi LPM 21 03/10/25 09:27 98.1 71 16 94/62 96 Room Air 03/10/25 08:00 96 Room Air* 0 21 LABS: Hematology Labs: Test 03/10/25 06:03 03/09/25 07:56 Range/Units White Blood Count 6.7 4.8-10.8 K/uL Red Blood Count 4.99 4.50-6.20 MIL/uL Hemoglobin 15.6 14.0-18.0 g/dL Hematocrit 45.1 42-54 % Mean Corpuscular Volume 90.4 79-99 fL Mean Corpuscular Hemoglobin 31.3 27.0-33.0 pg Mean Corpuscular Hemoglobin Concent 34.6 32.0-36.0 g/dL Red Cell Distribution Width 13.2 11.0-15.5 % Platelet Count 246 130-400 K/uL Mean Platelet Volume 9.5 7.5-10.5 fL Nucleated Red Blood Cells 0.0 0.0-0.19 % Immature Granulocyte % (Auto) 0.4 0-1 % Neutrophils (%) (Auto) 77.2 H 40.0-77.0 % Lymphocytes (%) (Auto) 13.8 L 21.0-51.0 % Monocytes (%) (Auto) 7.3 3.0-13.0 % Eosinophils (%) (Auto) 0.8 0.0-8.0 % Basophils (%) (Auto) 0.5 0.0-5.0 % Neutrophils # (Auto) 5.8 1.8-7.7 K/uL Lymphocytes # (Auto) 1.0 1.0-4.8 K/uL Monocytes # (Auto) 0.6 0.1-1.0 K/uL Eosinophils # (Auto) 0.06 0.00-0.70 K/uL Basophils # (Auto) 0.04 0.00-0.20 K/uL Absolute Immature Granulocyte (auto 0.03 0-1 K/uL Chemistry Labs: Test 03/10/25 06:03 03/09/25 07:56 03/08/25 21:43 03/08/25 16:13 Range/Units Sodium Level 135 L 136-145 mmol/L Potassium Level 3.6 3.5-5.1 mmol/L Chloride Level 100 L 101-111 mmol/L Carbon Dioxide Level 26 21-32 mmol/L Blood Urea Nitrogen 19 H 7-18 mg/dL Creatinine 1.1 0.5-1.3 mg/dL Glomerular Filtration Rate Calc 75 >90 mL/min Random Glucose 223 H 70-105 mg/dL Total Calcium 9.0 8.5-10.1 mg/dL Total Bilirubin 1.1 H 0.2-1.0 mg/dL Aspartate Amino Transf (AST/SGOT) 17 10-37 U/L Alanine Aminotransferase (ALT/SGPT) 14 # 12-78 U/L Alkaline Phosphatase 73 50-136 U/L Lactate Dehydrogenase 189 81-234 U/L Total Protein 8.0 6.0-8.3 g/dL Albumin 3.0 L 3.5-5.0 g/dL Direct Bilirubin 0.2 0.0-0.3 mg/dL Troponin I High Sensitivity 20 4-75 ng/L Hemoglobin A1c 8.3 H 4.0-6.0 % Estimated Average Glucose (eAG) 192 H 70-126 mg/dL C-Reactive Protein, Quantitative 11.40 H 0.5-3.0 mg/L Procalcitonin < 0.05 L 0.05-0.5 ng/mL Thyroid Stimulating Hormone (TSH) 2.23 # 0.36-3.74 uIU/mL Coagulation Labs: Test 03/10/25 06:03 03/09/25 15:29 Range/Units Prothrombin Time 12.2 H 9.6-11.6 SEC Prothromb Time International Ratio 1.17 H 0.85-1.15 Activated Partial Thromboplast Time 28.7 26.3-35.5 SEC DIAGNOSTICS / RADIOLOGY RESULTS: [place] [address] IMAGING REPORT Signed PATIENT: PACO ACEVES MR#: [id number] : 1960 SEX: M AGE: 64 LOCATION: 2AH ORDER [id number] STATUS: ADM IN REPORT#: [id number] SERVICE 0700 REASON: BILIARY COLIC ORDERING PHYSICIAN: LUIZ BEGUM MD PROCEDURE: HIDAWO - NM HIDA WO EF/CCK Examination Hepatobiliary study History BILIARY COLIC (Hx) / BILIARY COLIC Technique Tc-99m mebrofenin were administered intravenously followed by acquisition of planar images of the abdomen. Findings Following administration of radiotracer, there is prompt appearance of normal hepatic contours, followed by appearance of activity in unremarkable appearing bile ducts. There is prompt filling of the gallbladder. The study is negative for acute cholecystitis. IMPRESSION: Negative HIDA study. No evidence of cholecystitis. /[place] DICTATED BY: KAYLI HART Jr., MD DATE: 03/10/25 1253 ELECTRONICALLY SIGNED BY: KAYLI HART Jr., MD DATE: 03/10/25 1253 ] PLAN NEURO: Minimize central acting medications as possible. Maintain fall precautions, adequate lighting during the day PULMONARY: Supplemental 02 as needed. Maintain aspiration precautions at all times CARDIOVASCULAR: Follow hemodynamics. Vital signs per facility protocol GI & NUTRITION: Continue with nutritional support. Continue stool softeners and laxatives as needed. KIDNEYS & ELECTROLYTES: Strict monitoring of intake, output and overall fluid balance. Avoid nephrotoxic medications to the extent possible. Medications to be dosed according to renal function. Monitor electrolytes and replace as needed ENDOCRINE: Maintain blood glucose between 100-180 at all times. Hypoglycemia protocol in place INFECTIOUS DISEASE: Trend temperature, WBC and procalcitonin level Follow cultures, deescalate antibiotics as soon as possible. Panculture if new onset fever ONCOLOGY/HEMATOLOGY/COAGULATION: Monitor for s/s of bleeding Monitor hemoglobin, coagulation studies as needed SKIN: Pressure ulcer prevention per facility protocol Specialty mattress ORTHO/REHAB: Continue PT/OT Prophylaxis: Continue GI and DVT prophylaxis Code Status: Full Resuscitation Disposition: TBD ATTESTATION BY PHYSICIAN The patient has been seen and evaluated, the case has been discussed with the UTILITY MECHANIC SUPERVISOR, I agree with the clinical findings and plan of care. Tin Carlson MD, [facility] Mar 10, 2025 15:46
[2025-03-11] VITALS (8 sets, daily range): BP systolic 91–112; BP diastolic 56–73; PULSE 72–84; RESP 16–18; TEMP 97.4–97.6; O2SAT 96–97
[2025-03-11 04:16] LABS: IMMATURE GRANULOCYTE ABSOLUTE 0.02 K/uL (0-1); NUCLEATED RED BLOOD CELLS 0.0 % (0.0-0.19); PLATELET COUNT (AUTO) 232 K/uL (130-400); RED BLOOD CELL COUNT(AUTO) 4.78 MIL/uL (4.50-6.20); RED CELL DISTRIBUTION WIDTH 13.1 % (11.0-15.5); WHITE BLOOD COUNT (AUTO) 6.0 K/uL (4.8-10.8)
[2025-03-11 04:44] LABS: CREATININE 0.9 mg/dL (0.5-1.3); GLOMERULAR FILTR. RATE CALC 95.0 mL/min (>90); GLUCOSE,RANDOM 212.0 mg/dL (70-105); SODIUM SERUM 139.0 mmol/L (136-145); UREA NITROGEN, BLOOD 23.0 mg/dL (7-18)
[2025-03-11] MEDS: MAGNESIUM 2GM PREMIX 50ML 50 ML IV PRN (05:45)
--- NOTE | 2025-03-11 06:48 | PN ---
[facility] Cardiology Progress Note CARDIOLOGY PROGRESS NOTE MARCH 11, [address] fore[address]ics investigator Dr. Aggarwal in [place] Problems: 1. Acute on chronic systolic heart failure 2. Right pleural effusion 3. Ischemic cardiomyopathy with ejection fraction of 20-25% by echo this admission 4. CAD status post remote aortocoronary bypass graft surgery x3 in 2019 5. PCD implant 6. Diabetes mellitus type 2 7. Hypertension 8. Dyslipidemia 9. Cholelithiasis Blood pressure is running 90-100 systolic. Heart rate is in the 70-80. The patient is afebrile. White count 6.0 hemoglobin 15 platelet count [id number]. Potassium 4.0 BUN 23 creatinine 0.9. He has diuresed 1100 cc over the past 24 hours. Continues on aspirin atorvastatin famotidine furosemide 40 mg p.o. b.i.d. metoprolol succinate potassium protocol Entresto spironolactone. Home dose of metformin and dapagliflozin are on hold. CT scan had demonstrated gallstones. HIDA scan is negative. Currently the patient is resting comfortably flat denies any chest pain or shortness of breath. CHF clinically has resolved. From my standpoint he can be discharged home and follow up with Dr. Aggarwal in [place] his primary computer forensics investigator. It would suggest that he continue with the same regimen that he was taking when he came in the hospital including spironolactone Farxiga Entresto metoprolol succinate and furosemide. PAULA TEMPLE MD Mar 11, 2025 06:48
--- NOTE | 2025-03-11 08:41 | PN ---
INFECTIOUS DISEASE FOLLOWUP NOTE DATE OF SERVICE: 03/10/2025 SUBJECTIVE: The patient is seen and examination at bedside today. The patient denies cough, chest pain, palpitations or orthopnea. No nausea, vomiting, or diarrhea. Denies depression or suicidal ideation. No bleeding tendencies. No rashes or itchiness. PHYSICAL EXAMINATION: VITAL SIGNS: Temperature 98.0. EYES: No icterus. Pupils are equal and reactive. HENT: No oral thrush seen. Moist oral mucosa. NECK: Supple. No JVD or thyromegaly. LUNGS: Good air entry. No rales. No rhonchi. CARDIOVASCULAR: S1, S2 regular. No murmur heard. ABDOMEN: Full, soft, nontender. Bowel sounds are present. CENTRAL NERVOUS SYSTEM: Awake, alert, oriented x 3. No focal deficits. SKIN: No rashes, no itchiness. LYMPHATIC: No peripheral lymphadenopathy. BACK: No deformity, no pressure ulcer. ASSESSMENT: A 64-year-old male admitted with shortness of breath. CURRENT PROBLEMS: Include: * Pneumonia. * Acute on chronic diastolic heart failure. * HIV. * Hypertension. * Diabetes mellitus. PLAN: * Continue Lasix. * Continue azithromycin. * Continue ceftriaxone. * Continue antidiabetic. * Continue antihypertensive. * Continue nutritional support. * Monitor electrolyte. * The patient will be followed up closely. Thank you for allowing me to participate in the care of this patient. TID: [id number] RECEIPT: [id number]
[2025-03-11] MEDS: SPIRONOLACTONE 25 MG TAB PO SCH (09:18)
[2025-03-11] MEDS ORDERED: SACU1TAB PO (12:31)
[2025-03-11] MEDS ORDERED: SPIR25TA6 PO (12:31)
--- NOTE | 2025-03-11 12:53 | PN ---
INFECTIOUS DISEASE PROGRESS NOTE Date of Service: Mar 11, 2025 SUBJECTIVE: This 64 year old male patient has been seen today. Awake, alert and oriented. No fever or chills are being reported. In no distress. He is laying in bed. No dysuria or hematuria. Continues on Rocephin. Patient can be D/c with oral Levaquin for 7 days once patient is stable and primary is ready. No acute events reported by nurse. PHYSICAL EXAM EYES: Anicteric. Pupils equal and reactive. HENT: No oral thrush seen, moist Oral mucosa NECK: Supple, no JVD or thyromegaly. LUNGS: Good air entry. No rales, no rhonchi. CARDIOVASCULAR: S1, S2 regular. No murmur heard. ABDOMEN: Soft, non tender, bowel sounds present, no organomegaly CENTRAL NERVOUS SYSTEM: Awake, alert, oriented x 3. No focal deficits. SKIN: No rashes, no swelling. LYMPHATICS: No peripheral lymphadenopathy MUSCULOSKELETAL: No joint swelling, erythema or tenderness. EXTREMITIES: No cyanosis or clubbing BACK: No deformity, no pressure ulcer. GENITOURINARY: No dysuria or hematuria Vital Sign (Last 12 Hours) 03/11/25 03/11/25 03/11/25 03/11/25 03:45 07:12 08:45 11:30 Temp 97.5 97.3 Pulse 79 83 77 72 Resp 18 18 16 B/P (MAP) 96/56 101/60 94/60 Pulse Ox 99 99 O2 Delivery Room Air N/Cannula Oximizer Hi LPM Room Air Room Air FiO2 21 03/11/25 03/11/25 03/11/25 11:32 11:33 12:02 Temp 97.5 Pulse 80 84 74 Resp 16 B/P (MAP) 105/68 112/73 91/60 Pulse Ox 98 O2 Delivery Room Air Room Air Room Air Intake & Output (last 24hrs) 03/10/25 03/10/25 03/11/25 15:00 23:00 07:00 Intake Total 250.0 ml Output Total 1100 ml Balance 250.0 ml -1100 ml LABS: Laboratory: Test 03/11/25 04:02 03/10/25 06:03 03/10/25 00:02 03/09/25 15:29 Range/Units White Blood Count 6.0 4.8-10.8 K/uL Red Blood Count 4.78 4.50-6.20 MIL/uL Hemoglobin 15.1 14.0-18.0 g/dL Hematocrit 43.6 42-54 % Mean Corpuscular Volume 91.2 79-99 fL Mean Corpuscular Hemoglobin 31.6 27.0-33.0 pg Mean Corpuscular Hemoglobin Concent 34.6 32.0-36.0 g/dL Red Cell Distribution Width 13.1 11.0-15.5 % Platelet Count 232 130-400 K/uL Mean Platelet Volume 8.9 7.5-10.5 fL Immature Granulocyte % (Auto) 0.3 0-1 % Neutrophils (%) (Auto) 63.9 40.0-77.0 % Lymphocytes (%) (Auto) 23.5 21.0-51.0 % Monocytes (%) (Auto) 9.2 3.0-13.0 % Eosinophils (%) (Auto) 2.4 0.0-8.0 % Basophils (%) (Auto) 0.7 0.0-5.0 % Neutrophils # (Auto) 3.8 1.8-7.7 K/uL Lymphocytes # (Auto) 1.4 1.0-4.8 K/uL Monocytes # (Auto) 0.6 0.1-1.0 K/uL Eosinophils # (Auto) 0.14 0.00-0.70 K/uL Basophils # (Auto) 0.04 0.00-0.20 K/uL Absolute Immature Granulocyte (auto 0.02 0-1 K/uL Nucleated Red Blood Cells 0.0 0.0-0.19 % Sodium Level 139 136-145 mmol/L Potassium Level 4.0 3.5-5.1 mmol/L Chloride Level 102 101-111 mmol/L Carbon Dioxide Level 30 21-32 mmol/L Blood Urea Nitrogen 23 H 7-18 mg/dL Creatinine 0.9 0.5-1.3 mg/dL Glomerular Filtration Rate Calc 95 >90 mL/min Random Glucose 212 H 70-105 mg/dL Total Calcium 8.7 8.5-10.1 mg/dL Magnesium Level 1.50 L 1.80-2.40 mg/dL B-Type Natriuretic Peptide 699 H 0-100 pg/mL Procalcitonin < 0.05 L 0.05-0.5 ng/mL Prothrombin Time 12.2 H 9.6-11.6 SEC Prothromb Time International Ratio 1.17 H 0.85-1.15 Total Bilirubin 1.1 H 0.2-1.0 mg/dL Aspartate Amino Transf (AST/SGOT) 17 10-37 U/L Alanine Aminotransferase (ALT/SGPT) 14 # 12-78 U/L Alkaline Phosphatase 73 50-136 U/L Lactate Dehydrogenase 189 81-234 U/L Total Protein 8.0 6.0-8.3 g/dL Albumin 3.0 L 3.5-5.0 g/dL Influenza Type A Antigen Negative For Type A NEGATIVE Influenza Type B Antigen Negative For Type B NEGATIVE SARS-CoV-2 Antigen (Rapid) PRESUMPTIVE NEGATIVE NEGATIVE Activated Partial Thromboplast Time 28.7 26.3-35.5 SEC ASSESSMENT: * Pneumonia. * Acute on chronic diastolic heart failure. * HIV. * Hypertension. * Diabetes mellitus. PLAN: * Continue Lasix. * Continue azithromycin. * Continue ceftriaxone. * Continue antidiabetic. * Continue antihypertensive. * Continue nutritional support. * Monitor electrolyte. * Patient could be d/c on Levaquin PO for 7 days once stable and primary ready to dc. This case has been discussed with my supervising physician Dr. Cobian. The plan has been discussed and agreed upon. ESTRELLITA COX [facility] Mar 11, 2025 12:53
--- NOTE | 2025-03-11 14:26 | NUR ---
DISCHARGE HOME IVS,TELEPAK AND ID BANDS REMOVED. DISCHARGE INSTRUCTIONS GIVEN AND EXPLAINED TO PATIENT AND SPOUSE. BELONGINGS PACKED AND TAKEN BY PATIENT. PATIENT WHEELED DOWN TO PRIVATE CAR.
--- NOTE | 2025-03-11 16:41 | HMCIMG ---
CHEST 1VW REASON: pleural effusions COMPARISON: Prior chest radiograph from 03/08/2025 is available. FINDINGS: Single view of the chest was obtained. Lungs are clear. There is moderate right-sided pleural effusion which is decreased as compared to prior study. The cardiac silhouette is within the limits of normal with median sternotomy. There is a left-sided AICD with lead in right ventricle.. There is no pulmonary vascular congestion. Mediastinum and bony thorax appear unremarkable. IMPRESSION: 1. Moderate right-sided pleural effusion which is slightly decreased as compared to prior radiograph 2. Status post median sternotomy with cardiac revascularization procedure 3. No evidence of airspace consolidation or pulmonary venous congestion.
[2025-03-11] MEDS ORDERED: LEVO-70 PO (17:10)
--- NOTE | 2025-03-11 18:01 | DS ---
Discharge Summary Hospital Course Summary: Mr. Paco Aceves is a 64-year-old male with a past medical history of HIV, diabetes mellitus type 2, hyperlipidemia, hypothyroidism, history of hypertension, history of CAD status post CABG, history of heart failure with EF of 20-25%, history of ICD placement presented to [facility] on 03/09/25 secondary to chest pain, abdominal pain, shortness of breath. Initial labs showed low troponin I of 14 and 15, BNP of 1480,and echo shows LVEF of 20-25%. CT ABDOMEN AND PELVIS shows large right pleural effusion and small left pleural effusion, consolidation in the lower lobes suggestive of pneumonia, multiple gallstones, atherosclerotic aorta iliac bifurcation. The patient was given Lasix 40 mg q12 , labetalol 20 mg, tramadol 50mg, nitroglycerin 0.4mg , ondansetron 4mg, acetaminophen 650mg which improved his symptoms. Upon hospitalization, CT chest showed stable right moderate and left mild pleural effusion with adjacent atelectasis, subpleural consolidation in the bilateral lower lobes concerning for infectious etiology. Infectious disease specialist Dr. Cobian consulted him and was started on Rocephin2 g IV and azithromycin [address] Temple monitored him and put him on furosemide 40 mg b.i.d, [id number] mg, atorvastatin 40 mg, metoprolol succinate, Entresto, spironolactone 50 mg, potassium protocol. His BNP improved to 699 today. His pleural effusion improved and the patient is clinically and hemodynamically stable and gave a verbal agreement for discharge. Upon discharge patient is informed that we changed the spironolactone dose to 25 mg from 50 mg due to his lower range of blood pressure and advised him to follow up with his community nurse Dr. Pettit in [place] within 1 week and adjust the dose. Patient is educated about the importance of medication adherence to prevent repeat hospitalizations. And we discharged him on levofloxacin 500 mg1 tablet daily for7 days, Entresto and spironolactone 25mg. Construction Plumber(s): Dr Paula Temple MD Cardiology [place] [address] [place] [address] [facility] Cardiology Consultation Note CARDIOLOGY CONSULTATION MARCH 09, 2025 Chief complaint: This is a 64-year-old male known coronary artery disease who presents with shortness of breath on exertion orthopnea an atypical right shoulder pain. History of present illness: The patient has a history of a remote aortocoronary bypass graft surgery. He is followed by Dr. Pettit in [place] but is down here for several months visiting family. He has a known ischemic cardiomyopathy with ejection fraction of 20-25% and previous defibrillator implant. Over the past 24-48 hours he is becoming increasingly short of breath. Brain natriuretic peptide level was 1480. He is admitted with a diagnosis of acute on chronic systolic heart failure. Troponins x3 has been normal. Past medical history: He has a history of diabetes mellitus type 2 dyslipidemia hypothyroidism hypertension and HIV positive status. Surgical history: Aortocoronary bypass graft surgery x3 [place] [address] Dickens and AICD placement. Social history: He is a nonsmoker nondrinker Allergies: Ibuprofen Medications: Currently he is receiving aspirin atorvastatin famotidine IV furosemide 40 mg IV q.12 hours potassium protocol Entresto spironolactone and tramadol PRN. At home he was also taking metformin atorvastatin and metoprolol succinate. Physical exam: Blood pressure is running 120-130 systolic heart rate in the 70s the patient is afebrile. There was 2 cm elevation of the jugular venous pressure at 45. S1 normal S2 physiologically split. 2/6 holosystolic apical murmur bibasilar rales 1/3. Abdomen is soft. Extremities show no edema. Homans sign is negative there was no calf tenderness. He is alert and oriented. Laboratory studies: Potassium 4.1 BUN 17 creatinine 0.8 estimated GFR of 98. White count 7.5 hemoglobin 14.6 platelet count [id number]. Chest x-ray: Cardiomegaly is present. A single-chamber defibrillator is in place. Passive congestive changes are noted. There was blunting of the right costophrenic angle. 2D echocardiogram. Ejection fraction of 20-25%. Global strain of-6%. Trace mitral regurgitation. No pericardial effusion. Assessment: 1. Acute on chronic systolic heart failure 2. Right pleural effusion 3. Ischemic cardiomyopathy with ejection fraction of 20-25% 4. CAD status post remote aortocoronary bypass graft surgery x3 in 2019 5. PCD implant 6. Diabetes mellitus type 2 7. Hypertension 8. Dyslipidemia Plan: This point I would agree with IV furosemide fluid restriction daily weights and monitoring electrolytes. He states he has a court appearance in [place] on Saturday he would like to leave the hospital in 24-48 hours if possible. I have explained that we will need to have him completely diuresed before then. We will resume his home dose of metoprolol and atorvastatin. PAULA TEMPLE MD Mar 09, 2025 14:31 Electronically Signed by: PAULA TEMPLE MD03/09/25 1431 Electronically Co-Signed by: Dr Toni Field MD Pulmonogy Dr Thiago Cobian MD Infectious Disease Procedure(s): [facility] [address] [place] [address] IMAGING REPORT Addendum PATIENT: PACO ACEVES MR#: [id number] : 1960 SEX: M AGE: 64 LOCATION: ED ORDER 120 STATUS: REG REPORT#: [id number] SERVICE 120 REASON: sob ORDERING PHYSICIAN: NAVI HANSEN NP PROCEDURE: CXR1VW - CHEST 1VW ADDENDUM REPORT ADDENDUM: Results were shared by telephone at 15:24 pm on 03-08-25 and acknowledged by BIOMEDICAL EQUIPMENT SPECIALIST, Navi Lilly. /[place] EXAM: XR Chest, 1 View. CLINICAL HISTORY: 64-year-old male with shortness of breath. COMPARISON: XR Chest 01/04/2025. FINDINGS: LUNGS: Mild pulmonary vascular congestion, question of early congestive heart failure changes. PLEURAL SPACES: Moderate right effusion. Small left effusion. HEART: The heart size is enlarged. Cardiomegaly. BONES: Sternotomy wires. Left-sided pacemaker. No acute osseous abnormality. IMPRESSION: 1. Mild pulmonary vascular congestion, question of early congestive heart failure changes. 2. Moderate right effusion and small left effusion. 3. Cardiomegaly. /[place] DICTATED BY: KIRA MONET MD DATE: 03/08/251529 ELECTRONICALLY SIGNED BY: DATE: EXAM: XR Chest, 1 View. CLINICAL HISTORY: 64-year-old male with shortness of breath. COMPARISON: XR Chest 01/04/2025. FINDINGS: LUNGS: Mild pulmonary vascular congestion, question of early congestive heart failure changes. PLEURAL SPACES: Moderate right effusion. Small left effusion. HEART: The heart size is enlarged. Cardiomegaly. BONES: Sternotomy wires. Left-sided pacemaker. No acute osseous abnormality. IMPRESSION: 1. Mild pulmonary vascular congestion, question of early congestive heart failure changes. 2. Moderate right effusion and small left effusion. 3. Cardiomegaly. /[place] DICTATED BY: KIRA MONET MD DATE: 03/08/251512 ELECTRONICALLY SIGNED BY: KIRA MNOET MD DATE: 03/08/251512 [place] [address] IMAGING REPORT Signed PATIENT: PACO ACEVES MR#: [id number] : 1960 SEX: M AGE: 64 LOCATION: [facility]IP ORDER 1601 STATUS: ADM IN REPORT#: [id number] SERVICE 1555 REASON: abdominal pain ORDERING PHYSICIAN: LUIZ BEGUM MD PROCEDURE: ABD PEL WO - CT ABDOMEN/PELVIS W/O CONTRAST EXAM: CT Abdomen and Pelvis without Intravenous Contrast CLINICAL HISTORY: 64-year-old male with abdominal pain. TECHNIQUE: Axial computed tomography images of the abdomen and pelvis without intravenous contrast. Dose reduction technique was used including one or more of the following: automated exposure control, adjustment of mA and kV according to patient size, and/or iterative reconstruction. CONTRAST: None; COMPARISON: None provided. FINDINGS: LUNG BASES: Large right pleural effusion and small left pleural effusion. Consolidation in the lower lobes suggesting pneumonia. LIVER: Unremarkable. GALLBLADDER AND BILE DUCTS: Multiple gallstones seen. No ductal dilation. PANCREAS: Unremarkable. SPLEEN: Unremarkable. ADRENAL GLANDS: Unremarkable. KIDNEYS, URETERS, AND BLADDER: Unremarkable. No hydronephrosis or nephrolithiasis. No ureteral or bladder calculi. STOMACH AND BOWEL: No obstruction. No wall thickening. No CT evidence of colitis or acute diverticulitis. APPENDIX: No CT evidence for appendicitis. PERITONEUM: No free fluid. No free air. LYMPH NODES: No lymphadenopathy. REPRODUCTIVE: Unremarkable as visualized. VASCULATURE: Atherosclerotic changes of the aorta at the iliac bifurcation. No aortic aneurysm. ABDOMINAL WALL AND SOFT TISSUES: Unremarkable. BONES: No fracture or suspicious osseous abnormality. IMPRESSION: 1. Large right pleural effusion and small left pleural effusion. 2. Consolidation in the lower lobes, suggestive of pneumonia. 3. Multiple gallstones. 4. Atherosclerotic aorta iliac bifurcation. /[place] DICTATED BY: KIRA MONET MD DATE: 03/08/251807 ELECTRONICALLY SIGNED BY: KIRA MONET MD DATE: 03/08/251807 [place] [address] IMAGING REPORT Signed PATIENT: PACO ACEVES MR#: [id number] : 1960 SEX: M AGE: 64 LOCATION: [facility] ORDER 1601 STATUS: ADM IN [facility] REPORT#: [id number] SERVICE 0816 REASON: acute chf exacerbation ORDERING PHYSICIAN: LUIZ BEGUM MD PROCEDURE: ECHO FU LD - ECHO 2-D F/U-LTD APPROVED REPORT EXAM: Limited two-dimensional and M-mode echocardiogram with Doppler and color Doppler. INDICATION ICD: Acute congestive heart failure exacerbation 2D Dimensions RVDd 5.4 cm LVEF(%) 19.8 (>50%) LA ESV INDEX (BP) 33.65 mL/m2 IVSd 0.7 (0.7-1.1cm) FS(%) 9 % LVDd 5.7 (3.8-5.6cm) LA (2D) 4.1 (1.6-4.0cm) PWd 0.7 (0.7-1.1cm) Ao Root(2D) 3.4 (2.0-3.7cm) IVSs 0.8 cm LVDs 5.2 (2.5-4.0cm) PWs 0.9 cm Deformation Strain Apical 4 -5.7 % Apical 2 -6.5 % Apical 3 -5.1 % Global Strain -5.8 % M-Mode Dimensions EPSS 2.0 cm LA (MM) 4.1 (1.6-4.0cm) Ao Root(MM) 3.1 (2.0-3.7cm) Aortic Valve AoV Vmax 0.7 m/s Ao Peak GR 1.8 mmHg LVOT Vmax 0.4 m/s AoV VTI 0.1 m Ao Mean GR 1.1 mmHg LVOT VTI 0.07 m Mitral Valve MV E Vmax 109.1 cm/s DECEL Time 116 ms MV A Vmax 20.6 cm/s P 1/2 T 33 ms E/A ratio 5.3 MVA (PHT) 6.7 cm2 TDI E/E' Medial 36.6 E/E' Lateral 25.9 Medial E' Peak V 2.98 cm/s Lateral E' Peak V 4.22 cm/s Pulmonary Valve PV Vmax 0.6 m/s PV VTI 0.12 m PV Mean GR 0.8 mmHg PV Peak GR 1.5 mmHg PI End Carolina. Luis 178.8 cm/s Tricuspid Valve TR Vmax 3.4 m/s RVSP 41.1 mmHg TR Peak GR 49.7 mmHg Left Ventricle The left ventricle is mildly dilated. Severely reduced GLS -6.0% There is normal left ventricular wall thickness. LVEF is 20-25%. Right Ventricle The right ventricle is normal size. The right ventricular systolic function is normal. Device lead is present in the right ventricle. Atria The left atrium size is normal. The right atrium is borderline dilated. Aortic Valve The aortic valve is trileaflet normal in structure. No aortic regurgitation is present. There is no aortic valvular stenosis. Mitral Valve The mitral valve is normal in structure. There is trace of mitral valve regurgitation noted. There is no mitral valve stenosis. Tricuspid Valve The tricuspid valve is normal in structure. There is no tricuspid valve regurgitation noted. Pulmonic Valve The pulmonary valve appears normal. There is mild pulmonic valvular regurgitation. Great Vessels The aortic root is normal in size. The IVC is normal in size and collapses <50% with inspiration. Pericardium There is no pericardial effusion. Other Information Quality : Adequate Conclusion The left ventricle is mildly dilated. LVEF is 20-25%. Severely reduced GLS -6.0% There is trace of mitral valve regurgitation noted. Device lead is present in the right ventricle. There is trace of mitral valve regurgitation noted. DICTATED BY: PAULA TEMPLE MD DATE: 03/09/25 1026 ELECTRONICALLY SIGNED BY: PAULA TEMPLE MD DATE: 03/09/25 1400 [facility] [address] [place] [address] IMAGING REPORT Signed PATIENT: PACO ACEVES MR#: [id number] : 1960 SEX: M AGE: 64 LOCATION: 2AH ORDER 2300 STATUS: ADM IN REPORT#: [id number] SERVICE 0600 REASON: Consolidation finding on CT abdomen ORDERING PHYSICIAN: RHODA MORILLO MD PROCEDURE: CHEST WO - CT CHEST W/O CONTRAST EXAMINATION: CT Chest Without IV contrast. CLINICAL HISTORY: Patient with consolidation noted on recent CT abdomen. COMPARISON: Compared to prior CT chest dated March 10, 2023. TECHNIQUE: Axial computed tomography images of the chest without intravenous contrast. Sagittal and coronal reformatted images submitted for interpretation. FINDINGS: LUNGS: Subpleural consolidation in the bilateral lower lobes concerning for infectious etiology. Subsegmental atelectasis with fibrotic strands in the right middle lobe and bilateral lower lobes. No pulmonary mass. PLEURAL SPACES: Right moderate pleural effusion and left mild pleural effusion with adjacent basal subsegmental atelectasis. No pneumothorax. CARDIOVASCULAR: Cardiac pacemaker in the left anterior chest wall with the lead tip positioned in the right ventricle. Status post sternotomy and coronary artery bypass. Coronary artery calcifications. Atheromatous calcifications in the aorta without evidence of aneurysm. No cardiomegaly. No significant pericardial effusion. LYMPH NODES: No lymphadenopathy. UPPER ABDOMEN: Multiple small hyperdense gallbladder calculi, largest measuring 0.6 cm. The remaining upper abdominal solid organs are unremarkable. BONES: Multilevel moderate degenerative changes in the spine. No acute osseous abnormality. IMPRESSION: Stable right moderate and left mild pleural effusions with adjacent atelectasis. Subpleural consolidation in the bilateral lower lobes concerning for infectious etiology. Subsegmental atelectasis and fibrotic strands in the right middle lobe and bilateral lower lobes. Coronary artery disease. Status post tenotomy and coronary artery bypass. Multiple small gallbladder calculi, largest measuring 0.6 cm. /[place] DICTATED BY: LUCIO HENSON MD DATE: 03/10/25833 ELECTRONICALLY SIGNED BY: LUCIO HENSON MD DATE: 03/10/2529 [place] [address] [place] [address] IMAGING REPORT Signed PATIENT: PACO ACEVES MR#: [id number] : 1960 SEX: M AGE: 64 LOCATION: [facility] ORDER 1339 STATUS: ADM IN REPORT#: [id number] SERVICE 0700 REASON: BILIARY COLIC ORDERING PHYSICIAN: LUIZ BEGUM MD PROCEDURE: HIDAWO - NM HIDA WO EF/CCK Examination Hepatobiliary study History BILIARY COLIC (Hx) / BILIARY COLIC Technique Tc-99m mebrofenin were administered intravenously followed by acquisition of planar images of the abdomen. Findings Following administration of radiotracer, there is prompt appearance of normal hepatic contours, followed by appearance of activity in unremarkable appearing bile ducts. There is prompt filling of the gallbladder. The study is negative for acute cholecystitis. IMPRESSION: Negative HIDA study. No evidence of cholecystitis. /[place] DICTATED BY: KAYLI HART Jr., MD DATE: 03/10/251252 ELECTRONICALLY SIGNED BY: KAYLI HART Jr., MD DATE: 03/10/251252 [place] [address] [place] [address] IMAGING REPORT Signed PATIENT: PACO ACEVES MR#: [id number] : 1960 SEX: M AGE: 64 LOCATION: 2AH ORDER 2300 STATUS: DIS IN REPORT#: [id number] SERVICE 0600 REASON: pleural effusions ORDERING PHYSICIAN: WANDER HALL PROCEDURE: CXR1VW - CHEST 1VW CHEST 1VW REASON: pleural effusions COMPARISON: Prior chest radiograph from 03/08/2025 is available. FINDINGS: Single view of the chest was obtained. Lungs are clear. There is moderate right-sided pleural effusion which is decreased as compared to prior study. The cardiac silhouette is within the limits of normal with median sternotomy. There is a left-sided AICD with lead in right ventricle.. There is no pulmonary vascular congestion. Mediastinum and bony thorax appear unremarkable. IMPRESSION: 1. Moderate right-sided pleural effusion which is slightly decreased as compared to prior radiograph 2. Status post median sternotomy with cardiac revascularization procedure 3. No evidence of airspace consolidation or pulmonary venous congestion. DICTATED BY: JAMIL ACEVEDO MD DATE: 03/11/25 1637 ELECTRONICALLY SIGNED BY: JAMIL ACEVEDO MD DATE: 03/11/25 1641 Assessment/Plan: DISCHARGE DIAGNOSIS: Acute on chronic CHF with reduced ejection fraction <20% POA Chest pain most likely secondary to pneumonia and pleural effusion POA Right lower lobe CAP,most likely gram positive pneumonia POA Large right pleural effusion and small left pleural effusion.POA Consolidation in the lower lobes, suggestive of pneumonia.POA Multiple gallstones.POA Abdominal pain POA Hypertension POA Hyperlipidemia POA Hypothyroidism POA HIV positive status POA ASSESSMENT: ADMISSION DATE: 03/08/25 DISCHARGE DATE: 03/11/25 DISPOSITION: HOME CONDITION AT DISCHARGE: STABLE ACTIVITY: TOLERATED HOME MEDICATIONS: CONTINUED DISCHARGE MEDICATIONS: SPIRONOLACTONE 25 MG LEVOFLOXACIN 500 MG ENTRESTO CONTINUE HOME MEDICATIONS FOLLOW-UP APPOINTMENTS: PRIMARY CARE PROVIDER: WITHIN 3 DAYS OF DISCHARGE ROUTE SALES SPECIALIST: WITHIN 1-2 WEEKS OF DIS CHARGE Discharge Instructions: 1. Follow up with PCP in 3 days 2. Patient already has appointment scheduled with DR. Pettit 3. Follow up with cardiology in 1-2 weeks [phone]. JOSE Peoples BIOMEDICAL EQUIPMENT SPECIALIST 03/22/25 @ 12:45 4. Go to emergency or call 911 immediately if you develop severe shortness of breath at rest, chest pain/pressure, fainting, sudden confusion or new weakness on 1 side. Home Medications: Active Scripts Levofloxacin (Levofloxacin) 500 Mg Tablet, 1 TAB PO DAILY for 7 Days, #7 TAB 0 Refills Prov:MIK LOVELACE MD 03/11/25 Sacubitril/Valsartan (Entresto 24 mg-26 mg Tablet) 24 Mg-26 Mg Tablet, 1 TAB PO BID for 30 Days, #60 TAB 0 Refills Prov:MIK LOVELACE MD 03/11/25 Spironolactone (Spironolactone) 25 Mg Tablet, 1 TAB PO DAILY for 30 Days, #30 TAB 0 Refills Prov:MIK LOVELACE MD 03/11/25 Metoprolol Succinate (Toprol Xl) 25 Mg Tab.er.24h, 12.5 MG PO DAILY, #60 TAB Prov:AYLA PENA APRN 12/15/23 Reported Medications Pnv No.95/Ferrous Fum/Folic AC ( Multivitamin Tablet) 28 Mg Iron-800 Mcg Tablet, 1 TAB PO DAILY for 30 Days, #30 TAB 0 Refills 03/08/25 Cholecalciferol (Vitamin D3) 1,250 Mcg (36680 Unit) Cap, 1 CAP PO QWEEK for 28 Days, #4 CAP 0 Refills 03/08/25 Atorvastatin Calcium (Atorvastatin Calcium) 20 Mg Tablet, 1 TAB PO HS for 30 Days, #30 TAB 0 Refills 01/04/25 Metformin HCl (Metformin HCl) 1,000 Mg Tablet, 1000 MG PO BID, TAB 01/04/25 Dapagliflozin Propanediol (Farxiga) 10 Mg Tablet, 10 MG PO DAILY, TAB 12/09/23 Aspirin (ASPIRIN 81 MG ECTAB) 81 Mg Ectab, 81 MG PO DAILY, TAB.EC 10/01/23 Bictegrav/Emtricit/Tenofov Ala (Biktarvy 50-200-25 mg Tablet) 50 Mg-200 Mg-25 Mg Tablet, 1 EACH PO DAILY, TAB 10/01/23 Furosemide (Furosemide) 40 Mg Tablet, 40 MG PO BID, TAB 10/01/23 Discontinued Reported Medications Sacubitril/Valsartan (Entresto 24 mg-26 mg Tablet) 24 Mg-26 Mg Tablet, 2 TAB PO BID for 30 Days, #60 TAB 0 Refills 03/08/25 Spironolactone (Spironolactone) 50 Mg Tablet, 50 MG PO BID, TAB 03/08/25 Sacubitril/Valsartan (Entresto 24 mg-26 mg Tablet) 24 Mg-26 Mg Tablet, 1 EACH PO BID, TAB 10/03/23 Discontinued Scripts Spironolactone (Spironolactone) 25 Mg Tablet, 12.5 MG PO DAILY, #60 TAB Prov:AYLA PENA APRN 12/15/23 Time spent arranging discharge: 1-30 minutes ATTESTATION BY PHYSICIAN I have seen and examined the patient. I reviewed the documentation, medical decision making, and treatment plan as noted by the resident provider above. I agree with the findings and plan of care. Cole Pinto MD, BHAVANI MD Mar 11, 2025 18:01
== END 2025-03-11 14:16 | disposition home or self-care (01) | DRG 193 ==
LOC: EDH 11:52 → EDHIP 11:53 → 2AH 03-10 00:30
PROVIDERS: ADMIT Internal Medicine; ATTEND Internal Medicine
DX: J15.9 Unspecified bacterial pneumonia (principal); I50.43 Acute on chronic combined systolic (congestive) and diastolic (congestive) heart failure; J96.01 Acute respiratory failure with hypoxia; J98.11 Atelectasis; E03.9 Hypothyroidism, unspecified; E11.65 Type 2 diabetes mellitus with hyperglycemia; I11.0 Hypertensive heart disease with heart failure; I25.10 Atherosclerotic heart disease of native coronary artery without angina pectoris; I25.5 Ischemic cardiomyopathy; I70.0 Atherosclerosis of aorta; I37.1 Nonrheumatic pulmonary valve insufficiency; E78.00 Pure hypercholesterolemia, unspecified; K80.20 Calculus of gallbladder without cholecystitis without obstruction; Z21 Asymptomatic human immunodeficiency virus [HIV] infection status; Z86.74 Personal history of sudden cardiac arrest; Z95.1 Presence of aortocoronary bypass graft; Z88.6 Allergy status to analgesic agent; Z95.810 Presence of automatic (implantable) cardiac defibrillator; Z82.49 Family history of ischemic heart disease and other diseases of the circulatory system; Z83.3 Family history of diabetes mellitus
CPT/HCPCS: 36415; 71045; 71250; 74176; 78226; 80048; 80053; 80076; 83036; 83615; 83735; 83880; 84145; 84443; 84484; 85025; 85027; 85610; 85730; 86140; 87426; 87804; 93005; 93308; 93356; 94664; 96374; 96375; 99285; A9537; G0378; J0456; J0696; J1650; J1938; J3475; J3490